=== PATIENT | male | born 1955 | race Caucasian/White ===

== ENCOUNTER → 2017-05-08 | Outpatient (CLI) | payer OTHER ==
[~2017-05-08] MED LIST: AMLO-114 PO; ASPI81TA28 PO; CHOL100010 PO; CITA20TA9 PO; LEVE1TAB57 PO; OXYC-57 PO; PRVC10 PO; RANI300T PO; TRIA0.1C20 TD
--- NOTE | 2017-05-08 15:53 | DIAGNOSTIC IMAGING REPORT ---
CAROTID DOPPLER NECK ART CLINICAL HISTORY: 62 years-old Male presenting with CAROTID ARTERY STENOSIS. TECHNIQUE: Real-time grayscale and color and spectral Doppler ultrasound imaging of the bilateral carotid arteries was performed. NASCET criteria was used in evaluating this study. COMPARISON: 05/05/2016. FINDINGS: Right: Common carotid: Atherosclerosis. Peak systolic velocity 92 cm/s. Internal carotid artery: Atherosclerosis of the proximal right ICA. Peak systolic velocity 96 cm/s. External carotid artery: Atherosclerosis. Peak systolic velocity 88 cm/s. Systolic ratio: 1.0. Left: Common carotid: Atherosclerosis. Peak systolic velocity 75 cm/s. Internal carotid artery: Atherosclerosis of the proximal left ICA. Peak systolic velocity 79 cm/s. External carotid artery: Atherosclerosis. Peak systolic velocity 167 cm/s. Systolic ratio: 1.1. Bilateral antegrade flow within the vertebral arteries. Reference ranges: Stenosis measurements are compared to reference velocity parameters. Normal ICA peak systolic velocity less than 125 cm/s. Normal ICA peak systolic velocity to common carotid artery velocity ratio is less than 2: less than 2 equates to less than 50% stenosis, 2-4 equates to 50-69% stenosis, greater than 4 equates to greater than or equal to 70% stenosis. Normal ICA end-diastolic velocity less than 40. Blood pressure Brachial: Right: 110/82 mmHg, Left: 125/75 mmHg. IMPRESSION: Atherosclerosis without hemodynamically significant stenosis seen within the carotid arteries. Electronically signed by: Waylon Marmolejo M.D. 05/08/2017 3:52 PM Dictated Date/Time: 05/08/2017 3:50 PM
== END | disposition home or self-care (01) ==
LOC: C.ULTRBC 15:11
PROVIDERS: ATTEND Surgery
DX: I65.29 Occlusion and stenosis of unspecified carotid artery (principal)

== ENCOUNTER 2018-12-26 15:40 | Inpatient (IN) ==
--- OUTSIDE RECORDS SUMMARY | 2018-12-26 15:43 | External Medical Summary | Continuity of Care Document ---
:1955 Author Name Jeniffer Dubon Address Unavailable Unavailable , Care Team Providers Name Role Phone Unavailable Unavailable Unavailable CRUZ Unavailable Unavailable Unavailable Unavailable Unavailable Problems Incisional hernia (553.21) (K43.2) Hypercholesterolemia (272.0) (E78.00) Seizures (780.39) (R56.9) Arthritis (716.90) (M19.90) Alcohol abuse (305.00) (F10.10) Diverticulitis of colon (562.11) (K57.32) Epilepsy (345.90) Hypertension (401.9) (I10) Carotid artery stenosis (433.10) (I65.29) Current every day smoker (305.1) (F17.200) Hyperlipidemia (272.4) (E78.5) Dyslipidemia (272.4) (E78.5) Allergies and Adverse Reactions No Known Allergies (Allergy) Medications raNITIdine HCl - 300 MG Oral Tablet; TAKE 1 TABLET DAILY AT BEDTIME. , M.D. Refills: 0 Pravastatin Sodium 10 MG Oral Tablet; TAKE 1 TABLET DAILY. , M.D. Refills: 0 Aspirin 81 MG TABS; TAKE 1 TABLET DAILY. , M.D. Refills: 0 amLODIPine Besylate 10 MG Oral Tablet; TAKE 1 TABLET DAILY. , M.D. Refills: 0 Citalopram Hydrobromide 20 MG Oral Tablet; TAKE 1 TABLET PATSY LY. , M.D. Refills: 0 Keppra 1000 MG Oral Tablet; TAKE 1 TABLET TWICE DAILY. , M.D . Start: 28-Mar-2015 Refills: 0 Procedures History of Partial Colectomy Status: Com pleted History of Laparoscopic Cholecystectomy With Status: Completed Cholangiography History of Knee Surgery Status: Complete d History of Rotator Cuff Repair Status: C ompleted History of Complete Colonoscopy Status: Completed 05-Apr-2015 0:00 History of Incisional Hernia Repair Stat us: Completed Immunizations Immunizations not documented Family History Father Family history of Status: Active Family history of hypertension (V17.49) (Z82.49) Status: Act lois FHx: cancer (V16.9) (Z80.9) Status: Active Mother Family history of diabetes mellitus (V18.0) (Z83.3) Status: Active Family history of cardiac disorder (V17.49) (Z82.49) Status: Active Family history of hypertension (V17.49) (Z82.49) Status: Act lois Social History - Smoking Status Current every day smoker Smoker. current status unknown Plan of Treatment Planned Observations Planned Goals not documented Results No Known Results Results not documented
[2018-12-26] MEDS ORDERED: SODIUM CHLORIDE 0.9% 1000ML 1,000 ML IV SCH (16:30)
[2018-12-26 16:35] LABS: Hematocrit (blood only) 27.7 % (42-52); Hemoglobin 10.3 g/dL (14.0-18.0); Mean Corpuscular Hgb Conc 37.2 g/dL (32-36); Mean Corpuscular Volume 94.9 fL (80-100); Mean Platelet Volume 9.9 fL (7.4-10.4); Platelet Count 261 K/uL (130-400); RDW Coefficient of Variation 13.5 % (11.5-14.5); RDW Standard Deviation 45.9 fL (36.4-46.3); Red Blood Count 2.92 M/uL (4.7-6.1); White Blood Count 8.23 K/uL (4.8-10.8)
--- NOTE | 2018-12-26 16:51 | CT Scan Report ---
HEAD CT NONCONTRAST CT DOSE: HISTORY: fall, seizure TECHNIQUE: Multiaxial CT images of the head were performed without the use of intravenous contrast. A utomated exposure control was utilized for this study. A dose lowering technique was utilized adheri ng to the principles of ALARA. Comparison: Head CT 07/05/2012. Findings: The paranasal sinuses and mastoid air cells are clear. The calvarium and skull base are int act. There is no mass, hematoma, midline shift, acute infarct. White matter hypodensity is nonspecifi c but suggestive of microvascular ischemic change. The ventricles and sulci demonstrate mild age-rela rosalba involutional changes. Impression: No acute intracranial abnormality. Atrophy and microvascular ischemic changes. Electronically signed by: Bradford Richmond M.D. 12/26/2018 4:49 PM
--- NOTE | 2018-12-26 16:56 | CT Scan Report ---
CERVICAL SPINE CT CT DOSE: 1015.12 mGy.cm HISTORY: Neck pain. fall, seizure TECHNIQUE: Multiaxial CT images of the cervical spine were performed and reformatted in the sagittal and coronal plane without the use of contrast. A dose lowering technique was utilized adhering to e principles of ALARA. COMPARISON: Cervical spine CT 10/25/2008. FINDINGS: No fractures. No subluxation. Prevertebral soft tissues and the C1-C2 interval are intact. No pneumothorax. Moderate right and severe left carotid bifurcation calcification. C1-C2 rotational i s likely due to the patient's head tilt. Large anterior osteophytes with throughout the cervical spin e. The lower anterior osteophytes are fused. Mild to moderate degenerative disc disease throughout th e cervical spine. IMPRESSION: No fractures within the cervical spine. Electronically signed by: Bradford Richmond M.D. 12/26/2018 4:55 PM
--- NOTE | 2018-12-26 17:02 | XRay Report ---
XR chest 1V portable HISTORY: fall, seizure COMPARISON: Chest 05/04/2015. FINDINGS: The lungs are clear. The heart is normal in size. No pleural effusions. No pneumothorax. Ch olecystectomy. Old, healed right-sided rib fractures. There is also an acute right lateral ninth and 10th rib fractures. IMPRESSION: Acute right lateral ninth and 10th rib fractures. No pneumothorax. Electronically signed by: Bradford Richmond M.D. 12/26/2018 5:01 PM
[2018-12-26 17:03] LABS: Basophils # (auto) 0.01 K/uL (0-0.2); Basophils % (auto) 0.1 %; Eosinophils # (auto) 0.01 K/uL (0-0.5); Eosinophils % (auto) 0.1 %; Immature Granulocytes # (auto) 0.06 K/uL (0.00-0.02); Immature Granulocytes % (auto) 0.7 %; Lymphocytes # (auto) 0.69 K/uL (1.2-3.4); Lymphocytes % (auto) 8.4 %; Monocytes # (auto) 0.62 K/uL (0.11-0.59); Monocytes % (auto) 7.5 %; Neutrophils # (auto) 6.84 K/uL (1.4-6.5); Neutrophils % (auto) 83.2 %
[2018-12-26] MEDS ORDERED: MAGNESIUM SULFATE / D5W 1 GM/100 ML BAG IV ONE ×2 (17:14→17:24)
[2018-12-26] MEDS ORDERED: MULTI-VITAMIN INFUSION 10 ML, THIAMINE HCL 100 MG, FOLIC ACID 1 MG in SODIUM CHLORIDE 0... IV SCH ×2 (17:15→22:30)
[2018-12-26 17:17] LABS: Albumin Globulin Ratio 0.5 (0.9-2); Albumin Level 2.9 gm/dl (3.4-5.0); BUN Creatinine Ratio 7.9 (10-20); Bilirubin,Total 3.8 mg/dl (0.2-1); Calcium 7.7 mg/dl (8.5-10.1); Creatinine Clr Calc Pharmacy 50.3 ml/min; Est GFR (African American) 60.1; Est GFR (Non-African American) 51.8; Globulin 5.6 gm/dl (2.5-4.0); Magnesium 0.6 mg/dl (1.8-2.4); Potassium 3.3 mmol/L (3.5-5.1); Total Protein 8.5 gm/dl (6.4-8.2); Troponin I 0.019 ng/ml (0-0.045)
[2018-12-26 17:44] LABS: Appearance Urine Clear (Clear); Bilirubin Urine Negative (Negative); Blood Urine Negative (Negative); Color Urine Dark Yellow; Glucose Urine UA Negative (Negative); Ketones Urine Trace (Negative); Leukocyte Esterase Urine Negative (Negative); Nitrite Urine Negative (Negative); Protein Urine Negative (Negative); Specific Gravity Urine 1.006 (1.000-1.030); Urobilinogen Urine Positive (Negative); pH Urine 6.5 (4.5-7.5)
--- NOTE | 2018-12-26 18:02 | Emergency Department Note ---
Entered by Camille Justin acting as a scribe for Rodolfo Mills M.D. History of Present Illness General Chief complaint: Seizure Stated complaint: SEIZURE Source: patient and family Mode of arrival: EMS History of Present Illness Onset (ago): hour(s) 6 Location: left and right (generalized) Pain Consistency: + now resolved Maximum Pain Intensity: 0 Quality: + other (seizure) Associated symptoms: + shortness of breath and + other (neck pain, numbness/tingling in lower extremities, LOC) The patient is a 63 year old male who presents to the Emergency Room with complaints of a resolved seizure that occurred at 1000am this morning. The patient's found him around 1030am this morning. He states he remember 'feeling off and then hitting the floor.' He reports loss consciousness for a s hort time and was unable to get up. His notes he has trouble walking for the last 3 weeks. He also complains of neck pain, dyspnea on exertion, and numbness and tingling in his lower extremities. He reports a history of seizures. He states he takes a baby aspirin daily. He denies any change in medications. The patient endorses heavy daily alcohol use -- last at 2200 yesterday. Home Medications Home Medications Medication Instructions Recorded Confirmed Type amlodipine 10 mg PO DAILY 12/26/18 12/26/18 History aspirin 81 mg PO DAILY 12/26/18 12/26/18 History citalopram 20 mg PO DAILY 12/26/18 12/26/18 History levetiracetam 1,000 mg PO BID 12/26/18 12/26/18 History ranitidine HCl 300 mg PO HS 12/26/18 12/26/18 History Allergies Allergy/AdvReac Type Severity Reaction Status Date / Time No Known Allergies Allergy Verified 12/26/18 16:24 Past Med/Surg History Medical History Carotid artery stenosis (Chronic) Diverticulosis (Chronic) HTN (hypertension) (Chronic) HLD (hyperlipidemia) (Chronic) Alcohol abuse (Chronic) Seizure disorder Seizure disorder (Chronic) Surgical History History of tonsillectomy and adenoidectomy (Chronic) History of shoulder surgery (Chronic) History of colon resection (Chronic) History of colostomy reversal (Chronic) History of colostomy (Chronic) S/P cholecystectomy (Chronic) Family History Father Diverticulosis Social History Preferred Language: Italian Communication Ability: Effective Reimbursement Auditor Required: No Beliefs That Will Affect Care: None Current Living Situation: Spouse Feels Safe at Home: Yes Safety Concerns: Feels Safe At This Time Smoking Status: Current every day smoker Tobacco Type: cigarettes Cigarettes Per Day: 2 Do You Dip or Chew Tobacco: No Tobacco Cessation Education Requested by Patient: No Hx Alcohol Use: Yes Alcohol type: hard liquor Hx Substance Use: No Review of Systems See HPI for pertinent positives & negatives. and A total of 10 systems reviewed and were otherwise negative Physical Exam Vital Signs Vital Signs - 24 hr 12/26/18 15:46 12/26/18 17:34 12/26/18 17:45 Temperature 36.6 C Temperature Source Oral Sepsis Recent Fever Within 48 Hours No Sepsis New/Unexplained Change in Mental Status No Sepsis Action Taken by Nursing No Action Required Pulse Rate 96 H Pulse Rate [Apical] 85 Pulse Rhythm [Apical] Irregular Respiratory Rate 17 20 Respiratory Effort / Characteristics Non-Labored Spontaneous Respiratory Depth Normal Respiratory Pattern Regular Blood Pressure 101/75 Blood Pressure [Right Arm] 97/60 L Blood Pressure Mean 83 Blood Pressure Mean [Right Arm] 72 Pulse Oximetry 99 97 Oxygen Delivery Method Room Air Room Air Room Air GENERAL: Awake, alert, in no distress, appears a bit unkept HENT: Normocephalic. Oropharynx unremarkable. Small contusion on forehead. EYES: Normal conjunctiva. Sclera non-icteric. PERRL. NECK: Supple. No nuchal rigidity. Minimal right posterior neck tenderness. RESPIRATORY: Clear to auscultation. No wheezes. Normal respiratory effort. CARDIAC: Normal rate. Irregular rhythm. Extremities warm and well perfused. GI: Soft, non-distended. Mild lower abdominal tenderness to palpation. No rebound or guarding. RECTAL: Deferred. MUSCULOSKELETAL: Atraumatic. Chest examination reveals R tenderness LOWER EXTREMITIES: Calves are equal size bilaterally and non-tender. No edema NEURO: Normal sensorium. No sensory or motor deficits noted. No facial droop. Subjective decreased sensation of the right lower leg, slight decreased left heel sensation. No slurred speech. SKIN: Warm and dry. No rash or jaundice noted. Course 1608: The patient was evaluated in room C3. A complete history and physical exam was performed. 1735: I discussed the patient's case with Elisha Harrington PA-C, [facility]. She agrees to evaluate the patient for further management and care. 1841: After further evaluation of the patient's case, I discussed his case with Dr. Sousa, Medical Radiation Tech. He agrees to evaluate the patient for further management. 1843: Repeat EKG showing ventricular tachycardia. Consultations Consultation #1: I discussed the patient's case with Elisha Harrington PA-C, [facility]. She agrees to evaluate the patient for further management and care. Time: 17:35 Consultation #2: After further evaluation of the patient's case, I discussed his case with Dr. Sousa, Medical Radiation Tech. He agrees to evaluate the patient for further management. Time: 18:41 Administered Medications Potassium Chloride/Sodium Chloride (Normal Saline W/20 Meq Kcl) 20 meq in 1,000 mls @ 100 mls/hr IV .Q10H CONNOR Stop: 12/27/18 16:14 Last Admin: 12/26/18 20:20 Dose: 100 mls/hr Documented by: [id number] Magnesium Sulfate/Dextrose (Magnesium Sulfate / D5w) 1 gm in 100 mls @ 100 mls/hr IV Q1H CONNOR Stop: 12/27/18 01:14 Last Admin: 12/26/18 21:58 Dose: 100 mls/hr Documented by: [id number] Infusion: 12/26/18 21:58 Dose: 0 mls/hr Documented by: [id number] Admin: 12/26/18 21:38 Dose: 300 mls/hr Documented by: [id number] Infusion: 12/26/18 21:38 Dose: 0 mls/hr Documented by: [id number] Infusion: 12/26/18 21:18 Dose: 300 mls/hr Documented by: [id number] Admin: 12/26/18 21:17 Dose: 100 mls/hr Documented by: [id number] Dopamine HCl/Dextrose (Dopamine / D5w) 400 mg in 250 mls @ 12.694 mls/hr IV .[id number] PRN; Protocol PRN Reason: TITRATE Stop: 01/25/19 21:25 Last Admin: 12/26/18 22:28 Dose: 5 mcg/kg/min, 12.7 mls/hr Documented by: [id number] Cosigned by: [id number] Ioversol (Optiray 320 100ml) 93 ml IV ONCE PRN PRN Reason: Interaction Checking Stop: 12/30/18 18:20 Last Admin: 12/26/18 18:21 Dose: 93 ml Documented by: [id number] Discontinued Medications Amiodarone HCl (Cordarone Iv Bolus / Drip) 1 ea IV NOW STA; Protocol Stop: 12/26/18 18:40 Last Admin: 12/26/18 19:59 Dose: Not Given Documented by: [id number] Sodium Chloride (Nss 1000ml) 1,000 mls @ 999 mls/hr IV .Q1H1M CONNOR Stop: 12/26/18 17:30 Last Infusion: 12/26/18 18:08 Dose: 0 mls/hr Documented by: [id number] Admin: 12/26/18 16:31 Dose: 999 mls/hr Documented by: [id number] Magnesium Sulfate/Dextrose (Magnesium Sulfate / D5w) 1 gm in 100 mls @ 100 mls/hr IV ONE ONE Stop: 12/26/18 18:13 Last Infusion: 12/26/18 18:35 Dose: 0 mls/hr Documented by: [id number] Admin: 12/26/18 17:31 Dose: 100 mls/hr Documented by: [id number] Multivitamins 10 ml/ Thiamine HCl 100 mg/ Folic Acid 1 mg/Sodium Chloride 1,011.2 mls @ 1,011.2 mls/hr IV .Q1H CONNOR Stop: 12/26/18 18:14 Last Infusion: 12/26/18 18:43 Dose: 0 mls/hr Documented by: [id number] Admin: 12/26/18 17:30 Dose: 1,011.2 mls/hr Documented by: [id number] Magnesium Sulfate/Dextrose (Magnesium Sulfate / D5w) 1 gm in 100 mls @ 100 mls/hr IV ONE ONE Stop: 12/26/18 18:23 Last Infusion: 12/26/18 19:59 Dose: 0 mls/hr Documented by: [id number] Admin: 12/26/18 18:35 Dose: 240 mls/hr Documented by: [id number] Lorazepam (Ativan) 2 mg in 4 mls @ 4 mls/min IV NOW STA Stop: 12/26/18 18:32 Last Admin: 12/26/18 18:42 Dose: Not Given Documented by: [id number] Amiodarone HCl/Dextrose (Nexterone / D5w) 360 mg in 200 mls @ 33.333 mls/hr IV .Q6H CONNOR Stop: 12/27/18 00:44 Last Infusion: 12/26/18 19:09 Dose: 0 mg/min, 0 mls/hr Documented by: [id number] Cosigned by: [id number] Admin: 12/26/18 19:00 Dose: 1 mg/min, 33.3 mls/hr Documented by: [id number] Cosigned by: [id number] Magnesium Sulfate/Dextrose (Magnesium Sulfate / D5w) 1 gm in 100 mls @ 300 mls/hr IV Q1H CONNOR Stop: 12/26/18 20:04 Last Infusion: 12/26/18 20:17 Dose: 0 mls/hr Documented by: [id number] Admin: 12/26/18 19:53 Dose: 300 mls/hr Documented by: [id number] Infusion: 12/26/18 19:52 Dose: 0 mls/hr Documented by: [id number] Admin: 12/26/18 18:54 Dose: 300 mls/hr Documented by: [id number] Amiodarone HCl/Dextrose (Nexterone / D5w) 150 mg in 100 mls @ 600 mls/hr IV ONE STA Stop: 12/26/18 18:48 Last Infusion: 12/26/18 20:00 Dose: 0 mls/hr Documented by: [id number] Cosigned by: [id number] Admin: 12/26/18 18:53 Dose: 600 mls/hr Documented by: [id number] Cosigned by: [id number] Lorazepam (Ativan) Confirm Administered Dose 2 mg .ROUTE .STK-MED ONE Stop: 12/26/18 18:28 Last Admin: 12/26/18 18:29 Dose: 2 mg Documented by: [id number] Medical Decision Making Differential Diagnosis Etiologies such as infection, hypoglycemia, electrolyte abnormalities, cardiac sources, intracerebral event, trauma, toxicologic, neurologic, metabolic, infection, hypo/hyperglycemia, electrolyte abnormalities, cardiac sources, intracerebral event, toxicologic, neurologic, fracture, intracranial bleed, as well as others were entertained. Medical Records Attestation: I reviewed the patient's medical records. Home Medications Current Medication List: was personally reviewed by me Laboratory Data Attestation: I reviewed the patient's lab results. Result diagrams: 12/26/18 16:09 12/26/18 16:09 Lab Results 12/26/18 12/26/18 12/26/18 Range/Units 16:09 16:09 16:09 WBC 8.23 (4.8-10.8) K/uL RBC 2.92 L (4.7-6.1) M/uL Hgb 10.3 L (14.0-18.0) g/dL Hct 27.7 L (42-52) % MCV 94.9 (80-100) fL MCH 35.3 H (25-34) pg MCHC 37.2 H (32-36) g/dL RDW Std Deviation 45.9 (36.4-46.3) fL RDW Coeff of Emil 13.5 (11.5-14.5) % Plt Count 261 (130-400) K/uL MPV 9.9 (7.4-10.4) fL Immature Gran % (Auto) 0.7 % Neut % (Auto) 83.2 % Lymph % (Auto) 8.4 % Emanuel % (Auto) 7.5 % Eos % (Auto) 0.1 % Baso % (Auto) 0.1 % Immature Gran # (Auto) 0.06 H (0.00-0.02) K/uL Neut # (Auto) 6.84 H (1.4-6.5) K/uL Lymph # (Auto) 0.69 L (1.2-3.4) K/uL Emanuel # (Auto) 0.62 H (0.11-0.59) K/uL Eos # (Auto) 0.01 (0-0.5) K/uL Baso # (Auto) 0.01 (0-0.2) K/uL PT 13.3 H (9.0-12.0) Seconds INR 1.3 H (0.9-1.1) APTT 26.5 (21.0-31.0) Seconds PTT Ratio 1.0 Sodium 127 L (136-145) mmol/L Potassium 3.3 L (3.5-5.1) mmol/L Chloride 84 L (98-107) mmol/L Carbon Dioxide 21 (21-32) mmol/L Anion Gap 23.0 H (3-11) BUN 11 (7-18) mg/dl Creatinine 1.42 H (0.6-1.4) mg/dl Est Cr Clr Drug Dosing 50.3 ml/min Est GFR ( Amer) 60.1 Est GFR (Non-Af Amer) 51.8 BUN/Creatinine Ratio 7.9 L (10-20) Glucose 88 (70-99) mg/dl Calcium 7.7 L (8.5-10.1) mg/dl Phosphorus (2.5-4.9) mg/dl Magnesium 0.6 L* (1.8-2.4) mg/dl Total Bilirubin 3.8 H (0.2-1) mg/dl AST 166 H (15-37) U/L ALT 49 (12-78) U/L Alkaline Phosphatase 96 (45-117) U/L Troponin I 0.019 (0-0.045) ng/ml Total Protein 8.5 H (6.4-8.2) gm/dl Albumin 2.9 L (3.4-5.0) gm/dl Globulin 5.6 H (2.5-4.0) gm/dl Albumin/Globulin Ratio 0.5 L (0.9-2) TSH 1.330 (0.300-4.500) uIu/ml Prolactin ng/ml Urine Color Urine Appearance (Clear) Urine pH (4.5-7.5) Ur Specific [place] (1.000-1.030) Urine Protein (Negative) Urine Glucose (UA) (Negative) Urine Ketones (Negative) Urine Blood (Negative) Urine Nitrite (Negative) Urine Bilirubin (Negative) Urine Urobilinogen (Negative) Ur Leukocyte Esterase (Negative) Urine Opiates Screen (Neg) Ur Methadone, Qual (Neg) Urine Barbiturates (Neg) Ur Phencyclidine (PCP) (Neg) U Amphetamin/Meth Scrn (Neg) MDMA (Ecstasy) Screen (Neg) U Benzodiazepines Scrn (Neg) Ur Cocaine Metabolite (Neg) U Marijuana (THC) Screen (Neg) Ethyl Alcohol mg/dL (0-3) mg/dl Hepatitis C Ab Screen (Neg) 12/26/18 12/26/18 12/26/18 Range/Units 16:09 16:09 16:31 WBC (4.8-10.8) K/uL RBC (4.7-6.1) M/uL Hgb (14.0-18.0) g/dL Hct (42-52) % MCV (80-100) fL MCH (25-34) pg MCHC (32-36) g/dL RDW Std Deviation (36.4-46.3) fL RDW Coeff of Emil (11.5-14.5) % Plt Count (130-400) K/uL MPV (7.4-10.4) fL Immature Gran % (Auto) % Neut % (Auto) % Lymph % (Auto) % Emanuel % (Auto) % Eos % (Auto) % Baso % (Auto) % Immature Gran # (Auto) (0.00-0.02) K/uL Neut # (Auto) (1.4-6.5) K/uL Lymph # (Auto) (1.2-3.4) K/uL Emanuel # (Auto) (0.11-0.59) K/uL Eos # (Auto) (0-0.5) K/uL Baso # (Auto) (0-0.2) K/uL PT (9.0-12.0) Seconds INR (0.9-1.1) APTT (21.0-31.0) Seconds PTT Ratio Sodium (136-145) mmol/L Potassium (3.5-5.1) mmol/L Chloride (98-107) mmol/L Carbon Dioxide (21-32) mmol/L Anion Gap (3-11) BUN (7-18) mg/dl Creatinine (0.6-1.4) mg/dl Est Cr Clr Drug Dosing ml/min Est GFR ( Amer) Est GFR (Non-Af Amer) BUN/Creatinine Ratio (10-20) Glucose (70-99) mg/dl Calcium (8.5-10.1) mg/dl Phosphorus 2.4 L (2.5-4.9) mg/dl Magnesium (1.8-2.4) mg/dl Total Bilirubin (0.2-1) mg/dl AST (15-37) U/L ALT (12-78) U/L Alkaline Phosphatase (45-117) U/L Troponin I (0-0.045) ng/ml Total Protein (6.4-8.2) gm/dl Albumin (3.4-5.0) gm/dl Globulin (2.5-4.0) gm/dl Albumin/Globulin Ratio (0.9-2) TSH (0.300-4.500) uIu/ml Prolactin 12.17 ng/ml Urine Color Urine Appearance (Clear) Urine pH (4.5-7.5) Ur Specific [place] (1.000-1.030) Urine Protein (Negative) Urine Glucose (UA) (Negative) Urine Ketones (Negative) Urine Blood (Negative) Urine Nitrite (Negative) Urine Bilirubin (Negative) Urine Urobilinogen (Negative) Ur Leukocyte Esterase (Negative) Urine Opiates Screen (Neg) Ur Methadone, Qual (Neg) Urine Barbiturates (Neg) Ur Phencyclidine (PCP) (Neg) U Amphetamin/Meth Scrn (Neg) MDMA (Ecstasy) Screen (Neg) U Benzodiazepines Scrn (Neg) Ur Cocaine Metabolite (Neg) U Marijuana (THC) Screen (Neg) Ethyl Alcohol mg/dL < 3.0 (0-3) mg/dl Hepatitis C Ab Screen Neg (Neg) 12/26/18 12/26/18 Range/Units 17:36 17:36 WBC (4.8-10.8) K/uL RBC (4.7-6.1) M/uL Hgb (14.0-18.0) g/dL Hct (42-52) % MCV (80-100) fL MCH (25-34) pg MCHC (32-36) g/dL RDW Std Deviation (36.4-46.3) fL RDW Coeff of Emil (11.5-14.5) % Plt Count (130-400) K/uL MPV (7.4-10.4) fL Immature Gran % (Auto) % Neut % (Auto) % Lymph % (Auto) % Emanuel % (Auto) % Eos % (Auto) % Baso % (Auto) % Immature Gran # (Auto) (0.00-0.02) K/uL Neut # (Auto) (1.4-6.5) K/uL Lymph # (Auto) (1.2-3.4) K/uL Emanuel # (Auto) (0.11-0.59) K/uL Eos # (Auto) (0-0.5) K/uL Baso # (Auto) (0-0.2) K/uL PT (9.0-12.0) Seconds INR (0.9-1.1) APTT (21.0-31.0) Seconds PTT Ratio Sodium (136-145) mmol/L Potassium (3.5-5.1) mmol/L Chloride (98-107) mmol/L Carbon Dioxide (21-32) mmol/L Anion Gap (3-11) BUN (7-18) mg/dl Creatinine (0.6-1.4) mg/dl Est Cr Clr Drug Dosing ml/min Est GFR ( Amer) Est GFR (Non-Af Amer) BUN/Creatinine Ratio (10-20) Glucose (70-99) mg/dl Calcium (8.5-10.1) mg/dl Phosphorus (2.5-4.9) mg/dl Magnesium (1.8-2.4) mg/dl Total Bilirubin (0.2-1) mg/dl AST (15-37) U/L ALT (12-78) U/L Alkaline Phosphatase (45-117) U/L Troponin I (0-0.045) ng/ml Total Protein (6.4-8.2) gm/dl Albumin (3.4-5.0) gm/dl Globulin (2.5-4.0) gm/dl Albumin/Globulin Ratio (0.9-2) TSH (0.300-4.500) uIu/ml Prolactin ng/ml Urine Color Dark Yellow Urine Appearance Clear (Clear) Urine pH 6.5 (4.5-7.5) Ur Specific [place] 1.006 (1.000-1.030) Urine Protein Negative (Negative) Urine Glucose (UA) Negative (Negative) Urine Ketones Trace H (Negative) Urine Blood Negative (Negative) Urine Nitrite Negative (Negative) Urine Bilirubin Negative (Negative) Urine Urobilinogen Positive H (Negative) Ur Leukocyte Esterase Negative (Negative) Urine Opiates Screen Neg (Neg) Ur Methadone, Qual Neg (Neg) Urine Barbiturates Neg (Neg) Ur Phencyclidine (PCP) Neg (Neg) U Amphetamin/Meth Scrn Neg (Neg) MDMA (Ecstasy) Screen Neg (Neg) U Benzodiazepines Scrn Neg (Neg) Ur Cocaine Metabolite Neg (Neg) U Marijuana (THC) Screen Neg (Neg) Ethyl Alcohol mg/dL (0-3) mg/dl Hepatitis C Ab Screen (Neg) Imaging Data Radiologist's Impression: Radiology results as stated below per my review and the radiologist's interpretation: XR chest 1V portable HISTORY: fall, seizure COMPARISON: Chest 05/04/2015. FINDINGS: The lungs are clear. The heart is normal in size. No pleural effusions. No pneumothorax. Cholecystectomy. Old, healed right-sided rib fractures. There is also an acute right lateral ninth and 10th rib fractures. IMPRESSION: Acute right lateral ninth and 10th rib fractures. No pneumothorax. Electronically signed by: Bradford Richmond M.D. 12/26/2018 5:[address] CT DOSE: HISTORY: fall, seizure TECHNIQUE: Multiaxial CT images of the head were performed without the use of intravenous contrast. Automated exposure control was utilized for this study. A dose lowering technique was utilized adhering to the principles of ALARA. Comparison: Head CT 07/05/2012. Findings: The paranasal sinuses and mastoid air cells are clear. The calvarium and skull base are intact. There is no mass, hematoma, midline shift, acute infarct. White matter hypodensity is nonspecific but suggestive of microvascular ischemic change. The ventricles and sulci demonstrate mild age-related involutional changes. Impression: No acute intracranial abnormality. Atrophy and microvascular ischemic changes. Electronically signed by: Bradford Richmond M.D. 12/26/2018 4:[address] DOSE: 1015.12 mGy.cm HISTORY: Neck pain. fall, seizure TECHNIQUE: Multiaxial CT images of the cervical spine were performed and ref ormatted in the sagittal and coronal plane without the use of contrast. A dose lowering technique was utilized adhering to the principles of ALARA. COMPARISON: Cervical spine CT 10/25/2008. FINDINGS: No fractures. No subluxation. Prevertebral soft tissues and the C1-C2 interval are intact. No pneumothorax. Moderate right and severe left carotid bifurcation calcification. C1-C2 rotational is likely due to the patient's head tilt. Large anterior osteophytes with throughout the cervical spine. The lower anterior osteophytes are fused. Mild to moderate degenerative disc disease throughout the cervical spine. IMPRESSION: No fractures within the cervical spine. Electronically signed by: Bradford Richmond M.D. 12/26/2018 4:55 PM. ADDENDUM There are 2 subcentimeter nodules within the lungs with the largest measuring 4 mm. Please refer to the chart below for recommended follow-up. Please refer to below summary of Fleischner criteria recommendations for follow- up of incidental CT nodules (Alyce Garcia, Guidelines for management of small pulmonary nodules detected on CT scans: A statement from the Fleischner Society, Radiology 237: [phone].) SOLID NODULES Solitary nodule size: <6 mm * Low risk patients: no follow-up needed * high risk patients: optional CT at 12 months Solitary nodule size: 6-8 mm * Low risk patients: follow-up at 6-12 months, then consider further follow-up at 18-24 months * high risk patients: initial follow-up CT at 6-12 months and then at 18-24 months if no change Solitary nodule size: >8 mm * either low or high risk patients - consider follow-up CT at 3 months, and/or CT-PET, and/or biopsy Multiple nodules size: <6 mm * Low risk patients: no routine follow-up * high risk patients: optional CT at 12 months Multiple nodules size: 6-8 mm * Low risk patients: follow-up at 3-6 months, then consider further follow-up at 18-24 months * high risk patients: follow-up at 3-6 months, then at 18-24 months if no change Multiple nodules size: >8 mm * Low risk patients: follow-up at 3-6 months, then consider further follow-up at 18-24 months * high risk patients: follow-up at 3-6 months, then at 18-24 months if no change Note: newly detected indeterminate nodule in persons 35 years of age or older. * Low risk patients: minimal or absent history of smoking and/or other known risk factors * high risk patients: history of smoking or of other known risk factors (e.g. first degree relative with lung cancer, or exposure to asbestos, radon, uranium) * if a nodule up to 8 mm is partly solid or is ground glass further follow-up is required after 24 months to exclude possible slow growing adenocarcinoma (JJ) SUBSOLID NODULES Solitary pure ground-glass nodule * nodule size <6 mm - no CT follow-up required * nodule size >=6 mm - follow-up CT at 6-12 months, then every 2 years until 5 years Solitary part-solid nodule * nodule size <6 mm - no CT follow-up required * nodule size >=6 mm - follow-up CT at 3-6 months. If unchanged, and solid component remains <6 mm, then annual follow-up for 5 years Multiple subsolid nodules ADDENDUM END CHEST, ABDOMEN, AND PELVIS CT WITH CONTRAST CT DOSE: HISTORY: Right chest and flank pain. fall, rib frx TECHNIQUE: Multiaxial CT images of the chest, abdomen, pelvis were performed following the intravenous administration of contrast. A dose lowering technique was utilized adhering to the principles of ALARA. COMPARISON: None. FINDINGS: Mild emphysema. No pneumothorax. Small amount of mucoid material within the trachea. Otherwise, the central airways are patent. No pleural effusions. A 4 mm groundglass nodule within the left lung apex on image 54. A 3 mm nodule within the right lung apex on image 56. No focal lung consolidations. Normal caliber thoracic aorta with no evidence for dissection. The heart is normal in size. The main pulmonary arteries are patent. Small focal indentation within the superior endplate of T12 may represent a subacute fracture. This is appreciated on the same day thoracic spine CT. Normal esophagus. No mediastinal or hilar lymphadenopathy. Old, healed bilateral rib fractures. There are also acute right lateral ninth and 10th rib fractures. There appears to be an acute lateral eighth rib fracture. No pneumoperitoneum. No pneumatosis. No additional fractures identified within the abdomen or pelvis. A 2 cm diverticulum at the second portion of the duodenum. Cholecystectomy. Hepatic steatosis. The adrenal glands, spleen, and pancreas are unremarkable. A few bilateral renal hypodense lesions. The majorities are subcentimeter in size and too small to characterize. Dominant left upper pole lesion measures 3.4 cm and is consistent with a cyst. Mild fullness within the bilateral renal collecting systems without tony hydronephrosis. This may be due to the moderately distended bladder. Calcified plaque within the aorta and proximal renal and mesenteric vessels. A 3.7 x 3.4 cm infrarenal abdominal aortic aneurysm. No retroperitoneal lymphadenopathy. Prior mesh repair of a midline ventral hernia. No retroperitoneal hematoma. Heav lloyd calcified bilateral iliac arteries with multifocal stenosis. Prior rectosigmoid anastomosis. Colonic diverticula. No evidence for diverticulitis. No bowel wall thickening or obstruction. No pelvic free fluid. IMPRESSION: 1. Acute bilateral rib fractures as described above. No pneumothorax. 2. Redemonstration of a small focal indentation within the superior endplate of T12 which may represent a subacute fracture. This is better appreciated on the same day thoracic spine CT. 3. A 3.7 x 3.4 cm infrarenal abdominal aortic aneurysm. 4. Moderately distended bladder. Recommend catheterization. This likely accounts for the mild fullness within the bilateral renal collecting systems. 5. Additional findings as described above. Electronically signed by: Bradford Richmond M.D. 12/26/2018 6:44 PM. THORACIC AND LUMBAR SPINE CT CT DOSE: 474.39 mGy.cm HISTORY: Back pain. fall TECHNIQUE: Multiaxial CT images of the thoracic and lumbar spine were performed and reformatted in the sagittal and coronal plane without the use of contrast. A dose lowering technique was utilized adhering to the principles of ALARA. COMPARISON: None. FINDINGS: Small focal acute superior endplate compression fracture at T12. This involves the right anterior superior endplate and appears to be subacute. This could also represent a Schmorl's node with an old fracture. This demonstrates less than 10% loss of height. No acute fracture or subluxation within the lumbar spine. Moderate disc space narrowing at L4-5 and mild to moderate disc space narrowing at L5-S1. Mild facet degenerative changes seen within the lower lumbar spine.. IMPRESSION: 1. Small focal acute superior endplate compression fracture at T12. This involves the right anterior superior endplate and appears to be subacute. This could also represent a Schmorl's node with an old fracture. Correlate for pain at this location to assess for an acute injury. 2. No acute fracture or subluxation within the lumbar spine. Electronically signed by: Bradford Richmond M.D. 12/26/2018 6:31 PM ECG Data Attestation: I personally reviewed and interpreted this ECG as follows: Indication: weakness Rate (beats per minute): 93 Rhythm: sinus rhythm Findings: + other (prolong QTC, lateral ST segment flattening ) and + PAC; no ST elevation Blood Pressure Blood Pressure Findings: Low blood pressure Blood Pressure Disposition: further management by hospitalist GLORIA Power Patient is a 63-year-old gentleman with a history of seizures, diverticulitis, GERD, and reported alcohol use presenting today after a seizure. States around 10:00 or so this morning he felt a prodromal onset of the seizure. Unsure exactly how it lasted but his mother found him. He did not want come to the hospital. States compliance with his Keppra. States he did fall to the floor. Does have a small bruise on his forehead. Complains of little bit of neck pain. Has been having increased dyspnea on exertion and lower extremity numbness over the past several weeks. States he does have some back pain has been chronic. Denies any urinary or bladder issues. Denies any incontinence or saddle anesthesia. No significant tenderness on exam of the extremities. CT of the head and neck was completed. Chest x-ray and EKG and basic labs are completed. While here patient has had multiple episodes of nonsustained tach less than 8 beats and is been asymptomatic. Multiple episodes of this and his EKG does show evidence of QT prolongation. Ordered magnesium empircally initially along with folate/thiamine. Patient does endorse heavy daily alcohol use with again decreased p.o. intake. Last drink around 10:00p last night. Does not appear tony withdrawal but has had worsening episodes of heart ectopy and nonsustained V. tach. Patient is undetectable alcohol level. Mild anemia without leukocytosis. Patient has hyponatremia with a sodium of 127, slight hypokalemia 3.3, significant hypomagnesemia at 0.6. Chest x-ray shows right-sided rib fractures without evidence of pneumothorax or hemothorax.. CT of the head and cervical spine shows no acute intracranial bleed or cervical fracture. Ct imaging of his chest abdomen pelvis and spine were completed. Evidence of R 9/10 rib frx and distended bladder. T12 endplate frx noted. Given the severe hypomagnesemia again replaced was initiated believe he requires admission to the hospital for further cardiac monitoring and supplementation. Discussed with the [facility] hospitalist. Patient was noted to have several additional episodes of first thought to be a brief seizure given 2 mg of Ativan. Had another several brief episodes again maybe 15 to 20 seconds and on telemetry it seems that has been going into V. tach or torsades during these periods. Self resolving but patient change in mental status during. On code cart monitor with pads. Repeat EKG did show what appears to be V. tach that is again intermittent in nature and spontaneously breaking.. Accelerated magnesium loading and given amiodarone bolus & ICU was contacted. Impression & Plan Hypomagnesemia, Fracture of two ribs of right side, Non-sustained ventricular tachycardia Critical Care Time I have personally spent 45 minutes of critical care time in the direct management of this patient. This includes bedside care, interpretation of diagnostic studies, and testing, discussion with consultants, patient, and family members, and other required patient management activities. This 45 minutes is in excess of all separately billable procedures. Critical Care Time: Yes Total Critical Care Time: 45 Discharge Plan Visit Data *Final* Discharge Date/Time: 12/26/18 19:25 Chief Complaint: Seizure Stated Complaint: SEIZURE ED Provider: Rodolfo Mills Discharge Problem: Hypomagnesemia, Fracture of two ribs of right side, Non-sustained ventricular tachycardia Patient Disposition: Admitted As Inpatient Discharge Instructions Interventions: ED Discharge Assessment Last Done: 12/26/18 19:25 Discharge Problem: Fracture of two ribs of right side Qualifiers: Encounter type: initial encounter Fracture type: closed Qualified Code(s): S22.41XA - Multiple fractures of ribs, right side, initial encounter for closed fracture The scribe's documentation has been prepared under my direction and personally reviewed by me in its entirety. I confirm that the note above accurately reflects all work, treatment, procedures, and medical decision making performed by me.
[2018-12-26 18:03] LABS: Amphetamines+Metham, Urine Neg (Neg); Barbiturates, Urine Neg (Neg); Benzodiazepine, Urine Neg (Neg); Cocaine, Urine Neg (Neg); MDMA (Ecstacy), Urine Neg (Neg); Methadone, Urine Neg (Neg); Opiate, Urine Neg (Neg); Phencyclidine, Urine Neg (Neg)
[2018-12-26] MEDS ORDERED: POTASSIUM CHLORIDE 20 MEQ TABCR PO STA ×2 (18:15→23:00)
[2018-12-26] MEDS ORDERED: IOVERSOL 100ml IV PRN (18:21)
[2018-12-26] MEDS ORDERED: LORazepam 2 MG/ML VIAL (IM USE) ONE (18:27)
[2018-12-26] MEDS ORDERED: LORazepam 2 MG/4 ML VIAL IV STA (18:31)
--- NOTE | 2018-12-26 18:32 | CT Scan Report ---
THORACIC AND LUMBAR SPINE CT CT DOSE: 474.39 mGy.cm HISTORY: Back pain. fall TECHNIQUE: Multiaxial CT images of the thoracic and lumbar spine were performed and reformatted in th e sagittal and coronal plane without the use of contrast. A dose lowering technique was utilized adh ering to the principles of ALARA. COMPARISON: None. FINDINGS: Small focal acute superior endplate compression fracture at T12. This involves the right an terior superior endplate and appears to be subacute. This could also represent a Schmorl's node with an old fracture. This demonstrates less than 10% loss of height. No acute fracture or subluxation wit hin the lumbar spine. Moderate disc space narrowing at L4-5 and mild to moderate disc space narrowing at L5-S1. Mild facet degenerative changes seen within the lower lumbar spine.. IMPRESSION: 1. Small focal acute superior endplate compression fracture at T12. This involves the right anterior superior endplate and appears to be subacute. This could also represent a Schmorl's node with an old fracture. Correlate for pain at this location to assess for an acute injury. 2. No acute fracture or subluxation within the lumbar spine. Electronically signed by: Bradford Richmond M.D. 12/26/2018 6:31 PM
[2018-12-26] MEDS ORDERED: AMIODARONE / D5W 150 MG/100 ML BAG IV STA (18:39)
[2018-12-26] MEDS ORDERED: AMIODARONE IV BOLUS / DRIP IV STA (18:39)
[2018-12-26] MEDS ORDERED: AMIODARONE / D5W 360 MG/200 ML BAG IV SCH (18:45)
--- NOTE | 2018-12-26 18:46 | CT Scan Report ---
CHEST, ABDOMEN, AND PELVIS CT WITH CONTRAST CT DOSE: HISTORY: Right chest and flank pain. fall, rib frx TECHNIQUE: Multiaxial CT images of the chest, abdomen, pelvis were performed following the intravenou s administration of contrast. A dose lowering technique was utilized adhering to the principles of A JUSTIN. COMPARISON: None. FINDINGS: Mild emphysema. No pneumothorax. Small amount of mucoid material within the trachea. Otherw ise, the central airways are patent. No pleural effusions. A 4 mm groundglass nodule within the left lung apex on image 54. A 3 mm nodule within the right lung apex on image 56. No focal lung consolidat ions. Normal caliber thoracic aorta with no evidence for dissection. The heart is normal in size. The main pulmonary arteries are patent. Small focal indentation within the superior endplate of T12 may represent a subacute fracture. This is appreciated on the same day thoracic spine CT. Normal esophagu s. No mediastinal or hilar lymphadenopathy. Old, healed bilateral rib fractures. There are also acute right lateral ninth and 10th rib fractures. There appears to be an acute lateral eighth rib fracture . No pneumoperitoneum. No pneumatosis. No additional fractures identified within the abdomen or pelvis. A 2 cm diverticulum at the second portion of the duodenum. Cholecystectomy. Hepatic steatosis. The a drenal glands, spleen, and pancreas are unremarkable. A few bilateral renal hypodense lesions. The ma jorities are subcentimeter in size and too small to characterize. Dominant left upper pole lesion chicho sures 3.4 cm and is consistent with a cyst. Mild fullness within the bilateral renal collecting syste ms without tony hydronephrosis. This may be due to the moderately distended bladder. Calcified plaqu e within the aorta and proximal renal and mesenteric vessels. A 3.7 x 3.4 cm infrarenal abdominal aor tic aneurysm. No retroperitoneal lymphadenopathy. Prior mesh repair of a midline ventral hernia. No r etroperitoneal hematoma. Heavily calcified bilateral iliac arteries with multifocal stenosis. Prior r ectosigmoid anastomosis. Colonic diverticula. No evidence for diverticulitis. No bowel wall thickenin g or obstruction. No pelvic free fluid. IMPRESSION: 1. Acute bilateral rib fractures as described above. No pneumothorax. 2. Redemonstration of a small focal indentation within the superior endplate of T12 which may represe nt a subacute fracture. This is better appreciated on the same day thoracic spine CT. 3. A 3.7 x 3.4 cm infrarenal abdominal aortic aneurysm. 4. Moderately distended bladder. Recommend catheterization. This likely accounts for the mild fullnes s within the bilateral renal collecting systems. 5. Additional findings as described above. Electronically signed by: Bradford Richmond M.D. 12/26/2018 6:44 PM
[2018-12-26] MEDS: MAGNESIUM SULFATE / D5W 1 GM/100 ML BAG IV SCH ×6 (18:54→22:58)
[2018-12-26 19:02] LABS: INR 1.3 (0.9-1.1); Partial Thromboplastin Time 26.5 Seconds (21.0-31.0); Prothrombin Time 13.3 Seconds (9.0-12.0)
[2018-12-26 19:38] LABS: Prolactin 12.17 ng/ml
[2018-12-26] MEDS ORDERED: LORazepam 1 MG TAB PO PRN (19:48)
[2018-12-26] MEDS ORDERED: POLYETHYLENE (MIRALAX) 17 GM PACK PO PRN (19:48)
[2018-12-26] MEDS ORDERED: GABAPENTIN 1200MG ALCOHOL WITHDRAWAL LOAD PO STA (19:48)
[2018-12-26] MEDS ORDERED: ALUMINUM/MAGNESIUM SUSP 30 ML UDC PO PRN (19:48)
[2018-12-26] MEDS ORDERED: MAGNESIUM HYDROXIDE SUSP 30 ML UDC PO PRN (19:48)
[2018-12-26] MEDS ORDERED: ICU PROTOCOL FOR HYPERGLYCEMIA PRN ×2 (20:13→21:11)
[2018-12-26 20:17] LABS: Act87 Hepatitis C IgG Screen Neg (Neg)
[2018-12-26] MEDS: NSS + 20MEQ KCL 20 MEQ/1,000 ML BAG IV SCH (20:20)
[2018-12-26] MEDS ORDERED: GABAPENTIN 600 MG TAB PO ONE (20:30)
[2018-12-26] MEDS ORDERED: MAGNESIUM SULFATE / D5W 1 GM/100 ML BAG IV SCH (20:55)
--- NOTE | 2018-12-26 21:01 | History & Physical Report ---
Date of Service December 26, 2018 Assessment & Plan (1) Weakness: (2) Torsades de pointes: (3) Electrolyte abnormality: (4) Hypomagnesemia: This is a 63-year-old male who has a significant PMH of seizure disorder, alcohol abuse, HTN, HLD, carotid artery stenosis, diverticulosis who presented to [facility] secondary to seizure x2 and weakness x1 week. During patient's evaluation in ED he was noted to have significant electrolyte abnormalities including magnesium of 0.6, sodium 127, potassium 3.3. Renal function elevated at BUN 11 creatinine 1.42. His H&H was 10.3 and 27.7, W BC 8.23, platelet 261. His anion gap was 13. Urine tox negative, alcohol level less than 3.0 his TSH was within normal limits. LFTs elevated specifically T bili 3.8, AST 166. Keppra level pending. Initial chest x-ray revealed right lateral ninth and 10th rib fractures. Head CT negative for acute abnormality but did reveal atrophy and chronic microvascular changes. CT of neck was negative Given rib fractures as well as abnormal LFTs patient was sent for further scans including CT scan of chest abdomen and pelvis. This revealed significantly distended bladder recommending Baird catheterization. A Baird was placed. Further revealed a T12 endplate compression fracture, 2 incidental groundglass pulmonary nodules, infrarenal abdominal aortic aneurysm 3.7 x 3.4 cm. Unfortunately during my evaluation it was brought to my attention that on telemetry patient was experiencing short runs of nonsustained V. tach. This then progressed to a nonsustained torsades rhythm. Case was discussed with the ED provider Dr. Mills as well as stitcher operator Dr. Oakes. Aggressive magnesium repletion recommended giving notable arrhythmia. Pt admitted to ICU, please defer to stitcher operator consultation for further assessment and treatment plan Cardiology and Neurology consulted for a.m. (5) TEQUILA (acute kidney injury): Creatinine on admission was 1.42 Baseline from previous labs creatinine 0.5 (approximately 2 years ago) Question secondary to hypovolemia versus obstructive uropathy CT scan revealing significantly distended bladder and Baird catheter was placed Trend BMP (6) Hyponatremia: Likely in setting of ETOH abuse Continue IV fluid repletion Monitor BMP (7) Alcohol abuse: AWSS ETOH protocol ordered with gabapentin taper PRN lorazepam Folic Acid and Thiamine added to medication regimen (8) Seizure disorder: Patient has history of seizure disorder on Keppra He reports episode of seizure today and 3 days ago. His history is very unreliable and appears more consistent with frequent falling as opposed to seizure. Question if not more related to cardiac/arrhythmia as opposed to seizure Prolactin level normal We will continue Keppra and await Keppra level Consult neurology Obtain EEG and monitor (9) Ribs, multiple fractures: Fracture of right lateral eighth, ninth, and 10th rib Conservative management Incentive spirometry Analgesia (10) Thoracic compression fracture: Patient currently not complaining of back pain Recommend conservative management with analgesics Consult PT/OT when stable (11) HTN (hypertension): Blood pressure currently labile Hold amlodipine until reevaluated in a.m. (12) HLD (hyperlipidemia): Patient currently not on statin Check Lipid panel in a.m. (13) Alcoholic liver disease: Patient with history of alcohol abuse Abd CT reveals Hepatic Steatosis Total bili 3.8, AST 166, INR 1.3 Obtain liver ultrasound Recommend request GI consultation in a.m. (14) AAA (abdominal aortic aneurysm) without rupture: 3.7 x 3.4 cm infrarenal abdominal aortic aneurysm Recommend routine follow-up per PCP (15) Pulmonary nodules: Per Fleischner criteria for multiple nodules less than [address] scan in 12 months. (16) DVT prophylaxis: SCDS/Heparin Disposition: to be determined, case management consulted Follow-up: PCP Dr. Luna, has not had routine follow up in few years; As well as appropriate follow up with specialists Patient was seen and examined in collaboration with Dr. Martins, please see addendum History of Present Illness Chief Complaint: Seizure x 2; weakness x 1 week. Primary Care Provider: Angela Luna MD This is a 63-year-old male who has a significant PMH of seizure disorder, alcohol abuse, HTN, HLD, carotid artery stenosis, diverticulosis who presented to [facility] secondary to seizure x2 and weakness x1 week. Patient states he was walking into his living room whenever he fell and had a, "seizure." He states he never lost consciousness, no loss of bowel or bladder, no convulsions. He states he just fell. He has been having frequent falls. His last, "seizure," was 3 days ago and again was described as him falling. Patient is a known alcoholic which he states he drinks 3-4 vodkas a day. Last alcoholic beverage was 10 PM last evening. He currently denies any pain except chronic back pain with associated numbness and tingling to his bilateral lower extremities, but this is not new. He states he has been getting increasingly weak over the past week. Has had very poor p.o. intake, chronic dyspnea on exertion but not worse. He denies any other recent illness, URI symptoms, fever, chills, sweats, lightheadedness, dizziness, syncope, chest pain, shortness breath at rest, nausea, vomiting, abdominal pain, denies change in bowel or urinary habits. He has not had routine follow up with PCP in few years. During my examination he did elicit significant suprapubic tenderness. He states he has been urinating without difficulty and denies increased frequency urgency with urination, hematuria or difficulty starting stream. During patient's evaluation in ED he was noted to have significant electrolyte abnormalities including magnesium of 0.6, sodium 127, potassium 3.3. Renal function elevated at BUN 11 creatinine 1.42. His H&H was 10.3 and 27.7, W BC 8.23, platelet 261. His anion gap was 13. Urine tox negative, alcohol level less than 3.0 his TSH was within normal limits. LFTs elevated specifically T bili 3.8, AST 166. Keppra level pending. Initial chest x-ray revealed right lateral ninth and 10th rib fractures. Head CT negative for acute abnormality but did reveal atrophy and chronic microvascular changes. CT of neck was negative Given rib fractures as well as abnormal LFTs patient was sent for further scans including CT scan of chest abdomen and pelvis. This revealed significantly distended bladder recommending Baird catheterization. A Baird was placed. Further revealed a T12 endplate compression fracture, 2 incidental groundglass pulmonary nodules, infrarenal abdominal aortic aneurysm 3.7 x 3.4 cm. Unfortunately during my evaluation it was brought to my attention that on telemetry patient was experiencing short runs of nonsustained V. tach. This then progressed to a nonsustained torsades rhythm. Case was discussed with the ED provider Dr. Mills as well as stitcher operator Dr. Oakes. Aggressive magnesium repletion recommended giving notable arrhythmia. Allergies Allergy/AdvReac Type Severity Reaction Status Date / Time No Known Allergies Allergy Verified 12/26/18 16:24 Home Medications Home Medications Medication Instructions Recorded Confirmed Type amlodipine 10 mg PO DAILY 12/26/18 12/26/18 History aspirin 81 mg PO DAILY 12/26/18 12/26/18 History citalopram 20 mg PO DAILY 12/26/18 12/26/18 History levetiracetam 1,000 mg PO BID 12/26/18 12/26/18 History ranitidine HCl 300 mg PO HS 12/26/18 12/26/18 History Past Med/Surg History Medical History Carotid artery stenosis (Chronic) Diverticulosis (Chronic) HTN (hypertension) (Chronic) HLD (hyperlipidemia) (Chronic) Alcohol abuse (Chronic) Seizure disorder Seizure disorder (Chronic) Surgical History History of tonsillectomy and adenoidectomy (Chronic) History of shoulder surgery (Chronic) History of colon resection (Chronic) History of colostomy reversal (Chronic) History of colostomy (Chronic) S/P cholecystectomy (Chronic) Family History Father Diverticulosis Social History Preferred Language: Dominican Communication Ability: Effective File Clerk Required: No Beliefs That Will Affect Care: None Current Living Situation: Spouse Feels Safe at Home: Yes Safety Concerns: Feels Safe At This Time Smoking Status: Current every day smoker Tobacco Type: cigarettes Cigarettes Per Day: 2 Do You Dip or Chew Tobacco: No Tobacco Cessation Education Requested by Patient: No Hx Alcohol Use: Yes Alcohol type: hard liquor Hx Substance Use: No Review of Systems Review of Systems: As noted per HPI, 10 systems reviewed and negative unless noted above. Physical Exam Physical Exam: Gen: Tall, Thin, Male, unkempt, lying in bed, NAD with occasional myoclonic jerks, answers questions appropriately Head: Normocephalic, Atraumatic Eyes: Sclera normal, no conjunctival injection, PERRLA, EOMI ENT: Gross hearing intact, normal pharynx, mucous membranes dry, poor oral hygi alek, teeth absent Neck: supple, no adenopathy, No JVD, no bruit, Resp: Clear to auscultation b/l, no wheeze, rales, rhonchi. Normal insp/exp effort, no accessory muscle use CV: Regular rate, regular rhythm, no murmur, rub, gallop, or ectopy Abd: +BS x 4, soft, nontender, nondistended Musculoskeletal: moves extremities active rom x 4, strength intact, good band saw operator cake cutting strength Extremities: No edema bilaterally Skin: warm, moist, no rash, bilateral knee ecchymosis negative turgor, cap refill < 2sec Neuro: Alert and oriented x 3, speech slow, good mood/affect, cran nerve 2-12 intact grossly : deferred Results & Data Vital Signs (Past 12 Hours) Vital Signs Temp Pulse Pulse Resp BP BP Pulse Ox 12/26/18 19:25 86 17 94/80 L 100 12/26/18 18:58 86 16 130/70 97 12/26/18 18:31 80 17 134/70 100 12/26/18 18:25 87 17 96/52 L 98 12/26/18 18:06 75 18 125/68 99 12/26/18 17:34 85 20 97/60 L 97 12/26/18 15:46 36.6 C 96 H 17 101/75 99 Laboratory Results Short CBC 12/26/18 Range/Units 16:09 WBC 8.23 (4.8-10.8) K/uL Hgb 10.3 L (14.0-18.0) g/dL Hct 27.7 L (42-52) % Plt Count 261 (130-400) K/uL BMP 12/26/18 16:09 Sodium 127 L Potassium 3.3 L Chloride 84 L Carbon Dioxide 21 BUN 11 Creatinine 1.42 H Glucose 88 Calcium 7.7 L Cardiac Enzymes 12/26/18 Range/Units 16:09 Troponin I 0.019 (0-0.045) ng/ml Liver Function 12/26/18 Range/Units 16:09 Total Bilirubin 3.8 H (0.2-1) mg/dl AST 166 H (15-37) U/L ALT 49 (12-78) U/L Alkaline Phosphatase 96 (45-117) U/L Albumin 2.9 L (3.4-5.0) gm/dl Urine 12/26/18 Range/Units 17:36 Urine Color Dark Yellow Urine Appearance Clear (Clear) Urine pH 6.5 (4.5-7.5) Ur Specific Burke 1.006 (1.000-1.030) Urine Protein Negative (Negative) Urine Glucose (UA) Negative (Negative) Diagnostic Findings T Spine/L Spine CT: 1. Small focal acute superior endplate compression fracture at T12. This involves the right anterior superior endplate and appears to be subacute. This could also represent a Schmorl's node with an old fracture. Correlate for pain at this location to assess for an acute injury. 2. No acute fracture or subluxation within the lumbar spine. Chest Abd/Pelvis CT: 1. Acute bilateral rib fractures as described above. No pneumothorax. 2. Redemonstration of a small focal indentation within the superior endplate of T12 which may represent a subacute fracture. This is better appreciated on the same day thoracic spine CT. 3. A 3.7 x 3.4 cm infrarenal abdominal aortic aneurysm. 4. Moderately distended bladder. Recommend catheterization. This likely accounts for the mild fullness within the bilateral renal collecting systems. 5. Additional findings as described above. CXR: IMPRESSION: Acute right lateral ninth and 10th rib fractures. No pneumothorax. Head CT Impression: No acute intracranial abnormality. Atrophy and microvascular ischemic changes. Cspine CT: IMPRESSION: No fractures within the cervical spine. Medications Administered Potassium Chloride/Sodium Chloride (Normal Saline W/20 Meq Kcl) 20 meq in 1,000 mls @ 100 mls/hr IV .Q10H CONNOR Stop: 12/27/18 16:14 Last Admin: 12/26/18 20:20 Dose: 100 mls/hr Documented by: [id number] Ioversol (Optiray 320 100ml) 93 ml IV ONCE PRN PRN Reason: Interaction Checking Stop: 12/30/18 18:20 Last Admin: 12/26/18 18:21 Dose: 93 ml Documented by: [id number] Discontinued Medications Amiodarone HCl (Cordarone Iv Bolus / Drip) 1 ea IV NOW STA; Protocol Stop: 12/26/18 18:40 Last Admin: 12/26/18 19:59 Dose: Not Given Documented by: [id number] Sodium Chloride (Nss 1000ml) 1,000 mls @ 999 mls/hr IV .Q1H1M CONNOR Stop: 12/26/18 17:30 Last Infusion: 12/26/18 18:08 Dose: 0 mls/hr Documented by: [id number] Admin: 12/26/18 16:31 Dose: 999 mls/hr Documented by: [id number] Magnesium Sulfate/Dextrose (Magnesium Sulfate / D5w) 1 gm in 100 mls @ 100 mls/hr IV ONE ONE Stop: 12/26/18 18:13 Last Infusion: 12/26/18 18:35 Dose: 0 mls/hr Documented by: [id number] Admin: 12/26/18 17:31 Dose: 100 mls/hr Documented by: [id number] Multivitamins 10 ml/ Thiamine HCl 100 mg/ Folic Acid 1 mg/Sodium Chloride 1,011.2 mls @ 1,011.2 mls/hr IV .Q1H CONNOR Stop: 12/26/18 18:14 Last Infusion: 12/26/18 18:43 Dose: 0 mls/hr Documented by: [id number] Admin: 12/26/18 17:30 Dose: 1,011.2 mls/hr Documented by: [id number] Magnesium Sulfate/Dextrose (Magnesium Sulfate / D5w) 1 gm in 100 mls @ 100 mls/hr IV ONE ONE Stop: 12/26/18 18:23 Last Infusion: 12/26/18 19:59 Dose: 0 mls/hr Documented by: [id number] Admin: 12/26/18 18:35 Dose: 240 mls/hr Documented by: [id number] Lorazepam (Ativan) 2 mg in 4 mls @ 4 mls/min IV NOW STA Stop: 12/26/18 18:32 Last Admin: 12/26/18 18:42 Dose: Not Given Documented by: [id number] Amiodarone HCl/Dextrose (Nexterone / D5w) 360 mg in 200 mls @ 33.333 mls/hr IV .Q6H CONNOR Stop: 12/27/18 00:44 Last Infusion: 12/26/18 19:09 Dose: 0 mg/min, 0 mls/hr Documented by: [id number] Cosigned by: [id number] Admin: 12/26/18 19:00 Dose: 1 mg/min, 33.3 mls/hr Documented by: [id number] Cosigned by: [id number] Magnesium Sulfate/Dextrose (Magnesium Sulfate / D5w) 1 gm in 100 mls @ 300 mls/hr IV Q1H CONNOR Stop: 12/26/18 20:04 Last Infusion: 12/26/18 20:17 Dose: 0 mls/hr Documented by: [id number] Admin: 12/26/18 19:53 Dose: 300 mls/hr Documented by: [id number] Infusion: 12/26/18 19:52 Dose: 0 mls/hr Documented by: [id number] Admin: 12/26/18 18:54 Dose: 300 mls/hr Documented by: [id number] Amiodarone HCl/Dextrose (Nexterone / D5w) 150 mg in 100 mls @ 600 mls/hr IV ONE STA Stop: 12/26/18 18:48 Last Infusion: 12/26/18 20:00 Dose: 0 mls/hr Documented by: [id number] Cosigned by: [id number] Admin: 12/26/18 18:53 Dose: 600 mls/hr Documented by: [id number] Cosigned by: [id number] Lorazepam (Ativan) Confirm Administered Dose 2 mg .ROUTE .STK-MED ONE Stop: 12/26/18 18:28 Last Admin: 12/26/18 18:29 Dose: 2 mg Documented by: [id number] Supervising Physician Co-Signing Physician Notes Attending addendum: The patient was seen and examined in emergency room Is a 63-year-old male with significant past medical history of seizure disorder, alcohol abuse, hypertension, hyperlipidemia, gastric artery stenosis and diverticulosis has been noncompliant with follow-ups was admitted with frequent falls and possible seizure/alcohol induced electrolyte abnormalities. Denies any significant symptoms during my examination except generalized weakness He has had seizure on the day of admission but did not have any self injury(tongue bite), and he had incontinence or any postictal state following the seizure He was noted to have nonsustained V. tach consisting of 6-8 beats and followed by possible torsades in the emergency room He was given an adequate electrolyte supplement and was admitted to ICU for continued care On examination in the emergency room General awake but otherwise no acute distress Hemoglobin stable with a blood pressure towards the lower side Chest-clear to auscultate bilaterally Heart-S1-S2 regular Abdomen-slightly distended and mildly tender all over especially lower quadrants, no guarding or rigidity Extremities-no edema Generalized bruising noted likely secondary to multiple falls Admission labs, EKG and imaging studies noted Has significant electrolyte imbalance including hyponatremia, hypokalemia, hypomagnesemia and hypophosphatemia Likely secondary to alcohol abuse with possible alcohol withdrawal Doubt any active seizure Noted to have prolonged QT with possible attack of torsade in the emergency room Agree with assessment and plan as outlined above by [id number] Ybarra DR
--- NOTE | 2018-12-26 21:11 | Critical Care Consultation ---
Date of Consultation December 26, 2018 Assessment & Plan (1) Admitted to intensive care unit: Reason Critically Ill: 63-year-old male presenting with seizure-like activity with noted nonsustained polymorphic ventricular tachyarrhythmia consistent with torsades. Noted to be severely hypomagnesemic. Aggressive resuscitation in progress. Hypokalemia. At high risk for alcohol withdrawal. NEURO - * CAM ICU: NEGATIVE * Seizure disorder: * Per review, does take Keppra 1g BID. States that he does take his medications as prescribed. * Will load with 1g IV and then revert back to typical PO regime. * Serum levels pending. * I do not feel that his current episodes of seizure-like activity are con tributed to his underlying seizure disorder. I was able to witness 1 of his episodes and it completely coincided with running of polymorphic ventricular tachyarrhythmia. After resolve of rhythm, patient was awake, alert, and oriented. No postictal state appreciated. Regardless, agree with continuing home medications. I did discuss medication with pharmacy. There does not appear to be any issue with QTc prolongation and the use of Keppra. * Appreciate neurology consultation. * Alcohol abuse: * High risk for withdrawal symptomatology. * Will add IV Ativan for any withdrawal signs or symptoms. * Will hold off on p.o. medications until morning if we are without further episodes of torsades or seizure-like activity. * Will add thiamine as well as folic acid supplementation. * Daily banana bag. CARDIAC/VASCULAR - * Nonsustained polymorphic ventricular tachyarrhythmia - Torsades de Pointes: * In the setting of profound hypomagnesemia, will aggressively supplement. See Renal/Lytes. * Replace Potassium. * Will add low dose Dopamine to help induce slight tachycardia in hopes of shortening QTc. * Hypertension/HLD: * Hold on Rx at this point in the setting of hypotension. * May be reinstituted w/ improvement of clinical picture. * EKG: SR w/ PACs, No acute ST/T-wave changes noted. QTc 713 ms. * Monitor on telemetry. RESPIRATORY - * Monitor closely for need for airway intervention in the setting of recurrent seizure-like activity. * h/o Cigarette smoking. * Supplemental O2 PRN. GI/NUTRITION - * Will make NPO pending progress throughout the night. Will add PO supplementation as needed. * Prophylaxis: Continue w/ AM PO Zantac RENAL/LYTES - * Hypomagnesemia: * In the setting of Torsades de Pointes, will aggressively resuscitate. * Received 4g prior to arrival. * With an additional run of Torsades in the ICU, will add an additional 4g. * Hypokalemia: * Initially w/ potassium of 3.3 in ED. * Repeat labs shows K of 1.6. * Will aggressively replace IV and PO. * TEQUILA: * Question obstructive uropathy given CT findings. * IVF: NSS+20mEq KCl@100mL/hr * Daily banana bag. - * Urinary retention: * Question obstructive uropathy. * Baird in place - Strict I&Os. ENDO - * No h/o DM or Thyroid Disease. * BSGs per unit protocol. ISS --> gtt per unit policy. HEME - * Stable H&H * Will trend ID - * No concerns for infectious contribution at this time. * Will trend fever curve. LINES/IV ACCESS - * PIVs x3 * Baird DVT PROPHYLAXIS - * Heparin sq * SCDs I have personally spent 60 minutes of critical care time in the direct management of this patient. This is a life/limb threatening event. This includes time spent evaluating patient, direct bedside care, chart review, placing orders, interpretation of diagnostic studies, discussion with consultants, patient, and family members, as well as other required patient management activities. This time is exclusive of all separately billable procedures, and teaching time and separate from and in addition to any other critical care service time. Thank you for allowing us to participate in the care of this patient. Please refer to my attending physician's documentation for any further recommendations. (2) Torsades de pointes: (3) Non-sustained ventricular tachycardia: (4) Prolonged QT interval: (5) TEQUILA (acute kidney injury): (6) Hyponatremia: (7) Thoracic compression fracture: (8) AAA (abdominal aortic aneurysm) without rupture: (9) Ribs, multiple fractures: (10) Electrolyte abnormality: (11) Hypomagnesemia: (12) Seizure disorder: (13) Alcohol abuse: (14) HLD (hyperlipidemia): (15) HTN (hypertension): (16) Carotid artery stenosis: History of Present Illness Attending Physician: Jossie Martins MD Patient is a 63-year-old male with a significant past medical history of reported seizure disorder, hypertension, hyperlipidemia, carotid artery stenosis, and alcohol abuse who initially presented to the emergency department via ALS secondary to frequent falls and concern for seizure activity. Apparently, he lives at home with his girlfriend. His cousin is at bedside and helps provide historical information. Cousin had received a call yesterday stating that he was very lethargic and the girlfriend was concerned. When he called back today for an update, EMS had already been contacted and the patient was transported to the emergency department. During evaluation, patient was noted to be profoundly hypomagnesemic. During hospitalist evaluation, the patient did have run of multifocal ventricular tachyarrhythmia which was nonsustained. He did receive IV magnesium supplementation. CT scan of the head, neck, chest, abdomen/pelvis, and thoracic as well as lumbar spines were obtained. Patient was noted to have nondisplaced compression fractures as well as new rib fractures. No other significant findings were noted. On discussion in the ICU, patient is awake and alert. He is unable to provide location at this time. He provides name, date of , and year. He reports that he has not felt well over the last few weeks. He reports decreased p.o. intake of both food and fluids. He does admit to 3-4 vodka drinks per day. He states that he goes through 2 to 3 L of vodka per week. He denies any history of withdrawal symptoms despite history of seizure disorder. He reports that he has been sober for 9 months and the longest duration. He has attempted to quit in the past unsuccessfully. Currently, he denies any complaints of pain. Specifically, he denies any headaches, dizziness, lightheadedness, blurry vision , double vision, chest pain, palpitations, shortness of breath, abdominal pain, or extremity pain. Allergies Allergy/AdvReac Type Severity Reaction Status Date / Time No Known Allergies Allergy Verified 12/26/18 16:24 Home Medications Home Medications Medication Instructions Recorded Confirmed Type amlodipine 10 mg PO DAILY 12/26/18 12/26/18 History aspirin 81 mg PO DAILY 12/26/18 12/26/18 History citalopram 20 mg PO DAILY 12/26/18 12/26/18 History levetiracetam 1,000 mg PO BID 12/26/18 12/26/18 History ranitidine HCl 300 mg PO HS 12/26/18 12/26/18 History Patient History Medical History Carotid artery stenosis (Chronic) Diverticulosis (Chronic) HTN (hypertension) (Chronic) HLD (hyperlipidemia) (Chronic) Alcohol abuse (Chronic) Seizure disorder Seizure disorder (Chronic) Surgical History History of tonsillectomy and adenoidectomy (Chronic) History of shoulder surgery (Chronic) History of colon resection (Chronic) History of colostomy reversal (Chronic) History of colostomy (Chronic) S/P cholecystectomy (Chronic) Family History Father Diverticulosis Social History Preferred Language: Hebrew Communication Ability: Effective Rug Layer Required: No Beliefs That Will Affect Care: None Current Living Situation: Spouse Feels Safe at Home: Yes Safety Concerns: Feels Safe At This Time Smoking Status: Current every day smoker Tobacco Type: cigarettes Cigarettes Per Day: 2 Do You Dip or Chew Tobacco: No Tobacco Cessation Education Requested by Patient: No Hx Alcohol Use: Yes Alcohol type: hard liquor Hx Substance Use: No Review of Systems Review of Systems: A complete 10 point review of systems was reviewed with the patient with pertinent positives and negatives as per history of present illness. All else were negative. Physical Exam Physical Exam: VITAL SIGNS - Vital signs and nursing notes were reviewed. GENERAL - 63-year-old male appearing older than his stated age who is in no acut e distress. Communicates well with provider and answers questions appropriately. SKIN - Diffuse areas of ecchymosis noted throughout. HEAD - NC/AT. EYES - PERRL. LEFT sided nystagmus noted. Sclera anicteric. Palpebral conjunctiva pink and moist with no injection noted. EARS - No deformities of external structures noted on gross examination bilaterally. NOSE - Midline and without cyanosis. No epistaxis or purulent drainage noted. MOUTH/OROPHARYNX - Without perioral cyanosis. Buccal mucosa pink and dry. Tongue midline with equal elevation of palate bilaterally. NECK - Neck with FROM. LUNGS - Chest wall symmetric without accessory muscle use, intercostals retractions, or central cyanosis. Normal vesicular breath sounds CTA B/L. No wheezes, rales, or rhonchi appreciated. CARDIAC - RRR with S1/S2. No murmur, rubs, or gallops appreciated. ABDOMEN - Abdominal contour flat without pulsations or visible masses. BS normoactive all four quadrants. No tenderness, palpable masses, hepatosplenome ludmila, or ascites noted. EXTREMITIES - No clubbing or peripheral cyanosis. No pretibial edema present. +3/5 radial and dorsalis pedis pulses palpated throughout. +5/5 strength noted in UE/LE bilaterally. NEUROLOGIC - Cranial nerves II through XII grossly intact. Sensory intact to light touch throughout. Patellar reflexes +2/4. PSYCH - A&O to person and time. He is unable to provide location. He knows name, date of , city of residence, and current year. Pt is very pleasant and interacts well with examiner. Results & Data Vital Signs (Past 12 Hours) Vital Signs Temp Pulse Pulse Resp BP BP Pulse Ox 12/26/18 19:25 86 17 94/80 L 100 12/26/18 18:58 86 16 130/70 97 12/26/18 18:31 80 17 134/70 100 12/26/18 18:25 87 17 96/52 L 98 12/26/18 18:06 75 18 125/68 99 12/26/18 17:34 85 20 97/60 L 97 12/26/18 15:46 36.6 C 96 H 17 101/75 99
[2018-12-26] MEDS ORDERED: DOPAMINE / D5W 400 MG/250 ML BAG IV PRN (21:26)
[2018-12-26] MEDS ORDERED: FOLIC ACID 1 MG in SYRINGE 9.8 ML IV STA (22:21)
[2018-12-26] MEDS ORDERED: THIAMINE HCL 200 MG in SODIUM CHLORIDE 0.9% 50 ML IV STA (22:21)
[2018-12-26] MEDS: FOLIC ACID 1 MG TAB PO SCH (22:56)
[2018-12-26] MEDS: levETIRAcetam 500 MG TAB PO SCH (22:57)
[2018-12-26 23:00] LABS: Albumin Globulin Ratio 0.5 (0.9-2); Albumin Level 2.6 gm/dl (3.4-5.0); BUN Creatinine Ratio 11.3 (10-20); Bilirubin,Total 2.9 mg/dl (0.2-1); Calcium 6.9 mg/dl (8.5-10.1); Creatinine Clr Calc Pharmacy 102.1 ml/min; Est GFR (African American) 115.6; Est GFR (Non-African American) 99.7; Globulin 4.8 gm/dl (2.5-4.0); Potassium 1.6 mmol/L (3.5-5.1); Total Protein 7.4 gm/dl (6.4-8.2)
[2018-12-26] MEDS: POTASSIUM CHLORIDE / WTR 10 MEQ/100 ML PLCT IV SCH ×2 (23:04→23:57)
[2018-12-26] MEDS ORDERED: CALCIUM GLUCONATE 10% 1,000 MG in SODIUM CHLORIDE 0.9% 50 ML IV STA (23:44)
[2018-12-27] MEDS: POTASSIUM CHLORIDE / WTR 10 MEQ/100 ML PLCT IV SCH ×17 (00:35→23:50)
[2018-12-27] MEDS: HEPARIN SOD 5,000 UNIT/0.5 ML VIAL SQ SCH ×4 (00:37→21:02)
[2018-12-27] MEDS ORDERED: AMIODARONE / D5W 360 MG/200 ML BAG IV SCH (00:39)
[2018-12-27 01:39] LABS: BUN Creatinine Ratio 10.6 (10-20); Calcium 6.9 mg/dl (8.5-10.1); Creatinine Clr Calc Pharmacy 105.1 ml/min; Est GFR (Non-African American) 100.9
[2018-12-27 01:40] LABS: Potassium 1.9 mmol/L (3.5-5.1)
[2018-12-27] MEDS ORDERED: CALCIUM GLUCONATE 10% 1,000 MG in SODIUM CHLORIDE 0.9% 50 ML IV STA (02:44)
--- NOTE | 2018-12-27 03:11 | Procedure Note ---
Procedure Note Date of Service December 27, 2018 Procedure: Material Crew Supervisor Indwelling Peripherally Inserted IV Catheter Placement Attending: Dr. Gonzalez APC: Heath Wang PA-C Indication: Need for IV Access, Poor Vascular Access Anesthesia: None Verbal consent was obtained from patient prior to performing the procedure. A time-out was completed verifying correct patient, procedure, site, positioning, and implant(s) or special equipment if applicable. Utilizing bedside ultrasound, vascularity of the RIGHT upper extremity was assessed. Ves bibiana size was noted for appropriate catheter selection and skin was marked with gentle pressure. Patients RIGHT upper extremity was prepped and draped in the usual sterile fashion utilizing chlorhexidine. Ultrasound guidance was used to aid needle placement. A 20 g Endurance Catheter was introduced into the RIGHT Cephalic vein under direct ultrasound guidance. Guide wire was easily deployed without resistance. Catheter was threaded over the guide wire without resistance and the entire apparatus was removed intact. Good venous blood return was noted in the catheter. The IV catheter was easily flushed with sterile saline flush. Sterile clave was attached to the end of the catheter and good blood return was again noted. Tourniquet was released. StatLock device and sterile dressing were applied. The patient tolerated the procedure well. Blood Loss: Minimal Complications: None Procedural Ultrasound Guidance: Procedure Date: 12/27/2018 Indication: Poor Vascular Access Attending: Dr. Gonzalez APC: Heath Wang PA-C Artery/Veins Identified: YES Access confirmed in Vein with ultrasound: YES Complications: NONE Patient tolerated procedure: WELL Coding
[2018-12-27 04:22] LABS: Hematocrit (blood only) 24.4 % (42-52); Mean Corpuscular Hgb Conc 36.9 g/dL (32-36); Mean Corpuscular Volume 96.1 fL (80-100); Mean Platelet Volume 9.7 fL (7.4-10.4); Platelet Count 201 K/uL (130-400); RDW Coefficient of Variation 13.6 % (11.5-14.5); RDW Standard Deviation 46.7 fL (36.4-46.3); Red Blood Count 2.54 M/uL (4.7-6.1); White Blood Count 8.86 K/uL (4.8-10.8)
[2018-12-27 04:56] LABS: Albumin Level 2.6 gm/dl (3.4-5.0); BUN Creatinine Ratio 9.4 (10-20); Bilirubin,Total 2.7 mg/dl (0.2-1); Calcium 7.3 mg/dl (8.5-10.1); Creatinine Clr Calc Pharmacy 113.4 ml/min; Est GFR (African American) 120.7; Est GFR (Non-African American) 104.1; Magnesium 2.1 mg/dl (1.8-2.4); Phosphorus 1.4 mg/dl (2.5-4.9); Potassium 2.2 mmol/L (3.5-5.1); Total Protein 7.3 gm/dl (6.4-8.2)
[2018-12-27] MEDS ORDERED: POTASSIUM PHOS 3 MMOL/1 ML INFUSION IV STA ×2 (05:03→21:50)
[2018-12-27] MEDS ORDERED: POTASSIUM PHOSPHATE 21 MMOL in SODIUM CHLORIDE 0.9% 500 ML IV ONE ×2 (05:15→22:00)
[2018-12-27] MEDS: NSS + 20MEQ KCL 20 MEQ/1,000 ML BAG IV SCH (05:54)
[2018-12-27] MEDS ORDERED: GABAPENTIN 600 MG TAB PO SCH ×2 (06:00→22:00)
[2018-12-27] MEDS ORDERED: POTASSIUM CHLORIDE 20 MEQ TABCR PO ONE (06:00)
--- NOTE | 2018-12-27 06:19 | Ultrasound Report ---
US abdomen limited HISTORY: Abnormal liver and signs Liver. COMPARISON: None. FINDINGS: Pancreas: The pancreas demonstrates a normal echotexture. Liver: Fatty infiltration Gallbladder: Prior operative resection CBD: 7 mm most likely on a postoperative basis. Right kidney: No hydronephrosis. IMPRESSION: 1. Fatty infiltration of liver. 2. Otherwise negative study post cholecystectomy. The above report was generated using voice recognition software. It may contain grammatical, syntax or spelling errors. Electronically signed by: Nelson Dave M.D. 12/27/2018 6:18 AM
[2018-12-27] MEDS: ASPIRIN 81 MG ECTAB PO SCH (08:20)
[2018-12-27] MEDS: levETIRAcetam 500 MG TAB PO SCH ×2 (08:20→20:16)
[2018-12-27] MEDS: FOLIC ACID 1 MG TAB PO SCH (08:20)
[2018-12-27] MEDS: THIAMINE HCL 100 MG TAB PO SCH (08:21)
[2018-12-27] MEDS: AMLODIPINE BESYLATE 5 MG TAB PO SCH (08:21)
--- NOTE | 2018-12-27 08:21 | Critical Care Progress Note ---
Date of Service December 27, 2018 Assessment & Plan (1) Admitted to intensive care unit: Reason Critically Ill: 63-year-old male presenting with seizure-like activity with noted nonsustained polymorphic ventricular tachyarrhythmia consistent with torsades. Noted to be severely hypomagnesemic. Aggressive resuscitation in progress. Hypokalemia. At high risk for alcohol withdrawal. NEURO - * CAM ICU: NEGATIVE * Seizure disorder: * 1 g twice daily Keppra * Serum levels pending. * EEG today * Appreciate neurology consultation * Alcohol abuse: * High risk for withdrawal symptomatology. * Phenobarbitol 64mg PO bid x2 then 32 mg PO bid x3 * Thiamine, Folic acid supplementation. * Hold celexa secondary to prolonged QTC CARDIAC/VASCULAR - * Nonsustained polymorphic ventricular tachyarrhythmia - Torsades de Pointes: * In the setting of profound hypomagnesemia, will aggressively supplement * Replace Potassium. * Repeat EKG * Monitor on telemetry. RESPIRATORY - * Monitor closely for need for airway intervention in the setting of recurrent seizure-like activity. * h/o Cigarette smoking. * Supplemental O2 PRN. GI/NUTRITION - * Advanced to regular diet * Prophylaxis: Continue w/ AM PO Zantac RENAL/LYTES - * Hypomagnesemia: * In the setting of Torsades de Pointes, will aggressively resuscitate. * Received 4g prior to arrival and additional 4 g in ICU after run of Torsades in ICU * Repeat labs show Mg 1.5 * MgOH 400 BID * Hypokalemia: * Initially w/ potassium of 3.3 in ED. * Repeat labs shows K of 2.6 * Will aggressively replace IV and PO. * TEQUILA: * Improved * Stop additional fluids - * Urinary retention: * D/C Baird. Voiding trials ENDO - * No h/o DM or Thyroid Disease. * BSGs per unit protocol. ISS --> gtt per unit policy. HEME - * Stable H&H * Will trend ID - * No concerns for infectious contribution at this time. * Will trend fever curve. LINES/IV ACCESS - * PIVs x3 DVT PROPHYLAXIS - * Heparin sq * SCDs Patient critically ill due to profound hypomagnesemia and hypokalemia at high risk for seizures secondary to acute alcohol withdrawal I have personally spent 45 minutes of critical care time in the direct management of this patient. This is a life/limb threatening event. This includes time spent evaluating patient, direct bedside care, chart review, placing orders, interpretation of diagnostic studies, discussion with consultants, patient, and/or family members regarding treatment decisions, as well as other required patient management activities. This time is exclusive of all separately billable procedures, and teaching time and separate from and in addition to any other critical care service time. (2) Torsades de pointes: (3) Non-sustained ventricular tachycardia: (4) Prolonged QT interval: (5) TEQUILA (acute kidney injury): (6) Hyponatremia: (7) Thoracic compression fracture: (8) AAA (abdominal aortic aneurysm) without rupture: (9) Ribs, multiple fractures: (10) Electrolyte abnormality: (11) Hypomagnesemia: (12) Seizure disorder: (13) Alcohol abuse: (14) HLD (hyperlipidemia): (15) HTN (hypertension): (16) Carotid artery stenosis: Supervising Physician Co-Signing Physician Notes Dr. Amaral was resident physician during care of patient. I separately evaluated patient for rahman portions of the history and the exam. I was present during the critical portion of medical decision making, and I discussed the case with the resident. I generally agree with the findings and plan. Subjective 63 y/o M found in bed this AM in NAD. Reports no acute overnight events. Was A&Ox3. Upon questioning, reports last drink was this past Thursday (~3days ago). Normally drinks ~5 shots of vodka/day. Pt complains of some ongoing R sided rib pain. No other acute concerns or complaints. Review of Systems Review of Systems: All systems reviewed & are unremarkable except as noted in HPI & below Physical Exam 2 Constitutional: + thin Unkempt, lying in bed in NAD Eyes: PERRL, conjunctivae normal, anicteric sclerae ENMT: absent teeth, dry MM Respiratory: normal respiratory effort, lungs clear to auscultation Cardiovascular: RRR, no murmur, no edema Gastrointestinal (Abdomen): normal bowel sounds, soft, nontender, no hepatosplenomegaly Skin: no rashes, warm and dry Neurologic: CN2-12 grossly intact. Good strength, sensation intact Psychiatric: A+Ox3, euthymic affect Results & Data Vital Signs (Past 12 Hours) Vital Signs Temp Pulse BP Pulse Ox 12/27/18 06:07 93/61 L 96 05/20/19 05:00 86 122/88 97 12/27/18 04:02 36.6 C 94 H 99/61 L 90 12/27/18 03:01 81 108/63 95 12/27/18 02:01 80 108/64 96 12/27/18 01:01 78 107/62 91 12/27/18 01:00 86 86 L 12/27/18 00:01 98 H 104/58 L 92 12/26/18 23:04 83 128/63 92 12/26/18 23:00 108 H 93 12/26/18 22:01 79 113/56 L 95 12/26/18 21:01 90 106/62 93 12/26/18 20:31 78 110/69 92 Laboratory Results Laboratory Results - last 24 hr 12/26/18 12/26/18 12/26/18 14:46 16:09 16:09 WBC 8.23 RBC 2.92 L Hgb 10.3 L Hct 27.7 L MCV 94.9 MCH 35.3 H MCHC 37.2 H RDW Std Deviation 45.9 RDW Coeff of Emil 13.5 Plt Count 261 MPV 9.9 Immature Gran % (Auto) 0.7 Neut % (Auto) 83.2 Lymph % (Auto) 8.4 [place] % (Auto) 7.5 Eos % (Auto) 0.1 Baso % (Auto) 0.1 Immature Gran # (Auto) 0.06 H Neut # (Auto) 6.84 H Lymph # (Auto) 0.69 L [place] # (Auto) 0.62 H Eos # (Auto) 0.01 Baso # (Auto) 0.01 PT INR APTT PTT Ratio Sodium 127 L Potassium 3.3 L Chloride 84 L Carbon Dioxide 21 Anion Gap 23.0 H BUN 11 Creatinine 1.42 H Est Cr Clr Drug Dosing 50.3 Est GFR ( Amer) 60.1 Est GFR (Non-Af Amer) 51.8 BUN/Creatinine Ratio 7.9 L Glucose 88 Calcium 7.7 L Phosphorus Magnesium 0.6 L* Total Bilirubin 3.8 H Direct Bilirubin AST 166 H ALT 49 Alkaline Phosphatase 96 Troponin I 0.019 Total Protein 8.5 H Albumin 2.9 L Globulin 5.6 H Albumin/Globulin Ratio 0.5 L Triglycerides Cholesterol LDL Cholesterol, Calc VLDL Cholesterol, Calc HDL Cholesterol Cholesterol/HDL Ratio TSH 1.330 Prolactin Urine Color Urine Appearance Urine pH Ur Specific [place] Urine Protein Urine Glucose (UA) Urine Ketones Urine Blood Urine Nitrite Urine Bilirubin Urine Urobilinogen Ur Leukocyte Esterase Nasal Screen MRSA (PCR) Negative Urine Opiates Screen Ur Methadone, Qual Urine Barbiturates Levetiracetam Ur Phencyclidine (PCP) U Amphetamin/Meth Scrn MDMA (Ecstasy) Screen U Benzodiazepines Scrn Ur Cocaine Metabolite U Marijuana (THC) Screen Ethyl Alcohol mg/dL Hepatitis C Ab Screen 12/26/18 12/26/18 12/26/18 16:09 16:09 16:09 WBC RBC Hgb Hct MCV MCH MCHC RDW Std Deviation RDW Coeff of Emil Plt Count MPV Immature Gran % (Auto) Neut % (Auto) Lymph % (Auto) [place] % (Auto) Eos % (Auto) Baso % (Auto) Immature Gran # (Auto) Neut # (Auto) Lymph # (Auto) [place] # (Auto) Eos # (Auto) Baso # (Auto) PT 13.3 H INR 1.3 H APTT 26.5 PTT Ratio 1.0 Sodium Potassium Chloride Carbon Dioxide Anion Gap BUN Creatinine Est Cr Clr Drug Dosing Est GFR ( Amer) Est GFR (Non-Af Amer) BUN/Creatinine Ratio Glucose Calcium Phosphorus 2.4 L Magnesium Total Bilirubin Direct Bilirubin AST ALT Alkaline Phosphatase Troponin I Total Protein Albumin Globulin Albumin/Globulin Ratio Triglycerides Cholesterol LDL Cholesterol, Calc VLDL Cholesterol, Calc HDL Cholesterol Cholesterol/HDL Ratio TSH Prolactin Urine Color Urine Appearance Urine pH Ur Specific [place] Urine Protein Urine Glucose (UA) Urine Ketones Urine Blood Urine Nitrite Urine Bilirubin Urine Urobilinogen Ur Leukocyte Esterase Nasal Screen MRSA (PCR) Urine Opiates Screen Ur Methadone, Qual Urine Barbiturates Levetiracetam Pending Ur Phencyclidine (PCP) U Amphetamin/Meth Scrn MDMA (Ecstasy) Screen U Benzodiazepines Scrn Ur Cocaine Metabolite U Marijuana (THC) Screen Ethyl Alcohol mg/dL Hepatitis C Ab Screen 12/26/18 12/26/18 12/26/18 16:09 16:31 17:36 WBC RBC Hgb Hct MCV MCH MCHC RDW Std Deviation RDW Coeff of Emil Plt Count MPV Immature Gran % (Auto) Neut % (Auto) Lymph % (Auto) [place] % (Auto) Eos % (Auto) Baso % (Auto) Immature Gran # (Auto) Neut # (Auto) Lymph # (Auto) [place] # (Auto) Eos # (Auto) Baso # (Auto) PT INR APTT PTT Ratio Sodium Potassium Chloride Carbon Dioxide Anion Gap BUN Creatinine Est Cr Clr Drug Dosing Est GFR ( Amer) Est GFR (Non-Af Amer) BUN/Creatinine Ratio Glucose Calcium Phosphorus Magnesium Total Bilirubin Direct Bilirubin AST ALT Alkaline Phosphatase Troponin I Total Protein Albumin Globulin Albumin/Globulin Ratio Triglycerides Cholesterol LDL Cholesterol, Calc VLDL Cholesterol, Calc HDL Cholesterol Cholesterol/HDL Ratio TSH Prolactin 12.17 Urine Color Urine Appearance Urine pH Ur Specific [place] Urine Protein Urine Glucose (UA) Urine Ketones Urine Blood Urine Nitrite Urine Bilirubin Urine Urobilinogen Ur Leukocyte Esterase Nasal Screen MRSA (PCR) Urine Opiates Screen Neg Ur Methadone, Qual Neg Urine Barbiturates Neg Levetiracetam Ur Phencyclidine (PCP) Neg U Amphetamin/Meth Scrn Neg MDMA (Ecstasy) Screen Neg U Benzodiazepines Scrn Neg Ur Cocaine Metabolite Neg U Marijuana (THC) Screen Neg Ethyl Alcohol mg/dL < 3.0 Hepatitis C Ab Screen Neg 12/26/18 12/26/18 12/26/18 17:36 21:14 22:21 WBC RBC Hgb Hct MCV MCH MCHC RDW Std Deviation RDW Coeff of Emil Plt Count MPV Immature Gran % (Auto) Neut % (Auto) Lymph % (Auto) [place] % (Auto) Eos % (Auto) Baso % (Auto) Immature Gran # (Auto) Neut # (Auto) Lymph # (Auto) [place] # (Auto) Eos # (Auto) Baso # (Auto) PT INR APTT PTT Ratio Sodium Cancelled 131 L Potassium Cancelled 1.6 L* D Chloride Cancelled 89 L Carbon Dioxide Cancelled 27 Anion Gap Cancelled 15.0 H BUN Cancelled 8 Creatinine Cancelled 0.70 D Est Cr Clr Drug Dosing Cancelled 102.1 Est GFR ( Amer) Cancelled 115.6 Est GFR (Non-Af Amer) Cancelled 99.7 BUN/Creatinine Ratio Cancelled 11.3 Glucose Cancelled 127 H Calcium Cancelled 6.9 L Phosphorus Magnesium Cancelled 3.0 H Total Bilirubin 2.9 H Direct Bilirubin AST 141 H ALT 43 Alkaline Phosphatase 83 Troponin I Total Protein 7.4 Albumin 2.6 L Globulin 4.8 H Albumin/Globulin Ratio 0.5 L Triglycerides Cholesterol LDL Cholesterol, Calc VLDL Cholesterol, Calc HDL Cholesterol Cholesterol/HDL Ratio TSH Prolactin Urine Color Dark Yellow Urine Appearance Clear Urine pH 6.5 Ur Specific [place] 1.006 Urine Protein Negative Urine Glucose (UA) Negative Urine Ketones Trace H Urine Blood Negative Urine Nitrite Negative Urine Bilirubin Negative Urine Urobilinogen Positive H Ur Leukocyte Esterase Negative Nasal Screen MRSA (PCR) Urine Opiates Screen Ur Methadone, Qual Urine Barbiturates Levetiracetam Ur Phencyclidine (PCP) U Amphetamin/Meth Scrn MDMA (Ecstasy) Screen U Benzodiazepines Scrn Ur Cocaine Metabolite U Marijuana (THC) Screen Ethyl Alcohol mg/dL Hepatitis C Ab Screen 12/27/18 12/27/18 12/27/18 01:05 04:07 04:07 WBC 8.86 RBC 2.54 L Hgb 9.0 L Hct 24.4 L MCV 96.1 MCH 35.4 H MCHC 36.9 H RDW Std Deviation 46.7 H RDW Coeff of Emil 13.6 Plt Count 201 MPV 9.7 Immature Gran % (Auto) Neut % (Auto) Lymph % (Auto) [place] % (Auto) Eos % (Auto) Baso % (Auto) Immature Gran # (Auto) Neut # (Auto) Lymph # (Auto) [place] # (Auto) Eos # (Auto) Baso # (Auto) PT INR APTT PTT Ratio Sodium 130 L 131 L Potassium 1.9 L* D 2.2 L* D Chloride 89 L 91 L Carbon Dioxide 30 28 Anion Gap 13.0 H 12.0 H BUN 7 6 L Creatinine 0.68 0.63 Est Cr Clr Drug Dosing 105.1 113.4 Est GFR ( Amer) 117.0 120.7 Est GFR (Non-Af Amer) 100.9 104.1 BUN/Creatinine Ratio 10.6 9.4 L Glucose 116 H 89 Calcium 6.9 L 7.3 L Phosphorus 1.4 L* D Magnesium 3.0 H 2.1 Total Bilirubin 2.7 H Direct Bilirubin 2.0 H AST 133 H ALT 39 Alkaline Phosphatase 81 Troponin I Total Protein 7.3 Albumin 2.6 L Globulin Albumin/Globulin Ratio Triglycerides 87 Cholesterol 75 LDL Cholesterol, Calc 30 VLDL Cholesterol, Calc 17 HDL Cholesterol 28 Cholesterol/HDL Ratio 3 TSH Prolactin Urine Color Urine Appearance Urine pH Ur Specific [place] Urine Protein Urine Glucose (UA) Urine Ketones Urine Blood Urine Nitrite Urine Bilirubin Urine Urobilinogen Ur Leukocyte Esterase Nasal Screen MRSA (PCR) Urine Opiates Screen Ur Methadone, Qual Urine Barbiturates Levetiracetam Ur Phencyclidine (PCP) U Amphetamin/Meth Scrn MDMA (Ecstasy) Screen U Benzodiazepines Scrn Ur Cocaine Metabolite U Marijuana (THC) Screen Ethyl Alcohol mg/dL Hepatitis C Ab Screen 12/27/18 08:45 WBC RBC Hgb Hct MCV MCH MCHC RDW Std Deviation RDW Coeff of Emil Plt Count MPV Immature Gran % (Auto) Neut % (Auto) Lymph % (Auto) [place] % (Auto) Eos % (Auto) Baso % (Auto) Immature Gran # (Auto) Neut # (Auto) Lymph # (Auto) [place] # (Auto) Eos # (Auto) Baso # (Auto) PT INR APTT PTT Ratio Sodium 134 L Potassium 2.6 L D Chloride 95 L Carbon Dioxide 29 Anion Gap 10.0 BUN 4 L Creatinine 0.51 L Est Cr Clr Drug Dosing 138.1 Est GFR ( Amer) 131.7 Est GFR (Non-Af Amer) 113.6 BUN/Creatinine Ratio 8.0 L Glucose 82 Calcium 6.7 L Phosphorus Magnesium 1.5 L Total Bilirubin Direct Bilirubin AST ALT Alkaline Phosphatase Troponin I Total Protein Albumin Globulin Albumin/Globulin Ratio Triglycerides Cholesterol LDL Cholesterol, Calc VLDL Cholesterol, Calc HDL Cholesterol Cholesterol/HDL Ratio TSH Prolactin Urine Color Urine Appearance Urine pH Ur Specific [place] Urine Protein Urine Glucose (UA) Urine Ketones Urine Blood Urine Nitrite Urine Bilirubin Urine Urobilinogen Ur Leukocyte Esterase Nasal Screen MRSA (PCR) Urine Opiates Screen Ur Methadone, Qual Urine Barbiturates Levetiracetam Ur Phencyclidine (PCP) U Amphetamin/Meth Scrn MDMA (Ecstasy) Screen U Benzodiazepines Scrn Ur Cocaine Metabolite U Marijuana (THC) Screen Ethyl Alcohol mg/dL Hepatitis C Ab Screen Medications Administered Current Inpatient Medications Acetaminophen (Tylenol) 650 mg PO Q4H PRN PRN Reason: Pain or Fever Stop: 01/25/19 19:47 Al Hydrox/Mg Hydrox/Simethicone (Maalox) 15 ml PO Q4H PRN PRN Reason: Dyspepsia Stop: 01/25/19 19:47 Amlodipine Besylate (Norvasc) 10 mg PO DAILY [facility] Stop: 01/26/19 08:59 Last Admin: 12/27/18 08:21 Dose: 10 mg Documented by: Aspirin (Ecotrin Ectab) 81 mg PO DAILY [facility] Stop: 01/26/19 08:59 Last Admin: 12/27/18 08:20 Dose: 81 mg Documented by: Citalopram Hydrobromide (Celexa) 20 mg PO DAILY [facility] Stop: 01/26/19 08:59 Folic Acid (Folvite) 1 mg PO QAM [facility] Stop: 01/25/19 17:14 Last Admin: 12/27/18 08:20 Dose: 1 mg Documented by: Heparin Sodium (Porcine) (Heparin Sodium (Porcine)) 5,000 units SQ Q8 [facility] Stop: 01/25/19 21:59 Last Admin: 12/27/18 05:57 Dose: 5,000 units Documented by: Potassium Chloride/Sodium Chloride (Normal Saline W/20 Meq Kcl) 20 meq in 1,000 mls @ 100 mls/hr IV .Q10H [facility] Stop: 12/27/18 16:14 Last Admin: 12/27/18 05:54 Dose: 100 mls/hr Documented by: Lorazepam (Ativan) 1 mg in 2 mls @ 2 mls/min IV ONE PRN; Protocol PRN Reason: EtoH Withdrawal AWSS 6-10 Stop: 01/25/19 21:10 Dopamine HCl/Dextrose (Dopamine / D5w) 400 mg in 250 mls @ 6.347 mls/hr IV .Q24H PRN; Protocol PRN Reason: TITRATE Stop: 01/25/19 21:25 Last Titration: 12/27/18 07:17 Dose: 2.5 mcg/kg/min, 6.3 mls/hr Documented by: Potassium Phosphate 21 mmol/ (Sodium Chloride) 507 mls @ 88 mls/hr IV ONE ONE Stop: 12/27/18 11:00 Last Admin: 12/27/18 05:54 Dose: 88 mls/hr Documented by: Ioversol (Optiray 320 100ml) 93 ml IV ONCE PRN PRN Reason: Interaction Checking Stop: 12/30/18 18:20 Last Admin: 12/26/18 18:21 Dose: 93 ml Documented by: Levetiracetam (Keppra) 1,000 mg PO BID [facility] Stop: 01/25/19 20:59 Last Admin: 12/27/18 08:20 Dose: 1,000 mg Documented by: Lorazepam (Ativan) 1 mg PO ONE PRN; Protocol PRN Reason: EtoH Withdrawal AWSS 6-10 Magnesium Hydroxide (Milk Of Magnesia) 30 ml PO Q12H PRN PRN Reason: Constipation Stop: 01/25/19 19:47 Magnesium Oxide (Mag-Ox) 400 mg PO BID [facility] Stop: 01/26/19 09:14 Last Admin: 12/27/18 09:28 Dose: 400 mg Documented by: Miscellaneous (Icu Protocol For Hyperglycemia) 1 ea N/A PRN PRN; Protocol PRN Reason: Hyperglycemia Protocol Stop: 12/28/18 20:12 Miscellaneous (Icu Protocol For Hyperglycemia) 1 ea N/A PRN PRN; Protocol PRN Reason: Hyperglycemia Protocol Stop: 12/28/18 21:10 Multivitamins (Multivitamin Tab) 1 tab PO QAM [facility] Stop: 01/26/19 09:14 Last Admin: 12/27/18 09:28 Dose: 1 tab Documented by: Phenobarbital (Phenobarbital) 64.8 mg PO TODAY@1999 ONE Stop: 12/27/18 20:01 Phenobarbital (Phenobarbital) 32.4 mg PO BID [facility] Stop: 12/29/18 09:01 Polyethylene Glycol (Miralax Powder Packet) 17 gm PO DAILY PRN PRN Reason: Constipation Stop: 01/25/19 19:47 Potassium Chloride (Klor-Con M20) 40 meq PO BID [facility] Stop: 01/26/19 20:59 Ranitidine HCl (Zantac) 300 mg PO HS [facility] Stop: 01/25/19 20:59 Last Admin: 12/26/18 22:56 Dose: Not Given Documented by: Thiamine HCl (Vitamin B-1) 100 mg PO QAM [facility] Stop: 01/26/19 08:59 Last Admin: 12/27/18 08:21 Dose: 100 mg Documented by: Resident Activity Tracking Resident Involvement: Resident Care Provided Care Provided: Adult Hospital Medicine
[2018-12-27] MEDS ORDERED: PHENobarbital 32.4 MG TAB PO ONE ×2 (08:30→20:00)
[2018-12-27] MEDS ORDERED: CITALOPRAM 20 MG TAB PO SCH (09:00)
[2018-12-27] MEDS: MULTIVITAMIN TAB PO SCH (09:28)
[2018-12-27] MEDS: MAGNESIUM OXIDE 400 MG TAB PO SCH ×2 (09:28→20:16)
[2018-12-27 09:47] LABS: Calcium 6.7 mg/dl (8.5-10.1); Creatinine Clr Calc Pharmacy 138.1 ml/min; Est GFR (African American) 131.7; Est GFR (Non-African American) 113.6; Magnesium 1.5 mg/dl (1.8-2.4); Potassium 2.6 mmol/L (3.5-5.1)
--- NOTE | 2018-12-27 11:12 | Hospitalist Progress Note ---
Date of Service December 27, 2018 Assessment & Plan (1) Weakness: Generalized weakness for a while Has been keeping falling at home likely secondary to alcoholism Present on Admission?: Yes (2) Torsades de pointes: Noted to have torsade in the emergency room Has significant electrolyte abnormality including severe hypomagnesemia, hyponatremia, hypokalemia and hypophosphatemia Likely secondary to alcoholism Will supplement and monitor while in the hospital Appreciate cardiology input and appreciate liaison inspection laboratory assistant input and recommended (3) Electrolyte abnormality: Has significant blood abnormalities as mentioned above Has been getting supplement and will monitor (4) Hypomagnesemia: Data from admission: This is a 63-year-old male who has a significant PMH of seizure disorder, alcohol abuse, HTN, HLD, carotid artery stenosis, diverticulosis who presented to [facility] secondary to seizure x2 and weakness x1 week. During patient's evaluation in ED he was noted to have significant electrolyte abnormalities including magnesium of 0.6, sodium 127, potassium 3.3. Renal function elevated at BUN 11 creatinine 1.42. His H&H was 10.3 and 27.7, W BC 8.23, platelet 261. His anion gap was 13. Urine tox negative, alcohol level less than 3.0 his TSH was within normal limits. LFTs elevated specifically T bili 3.8, AST 166. Keppra level pending. Initial chest x-ray revealed right lateral ninth and 10th rib fractures. Head CT negative for acute abnormality but did reveal atrophy and chronic micro vascular changes. CT of neck was negative Given rib fractures as well as abnormal LFTs patient was sent for further scans including CT scan of chest abdomen and pelvis. This revealed significantly d istended bladder recommending Baird catheterization. A Baird was placed. Further revealed a T12 endplate compression fracture, 2 incidental groundglass pulmonary nodules, infrarenal abdominal aortic aneurysm 3.7 x 3.4 cm. Unfortunately during my evaluation it was brought to my attention that on telemetry patient was experiencing short runs of nonsustained V. tach. This then progressed to a nonsustained torsades rhythm. Case was discussed with the ED provider Dr. Mills as well as liaison inspection laboratory assistant Dr. Oakes. Aggressive magnesium repletion recommended giving notable arrhythmia. Pt admitted to ICU, please defer to liaison inspection laboratory assistant consultation for further assessment and treatment plan Cardiology and Neurology consulted for a.m. (5) TEQUILA (acute kidney injury): Creatinine on admission was 1.42 Baseline from previous labs creatinine 0.5 (approximately 2 years ago) Likely secondary to dehydration Renal function improved significantly following intravenous fluid (6) Alcohol abuse: AWSS ETOH protocol ordered with gabapentin taper PRN lorazepam Folic Acid and Thiamine added to medication regimen No significant withdrawal symptoms (7) Seizure disorder: Patient has history of seizure disorder on Keppra He reports episode of seizure today and 3 days ago. His history is very unreliable and appears more consistent with frequent falling as opposed to seizure. Question if not more related to cardiac/arrhythmia as opposed to seizure Prolactin level normal We will continue Keppra and await Keppra level Consult neurology Obtain EEG and monitor Got extra dose of Keppra and phenobarbital added as well (8) Ribs, multiple fractures: Secondary to fall Fracture of right lateral eighth, ninth, and 10th rib Conservative management Incentive spirometry Analgesia (9) Thoracic compression fracture: Patient currently not complaining of back pain Recommend conservative management with analgesics Consult PT/OT when stable (10) HTN (hypertension): Blood pressure currently labile Hold amlodipine until reevaluated in a.m. (11) HLD (hyperlipidemia): Patient currently not on statin Check Lipid panel in a.m. (12) Alcoholic liver disease: Patient with history of alcohol abuse Abd CT reveals Hepatic Steatosis Total bili 3.8, AST 166, INR 1.3 Obtain liver ultrasound (13) AAA (abdominal aortic aneurysm) without rupture: 3.7 x 3.4 cm infrarenal abdominal aortic aneurysm Recommend routine follow-up per PCP (14) Pulmonary nodules: Per Fleischner criteria for multiple nodules less than [address] scan in 12 months. (15) DVT prophylaxis: SCDS/Heparin Disposition: to be determined, case management consulted Follow-up: PCP Dr. Luna, has not had routine follow up in few years; As well as appropriate follow up with specialists Subjective 12/27 The patient was seen and examined in the ICU He remains generally weak and lethargic Did not have any more seizures and/or arrhythmias He has lost significant weight for the last 1 Review of Systems Review of Systems: All systems reviewed and are unremarkable except as noted below Respiratory: + dyspnea (Minimal shortness of breath at rest) Cardiovascular: no chest pain Gastrointestinal: no abdominal pain Neurologic: + falls and + generalized weakness Physical Exam Physical Exam: Lying in bed comfortably Constitutional: + ill appearing and + thin Eyes: PERRL, conjunctivae normal, anicteric sclerae ENMT: external ear and nose normal, oropharynx normal Neck: trachea midline, no thyromegaly Respiratory: + respiratory distress (Minimal respiratory distress at rest) Auscultation: + crackles (At the bases) Cardiovascular: RRR, no murmur, no edema Gastrointestinal (Abdomen): Inspection/Auscultation: abdomen normal to inspection Percussion/Palpation: + abdomen tender and abdomen soft; no guarding and abdomen not rigid Skin: no rashes, warm and dry Neurologic: Alert and awake. Generally weak Psychiatric: A+Ox3, euthymic affect Lymphatic: no cervical or axillary lymphadenopathy Results & Data Vital Signs (Past 12 Hours) Vital Signs Temp Pulse BP Pulse Ox 12/27/18 06:07 93/61 L 96 12/27/18 05:00 86 122/88 97 12/27/18 04:02 36.6 C 94 H 99/61 L 90 12/27/18 03:01 81 108/63 95 12/27/18 02:01 80 108/64 96 12/27/18 01:01 78 107/62 91 12/27/18 01:00 86 86 L 12/27/18 00:01 98 H 104/58 L 92 12/26/18 23:04 83 128/63 92 Laboratory Results Short CBC 12/26/18 12/27/18 Range/Units 16:09 04:07 WBC 8.23 8.86 (4.8-10.8) K/uL Hgb 10.3 L 9.0 L (14.0-18.0) g/dL Hct 27.7 L 24.4 L (42-52) % Plt Count 261 201 (130-400) K/uL BMP 12/26/18 12/26/18 12/26/18 16:09 21:14 22:21 Sodium 127 L Cancelled 131 L Potassium 3.3 L Cancelled 1.6 L* D Chloride 84 L Cancelled 89 L Carbon Dioxide 21 Cancelled 27 BUN 11 Cancelled 8 Creatinine 1.42 H Cancelled 0.70 D Glucose 88 Cancelled 127 H Calcium 7.7 L Cancelled 6.9 L 12/27/18 12/27/18 12/27/18 01:05 04:07 08:45 Sodium 130 L 131 L 134 L Potassium 1.9 L* D 2.2 L* D 2.6 L D Chloride 89 L 91 L 95 L Carbon Dioxide 30 28 29 BUN 7 6 L 4 L Creatinine 0.68 0.63 0.51 L Glucose 116 H 89 82 Calcium 6.9 L 7.3 L 6.7 L Cardiac Enzymes 12/26/18 Range/Units 16:09 Troponin I 0.019 (0-0.045) ng/ml Liver Function 12/26/18 12/26/18 12/27/18 Range/Units 16:09 22:21 04:07 Total Bilirubin 3.8 H 2.9 H 2.7 H (0.2-1) mg/dl Direct Bilirubin 2.0 H (0-0.2) mg/dl AST 166 H 141 H 133 H (15-37) U/L ALT 49 43 39 (12-78) U/L Alkaline Phosphatase 96 83 81 (45-117) U/L Albumin 2.9 L 2.6 L 2.6 L (3.4-5.0) gm/dl Urine 12/26/18 Range/Units 17:36 Urine Color Dark Yellow Urine Appearance Clear (Clear) Urine pH 6.5 (4.5-7.5) Ur Specific Willard 1.006 (1.000-1.030) Urine Protein Negative (Negative) Urine Glucose (UA) Negative (Negative) Medications Administered Current Inpatient Medications Acetaminophen (Tylenol) 650 mg PO Q4H PRN PRN Reason: Pain or Fever Stop: 01/25/19 19:47 Al Hydrox/Mg Hydrox/Simethicone (Maalox) 15 ml PO Q4H PRN PRN Reason: Dyspepsia Stop: 01/25/19 19:47 Amlodipine Besylate (Norvasc) 10 mg PO DAILY [facility] Stop: 01/26/19 08:59 Last Admin: 12/27/18 08:21 Dose: 10 mg Documented by: Aspirin (Ecotrin Ectab) 81 mg PO DAILY [facility] Stop: 01/26/19 08:59 Last Admin: 12/27/18 08:20 Dose: 81 mg Documented by: Citalopram Hydrobromide (Celexa) 20 mg PO DAILY [facility] Stop: 01/26/19 08:59 Folic Acid (Folvite) 1 mg PO QAM [facility] Stop: 01/25/19 17:14 Last Admin: 12/27/18 08:20 Dose: 1 mg Documented by: Heparin Sodium (Porcine) (Heparin Sodium (Porcine)) 5,000 units SQ Q8 CONNOR Stop: 01/25/19 21:59 Last Admin: 12/27/18 05:57 Dose: 5,000 units Documented by: Potassium Chloride/Sodium Chloride (Normal Saline W/20 Meq Kcl) 20 meq in 1,000 mls @ 100 mls/hr IV .Q10H CONNOR Stop: 12/27/18 16:14 Last Admin: 12/27/18 05:54 Dose: 100 mls/hr Documented by: Lorazepam (Ativan) 1 mg in 2 mls @ 2 mls/min IV ONE PRN; Protocol PRN Reason: EtoH Withdrawal AWSS 6-10 Stop: 01/25/19 21:10 Dopamine HCl/Dextrose (Dopamine / D5w) 400 mg in 250 mls @ 6.347 mls/hr IV .Q24H PRN; Protocol PRN Reason: TITRATE Stop: 01/25/19 21:25 Last Titration: 12/27/18 07:17 Dose: 2.5 mcg/kg/min, 6.3 mls/hr Documented by: Ioversol (Optiray 320 100ml) 93 ml IV ONCE PRN PRN Reason: Interaction Checking Stop: 12/30/18 18:20 Last Admin: 12/26/18 18:21 Dose: 93 ml Documented by: Levetiracetam (Keppra) 1,000 mg PO BID [facility] Stop: 01/25/19 20:59 Last Admin: 12/27/18 08:20 Dose: 1,000 mg Documented by: Lorazepam (Ativan) 1 mg PO ONE PRN; Protocol PRN Reason: EtoH Withdrawal AWSS 6-10 Magnesium Hydroxide (Milk Of Magnesia) 30 ml PO Q12H PRN PRN Reason: Constipation Stop: 01/25/19 19:47 Magnesium Oxide (Mag-Ox) 400 mg PO BID [facility] Stop: 01/26/19 09:14 Last Admin: 12/27/18 09:28 Dose: 400 mg Documented by: Miscellaneous (Icu Protocol For Hyperglycemia) 1 ea N/A PRN PRN; Protocol PRN Reason: Hyperglycemia Protocol Stop: 12/28/18 20:12 Miscellaneous (Icu Protocol For Hyperglycemia) 1 ea N/A PRN PRN; Protocol PRN Reason: Hyperglycemia Protocol Stop: 12/28/18 21:10 Multivitamins (Multivitamin Tab) 1 tab PO QAM [facility] Stop: 01/26/19 09:14 Last Admin: 12/27/18 09:28 Dose: 1 tab Documented by: Phenobarbital (Phenobarbital) 64.8 mg PO TODAY@1999 ONE Stop: 12/27/18 20:01 Phenobarbital (Phenobarbital) 32.4 mg PO BID [facility] Stop: 12/29/18 09:01 Polyethylene Glycol (Miralax Powder Packet) 17 gm PO DAILY PRN PRN Reason: Constipation Stop: 01/25/19 19:47 Potassium Chloride (Klor-Con M20) 40 meq PO BID [facility] Stop: 01/26/19 20:59 Ranitidine HCl (Zantac) 300 mg PO HS [facility] Stop: 01/25/19 20:59 Last Admin: 12/26/18 22:56 Dose: Not Given Documented by: Thiamine HCl (Vitamin B-1) 100 mg PO QAM [facility] Stop: 01/26/19 08:59 Last Admin: 12/27/18 08:21 Dose: 100 mg Documented by:
--- NOTE | 2018-12-27 12:56 | Neurology Consultation ---
Date of Consultation December 27, 2018 Assessment & Plan (1) Seizure disorder: 1. EEG -pending official read 2. correct electrolyles 3. currently on phenobarb protocol for EtOH withdrawal 4. continue Keppra 1000 mg BID- unclear if he was taking this prior to event- events described did not sound like seizure events. 5. Keppra level 6. combination of medication may be making drowsey including 1000 mg BID -if not taking prior 7. EtOH cessation 8. PT/OT for discharge needs Supervising Physician Co-Signing Physician Notes I have seen and discussed above patient with Dr Chano Vegas. Patient was seen and examined at bedside. Appears acute on chronically ill. Cachectic appearing male. No distress. Lethargic. No tremors or asterixis noted. Denies hallucinations. He is a poor historian and no family at bedside. Reports seizure which he describes as generalized shaking and falling down. Denies "blacking out". States he drinks 4 vodka drinks per day. Admitted from ED yesterday. Found to have severe electrolyte abnormalities and EKG showed torsades. On examine he is not confabulating. Comprehension is intact. Speech is slurred. No clonus. Negative patel. CT head shows hydrocephalus ex vacuo and small vessel ischemic disease. EEG showed severe suppression which may be secondary to medications such as phenobarbital. Patient high risk for alcohol withdrawal seizure. - Agree with thiamine and electrolyte replacement. - Will defer to primary team for Phenobarbital protocol - Agree with Keppra 1000 mg BID; suspect compliance may be an issue. - Recommend psych consultation to discuss options for rehab - I would check B12, folate, and methylmalonic acid and replace as needed - Seizure precautions Please call with any further questions or concerns. History of Present Illness Reason for Consultation: seizure disorder Requesting Physician: Jossie Martins MD Attending Physician: Jossie Martins MD History of Present Illness Celeste is a 63 year old male who has a PMH of seizure disorder, alcohol abuse, HTN, HLD, carotid artery stenosis, diverticulosis who was brought to [facility] for seizure x 2 and weakness. He was walking into his living room whenever he fell and had a, "seizure." There was no LOC, tongue biting or incontenience. He states he just fell which he does often. He had a "seizure," 3 days ago and again was described as him falling. He drinks 3-4 vodkas a day and his last was at 10 PM prior to his arrival. He has been getting increasingly weak over the past week had had very poor p.o. intake, chronic dyspnea on exertion but not worse. He does not follow routinly with his PCP it has been several years since he was seen in neurology (2008). On presentation he has significant electrolyte abnormalities including magnesium of 0.6, sodium 127, potassium 3.3. Renal function elevated at BUN 11 creatinine 1.42. His H&H was 10.3 and 27.7, W BC 8.23, platelet 261. His anion gap was 13. Tox screen was negative and his EtoH level was <3.0. His Keppra level is pending. He has rib fractures as well as abnormal LFTs. He had bladder distension so a melendez catheter was placed. He has a T12 endplate compression fracture, 2 incidental groundglass pulmonary nodules, infrarenal abdominal aortic aneurysm 3.7 x 3.4 cm. he had torsodes on EKG and was given agressive mg++ therapy. Currently he is sleeping and drowsy with awaking. He can not answer where he is. denies pain, SOB, CP, N, V. Allergies Allergy/AdvReac Type Severity Reaction Status Date / Time No Known Allergies Allergy Verified 12/26/18 16:24 Home Medications Home Medications Medication Instructions Recorded Confirmed Type amlodipine 10 mg PO DAILY 12/26/18 12/26/18 History aspirin 81 mg PO DAILY 12/26/18 12/26/18 History citalopram 20 mg PO DAILY 12/26/18 12/26/18 History levetiracetam 1,000 mg PO BID 12/26/18 12/26/18 History ranitidine HCl 300 mg PO HS 12/26/18 12/26/18 History Patient History Medical History Carotid artery stenosis (Chronic) Diverticulosis (Chronic) HTN (hypertension) (Chronic) HLD (hyperlipidemia) (Chronic) Alcohol abuse (Chronic) Seizure disorder Seizure disorder (Chronic) Surgical History History of tonsillectomy and adenoidectomy (Chronic) History of shoulder surgery (Chronic) History of colon resection (Chronic) History of colostomy reversal (Chronic) History of colostomy (Chronic) S/P cholecystectomy (Chronic) Family History Father Diverticulosis Social History Preferred Language: Montenegrin Communication Ability: Effective Switch Technician Required: No Beliefs That Will Affect Care: None Current Living Situation: Spouse Feels Safe at Home: Yes Safety Concerns: Feels Safe At This Time Smoking Status: Current every day smoker Tobacco Type: cigarettes Cigarettes Per Day: 2 Do You Dip or Chew Tobacco: No Tobacco Cessation Education Requested by Patient: No Hx Alcohol Use: Yes Alcohol type: hard liquor Hx Substance Use: No Physical Exam Physical Exam: Physical Exam: Constitutional: appearance ill appearing male very thin, unkempt Ears, Nose, Mouth and Throat: mucous membranes moist, no injection and skin normal, eyes normal Cardiovascular: normal S-1 and S-2 and regular rate and rhythm Respiratory: course breath sounds Musculoskeletal: no peripheral edema, muscle atrophy bilaterally UE/LE Skin: erythema and varied stages on knees arm shoulder. left elbow open wound with discharge Eyes: pupils round equal reactive NEUROLOGIC EXAMINATION: Mental status: Alert and minimally interactive Oriented to person Speech limited speech, confusion, lethargy Cranial Nerves smile eye brow raise symmetric Reflexes: Deep tendon reflexes were symmetrical and graded 2/5. Sensory: intact to light cool touch Coordination: not cooperative with exam Gait/Stance: Posture normal. lying in bed. Strength: Normal - generalized weakness. UE biceps hand solar sales energy advisor 4+/5 bilaterally, Results & Data Vital Signs (Past 12 Hours) Vital Signs Temp Pulse Resp BP Pulse Ox 12/27/18 12:46 36.9 C 12/27/18 12:01 85 20 97 12/27/18 12:00 97 H 18 112/64 98 12/27/18 11:20 82 15 101/57 L 92 12/27/18 11:01 81 20 101/57 L 98 12/27/18 11:00 79 32 H 98 12/27/18 10:00 78 18 112/64 99 12/27/18 09:01 84 16 105/61 94 12/27/18 08:01 78 21 111/52 L 96 12/27/18 06:07 93/61 L 96 12/27/18 05:00 86 122/88 97 12/27/18 04:02 36.6 C 94 H 99/61 L 90 12/27/18 03:01 81 108/63 95 12/27/18 02:01 80 108/64 96 12/27/18 01:01 78 107/62 91 12/27/18 01:00 86 86 L Laboratory Results Abnormal lab results 12/26/18 12/26/18 12/26/18 Range/Units 16:09 16:09 16:09 RBC 2.92 L (4.7-6.1) M/uL Hgb 10.3 L (14.0-18.0) g/dL Hct 27.7 L (42-52) % MCH 35.3 H (25-34) pg MCHC 37.2 H (32-36) g/dL RDW Std Deviation (36.4-46.3) fL Immature Gran # (Auto) 0.06 H (0.00-0.02) K/uL Neut # (Auto) 6.84 H (1.4-6.5) K/uL Lymph # (Auto) 0.69 L (1.2-3.4) K/uL Jack # (Auto) 0.62 H (0.11-0.59) K/uL PT 13.3 H (9.0-12.0) Seconds INR 1.3 H (0.9-1.1) Sodium 127 L (136-145) mmol/L Potassium 3.3 L (3.5-5.1) mmol/L Chloride 84 L (98-107) mmol/L Anion Gap 23.0 H (3-11) BUN (7-18) mg/dl Creatinine 1.42 H (0.6-1.4) mg/dl BUN/Creatinine Ratio 7.9 L (10-20) Glucose (70-99) mg/dl Calcium 7.7 L (8.5-10.1) mg/dl Phosphorus (2.5-4.9) mg/dl Magnesium 0.6 L* (1.8-2.4) mg/dl Total Bilirubin 3.8 H (0.2-1) mg/dl Direct Bilirubin (0-0.2) mg/dl AST 166 H (15-37) U/L Total Protein 8.5 H (6.4-8.2) gm/dl Albumin 2.9 L (3.4-5.0) gm/dl Globulin 5.6 H (2.5-4.0) gm/dl Albumin/Globulin Ratio 0.5 L (0.9-2) Urine Ketones (Negative) Urine Urobilinogen (Negative) 12/26/18 12/26/18 12/26/18 Range/Units 16:09 17:36 22:21 RBC (4.7-6.1) M/uL Hgb (14.0-18.0) g/dL Hct (42-52) % MCH (25-34) pg MCHC (32-36) g/dL RDW Std Deviation (36.4-46.3) fL Immature Gran # (Auto) (0.00-0.02) K/uL Neut # (Auto) (1.4-6.5) K/uL Lymph # (Auto) (1.2-3.4) K/uL Jack # (Auto) (0.11-0.59) K/uL PT (9.0-12.0) Seconds INR (0.9-1.1) Sodium 131 L (136-145) mmol/L Potassium 1.6 L* D (3.5-5.1) mmol/L Chloride 89 L (98-107) mmol/L Anion Gap 15.0 H (3-11) BUN (7-18) mg/dl Creatinine (0.6-1.4) mg/dl BUN/Creatinine Ratio (10-20) Glucose 127 H (70-99) mg/dl Calcium 6.9 L (8.5-10.1) mg/dl Phosphorus 2.4 L (2.5-4.9) mg/dl Magnesium 3.0 H (1.8-2.4) mg/dl Total Bilirubin 2.9 H (0.2-1) mg/dl Direct Bilirubin (0-0.2) mg/dl AST 141 H (15-37) U/L Total Protein (6.4-8.2) gm/dl Albumin 2.6 L (3.4-5.0) gm/dl Globulin 4.8 H (2.5-4.0) gm/dl Albumin/Globulin Ratio 0.5 L (0.9-2) Urine Ketones Trace H (Negative) Urine Urobilinogen Positive H (Negative) 12/27/18 12/27/18 12/27/18 Range/Units 01:05 04:07 04:07 RBC 2.54 L (4.7-6.1) M/uL Hgb 9.0 L (14.0-18.0) g/dL Hct 24.4 L (42-52) % MCH 35.4 H (25-34) pg MCHC 36.9 H (32-36) g/dL RDW Std Deviation 46.7 H (36.4-46.3) fL Immature Gran # (Auto) (0.00-0.02) K/uL Neut # (Auto) (1.4-6.5) K/uL Lymph # (Auto) (1.2-3.4) K/uL Jack # (Auto) (0.11-0.59) K/uL PT (9.0-12.0) Seconds INR (0.9-1.1) Sodium 130 L 131 L (136-145) mmol/L Potassium 1.9 L* D 2.2 L* D (3.5-5.1) mmol/L Chloride 89 L 91 L (98-107) mmol/L Anion Gap 13.0 H 12.0 H (3-11) BUN 6 L (7-18) mg/dl Creatinine (0.6-1.4) mg/dl BUN/Creatinine Ratio 9.4 L (10-20) Glucose 116 H (70-99) mg/dl Calcium 6.9 L 7.3 L (8.5-10.1) mg/dl Phosphorus 1.4 L* D (2.5-4.9) mg/dl Magnesium 3.0 H (1.8-2.4) mg/dl Total Bilirubin 2.7 H (0.2-1) mg/dl Direct Bilirubin 2.0 H (0-0.2) mg/dl AST 133 H (15-37) U/L Total Protein (6.4-8.2) gm/dl Albumin 2.6 L (3.4-5.0) gm/dl Globulin (2.5-4.0) gm/dl Albumin/Globulin Ratio (0.9-2) Urine Ketones (Negative) Urine Urobilinogen (Negative) 12/27/18 Range/Units 08:45 RBC (4.7-6.1) M/uL Hgb (14.0-18.0) g/dL Hct (42-52) % MCH (25-34) pg MCHC (32-36) g/dL RDW Std Deviation (36.4-46.3) fL Immature Gran # (Auto) (0.00-0.02) K/uL Neut # (Auto) (1.4-6.5) K/uL Lymph # (Auto) (1.2-3.4) K/uL Jack # (Auto) (0.11-0.59) K/uL PT (9.0-12.0) Seconds INR (0.9-1.1) Sodium 134 L (136-145) mmol/L Potassium 2.6 L D (3.5-5.1) mmol/L Chloride 95 L (98-107) mmol/L Anion Gap (3-11) BUN 4 L (7-18) mg/dl Creatinine 0.51 L (0.6-1.4) mg/dl BUN/Creatinine Ratio 8.0 L (10-20) Glucose (70-99) mg/dl Calcium 6.7 L (8.5-10.1) mg/dl Phosphorus (2.5-4.9) mg/dl Magnesium 1.5 L (1.8-2.4) mg/dl Total Bilirubin (0.2-1) mg/dl Direct Bilirubin (0-0.2) mg/dl AST (15-37) U/L Total Protein (6.4-8.2) gm/dl Albumin (3.4-5.0) gm/dl Globulin (2.5-4.0) gm/dl Albumin/Globulin Ratio (0.9-2) Urine Ketones (Negative) Urine Urobilinogen (Negative) Diagnostic Findings CT c spine- No fractures within the cervical spine. CT head-No acute intracranial abnormality. Atrophy and microvascular ischemic changes. CXR-Acute right lateral ninth and 10th rib fractures. No pneumothorax CT Chest/ abd/pelvis- Acute bilateral rib fractures as described above. No pneumothorax. Redemonstration of a small focal indentation within the superior endplate of T12 which may represent a subacute fracture. This is better appreciated on the same day thoracic spine CT. 3. A 3.7 x 3.4 cm infrarenal abdominal aortic aneurysm. Moderately distended bladder. Recommend catheterization. This likely accounts for the mild fullness within the bilateral renal collecting systems. CT spine t/L-. Small focal acute superior endplate compression fracture at T12. This involves the right anterior superior endplate and appears to be subacute. This could also represent a Schmorl's node with an old fracture. Correlate for pain at this location to assess for an acute injury. No acute fracture or subluxation within the lumbar spine. abd/US-Fatty infiltration of liver. Otherwise negative study post cholecystectomy.
[2018-12-27 13:40] LABS: BUN Creatinine Ratio 6.8 (10-20); Calcium 7.1 mg/dl (8.5-10.1); Creatinine Clr Calc Pharmacy 132.8 ml/min; Est GFR (African American) 129.6; Est GFR (Non-African American) 111.8; Magnesium 1.2 mg/dl (1.8-2.4); Potassium 2.9 mmol/L (3.5-5.1)
--- NOTE | 2018-12-27 13:48 | Consultation Report ---
DATE OF CONSULTATION: 12/27/2018 CARDIOLOGY CONSULTATION REFERRING PHYSICIAN: Dr. Gonzalez. PRIMARY CARE PHYSICIAN: Dr. Luna. HISTORY OF PRESENT ILLNESS: The patient is a 63-year-old male whose history is obtained from discussion with the patient as well as review of chart records. His past medical history is notable for chronic seizure disorder, past alcohol abuse with alcoholic hepatic disease, hypertension, hyperlipidemia, prior history of carotid disease, who presents to this hospitalization noting general decline over 1-2 weeks of weakness and recurrent seizures. He notes multiple falls and injuries at home. He is ill-defined to his degree of alcohol use recently. Notes no specific chest pain that was tender to palpation. On presentation to the Emergency Room due to complaints of marked weakness, fatigue and above, he is initially evaluated and found to have marked metabolic derangement as well as EKG findings of prolonged QT and intermittent torsades. He has been referred for hospitalization and has been receiving potassium, magnesium and phosphorus . QT is shortened somewhat. Episodes of ventricular torsades have diminished. He noted no syncope. Does get lightheaded and dizzy at home. The patient is generally poor historian. Notes no specific fevers or chills. Notes no bleeding difficulties. Notes appetite has been poor with weight loss, though unable to discern as to how much. Has been taking medications as prescribed per patient, though cannot quantify or delineate medications being used. REVIEW OF SYSTEMS: Otherwise unobtainable or negative. ALLERGIES: Listed as none. MEDICATIONS: Per report prior to hospitalization were amlodipine 10 mg per day, aspirin 81 mg per day, citalopram 20 mg p.o. daily, Keppra 1000 mg b.i.d. and ranitidine at bedtime. PAST SURGICAL HISTORY: Per review of records is notable for prior cholecystectomy, left rotator cuff repair, remote tonsillectomy, exploratory laparotomy in 2013 with colectomy. FAMILY HISTORY: Noncontributory. SOCIAL HISTORY: The patient has greater than a 40-pack year history of tobacco use, chronic alcohol use not defined. PHYSICAL EXAMINATION: GENERAL: The patient is a thin, cachectic male, will respond to some questioning. VITAL SIGNS: Heart rate is 86, blood pressure is 93/60. Telemetry reveals sinus and sinus tachycardia with intermittent runs of wide complex tachycardia pattern of torsades. HEENT: Normocephalic and atraumatic. NECK: Thin and heavily bearded. There is no jugular venous distention or audible carotid bruit. LUNGS: Reveal diminished breath sounds in all lung brothers, but no rhonchi, rale or wheeze. CARDIOVASCULAR: Regular with forceful apical impulse. Normal S1, S2 and a grade 1/6 systolic murmur. No diastolic murmur. There is no S3 gallop. ABDOMEN: Soft, scaphoid. No palpable hepatosplenomegaly. EXTREMITIES: Reveal no edema. There is multiple ecchymosis of the knees and elbows. NEUROLOGIC: The patient answers some questions and will follow commands. DATA: EKG on initial presentation on 12/26/2018 with sinus rhythm with premature atrial beats, QT corrected of 634. The patient has had serial multiple EKGs, which demonstrated once again sinus with atrial ectopy, nonspecific ST segment changes, QT prolongation as long as 713. Telemetry reveals torsades pattern intermittent. LABORATORY STUDIES: On presentation, had marked metabolic derangement with initial sodium of 127; potassium 3.3, after fluid hydration potassium dropped to 1.6 with significant anion gap; low calcium; low magnesium of 0.6; albumin level of 2.9. TSH within normal limits. Chest x-ray revealed no infiltrate or edema or chronic emphysematous changes, multiple rib fractures. CT scan of the chest revealed no evidence of pulmonary emboli. Echocardiogram performed this morning demonstrates moderate left ventricular hypertrophy with normal LV systolic function and no wall motion abnormalities, EF 60%-65%. There is aortic sclerosis and mild aortic insufficiency. IMPRESSION AND PLAN: Complex 63-year-old male with underlying history of seizure disorder, chronic alcohol use, who presents with marked metabolic derangement, weakness and fatigue, possible seizure activity and history of multiple falls. His reflection of recent weight on this admission and last outpatient weight from 2017, weight is down 30 pounds. From cardiac standpoint, the patient has manifested significant torsade rhythm in association with marked metabolic derangement, now improving with potassium and magnesium supplementation. Would recommend continue to replete electrolytes. He is currently on low dose dopamine to aid in QT and heart rate. Once electrolytes replete, we will likely be able to wean dopamine. We will continue to follow the patient in the hospital. No evidence of acute coronary syndrome currently. Would avoid all QT prolonging medications. MTDD
--- NOTE | 2018-12-27 14:38 | Procedure Note ---
EEG Procedure Note Date of Service December 27, 2018 Start / End Times Start Time: 09:55 End Time: 10:[address] Jossie Martins History A 63 year old male with chronic alcohol abuse admitted for possible seizure. EEG performed for evaluation of epileptiform activity. Home Medication List Home Medications Medication Instructions Recorded Confirmed Type amlodipine 10 mg PO DAILY 12/26/18 12/26/18 History aspirin 81 mg PO DAILY 12/26/18 12/26/18 History citalopram 20 mg PO DAILY 12/26/18 12/26/18 History levetiracetam 1,000 mg PO BID 12/26/18 12/26/18 History ranitidine HCl 300 mg PO HS 12/26/18 12/26/18 History Inpatient Medication List Amlodipine Besylate (Norvasc) 10 mg PO DAILY CONNOR Stop: 01/26/19 08:59 Last Admin: 12/27/18 08:21 Dose: 10 mg Documented by: [id number] Aspirin (Ecotrin Ectab) 81 mg PO DAILY CONNOR Stop: 01/26/19 08:59 Last Admin: 12/27/18 08:20 Dose: 81 mg Documented by: [id number] Folic Acid (Folvite) 1 mg PO QAM CONNOR Stop: 01/25/19 17:14 Last Admin: 12/27/18 08:20 Dose: 1 mg Documented by: [id number] Admin: 12/26/18 22:56 Dose: Not Given Documented by: [id number] Heparin Sodium (Porcine) (Heparin Sodium (Porcine)) 5,000 units SQ Q8 CONNOR Stop: 01/25/19 21:59 Last Admin: 12/27/18 05:57 Dose: 5,000 units Documented by: [id number] Cosigned by: [id number] Admin: 12/27/18 00:37 Dose: Not Given Documented by: [id number] Potassium Chloride/Sodium Chloride (Normal Saline W/20 Meq Kcl) 20 meq in 1,000 mls @ 100 mls/hr IV .Q10H CONNOR Stop: 12/27/18 16:14 Last Admin: 12/27/18 05:54 Dose: 100 mls/hr Documented by: [id number] Infusion: 12/27/18 05:54 Dose: 100 mls/hr Documented by: [id number] Admin: 12/26/18 20:20 Dose: 100 mls/hr Documented by: [id number] Dopamine HCl/Dextrose (Dopamine / D5w) 400 mg in 250 mls @ 6.347 mls/hr IV .Q24H PRN; Protocol PRN Reason: TITRATE Stop: 01/25/19 21:25 Last Titration: 12/27/18 07:17 Dose: 2.5 mcg/kg/min, 6.3 mls/hr Documented by: [id number] Cosigned by: [id number] Titration: 12/26/18 23:15 Dose: 2.5 mcg/kg/min, 6.3 mls/hr Documented by: [id number] Admin: 12/26/18 22:28 Dose: 5 mcg/kg/min, 12.7 mls/hr Documented by: [id number] Cosigned by: [id number] Ioversol (Optiray 320 100ml) 93 ml IV ONCE PRN PRN Reason: Interaction Checking Stop: 12/30/18 18:20 Last Admin: 12/26/18 18:21 Dose: 93 ml Documented by: [id number] Levetiracetam (Keppra) 1,000 mg PO BID CONNOR Stop: 01/25/19 20:59 Last Admin: 12/27/18 08:20 Dose: 1,000 mg Documented by: [id number] Admin: 12/26/18 22:57 Dose: Not Given Documented by: [id number] Magnesium Oxide (Mag-Ox) 400 mg PO BID CONNOR Stop: 01/26/19 09:14 Last Admin: 12/27/18 09:28 Dose: 400 mg Documented by: [id number] Multivitamins (Multivitamin Tab) 1 tab PO QAM CONNOR Stop: 01/26/19 09:14 Last Admin: 12/27/18 09:28 Dose: 1 tab Documented by: [id number] Ranitidine HCl (Zantac) 300 mg PO HS CONNOR Stop: 01/25/19 20:59 Last Admin: 12/26/18 22:56 Dose: Not Given Documented by: [id number] Thiamine HCl (Vitamin B-1) 100 mg PO QAM CONNOR Stop: 01/26/19 08:59 Last Admin: 12/27/18 08:21 Dose: 100 mg Documented by: [id number] Discontinued Medications Amiodarone HCl (Cordarone Iv Bolus / Drip) 1 ea IV NOW STA; Protocol Stop: 12/26/18 18:40 Last Admin: 12/26/18 19:59 Dose: Not Given Documented by: [id number] Gabapentin (Neurontin) 1,200 mg PO TODAY@2030 ONE Stop: 12/26/18 20:31 Last Admin: 12/26/18 22:56 Dose: Not Given Documented by: [id number] Gabapentin (Neurontin) 600 mg PO Q6H CONNOR Stop: 12/27/18 12:01 Last Admin: 12/27/18 05:57 Dose: 600 mg Documented by: [id number] Sodium Chloride (Nss 1000ml) 1,000 mls @ 999 mls/hr IV .Q1H1M CONNOR Stop: 12/26/18 17:30 Last Infusion: 12/26/18 18:08 Dose: 0 mls/hr Documented by: [id number] Admin: 12/26/18 16:31 Dose: 999 mls/hr Documented by: [id number] Magnesium Sulfate/Dextrose (Magnesium Sulfate / D5w) 1 gm in 100 mls @ 100 mls/hr IV ONE ONE Stop: 12/26/18 18:13 Last Infusion: 12/26/18 18:35 Dose: 0 mls/hr Documented by: [id number] Admin: 12/26/18 17:31 Dose: 100 mls/hr Documented by: [id number] Multivitamins 10 ml/ Thiamine HCl 100 mg/ Folic Acid 1 mg/Sodium Chloride 1,011.2 mls @ 1,011.2 mls/hr IV .Q1H CONNOR Stop: 12/26/18 18:14 Last Infusion: 12/26/18 18:43 Dose: 0 mls/hr Documented by: [id number] Admin: 12/26/18 17:30 Dose: 1,011.2 mls/hr Documented by: [id number] Magnesium Sulfate/Dextrose (Magnesium Sulfate / D5w) 1 gm in 100 mls @ 100 mls/hr IV ONE ONE Stop: 12/26/18 18:23 Last Infusion: 12/26/18 19:59 Dose: 0 mls/hr Documented by: [id number] Admin: 12/26/18 18:35 Dose: 240 mls/hr Documented by: [id number] Lorazepam (Ativan) 2 mg in 4 mls @ 4 mls/min IV NOW STA Stop: 12/26/18 18:32 Last Admin: 12/26/18 18:42 Dose: Not Given Documented by: [id number] Amiodarone HCl/Dextrose (Nexterone / D5w) 360 mg in 200 mls @ 33.333 mls/hr IV .Q6H CONNOR Stop: 12/27/18 00:44 Last Infusion: 12/26/18 19:09 Dose: 0 mg/min, 0 mls/hr Documented by: [id number] Cosigned by: [id number] Admin: 12/26/18 19:00 Dose: 1 mg/min, 33.3 mls/hr Documented by: [id number] Cosigned by: [id number] Magnesium Sulfate/Dextrose (Magnesium Sulfate / D5w) 1 gm in 100 mls @ 300 mls/hr IV Q1H CONNOR Stop: 12/26/18 20:04 Last Infusion: 12/26/18 20:17 Dose: 0 mls/hr Documented by: [id number] Admin: 12/26/18 19:53 Dose: 300 mls/hr Documented by: [id number] Infusion: 12/26/18 19:52 Dose: 0 mls/hr Documented by: [id number] Admin: 12/26/18 18:54 Dose: 300 mls/hr Documented by: [id number] Amiodarone HCl/Dextrose (Nexterone / D5w) 150 mg in 100 mls @ 600 mls/hr IV ONE STA Stop: 12/26/18 18:48 Last Infusion: 12/26/18 20:00 Dose: 0 mls/hr Documented by: [id number] Cosigned by: [id number] Admin: 12/26/18 18:53 Dose: 600 mls/hr Documented by: [id number] Cosigned by: [id number] Magnesium Sulfate/Dextrose (Magnesium Sulfate / D5w) 1 gm in 100 mls @ 100 mls/hr IV Q1H CONNOR Stop: 12/26/18 22:54 Last Admin: 12/26/18 23:20 Dose: Not Given Documented by: [id number] Magnesium Sulfate/Dextrose (Magnesium Sulfate / D5w) 1 gm in 100 mls @ 100 mls/hr IV Q1H CONNOR Stop: 12/27/18 01:14 Last Infusion: 12/26/18 23:58 Dose: 0 mls/hr Documented by: [id number] Admin: 12/26/18 22:58 Dose: 100 mls/hr Documented by: [id number] Infusion: 12/26/18 22:58 Dose: 100 mls/hr Documented by: [id number] Admin: 12/26/18 21:58 Dose: 100 mls/hr Documented by: [id number] Infusion: 12/26/18 21:58 Dose: 0 mls/hr Documented by: [id number] Admin: 12/26/18 21:38 Dose: 300 mls/hr Documented by: [id number] Infusion: 12/26/18 21:38 Dose: 0 mls/hr Documented by: [id number] Infusion: 12/26/18 21:18 Dose: 300 mls/hr Documented by: [id number] Admin: 12/26/18 21:17 Dose: 100 mls/hr Documented by: [id number] Potassium Chloride (K Anton / Wtr) 10 meq in 100 mls @ 100 mls/hr IV Q1H CONNOR Stop: 12/27/18 00:00 Last Infusion: 12/27/18 00:27 Dose: 0 mls/hr Documented by: [id number] Admin: 12/26/18 23:57 Dose: 100 mls/hr Documented by: [id number] Infusion: 12/26/18 23:57 Dose: 100 mls/hr Documented by: [id number] Admin: 12/26/18 23:04 Dose: 100 mls/hr Documented by: [id number] Multivitamins 10 ml/ Thiamine HCl 100 mg/ Folic Acid 1 mg/Sodium Chloride 1,011.2 mls @ 250 mls/hr IV .Q4H3M CONNOR Stop: 12/27/18 02:32 Last Admin: 12/26/18 23:59 Dose: Not Given Documented by: [id number] Folic Acid 1 mg/ Syringe 10 mls @ 5 mls/min IV NOW STA Stop: 12/26/18 22:22 Last Admin: 12/26/18 23:10 Dose: 5 mls/min Documented by: [id number] Thiamine HCl 200 mg/ Sodium (Chloride) 52 mls @ 208 mls/hr IV NOW STA Stop: 12/26/18 22:35 Last Infusion: 12/27/18 00:19 Dose: 0 mls/hr Documented by: [id number] Admin: 12/26/18 23:28 Dose: 208 mls/hr Documented by: [id number] Levetiracetam 1,000 mg/ (Dextrose) 110 mls @ 440 mls/hr IV NOW STA Stop: 12/26/18 23:01 Last Infusion: 12/26/18 23:37 Dose: 0 mls/hr Documented by: [id number] Admin: 12/26/18 23:06 Dose: 440 mls/hr Documented by: [id number] Potassium Chloride (K Anton / Wtr) 10 meq in 100 mls @ 100 mls/hr IV Q1H CONNOR Stop: 12/27/18 02:57 Last Infusion: 12/27/18 02:44 Dose: 0 mls/hr Documented by: [id number] Admin: 12/27/18 02:42 Dose: 100 mls/hr Documented by: [id number] Infusion: 12/27/18 02:40 Dose: 100 mls/hr Documented by: [id number] Admin: 12/27/18 01:40 Dose: 100 mls/hr Documented by: [id number] Infusion: 12/27/18 01:40 Dose: 100 mls/hr Documented by: [id number] Admin: 12/27/18 01:40 Dose: 100 mls/hr Documented by: [id number] Infusion: 12/27/18 01:35 Dose: 100 mls/hr Documented by: [id number] Admin: 12/27/18 00:35 Dose: 100 mls/hr Documented by: [id number] Calcium Gluconate 1,000 mg/ (Sodium Chloride) 60 mls @ 240 mls/hr IV NOW STA Stop: 12/26/18 23:58 Last Infusion: 12/27/18 01:42 Dose: 0 mls/hr Documented by: [id number] Admin: 12/27/18 00:36 Dose: 240 mls/hr Documented by: [id number] Potassium Chloride (K Anton / Wtr) 10 meq in 100 mls @ 100 mls/hr IV Q1H CONNOR Stop: 12/27/18 06:43 Last Infusion: 12/27/18 05:28 Dose: 0 mls/hr Documented by: [id number] Admin: 12/27/18 05:28 Dose: 100 mls/hr Documented by: [id number] Infusion: 12/27/18 05:28 Dose: 100 mls/hr Documented by: [id number] Admin: 12/27/18 04:29 Dose: 100 mls/hr Documented by: [id number] Infusion: 12/27/18 04:28 Dose: 0 mls/hr Documented by: [id number] Admin: 12/27/18 04:17 Dose: 100 mls/hr Documented by: [id number] Infusion: 12/27/18 04:17 Dose: 100 mls/hr Documented by: [id number] Admin: 12/27/18 03:17 Dose: 100 mls/hr Documented by: [id number] Calcium Gluconate 1,000 mg/ (Sodium Chloride) 60 mls @ 240 mls/hr IV NOW STA Stop: 12/27/18 02:58 Last Infusion: 12/27/18 03:45 Dose: 0 mls/hr Documented by: [id number] Admin: 12/27/18 03:20 Dose: 240 mls/hr Documented by: [id number] Potassium Chloride (K Anton / Wtr) 10 meq in 100 mls @ 100 mls/hr IV Q1H CONNOR Stop: 12/27/18 09:02 Last Infusion: 12/27/18 09:01 Dose: 0 mls/hr Documented by: [id number] Admin: 12/27/18 07:47 Dose: 100 mls/hr Documented by: [id number] Infusion: 12/27/18 07:30 Dose: 0 mls/hr Documented by: [id number] Admin: 12/27/18 06:26 Dose: 100 mls/hr Documented by: [id number] Infusion: 12/27/18 06:26 Dose: 0 mls/hr Documented by: [id number] Admin: 12/27/18 06:25 Dose: 100 mls/hr Documented by: [id number] Infusion: 12/27/18 06:25 Dose: 100 mls/hr Documented by: [id number] Admin: 12/27/18 05:55 Dose: 100 mls/hr Documented by: [id number] Potassium Phosphate 21 mmol/ (Sodium Chloride) 507 mls @ 88 mls/hr IV ONE ONE Stop: 12/27/18 11:00 Last Infusion: 12/27/18 11:47 Dose: 0 mls/hr Documented by: [id number] Admin: 12/27/18 05:54 Dose: 88 mls/hr Documented by: [id number] Lorazepam (Ativan) Confirm Administered Dose 2 mg .ROUTE .STK-MED ONE Stop: 12/26/18 18:28 Last Admin: 12/26/18 18:29 Dose: 2 mg Documented by: [id number] Phenobarbital (Phenobarbital) 64.8 mg PO NOW ONE Stop: 12/27/18 08:31 Last Admin: 12/27/18 09:29 Dose: 64.8 mg Documented by: [id number] Potassium Chloride (Klor-Con M20) 40 meq PO NOW STA Stop: 12/26/18 18:16 Last Admin: 12/26/18 22:56 Dose: Not Given Documented by: [id number] Potassium Chloride (Klor-Con M20) 40 meq PO NOW STA Stop: 12/26/18 23:01 Last Admin: 12/26/18 23:14 Dose: 40 meq Documented by: [id number] Potassium Chloride (Klor-Con M20) 40 meq PO NOW ONE Stop: 12/27/18 06:01 Last Admin: 12/27/18 05:28 Dose: 40 meq Documented by: [id number] Description REPORT: This is a 21 electrode EEG with a single channel dedicated to limited EKG. The electrodes were placed in accordance with the International 10-20 system. At the onset of the EEG the patient is in an altered mental state. No posterior dominant rhythm is seen. Instead the background is suppressed and consist 1-2 Hz delta activity with intermittent superimposed faster activity which is likely artifact. No stage II sleep transient are seen. Photic stimulation does not elicit any additional abnormalities. IMPRESSION: This is an abnormal EEG in a patient with altered mentation due to severe background suppression suggestive of a severe non specific encephalopathy. No epileptiform activity is seen.
[2018-12-27] MEDS: MAGNESIUM SULFATE / D5W 1 GM/100 ML BAG IV SCH ×4 (14:42→23:50)
[2018-12-27 17:44] LABS: BUN Creatinine Ratio 3.3 (10-20); Creatinine Clr Calc Pharmacy 89.1 ml/min; Est GFR (Non-African American) 94.9; Magnesium 1.8 mg/dl (1.8-2.4); Potassium 2.8 mmol/L (3.5-5.1)
[2018-12-27 17:53] LABS: Calcium 6.8 mg/dl (8.5-10.1)
[2018-12-27 17:55] LABS: Phosphorus 1.8 mg/dl (2.5-4.9)
[2018-12-27] MEDS: POTASSIUM CHLORIDE 20 MEQ TABCR PO SCH (20:18)
[2018-12-27 21:35] LABS: Calcium 6.8 mg/dl (8.5-10.1); Creatinine Clr Calc Pharmacy 80.9 ml/min; Est GFR (African American) 105.7; Est GFR (Non-African American) 91.2; Phosphorus 1.6 mg/dl (2.5-4.9)
[2018-12-27 22:18] LABS: Potassium 3.1 mmol/L (3.5-5.1)
[2018-12-27 22:34] LABS: Magnesium 1.1 mg/dl (1.8-2.4)
[2018-12-28] MEDS: POTASSIUM CHLORIDE / WTR 10 MEQ/100 ML PLCT IV SCH ×2 (01:09→02:12)
[2018-12-28 04:25] LABS: Basophils # (auto) 0.01 K/uL (0-0.2); Basophils % (auto) 0.1 %; Eosinophils # (auto) 0.06 K/uL (0-0.5); Eosinophils % (auto) 0.9 %; Hematocrit (blood only) 22.3 % (42-52); Hemoglobin 8.1 g/dL (14.0-18.0); Immature Granulocytes # (auto) 0.03 K/uL (0.00-0.02); Immature Granulocytes % (auto) 0.4 %; Lymphocytes # (auto) 1.19 K/uL (1.2-3.4); Lymphocytes % (auto) 17.1 %; Mean Corpuscular Hgb Conc 36.3 g/dL (32-36); Mean Corpuscular Volume 97.4 fL (80-100); Mean Platelet Volume 9.1 fL (7.4-10.4); Monocytes # (auto) 0.55 K/uL (0.11-0.59); Monocytes % (auto) 7.9 %; Neutrophils # (auto) 5.12 K/uL (1.4-6.5); Neutrophils % (auto) 73.6 %; Platelet Count 191 K/uL (130-400); RDW Coefficient of Variation 13.8 % (11.5-14.5); RDW Standard Deviation 47.4 fL (36.4-46.3); Red Blood Count 2.29 M/uL (4.7-6.1); White Blood Count 6.96 K/uL (4.8-10.8)
[2018-12-28 04:45] LABS: Albumin Level 2.3 gm/dl (3.4-5.0); Calcium 6.1 mg/dl (8.5-10.1); Creatinine Clr Calc Pharmacy 125.7 ml/min; Est GFR (African American) 126.7; Est GFR (Non-African American) 109.3; Magnesium 1.3 mg/dl (1.8-2.4); Potassium 3.8 mmol/L (3.5-5.1)
[2018-12-28 04:48] LABS: Bilirubin,Total 1.4 mg/dl (0.2-1); Phosphorus 2.1 mg/dl (2.5-4.9); Total Protein 6.8 gm/dl (6.4-8.2)
[2018-12-28] MEDS ORDERED: CALCIUM GLUCONATE 10% 1,000 MG in SODIUM CHLORIDE 0.9% 50 ML IV STA (05:06)
[2018-12-28] MEDS: MAGNESIUM SULFATE / D5W 1 GM/100 ML BAG IV SCH ×6 (05:26→21:57)
[2018-12-28] MEDS: HEPARIN SOD 5,000 UNIT/0.5 ML VIAL SQ SCH ×3 (05:26→21:57)
--- NOTE | 2018-12-28 07:40 | Critical Care Progress Note ---
Date of Service December 28, 2018 Assessment & Plan (1) Admitted to intensive care unit: Reason Critically Ill: 63-year-old male presenting with seizure-like activity with noted nonsustained polymorphic ventricular tachyarrhythmia consistent with torsades. Noted to have electrolyte abnormalities: Hypomagnesemia/Hypokalemia/Hypophosphatemia/Hyponatremia/Hypocalcemia. Resuscitation in progress. At high risk for alcohol withdrawal. NEURO - CAM ICU: NEGATIVE Seizure disorder: 1 g twice daily Keppra Serum levels pending. -Abnormal EEG in a patient with altered mentation due to severe background suppression suggestive of a severe non specific encephalopathy. No epileptiform activity seen. Appreciate neurology consultation Alcohol abuse: High risk for withdrawal symptomatology. Phenobarbitol protocol for withdrawal. 64 mg extended 24hrs. Additional 32mg prn q6h for RASS >2 Thiamine, Folic acid supplementation. Hold celexa secondary to prolonged QTC CARDIAC/VASCULAR - Nonsustained polymorphic ventricular tachyarrhythmia - Torsades de Pointes: In the setting of profound hypomagnesemia, was aggressively supplemented Replace Potassium. ECHO reviewed, see results. Repeat EKG: NSR, QT 458 Monitor on telemetry. RESPIRATORY - Monitor closely for need for airway intervention in the setting of recurrent seizure-like activity. h/o Cigarette smoking. Supplemental O2 PRN. GI/NUTRITION - Advanced to regular diet Prophylaxis: Continue w/ AM PO Zantac RENAL/LYTES - Hypomagnesemia In the setting of Torsades de Pointes, will aggressively resuscitate. Received 4g prior to arrival and additional 4 g in ICU after run of Torsades in ICU Repeat labs show Mg 1.3 MgOH 400 BID [facility]. Replete with 2g IV today Hypokalemia: Initially w/ potassium of 3.3 in ED. Repeat labs shows K of 3.4 Daily 40meQ PO. Will cont additional replacement IV and PO. Hypocalcemia -replete alternating with Mg above with 2g IV (i.e.1g calcium glu, 1 g mag, 1 g calcium glu, 1 g mag) Hypophosphatemia -repeat of 1.0. Repleted with KPhos 21 mmol -2 tabs neutra phos Hyponatremia -fluid restriction 1800 ml. Pt had been drinking a lot of water yesterday (>3L) -repeat BMP/labs at 1600, will additionally replete as needed moving forward TEQUILA: Improved Stop additional fluids - Urinary retention: D/C Baird yesterday. Voiding trials ENDO - No h/o DM or Thyroid Disease. BSGs per unit protocol. ISS --> gtt per unit policy. HEME - Worsening H&H. Will trend q6h and obtain stool guiac. Will trend Coag profile in AM ID - No concerns for infectious contribution at this time. Will trend fever curve. LINES/IV ACCESS - PIVs x3 DVT PROPHYLAXIS - Heparin sq SCDs Full Code Dispo: Remain on ICU Supervising Physician Co-Signing Physician Notes Dr. Amaral was resident physician during care of patient. I separately evaluated patient for rahman portions of the history and the exam. I was present during the critical portion of medical decision making, and I discussed the case with the resident. I generally agree with the findings and plan. Worsening blood counts, will check H&H x3 and guaiac stool, improving LFTs, worsening hyponatremia, we have added fluid restriction as patient has been drinking large amounts of water. Magnesium oxide 400 twice daily empiric daily potassium 40 M EQ's, hypocalcemia will replete after most recent electrolyte check, likely to give 1 g calcium gluconate followed by 1 g magnesium followed by 1 g calcium gluconate followed by 1 g magnesium. We will give 2 tablets of Neutra-Phos, echo reviewed, will repeat EKG. Close observation for alcohol withdrawal: Extremely high risk. Extending 64 mg phenobarbital dosing x24 hours and will write for additional 32 mg as needed dose for RASS greater than 2 every 6 hours as needed Patient to remain in ICU due to symptomatic profound electrolyte abnormalities (carpopedal spasms) and worsening clinical signs concerning for alcohol withdrawal Clinical update: 1230 I examined the patient's left elbow, changes are most consistent with olecranon bursitis, he is able to flex and extend the arm without pain, therefore I do not believe the patient to have a true septic joint. I will place the patient on IV clindamycin have obtained imaging and w ill consult orthopedics for further evaluation and management. I have personally spent 35 minutes of critical care time in the direct management of this patient. This is a life/limb threatening event. This includes time spent evaluating patient, direct bedside care, chart review, placing orders, interpretation of diagnostic studies, discussion with consultants, patient, and/or family members regarding treatment decisions, as well as other required patient management activities. This time is exclusive of all separately billable procedures, and teaching time and separate from and in addition to any other critical care service time. Subjective 63 y/o M found in bed this AM in NAD. Reports no acute overnight events. Was A&Ox3. Repleted with 4 bags K, Mg 2g, Ca 1g overnight. Pt states R sided rib pain improved from yesterday. No other acute concerns or complaints. Review of Systems Review of Systems: All systems reviewed & are unremarkable except as noted in HPI & below Physical Exam Constitutional: + thin Eyes: PERRL, conjunctivae normal, anicteric sclerae ENMT: external ear and nose normal, oropharynx normal absent teeth Respiratory: normal respiratory effort, lungs clear to auscultation Cardiovascular: RRR, no murmur, no edema Gastrointestinal (Abdomen): normal bowel sounds, soft, nontender, no hepatosplenomegaly Skin: no rashes, warm and dry Psychiatric: A+Ox3, euthymic affect Results & Data Vital Signs (Past 12 Hours) Vital Signs Temp Pulse Resp BP Pulse Ox 12/28/18 06:00 85 21 103/67 92 12/28/18 05:10 85 24 97/63 L 91 12/28/18 04:00 36.8 C 88 22 103/62 93 12/28/18 03:00 86 20 96/54 L 93 12/28/18 02:00 94 H 20 94/74 L 92 12/28/18 01:00 95 H 26 H 115/56 L 93 12/28/18 00:00 36.6 C 82 20 106/63 94 12/27/18 23:00 86 20 104/77 95 12/27/18 22:00 87 24 108/56 L 92 12/27/18 21:00 88 20 110/67 100 12/27/18 20:00 91 H 18 102/65 95 Laboratory Results Laboratory Results - last 24 hr 12/26/18 12/27/18 12/27/18 16:09 12:03 12:49 WBC RBC Hgb Hct MCV MCH MCHC RDW Std Deviation RDW Coeff of Emil Plt Count MPV Immature Gran % (Auto) Neut % (Auto) Lymph % (Auto) [place] % (Auto) Eos % (Auto) Baso % (Auto) Immature Gran # (Auto) Neut # (Auto) Lymph # (Auto) [place] # (Auto) Eos # (Auto) Baso # (Auto) Sodium 136 Potassium 2.9 L Chloride 96 L Carbon Dioxide 29 Anion Gap 11.0 BUN 4 L Creatinine 0.53 L Est Cr Clr Drug Dosing 132.8 Est GFR ( Amer) 129.6 Est GFR (Non-Af Amer) 111.8 BUN/Creatinine Ratio 6.8 L Glucose 82 POC Glucose 98 Calcium 7.1 L Phosphorus Magnesium 1.2 L Total Bilirubin Direct Bilirubin AST ALT Alkaline Phosphatase Total Protein Albumin Levetiracetam Cancelled 12/27/18 12/27/18 12/27/18 13:39 17:06 20:41 WBC RBC Hgb Hct MCV MCH MCHC RDW Std Deviation RDW Coeff of Emil Plt Count MPV Immature Gran % (Auto) Neut % (Auto) Lymph % (Auto) [place] % (Auto) Eos % (Auto) Baso % (Auto) Immature Gran # (Auto) Neut # (Auto) Lymph # (Auto) [place] # (Auto) Eos # (Auto) Baso # (Auto) Sodium 135 L 133 L Potassium 2.8 L Chloride 95 L 94 L Carbon Dioxide 31 29 Anion Gap 9.0 10.0 BUN 3 L 3 L Creatinine 0.79 0.87 Est Cr Clr Drug Dosing 89.1 80.9 Est GFR ( Amer) 110.0 105.7 Est GFR (Non-Af Amer) 94.9 91.2 BUN/Creatinine Ratio 3.3 L 3.0 L Glucose 102 H 116 H POC Glucose Calcium 6.8 L 6.8 L Phosphorus 1.8 L 1.6 L Magnesium 1.8 Total Bilirubin Direct Bilirubin AST ALT Alkaline Phosphatase Total Protein Albumin Levetiracetam Pending 12/27/18 12/28/18 12/28/18 21:56 04:18 04:18 WBC 6.96 RBC 2.29 L Hgb 8.1 L Hct 22.3 L MCV 97.4 MCH 35.4 H MCHC 36.3 H RDW Std Deviation 47.4 H RDW Coeff of Emil 13.8 Plt Count 191 MPV 9.1 Immature Gran % (Auto) 0.4 Neut % (Auto) 73.6 Lymph % (Auto) 17.1 [place] % (Auto) 7.9 Eos % (Auto) 0.9 Baso % (Auto) 0.1 Immature Gran # (Auto) 0.03 H Neut # (Auto) 5.12 Lymph # (Auto) 1.19 L [place] # (Auto) 0.55 Eos # (Auto) 0.06 Baso # (Auto) 0.01 Sodium 127 L Potassium 3.1 L 3.8 D Chloride 91 L Carbon Dioxide 30 Anion Gap 6.0 BUN 2 L Creatinine 0.56 L D Est Cr Clr Drug Dosing 125.7 Est GFR ( Amer) 126.7 Est GFR (Non-Af Amer) 109.3 BUN/Creatinine Ratio 4.0 L Glucose 88 POC Glucose Calcium 6.1 L Phosphorus 2.1 L Magnesium 1.1 L 1.3 L Total Bilirubin 1.4 H Direct Bilirubin 1.0 H AST 114 H ALT 36 Alkaline Phosphatase 80 Total Protein 6.8 Albumin 2.3 L Levetiracetam 12/28/18 08:54 WBC RBC Hgb Hct MCV MCH MCHC RDW Std Deviation RDW Coeff of Emil Plt Count MPV Immature Gran % (Auto) Neut % (Auto) Lymph % (Auto) [place] % (Auto) Eos % (Auto) Baso % (Auto) Immature Gran # (Auto) Neut # (Auto) Lymph # (Auto) [place] # (Auto) Eos # (Auto) Baso # (Auto) Sodium 128 L Potassium 3.4 L Chloride 90 L Carbon Dioxide 27 Anion Gap 10.0 BUN 3 L Creatinine 0.62 Est Cr Clr Drug Dosing 113.6 Est GFR ( Amer) 121.5 Est GFR (Non-Af Amer) 104.8 BUN/Creatinine Ratio 4.0 L Glucose 139 H POC Glucose Calcium 6.7 L Phosphorus 1.0 L* D Magnesium 2.1 Total Bilirubin Direct Bilirubin AST ALT Alkaline Phosphatase Total Protein Albumin Levetiracetam Medications Administered Current Inpatient Medications Acetaminophen (Tylenol) 650 mg PO Q4H PRN PRN Reason: Pain or Fever Stop: 01/25/19 19:47 Al Hydrox/Mg Hydrox/Simethicone (Maalox) 15 ml PO Q4H PRN PRN Reason: Dyspepsia Stop: 01/25/19 19:47 Amlodipine Besylate (Norvasc) 10 mg PO DAILY [facility] Stop: 01/26/19 08:59 Last Admin: 12/28/18 10:04 Dose: Not Given Documented by: Aspirin (Ecotrin Ectab) 81 mg PO DAILY [facility] Stop: 01/26/19 08:59 Last Admin: 12/28/18 07:51 Dose: 81 mg Documented by: Citalopram Hydrobromide (Celexa) 20 mg PO DAILY [facility] Stop: 01/26/19 08:59 Folic Acid (Folvite) 1 mg PO QAM [facility] Stop: 01/25/19 17:14 Last Admin: 12/28/18 07:52 Dose: 1 mg Documented by: Heparin Sodium (Porcine) (Heparin Sodium (Porcine)) 5,000 units SQ Q8 [facility] Stop: 01/25/19 21:59 Last Admin: 12/28/18 05:26 Dose: 5,000 units Documented by: Lorazepam (Ativan) 1 mg in 2 mls @ 2 mls/min IV ONE PRN; Protocol PRN Reason: EtoH Withdrawal AWSS 6-10 Stop: 01/25/19 21:10 Ioversol (Optiray 320 100ml) 93 ml IV ONCE PRN PRN Reason: Interaction Checking Stop: 12/30/18 18:20 Last Admin: 12/26/18 18:21 Dose: 93 ml Documented by: Levetiracetam (Keppra) 1,000 mg PO BID [facility] Stop: 01/25/19 20:59 Last Admin: 12/28/18 07:50 Dose: 1,000 mg Documented by: Lorazepam (Ativan) 1 mg PO ONE PRN; Protocol PRN Reason: EtoH Withdrawal AWSS 6-10 Magnesium Hydroxide (Milk Of Magnesia) 30 ml PO Q12H PRN PRN Reason: Constipation Stop: 01/25/19 19:47 Magnesium Oxide (Mag-Ox) 400 mg PO BID [facility] Stop: 01/26/19 09:14 Last Admin: 12/28/18 07:50 Dose: 400 mg Documented by: Miscellaneous (Icu Protocol For Hyperglycemia) 1 ea N/A PRN PRN; Protocol PRN Reason: Hyperglycemia Protocol Stop: 12/28/18 20:12 Miscellaneous (Icu Protocol For Hyperglycemia) 1 ea N/A PRN PRN; Protocol PRN Reason: Hyperglycemia Protocol Stop: 12/28/18 21:10 Multivitamins (Multivitamin Tab) 1 tab PO QAM [facility] Stop: 01/26/19 09:14 Last Admin: 12/28/18 07:51 Dose: 1 tab Documented by: Phenobarbital (Phenobarbital) 32.4 mg PO BID [facility] Stop: 12/30/18 09:01 Phenobarbital (Phenobarbital) 64.8 mg PO TODAY@1999 ONE Stop: 12/28/18 20:01 Phenobarbital (Phenobarbital) 32.4 mg PO Q4H PRN PRN Reason: RASS 2 OR GREATER Stop: 01/27/19 09:03 Polyethylene Glycol (Miralax Powder Packet) 17 gm PO DAILY PRN PRN Reason: Constipation Stop: 01/25/19 19:47 Potassium Chloride (Klor-Con M20) 40 meq PO DAILY [facility] Stop: 01/26/19 20:59 Last Admin: 12/28/18 10:06 Dose: 40 meq Documented by: Potassium Phosphate (Potassium Phosphate Replace) 21 mmol IV NOW STA Stop: 12/28/18 10:36 Potassium Phosphate (Phospha 250 Neutral 155-852-130 Mg) 2 tab PO NOW ONE Stop: 12/28/18 10:46 Ranitidine HCl (Zantac) 300 mg PO HS [facility] Stop: 01/25/19 20:59 Last Admin: 12/27/18 20:15 Dose: 300 mg Documented by: Thiamine HCl (Vitamin B-1) 100 mg PO QAM [facility] Stop: 01/26/19 08:59 Last Admin: 12/28/18 07:50 Dose: 100 mg Documented by: Resident Activity Tracking Resident Involvement: Resident Care Provided Care Provided: Adult Hospital Medicine
[2018-12-28] MEDS: MAGNESIUM OXIDE 400 MG TAB PO SCH ×2 (07:50→20:53)
[2018-12-28] MEDS: THIAMINE HCL 100 MG TAB PO SCH (07:50)
[2018-12-28] MEDS: levETIRAcetam 500 MG TAB PO SCH ×2 (07:50→20:53)
[2018-12-28] MEDS: POTASSIUM CHLORIDE 20 MEQ TABCR PO SCH ×2 (07:50→10:06)
[2018-12-28] MEDS: MULTIVITAMIN TAB PO SCH (07:51)
[2018-12-28] MEDS: ASPIRIN 81 MG ECTAB PO SCH (07:51)
[2018-12-28] MEDS: FOLIC ACID 1 MG TAB PO SCH (07:52)
[2018-12-28] MEDS ORDERED: PHENobarbital 32.4 MG TAB PO ONE ×2 (08:30→20:00)
[2018-12-28] MEDS ORDERED: PHENobarbital 32.4 MG TAB PO SCH (09:00)
[2018-12-28] MEDS ORDERED: POT PHOSPHATE MONOBASIC W/ SOD TAB PO ONE ×2 (09:00→10:45)
[2018-12-28] MEDS ORDERED: PHENobarbital 32.4 MG TAB PO PRN (09:04)
[2018-12-28 10:02] LABS: Calcium 6.7 mg/dl (8.5-10.1); Creatinine Clr Calc Pharmacy 113.6 ml/min; Est GFR (African American) 121.5; Est GFR (Non-African American) 104.8; Magnesium 2.1 mg/dl (1.8-2.4); Potassium 3.4 mmol/L (3.5-5.1)
[2018-12-28] MEDS: AMLODIPINE BESYLATE 5 MG TAB PO SCH (10:04)
[2018-12-28] MEDS ORDERED: POTASSIUM PHOS 3 MMOL/1 ML INFUSION IV STA (10:35)
[2018-12-28] MEDS ORDERED: POTASSIUM PHOSPHATE 21 MMOL in SODIUM CHLORIDE 0.9% 500 ML IV ONE (11:00)
--- NOTE | 2018-12-28 12:33 | Hospitalist Progress Note ---
Date of Service December 28, 2018 Assessment & Plan (1) Weakness: Generalized weakness for a while Has been keeping falling at home likely secondary to alcoholism We will get PT and OT evaluation on improvement (2) Torsades de pointes: Noted to have torsade in the emergency room Has significant electrolyte abnormality including severe hypomagnesemia, hyponatremia, hypokalemia and hypophosphatemia Likely secondary to alcoholism Will supplement and monitor while in the hospital Appreciate cardiology input and appreciate mold worker input and recommended His magnesium has been normalized but sodium , potassium and phosphate remains low Has been getting more supplement of electrolyte We will monitor (3) Electrolyte abnormality: Has significant blood abnormalities as mentioned above Has been getting supplement and will monitor As above (4) Hypomagnesemia: Data from admission: This is a 63-year-old male who has a significant PMH of seizure disorder, alcohol abuse, HTN, HLD, carotid artery stenosis, diverticulosis who presented to [facility] secondary to seizure x2 and weakness x1 week. During patient's evaluation in ED he was noted to have significant electrolyte abnormalities including magnesium of 0.6, sodium 127, potassium 3.3. Renal function elevated at BUN 11 creatinine 1.42. His H&H was 10.3 and 27.7, W BC 8.23, platelet 261. His anion gap was 13. Urine tox negative, alcohol level less than 3.0 his TSH was within normal limits. LFTs elevated specifically T bili 3.8, AST 166. Keppra level pending. Initial chest x-ray revealed right lateral ninth and 10th rib fractures. Head CT negative for acute abnormality but did reveal atrophy and chronic microvascular changes. CT of neck was negative Given rib fractures as well as abnormal LFTs patient was sent for further scans including CT scan of chest abdomen and pelvis. This revealed significantly distended bladder recommending Baird catheterization. A Baird was placed. Further revealed a T12 endplate compression fracture, 2 incidental groundglass pulmonary nodules, infrarenal abdominal aortic aneurysm 3.7 x 3.4 cm. Unfortunately during my evaluation it was brought to my attention that on telemetry patient was experiencing short runs of nonsustained V. tach. This then progressed to a nonsustained torsades rhythm. Case was discussed with the ED provider Dr. Mills as well as mold worker Dr. Oakes. Aggressive magnesium repletion recommended giving notable arrhythmia. Pt admitted to ICU, please defer to mold worker consultation for further assess ment and treatment plan Cardiology and Neurology consulted for a.m. Magnesium has been corrected No more cardiac arrhythmias (5) TEQUILA (acute kidney injury): Creatinine on admission was 1.42 Baseline from previous labs creatinine 0.5 (approximately 2 years ago) Likely secondary to dehydration Renal function improved significantly following intravenous fluid Creatinine has been normalized (6) Alcohol abuse: AWSS ETOH protocol ordered with gabapentin taper PRN lorazepam Folic Acid and Thiamine added to medication regimen No significant withdrawal symptoms Likely to need inpatient alcohol rehab on discharge (7) Seizure disorder: Patient has history of seizure disorder on Keppra He reports episode of seizure today and 3 days ago. His history is very unreliable and appears more consistent with frequent falling as opposed to seizure. Question if not more related to cardiac/arrhythmia as opposed to seizure Prolactin level normal We will continue Keppra and await Keppra level Consult neurology-appreciate input and recommendation Obtain EEG and monitor-did not show any focus for seizure but he did show generalized slowing of activity likely secondary to alcoholic encephalopathy Got extra dose of Keppra and phenobarbital added as well (8) Ribs, multiple fractures: Secondary to fall Fracture of right lateral eighth, ninth, and 10th rib Conservative management Incentive spirometry Analgesia (9) Thoracic compression fracture: Patient currently not complaining of back pain Recommend conservative management with analgesics Consult PT/OT when stable (10) HTN (hypertension): Blood pressure currently labile Hold amlodipine until reevaluated in a.m. (11) HLD (hyperlipidemia): Patient currently not on statin Check Lipid panel in a.m. (12) Alcoholic liver disease: Patient with history of alcohol abuse Abd CT reveals Hepatic Steatosis Total bili 3.8, AST 166, INR 1.3 Obtain liver ultrasound-fatty infiltration of liver status post cholecystectomy LFTs remain stable for alcoholism (13) AAA (abdominal aortic aneurysm) without rupture: 3.7 x 3.4 cm infrarenal abdominal aortic aneurysm Recommend routine follow-up per PCP (14) Pulmonary nodules: Per Fleischner criteria for multiple nodules less than [address] scan in 12 months. (15) DVT prophylaxis: SCDS/Heparin Disposition: to be determined, case management consulted Follow-up: PCP Dr. Luna, has not had routine follow up in few years; As well as appropriate follow up with specialists Subjective 12/27 The patient was seen and examined in the ICU He remains generally weak and lethargic Did not have any more seizures and/or arrhythmias He has lost significant weight for the last 1year or so. 12/28 The patient was seen and examined in ICU He has been feeling a lot better Only complains to have his generalized weakness No more significant arrhythmias noted and no seizure activity in ICU Review of Systems Review of Systems: All systems reviewed and are unremarkable except as noted below Constitutional: + weakness and + weight loss Respiratory: + cough, + dyspnea (Minimal shortness of breath at rest) and + wheezing (Minimal wheezing) Neurologic: + falls and + generalized weakness Physical Exam Physical Exam: Lying in bed comfortably Constitutional: + ill appearing and + thin Eyes: PERRL, conjunctivae normal, anicteric sclerae ENMT: external ear and nose normal, oropharynx normal Neck: trachea midline, no thyromegaly Respiratory: + respiratory distress (Minimal respiratory distress at rest) Auscultation: + crackles (At the bases) Cardiovascular: RRR, no murmur, no edema Gastrointestinal (Abdomen): Inspection/Auscultation: abdomen normal to inspection Percussion/Palpation: + abdomen tender and abdomen soft; no guarding and abdomen not rigid Skin: no rashes, warm and dry Neurologic: moves all extremities Generally weak but no more seizures Psychiatric: A+Ox3, euthymic affect Lymphatic: no cervical or axillary lymphadenopathy Results & Data Vital Signs (Past 12 Hours) Vital Signs Temp Pulse Resp BP Pulse Ox 12/28/18 11:01 86 13 94/65 L 91 12/28/18 10:00 79 23 89/69 L 97 12/28/18 09:00 82 20 96/64 L 96 12/28/18 08:00 36.7 C 82 22 107/66 95 12/28/18 06:00 85 21 103/67 92 12/28/18 05:10 85 24 97/63 L 91 12/28/18 04:00 36.8 C 88 22 103/62 93 12/28/18 03:00 86 20 96/54 L 93 12/28/18 02:00 94 H 20 94/74 L 92 12/28/18 01:00 95 H 26 H 115/56 L 93 Laboratory Results Short CBC 12/28/18 Range/Units 04:18 WBC 6.96 (4.8-10.8) K/uL Hgb 8.1 L (14.0-18.0) g/dL Hct 22.3 L (42-52) % Plt Count 191 (130-400) K/uL BMP 12/27/18 12/27/18 12/27/18 12:49 17:06 20:41 Sodium 136 135 L 133 L Potassium 2.9 L 2.8 L Chloride 96 L 95 L 94 L Carbon Dioxide 29 31 29 BUN 4 L 3 L 3 L Creatinine 0.53 L 0.79 0.87 Glucose 82 102 H 116 H Calcium 7.1 L 6.8 L 6.8 L 12/27/18 12/28/18 12/28/18 21:56 04:18 08:54 Sodium 127 L 128 L Potassium 3.1 L 3.8 D 3.4 L Chloride 91 L 90 L Carbon Dioxide 30 27 BUN 2 L 3 L Creatinine 0.56 L D 0.62 Glucose 88 139 H Calcium 6.1 L 6.7 L Liver Function 12/28/18 Range/Units 04:18 Total Bilirubin 1.4 H (0.2-1) mg/dl Direct Bilirubin 1.0 H (0-0.2) mg/dl AST 114 H (15-37) U/L ALT 36 (12-78) U/L Alkaline Phosphatase 80 (45-117) U/L Albumin 2.3 L (3.4-5.0) gm/dl Medications Administered Current Inpatient Medications Acetaminophen (Tylenol) 650 mg PO Q4H PRN PRN Reason: Pain or Fever Stop: 01/25/19 19:47 Al Hydrox/Mg Hydrox/Simethicone (Maalox) 15 ml PO Q4H PRN PRN Reason: Dyspepsia Stop: 01/25/19 19:47 Amlodipine Besylate (Norvasc) 10 mg PO DAILY [facility] Stop: 01/26/19 08:59 Last Admin: 12/28/18 10:04 Dose: Not Given Documented by: Aspirin (Ecotrin Ectab) 81 mg PO DAILY [facility] Stop: 01/26/19 08:59 Last Admin: 12/28/18 07:51 Dose: 81 mg Documented by: Citalopram Hydrobromide (Celexa) 20 mg PO DAILY [facility] Stop: 01/26/19 08:59 Folic Acid (Folvite) [facility] Stop: 01/25/19 17:14 Last Admin: 12/28/18 07:52 Dose: 1 mg Documented by: Heparin Sodium (Porcine) (Heparin Sodium (Porcine)) 5,000 units SQ Q8 [facility] Stop: 01/25/19 21:59 Last Admin: 12/28/18 05:26 Dose: 5,000 units Documented by: Lorazepam (Ativan) 1 mg in 2 mls @ 2 mls/min IV ONE PRN; Protocol PRN Reason: EtoH Withdrawal AWSS 6-10 Stop: 01/25/19 21:10 Potassium Phosphate 21 mmol/ (Sodium Chloride) 507 mls @ 84.5 mls/hr IV ONE ONE Stop: 12/28/18 16:59 Last Admin: 12/28/18 11:12 Dose: 3.5 mmol/hr, 84.5 mls/hr Documented by: Ioversol (Optiray 320 100ml) 93 ml IV ONCE PRN PRN Reason: Interaction Checking Stop: 12/30/18 18:20 Last Admin: 12/26/18 18:21 Dose: 93 ml Documented by: Levetiracetam (Keppra) 1,000 mg PO BID [facility] Stop: 01/25/19 20:59 Last Admin: 12/28/18 07:50 Dose: 1,000 mg Documented by: Lorazepam (Ativan) 1 mg PO ONE PRN; Protocol PRN Reason: EtoH Withdrawal AWSS 6-10 Magnesium Hydroxide (Milk Of Magnesia) 30 ml PO Q12H PRN PRN Reason: Constipation Stop: 01/25/19 19:47 Magnesium Oxide (Mag-Ox) 400 mg PO BID [facility] Stop: 01/26/19 09:14 Last Admin: 12/28/18 07:50 Dose: 400 mg Documented by: Miscellaneous (Icu Protocol For Hyperglycemia) 1 ea N/A PRN PRN; Protocol PRN Reason: Hyperglycemia Protocol Stop: 12/28/18 20:12 Miscellaneous (Icu Protocol For Hyperglycemia) 1 ea N/A PRN PRN; Protocol PRN Reason: Hyperglycemia Protocol Stop: 12/28/18 21:10 Multivitamins (Multivitamin Tab) 1 tab PO QAM [facility] Stop: 01/26/19 09:14 Last Admin: 12/28/18 07:51 Dose: 1 tab Documented by: Phenobarbital (Phenobarbital) 32.4 mg PO BID [facility] Stop: 12/30/18 09:01 Phenobarbital (Phenobarbital) 64.8 mg PO TODAY@1999 ONE Stop: 12/28/18 20:01 Phenobarbital (Phenobarbital) 32.4 mg PO Q4H PRN PRN Reason: RASS 2 OR GREATER Stop: 01/27/19 09:03 Polyethylene Glycol (Miralax Powder Packet) 17 gm PO DAILY PRN PRN Reason: Constipation Stop: 01/25/19 19:47 Potassium Chloride (Klor-Con M20) 40 meq PO DAILY [facility] Stop: 01/26/19 20:59 Last Admin: 12/28/18 10:06 Dose: 40 meq Documented by: Ranitidine HCl (Zantac) 300 mg PO HS [facility] Stop: 01/25/19 20:59 Last Admin: 12/27/18 20:15 Dose: 300 mg Documented by: Thiamine HCl (Vitamin B-1) 100 mg PO QAM [facility] Stop: 01/26/19 08:59 Last Admin: 12/28/18 07:50 Dose: 100 mg Documented by:
--- NOTE | 2018-12-28 13:22 | Cardiology Progress Note ---
Date of Service December 28, 2018 Assessment & Plan (1) Torsades de pointes: Due to marked metabolic derangement improving. Dopamine discontinued, moving back towards normal ranges. QT less prolonged today (2) Prolonged QT interval: Subjective Patient seen and examined, chart medications telemetry reviewed. More alert today answering questions. No focal complaints. Notes general decline over the several weeks to months prior to presentation. History of multiple falls by his own description Physical Exam Constitutional: + ill appearing and + cachectic ENMT: external ear and nose normal, oropharynx normal Neck: Thin, heavily bearded Respiratory: Auscultation: + diminished lung sounds Cardiovascular: Rate/Rhythm: regular rate and regular rhythm Heart Sounds: normal S1 and normal S2; no murmur and no cardiac rub Gastrointestinal (Abdomen): normal bowel sounds, soft, nontender, no hepatosplenomegaly Musculoskeletal: no cyanosis or clubbing, extremities motor strength 5/5 Results & Data Vital Signs (Past 12 Hours) Vital Signs Temp Pulse Resp BP Pulse Ox 12/28/18 06:00 85 21 103/67 92 12/28/18 05:10 85 24 97/63 L 91 12/28/18 04:00 36.8 C 88 22 103/62 93 12/28/18 03:00 86 20 96/54 L 93 12/28/18 02:00 94 H 20 94/74 L 92 12/28/18 01:00 95 H 26 H 115/56 L 93 12/28/18 00:00 36.6 C 82 20 106/63 94 12/27/18 23:00 86 20 104/77 95 Laboratory Results Laboratory Results - last 24 hr 12/26/18 12/27/18 12/27/18 16:09 12:49 13:39 WBC RBC Hgb Hct MCV MCH MCHC RDW Std Deviation RDW Coeff of Emil Plt Count MPV Immature Gran % (Auto) Neut % (Auto) Lymph % (Auto) [place] % (Auto) Eos % (Auto) Baso % (Auto) Immature Gran # (Auto) Neut # (Auto) Lymph # (Auto) [place] # (Auto) Eos # (Auto) Baso # (Auto) Sodium 136 Potassium 2.9 L Chloride 96 L Carbon Dioxide 29 Anion Gap 11.0 BUN 4 L Creatinine 0.53 L Est Cr Clr Drug Dosing 132.8 Est GFR ( Amer) 129.6 Est GFR (Non-Af Amer) 111.8 BUN/Creatinine Ratio 6.8 L Glucose 82 Calcium 7.1 L Phosphorus Magnesium 1.2 L Total Bilirubin Direct Bilirubin AST ALT Alkaline Phosphatase Total Protein Albumin Levetiracetam Cancelled Pending 12/27/18 12/27/18 12/27/18 17:06 20:41 21:56 WBC RBC Hgb Hct MCV MCH MCHC RDW Std Deviation RDW Coeff of Emil Plt Count MPV Immature Gran % (Auto) Neut % (Auto) Lymph % (Auto) [place] % (Auto) Eos % (Auto) Baso % (Auto) Immature Gran # (Auto) Neut # (Auto) Lymph # (Auto) [place] # (Auto) Eos # (Auto) Baso # (Auto) Sodium 135 L 133 L Potassium 2.8 L 3.1 L Chloride 95 L 94 L Carbon Dioxide 31 29 Anion Gap 9.0 10.0 BUN 3 L 3 L Creatinine 0.79 0.87 Est Cr Clr Drug Dosing 89.1 80.9 Est GFR ( Amer) 110.0 105.7 Est GFR (Non-Af Amer) 94.9 91.2 BUN/Creatinine Ratio 3.3 L 3.0 L Glucose 102 H 116 H Calcium 6.8 L 6.8 L Phosphorus 1.8 L 1.6 L Magnesium 1.8 1.1 L Total Bilirubin Direct Bilirubin AST ALT Alkaline Phosphatase Total Protein Albumin Levetiracetam 12/28/18 12/28/18 12/28/18 04:18 04:18 08:54 WBC 6.96 RBC 2.29 L Hgb 8.1 L Hct 22.3 L MCV 97.4 MCH 35.4 H MCHC 36.3 H RDW Std Deviation 47.4 H RDW Coeff of Emil 13.8 Plt Count 191 MPV 9.1 Immature Gran % (Auto) 0.4 Neut % (Auto) 73.6 Lymph % (Auto) 17.1 [place] % (Auto) 7.9 Eos % (Auto) 0.9 Baso % (Auto) 0.1 Immature Gran # (Auto) 0.03 H Neut # (Auto) 5.12 Lymph # (Auto) 1.19 L [place] # (Auto) 0.55 Eos # (Auto) 0.06 Baso # (Auto) 0.01 Sodium 127 L 128 L Potassium 3.8 D 3.4 L Chloride 91 L 90 L Carbon Dioxide 30 27 Anion Gap 6.0 10.0 BUN 2 L 3 L Creatinine 0.56 L D 0.62 Est Cr Clr Drug Dosing 125.7 113.6 Est GFR ( Amer) 126.7 121.5 Est GFR (Non-Af Amer) 109.3 104.8 BUN/Creatinine Ratio 4.0 L 4.0 L Glucose 88 139 H Calcium 6.1 L 6.7 L Phosphorus 2.1 L 1.0 L* D Magnesium 1.3 L 2.1 Total Bilirubin 1.4 H Direct Bilirubin 1.0 H AST 114 H ALT 36 Alkaline Phosphatase 80 Total Protein 6.8 Albumin 2.3 L Levetiracetam Diagnostic Findings 28-DEC-2018 09:00:40 [facility]-D ROUTINE RETRIEVAL Normal sinus rhythm Prolonged QT Abnormal ECG When compared with ECG of 27-DEC-2018 08:19, QT has shorten
--- NOTE | 2018-12-28 13:43 | XRay Report ---
XR elbow LT 2V CLINICAL HISTORY: septic bursitis vs joint COMPARISON: None. DISCUSSION: Generalized soft tissue edema. No well-defined joint effusion by routine film criteria. B bret structures are intact. IMPRESSION: Generalized soft tissue edema. No acute bony abnormality. No evidence for significant jeromy nt effusion by routine image criteria. The above report was generated using voice recognition software. It may contain grammatical, syntax or spelling errors. Electronically signed by: Nelson Dave M.D. 12/28/2018 1:42 PM
[2018-12-28] MEDS: CLINDAMYCIN 600 MG in DEXTROSE 5% 50 ML IV SCH ×2 (13:57→21:56)
--- NOTE | 2018-12-28 16:05 | Orthopedic Consultation ---
Date of Consultation December 28, 2018 Assessment & Plan (1) Olecranon bursitis of left elbow: Patient's was present during exam and understands reasoning for holding off on aspiration. With the open wound though, we discussed that he would likely need to undergo surgical debridement of this elbow whenever he was medically stable. He is currently on clindamycin IV. I do not believe this to be into the joint at this time. I will discuss the case with Dr. Guerrero and have him see the patient for further plans for treatment. Continue current antibiotics at this time and regular dressing changes. History of Present Illness Reason for Consultation: Left olecranon bursitis Attending Physician: Jossie Martins MD History of Present Illness This is a 63-year-old male who has a significant PMH of seizure disorder, alcohol abuse, HTN, HLD, carotid artery stenosis, diverticulosis who presented to [facility] secondary to seizure x2 and weakness x1 week. It was noticed that on EKG he was having episodes of torsades de pointe. He was admitted to the care of the flat examiner in the ICU where he has been treated for his current problems. It was noticed that he had an open wound on his left elbow that was draining. His is present and states that he has had that for approximately 2 weeks. He had apparently fallen onto his elbow and since that time it started as an abrasion and gradually worsened. She states that she is been cleaning it but it has not gotten any better. We have been asked to see him for this draining area on his left elbow. Patient seen and examined, agree with above assessment and plan. Will benefit from I+D once medically stable. Will follow. Thank you for the consultation. Allergies Allergy/AdvReac Type Severity Reaction Status Date / Time No Known Allergies Allergy Verified 12/26/18 16:24 Home Medications Home Medications Medication Instructions Recorded Confirmed Type amlodipine 10 mg PO DAILY 12/26/18 12/26/18 History aspirin 81 mg PO DAILY 12/26/18 12/26/18 History citalopram 20 mg PO DAILY 12/26/18 12/26/18 History levetiracetam 1,000 mg PO BID 12/26/18 12/26/18 History ranitidine HCl 300 mg PO HS 12/26/18 12/26/18 History Patient History Medical History Olecranon bursitis of left elbow Prolonged QT interval Hyponatremia TEQUILA (acute kidney injury) Alcoholic liver disease AAA (abdominal aortic aneurysm) without rupture Torsades de pointes Due to hypomagnesimia. Currently being treated and getting repletion Electrolyte abnormality Hypomagnesia, hyponatremia, hypocalcemia, hypokalemia Carotid artery stenosis (Chronic) Diverticulosis (Chronic) HTN (hypertension) (Chronic) HLD (hyperlipidemia) (Chronic) Alcohol abuse (Chronic) Non-sustained ventricular tachycardia (Acute) Polymorphic tachyarrhythmia with torsades Seizure disorder (Chronic) Surgical History History of tonsillectomy and adenoidectomy (Chronic) History of shoulder surgery (Chronic) History of colon resection (Chronic) History of colostomy reversal (Chronic) History of colostomy (Chronic) S/P cholecystectomy (Chronic) Family History Father Diverticulosis Social History Preferred Language: [place] Communication Ability: Effective Computer Networking Instructor Required: No Beliefs That Will Affect Care: None Current Living Situation: Spouse Feels Safe at Home: Yes Safety Concerns: Feels Safe At This Time Smoking Status: Current every day smoker Tobacco Type: cigarettes Cigarettes Per Day: 2 Do You Dip or Chew Tobacco: No Tobacco Cessation Education Requested by Patient: No Hx Alcohol Use: Yes Alcohol type: hard liquor Hx Substance Use: No Physical Exam Physical Exam: On examination of his left elbow, there is an optifoam dressing noted on the left elbow. Pt is capable of following commands and is capable of moving the elbow through active and passive range of motion without difficulty. He states he does not have any overt pain in the elbow during range of motion. He can take the forearm through supination and pronation without discomfort in the elbow. On removing the dressing, he has an area approximately 1 cm in width that has a small open area in the center portion with a small film of tissue over this. The dressing is noted to have an area of yellowish drainage on it. He has no overt erythema around this area. There is no foul odor from the drainage on the dressing. And flexing the elbow, there was a small amount of fluid that I could feel proximal to the opening. It was discussed with the patient about possibly placing a needle for aspiration in this. On palpation he had minimal discomfort. I could appreciate a calcium deposit in the area that was shifting [id number]. While gathering equipment for an aspiration, I returned to the room and again palpated the left elbow but was unable to find the fluid pocket that I initially had found. Abel Fitzpatrick PA-C did a brief ultrasound of the elbow at the bedside. Very small areas of fluid were found but no large area of fluid was found. He and I discussed the possibility of questionable contamination from the open wound and that the aspiration could possibly not be accurate. At this time, aspiration was held off. Even with palpation, we were unable to express any further fluid from the wound itself. A new optifoam dressing was applied. Results & Data Vital Signs (Past 12 Hours) Vital Signs Temp Pulse Resp BP Pulse Ox 12/28/18 14:05 80 16 126/86 95 12/28/18 13:35 80 20 96/72 L 97 12/28/18 13:01 83 21 88/49 L 90 12/28/18 12:25 83 18 104/67 90 12/28/18 12:00 87 16 104/67 90 12/28/18 11:01 86 13 94/65 L 91 12/28/18 10:00 79 23 89/69 L 97 12/28/18 09:00 82 20 96/64 L 96 12/28/18 08:00 36.7 C 82 22 107/66 95 12/28/18 06:00 85 21 103/67 92 12/28/18 05:10 85 24 97/63 L 91
[2018-12-28 18:25] LABS: Hematocrit (blood only) 22.2 % (42-52)
[2018-12-28 18:54] LABS: BUN Creatinine Ratio 3.6 (10-20); Calcium 6.3 mg/dl (8.5-10.1); Creatinine Clr Calc Pharmacy 121.4 ml/min; Est GFR (African American) 124.9; Est GFR (Non-African American) 107.7; Magnesium 1.3 mg/dl (1.8-2.4); Potassium 4.2 mmol/L (3.5-5.1)
[2018-12-29] MEDS ORDERED: GABAPENTIN 600 MG TAB PO SCH
[2018-12-29 00:38] LABS: Hematocrit (blood only) 21.2 % (42-52); Hemoglobin 7.6 g/dL (14.0-18.0)
[2018-12-29] MEDS: LORazepam 1 MG/2 ML VIAL IV PRN ×3 (04:26→14:37)
[2018-12-29 04:55] LABS: Hematocrit (blood only) 21.7 % (42-52); Hemoglobin 7.7 g/dL (14.0-18.0); Mean Corpuscular Hgb Conc 35.5 g/dL (32-36); Mean Corpuscular Volume 99.1 fL (80-100); Mean Platelet Volume 9.7 fL (7.4-10.4); Platelet Count 211 K/uL (130-400); RDW Coefficient of Variation 14.3 % (11.5-14.5); RDW Standard Deviation 50.2 fL (36.4-46.3); Red Blood Count 2.19 M/uL (4.7-6.1); White Blood Count 6.36 K/uL (4.8-10.8)
[2018-12-29 05:19] LABS: INR 1.2 (0.9-1.1); Partial Thromboplastin Ratio 1.7; Prothrombin Time 11.8 Seconds (9.0-12.0)
[2018-12-29 05:23] LABS: BUN Creatinine Ratio 3.8 (10-20); Calcium 6.4 mg/dl (8.5-10.1); Creatinine Clr Calc Pharmacy 132.8 ml/min; Est GFR (African American) 129.6; Est GFR (Non-African American) 111.8; Magnesium 1.4 mg/dl (1.8-2.4); Potassium 3.6 mmol/L (3.5-5.1)
[2018-12-29 05:24] LABS: Phosphorus 2.1 mg/dl (2.5-4.9)
[2018-12-29 05:28] LABS: Basophils # (auto) 0.01 K/uL (0-0.2); Basophils % (auto) 0.2 %; Eosinophils # (auto) 0.02 K/uL (0-0.5); Eosinophils % (auto) 0.3 %; Giant Platelets 1+; Immature Granulocytes # (auto) 0.04 K/uL (0.00-0.02); Immature Granulocytes % (auto) 0.6 %; Lymphocytes # (auto) 1.16 K/uL (1.2-3.4); Lymphocytes % (auto) 18.2 %; Monocytes # (auto) 0.56 K/uL (0.11-0.59); Monocytes % (auto) 8.8 %; Neutrophils # (auto) 4.57 K/uL (1.4-6.5); Neutrophils % (auto) 71.9 %; Spherocytes 1+
[2018-12-29] MEDS ORDERED: POTASSIUM PHOS 3 MMOL/1 ML INFUSION IV STA (05:38)
[2018-12-29] MEDS: CLINDAMYCIN 600 MG in DEXTROSE 5% 50 ML IV SCH ×3 (05:44→21:51)
[2018-12-29] MEDS: HEPARIN SOD 5,000 UNIT/0.5 ML VIAL SQ SCH ×2 (05:45→14:38)
[2018-12-29 06:01] LABS: Partial Thromboplastin Time 46.1 Seconds (21.0-31.0)
[2018-12-29] MEDS ORDERED: CALCIUM GLUCONATE 10% 1,000 MG in SODIUM CHLORIDE 0.9% 50 ML IV STA (06:11)
[2018-12-29] MEDS: MAGNESIUM SULFATE / D5W 1 GM/100 ML BAG IV SCH ×5 (06:23→22:14)
[2018-12-29] MEDS: POTASSIUM CHLORIDE / WTR 10 MEQ/100 ML PLCT IV SCH ×2 (06:24→08:14)
--- NOTE | 2018-12-29 06:51 | XRay Report ---
XR chest 1V portable HISTORY: 63 years-old Male f/u up study in a patient with acute right-sided rib fractures. COMPARISON: Chest radiograph and chest CT 12/26/2018 TECHNIQUE: Portable AP view of the chest FINDINGS: Cardiac silhouette is within normal limits. Mild pulmonary vascular congestion. Interval development of trace pleural effusions with bibasilar opacities. Acute lateral ninth and 10th rib fractures redem onstrated without significant displacement. Degenerative changes of the shoulders and spine. IMPRESSION: 1. Acute lateral right ninth and 10th rib fractures redemonstrated without pneumothorax identified. 2. Interval development of pulmonary vascular congestion with trace pleural effusions and bibasilar o pacities suggestive of atelectasis or pneumonitis. The above report was generated using voice recognition software. It may contain grammatical, syntax o r spelling errors. Electronically signed by: John Pierre M.D. 12/29/2018 6:50 AM
[2018-12-29] MEDS ORDERED: POTASSIUM PHOSPHATE 15 MMOL in SODIUM CHLORIDE 0.9% 250 ML IV ONE (07:00)
--- NOTE | 2018-12-29 07:46 | Critical Care Progress Note ---
Date of Service December 29, 2018 Assessment & Plan (1) Admitted to intensive care unit: Reason Critically Ill: 63-year-old male presenting with seizure-like activity with noted nonsustained polymorphic ventricular tachyarrhythmia consistent with torsades. Noted to have electrolyte abnormalities: Hypomagnesemia/Hypokalemia/Hypophosphatemia/Hyponatremia/Hypocalcemia. Resuscitation in progress. At high risk for alcohol withdrawal. NEURO - CAM ICU: NEGATIVE -Appears mentation worsened today. Was A&Ox3 yesterday, now only oriented to place and self. Seizure disorder: 1 g twice daily Keppra Serum levels pending. -Abnormal EEG in a patient with altered mentation due to severe background sam ppression suggestive of a severe non specific encephalopathy. No epileptiform activity seen. Alcohol abuse: High risk for withdrawal symptomatology. Phenobarbitol protocol for withdrawal. 32 mg BID. Additional 32mg prn q6h for RASS >2 (received 1x today) D/C Ativan, received 1x today Thiamine, Folic acid supplementation. Holding celexa secondary to prolonged QTC CARDIAC/VASCULAR - Nonsustained polymorphic ventricular tachyarrhythmia - Torsades de Pointes: In the setting of profound hypomagnesemia, was aggressively supplemented Cont replace Potassium. ECHO reviewed, see results. Monitor on telemetry. New Conversion into Afib -CTA, Trop q6h, Amio infusion started -Anticoagulated with Heparin infusion -ECHO from 12/27, see results. RESPIRATORY - Monitor closely for need for airway intervention in the setting of recurrent seizure-like activity. h/o Cigarette smoking. Supplemental O2 PRN. Concern for low O2 sats despite NC (new O2 requirement). CXR from AM: Interval development of pulmonary vascular congestion with trace pleural effusions and bibasilar opacities suggestive of atelectasis or pneumonitis -Will get swallow eval as pt is higher risk for aspiration. -CTA pending. LE Dopplers- no evidence of DVT GI/NUTRITION - Advanced to heart healthy diet Prophylaxis: Continue w/ AM PO Zantac RENAL/LYTES - Hypomagnesemia In the setting of Torsades de Pointes, will aggressively resuscitate. Received 4g prior to arrival and additional 4 g in ICU after run of Torsades in ICU Repeat labs show Mg 1.4 MgOH 400 BID CONNOR. Will cont replete as needed Hypokalemia: Initially w/ potassium of 3.3 in ED. Repeat labs shows K normal Daily 40meQ PO. Will cont additional replacement IV and PO as needed Hypocalcemia/Hypophosphatemia -will cont replete as needed Hyponatremia -fluid restriction 1800 ml -Will additionally replete as needed moving forward TEQUILA: Improved Stop additional fluids - Urinary retention: D/C Baird. Voiding trials ENDO - No h/o DM or Thyroid Disease. BSGs per unit protocol. ISS --> gtt per unit policy. HEME - H&H low but stable. FOBT neg. Will cont trend. No acute concerns ID - -Concern for L septic bursitis -IV Clinda -ortho following -Will trend fever curve, cell counts LINES/IV ACCESS - PIVs x3 DVT PROPHYLAXIS - Heparin sq SCDs Full Code Dispo: Remain on ICU. PT/OT Supervising Physician Co-Signing Physician Notes Dr. Amaral was resident physician during care of patient. I separately evaluated patient for rahman portions of the history and the exam. I was present during the critical portion of medical decision making, and I discussed the case with the resident. I generally agree with the findings and plan. Significant improvement in electrolyte abnormalities. Orthopedics following left septic bursitis. Patient's mental status mildly worse needing PRN dose of phenobarbital, new oxygen requirement I suspect this secondary to vascular congestion and pleural effusions, venous duplex negative. Patient has converted into atrial fibrillation, I will obtain a CTA of the chest as he has continued hypoxia and entertain diuresis for possible volume overload. We will start a heparin infusion. I have personally spent 40 minutes of critical care time in the direct management of this patient. This is a life/limb threatening event. This includes time spent evaluating patient, direct bedside care, chart review, placing orders, interpretation of diagnostic studies, discussion with consultants, patient, and/or family members regarding treatment decisions, as well as other required patient management activities. This time is exclusive of all separately billable procedures, and teaching time and separate from and in addition to any other critical care service time. Subjective 63 y/o M found in bed this AM in NAD. Notes no acute overnight events. Was sating 91 on 4L this AM. No acute SOB or other breathing difficulties. Per nursing, tolerates sips of water and pills without difficulty. Orientation seems worsened today from yesterday. No other acute concerns or complaints. Review of Systems Review of Systems: All systems reviewed & are unremarkable except as noted in HPI & below Physical Exam Constitutional: + thin Eyes: PERRL, conjunctivae normal, anicteric sclerae ENMT: external ear and nose normal, oropharynx normal Respiratory: normal respiratory effort, lungs clear to auscultation Cardiovascular: irregularly irregular Gastrointestinal (Abdomen): normal bowel sounds, soft, nontender, no hepatosplenomegaly Musculoskeletal: L elbow with some purulent drainage but no erythema, otherwise normal ROM without pain/tenderness Skin: no rashes, warm and dry Psychiatric: A+Ox3, euthymic affect Results & Data Vital Signs (Past 12 Hours) Vital Signs Temp Pulse Resp BP Pulse Ox 12/29/18 06:00 93 H 25 H 107/52 L 90 12/29/18 05:00 94 H 30 H 122/69 91 12/29/18 04:09 36.4 C L 103 H 20 101/55 L 92 12/29/18 03:00 89 28 H 112/64 94 12/29/18 02:00 90 19 109/63 96 12/29/18 01:00 90 28 H 97/64 L 92 12/29/18 00:00 90 16 110/67 93 12/28/18 23:00 87 24 110/65 91 12/28/18 22:00 86 27 H 126/79 93 12/28/18 21:00 90 18 112/68 91 12/28/18 20:00 36.6 C 85 20 105/63 96 Laboratory Results Laboratory Results - last 24 hr 12/28/18 12/28/18 12/29/18 18:13 18:13 00:15 WBC RBC Hgb 8.0 L 7.6 L Hct 22.2 L 21.2 L MCV MCH MCHC RDW Std Deviation RDW Coeff of Emil Plt Count MPV Immature Gran % (Auto) Neut % (Auto) Lymph % (Auto) [place] % (Auto) Eos % (Auto) Baso % (Auto) Immature Gran # (Auto) Neut # (Auto) Lymph # (Auto) [place] # (Auto) Eos # (Auto) Baso # (Auto) Giant Platelets Spherocytes PT INR APTT PTT Ratio Sodium 128 L Potassium 4.2 D Chloride 94 L Carbon Dioxide 27 Anion Gap 7.0 BUN 2 L Creatinine 0.58 L Est Cr Clr Drug Dosing 121.4 Est GFR ( Amer) 124.9 Est GFR (Non-Af Amer) 107.7 BUN/Creatinine Ratio 3.6 L Glucose 117 H Calcium 6.3 L Phosphorus 2.0 L D Magnesium 1.3 L Blood Type Antibody Screen 12/29/18 12/29/18 12/29/18 04:29 04:29 04:29 WBC 6.36 RBC 2.19 L Hgb 7.7 L Hct 21.7 L MCV 99.1 MCH 35.2 H MCHC 35.5 RDW Std Deviation 50.2 H RDW Coeff of Emil 14.3 Plt Count 211 MPV 9.7 Immature Gran % (Auto) 0.6 Neut % (Auto) 71.9 Lymph % (Auto) 18.2 [place] % (Auto) 8.8 Eos % (Auto) 0.3 Baso % (Auto) 0.2 Immature Gran # (Auto) 0.04 H Neut # (Auto) 4.57 Lymph # (Auto) 1.16 L [place] # (Auto) 0.56 Eos # (Auto) 0.02 Baso # (Auto) 0.01 Giant Platelets 1+ Spherocytes 1+ PT 11.8 INR 1.2 H APTT 46.1 H* PTT Ratio 1.7 Sodium 128 L Potassium 3.6 Chloride 94 L Carbon Dioxide 27 Anion Gap 7.0 BUN 2 L Creatinine 0.53 L Est Cr Clr Drug Dosing 132.8 Est GFR ( Amer) 129.6 Est GFR (Non-Af Amer) 111.8 BUN/Creatinine Ratio 3.8 L Glucose 86 Calcium 6.4 L Phosphorus 2.1 L Magnesium 1.4 L Blood Type Antibody Screen 12/29/18 04:29 WBC RBC Hgb Hct MCV MCH MCHC RDW Std Deviation RDW Coeff of Emil Plt Count MPV Immature Gran % (Auto) Neut % (Auto) Lymph % (Auto) [place] % (Auto) Eos % (Auto) Baso % (Auto) Immature Gran # (Auto) Neut # (Auto) Lymph # (Auto) [place] # (Auto) Eos # (Auto) Baso # (Auto) Giant Platelets Spherocytes PT INR APTT PTT Ratio Sodium Potassium Chloride Carbon Dioxide Anion Gap BUN Creatinine Est Cr Clr Drug Dosing Est GFR ( Amer) Est GFR (Non-Af Amer) BUN/Creatinine Ratio Glucose Calcium Phosphorus Magnesium Blood Type B Positive Antibody Screen NEGATIVE Medications Administered Current Inpatient Medications Acetaminophen (Tylenol) 650 mg PO Q4H PRN PRN Reason: Pain or Fever Stop: 01/25/19 19:47 Al Hydrox/Mg Hydrox/Simethicone (Maalox) 15 ml PO Q4H PRN PRN Reason: Dyspepsia Stop: 01/25/19 19:47 Amiodarone HCl (Cordarone Iv Bolus / Drip) 1 ea IV NOW STA; Protocol Stop: 12/29/18 18:00 Amlodipine Besylate (Norvasc) 10 mg PO DAILY CONNOR Stop: 01/26/19 08:59 Last Admin: 12/29/18 08:17 Dose: 10 mg Documented by: Aspirin (Ecotrin Ectab) 81 mg PO DAILY CONNOR Stop: 01/26/19 08:59 Last Admin: 12/29/18 08:17 Dose: 81 mg Documented by: Citalopram Hydrobromide (Celexa) 20 mg PO DAILY CONNOR Stop: 01/26/19 08:59 Folic Acid (Folvite) 1 mg PO QAM CONNOR Stop: 01/25/19 17:14 Last Admin: 12/29/18 08:17 Dose: 1 mg Documented by: Heparin Sodium (Porcine) (Heparin Sodium (Porcine)) 5,000 units SQ Q8 CONNOR Stop: 01/25/19 21:59 Last Admin: 12/29/18 14:38 Dose: 5,000 units Documented by: Heparin Sodium/Dextrose () 1 ea N/A ONE ONE; Protocol Stop: 12/29/18 17:55 Lorazepam (Ativan) 1 mg in 2 mls @ 2 mls/min IV ONE PRN; Protocol PRN Reason: EtoH Withdrawal AWSS 6-10 Stop: 01/25/19 21:10 Last Admin: 12/29/18 14:37 Dose: 2 mls/min Documented by: Clindamycin Phosphate 600 mg/ (Dextrose) 54 mls @ 100 mls/hr IV Q8H CONNOR Stop: 01/11/19 13:59 Last Infusion: 12/29/18 15:48 Dose: Infused Documented by: Amiodarone HCl/Dextrose (Nexterone / D5w) 150 mg in 100 mls @ 600 mls/hr IV ONE STA Stop: 12/29/18 18:08 Amiodarone HCl/Dextrose (Nexterone / D5w) 360 mg in 200 mls @ 33.333 mls/hr IV .Q6H CONNOR Stop: 12/29/18 23:59 Amiodarone HCl/Dextrose (Nexterone / D5w) 360 mg in 200 mls @ 16.667 mls/hr IV .Q12H CONNOR Stop: 01/29/19 00:00 Ioversol (Optiray 320 100ml) 93 ml IV ONCE PRN PRN Reason: Interaction Checking Stop: 12/30/18 18:20 Last Admin: 12/26/18 18:21 Dose: 93 ml Documented by: Levetiracetam (Keppra) 1,000 mg PO BID [facility] Stop: 01/25/19 20:59 Last Admin: 12/29/18 08:17 Dose: 1,000 mg Documented by: Lorazepam (Ativan) 1 mg PO ONE PRN; Protocol PRN Reason: EtoH Withdrawal AWSS 6-10 Magnesium Hydroxide (Milk Of Magnesia) 30 ml PO Q12H PRN PRN Reason: Constipation Stop: 01/25/19 19:47 Magnesium Oxide (Mag-Ox) 400 mg PO BID [facility] Stop: 01/26/19 09:14 Last Admin: 12/29/18 08:17 Dose: 400 mg Documented by: Multivitamins (Multivitamin Tab) 1 tab PO QAM [facility] Stop: 01/26/19 09:14 Last Admin: 12/29/18 08:17 Dose: 1 tab Documented by: Phenobarbital (Phenobarbital) 32.4 mg PO BID [facility] Stop: 12/30/18 09:01 Last Admin: 12/29/18 08:21 Dose: 32.4 mg Documented by: Phenobarbital (Phenobarbital) 32.4 mg PO Q4H PRN PRN Reason: RASS 2 OR GREATER Stop: 12/31/18 09:03 Last Admin: 12/29/18 12:04 Dose: 32.4 mg Documented by: Polyethylene Glycol (Miralax Powder Packet) 17 gm PO DAILY PRN PRN Reason: Constipation Stop: 01/25/19 19:47 Potassium Chloride (Klor-Con M20) 40 meq PO DAILY [facility] Stop: 01/26/19 20:59 Last Admin: 12/29/18 08:21 Dose: 40 meq Documented by: Ranitidine HCl (Zantac) 300 mg PO HS [facility]NOR Stop: 01/25/19 20:59 Last Admin: 12/28/18 20:52 Dose: 300 mg Documented by: Thiamine HCl (Vitamin B-1) [facility] Stop: 01/26/19 08:59 Last Admin: 12/29/18 08:17 Dose: 100 mg Documented by: Resident Activity Tracking Resident Involvement: Resident Care Provided Care Provided: Adult Hospital Medicine
[2018-12-29] MEDS: MAGNESIUM OXIDE 400 MG TAB PO SCH ×2 (08:17→20:44)
[2018-12-29] MEDS: THIAMINE HCL 100 MG TAB PO SCH (08:17)
[2018-12-29] MEDS: FOLIC ACID 1 MG TAB PO SCH (08:17)
[2018-12-29] MEDS: AMLODIPINE BESYLATE 5 MG TAB PO SCH (08:17)
[2018-12-29] MEDS: levETIRAcetam 500 MG TAB PO SCH ×2 (08:17→20:45)
[2018-12-29] MEDS: ASPIRIN 81 MG ECTAB PO SCH (08:17)
[2018-12-29] MEDS: MULTIVITAMIN TAB PO SCH (08:17)
[2018-12-29] MEDS: PHENobarbital 32.4 MG TAB PO SCH ×2 (08:21→20:44)
[2018-12-29] MEDS: POTASSIUM CHLORIDE 20 MEQ TABCR PO SCH (08:21)
--- NOTE | 2018-12-29 11:56 | Ultrasound Report ---
BILATERAL LOWER EXTREMITY VENOUS DOPPLER HISTORY: Leg swelling. COMPARISON STUDY: None. FINDINGS: There is normal compressibility, flow, and augmentation within the bilateral lower extremit y deep venous systems. IMPRESSION: No DVT within the right or left lower extremity. Electronically signed by: Bradford Richmond M.D. 12/29/2018 11:54 AM
--- NOTE | 2018-12-29 16:52 | Anesthesiology Consultation ---
Date of Service December 29, 2018 Assessment & Plan Chart Review Chart Review: Pending: Refer to Additional Notes / Consult section Pt with multiple acute issues including recent polymorphic tachyarrhythmia with torsades, encephalopathy, questionable pneumonitis from aspiration, anemia and electrolyte abnormalities. Recommend to have patient's current more acute issues resolved and patient more stable before proceeding with GA for the surgery of his elbow, unless the surgery is deemed an emergency. History Height/Weight Height: 1.78 m Weight: 71.2 kg Allergies Allergy/AdvReac Type Severity Reaction Status Date / Time No Known Allergies Allergy Verified 12/26/18 16:24 Medications Home Medications Medication Instructions Recorded Confirmed Last Taken amlodipine 10 mg PO DAILY 12/26/18 12/26/18 Unknown aspirin 81 mg PO DAILY 12/26/18 12/26/18 Unknown citalopram 20 mg PO DAILY 12/26/18 12/26/18 Unknown levetiracetam 1,000 mg PO BID 12/26/18 12/26/18 Unknown ranitidine HCl 300 mg PO HS 12/26/18 12/26/18 Unknown Active Medications Generic Name Dose Route Start Last Admin Trade Name Freq PRN Reason Stop Dose Admin Amlodipine Besylate 10 mg 12/27/18 09:00 12/29/18 08:17 Norvasc PO 01/26/19 08:59 10 mg DAILY CONNOR Administration Aspirin 81 mg 12/27/18 09:00 12/29/18 08:17 Ecotrin Ectab PO 01/26/19 08:59 81 mg DAILY CONNOR Administration Folic Acid 1 mg 12/26/18 17:15 12/29/18 08:17 Folvite PO 01/25/19 17:14 1 mg QAM CONNOR Administration Heparin Sodium (Porcine) 5,000 units 12/26/18 22:00 12/29/18 14:38 Heparin Sodium (Porcine) SQ 01/25/19 21:59 5,000 units Q8 CONNOR Administration Lorazepam 1 mg in 2 mls @ 2 mls/min 12/26/18 21:11 12/29/18 14:37 Ativan IV 01/25/19 21:10 2 mls/min ONE PRN Administration EtoH Withdrawal AWSS 6-10 Protocol Clindamycin Phosphate 600 mg/ 54 mls @ 100 mls/hr 12/28/18 14:00 12/29/18 15:48 Dextrose IV 01/11/19 13:59 Infused Q8H CONNOR Infusion Ioversol 93 ml 12/26/18 18:21 12/26/18 18:21 Optiray 320 100ml IV 12/30/18 18:20 93 ml ONCE PRN Administration Interaction Checking Levetiracetam 1,000 mg 12/26/18 21:00 12/29/18 08:17 Keppra PO 01/25/19 20:59 1,000 mg BID CONNOR Administration Magnesium Oxide 400 mg 12/27/18 09:15 12/29/18 08:17 Mag-Ox PO 01/26/19 09:14 400 mg BID CONNOR Administration Multivitamins 1 tab 12/27/18 09:15 12/29/18 08:17 Multivitamin Tab PO 01/26/19 09:14 1 tab QAM CONNOR Administration Phenobarbital 32.4 mg 12/29/18 09:00 12/29/18 08:21 Phenobarbital PO 12/30/18 09:01 32.4 mg BID CONNOR Administration Phenobarbital 32.4 mg 12/28/18 09:04 12/29/18 12:04 Phenobarbital PO 12/31/18 09:03 32.4 mg Q4H PRN Administration RASS 2 OR GREATER Potassium Chloride 40 meq 12/28/18 09:00 12/29/18 08:21 Klor-Con M20 PO 01/26/19 20:59 40 meq DAILY CONNOR Administration Ranitidine HCl 300 mg 12/26/18 21:00 12/28/18 20:52 Zantac PO 01/25/19 20:59 300 mg HS CONNOR Administration Thiamine HCl 100 mg 12/27/18 09:00 12/29/18 08:17 Vitamin B-1 PO 01/26/19 08:59 100 mg QAM CONNOR Administration Past Medical History Medical History Olecranon bursitis of left elbow Prolonged QT interval Hyponatremia TEQUILA (acute kidney injury) Alcoholic liver disease AAA (abdominal aortic aneurysm) without rupture Torsades de pointes Due to hypomagnesimia. Currently being treated and getting repletion Electrolyte abnormality Hypomagnesia, hyponatremia, hypocalcemia, hypokalemia Carotid artery stenosis (Chronic) Diverticulosis (Chronic) HTN (hypertension) (Chronic) HLD (hyperlipidemia) (Chronic) Alcohol abuse (Chronic) Non-sustained ventricular tachycardia (Acute) Polymorphic tachyarrhythmia with torsades Seizure disorder (Chronic) Past Family History Family History Father Diverticulosis Past Surgical History Surgical History History of tonsillectomy and adenoidectomy (Chronic) History of shoulder surgery (Chronic) History of colon resection (Chronic) History of colostomy reversal (Chronic) History of colostomy (Chronic) S/P cholecystectomy (Chronic) Social History Smoking Status: Current every day smoker tobacco type: cigarettes Smoking cigarettes per day: 2 Do You Dip or Chew Tobacco: No Hx Alcohol Use: Yes Alcohol type: hard liquor alcohol intake frequency: 3 or more drinks per day Alcohol Intake Frequency Comment: 3-4 vodka/soda per day, reports he uses <1.5 oz vodka per drink Hx Substance Use: No Physical Exam Vital Signs Last Vital Signs Temp 37.6 C H 12/29/18 14:46 Pulse 98 H 12/29/18 16:00 Resp 25 H 12/29/18 16:00 BP 104/62 12/29/18 16:00 Pulse Ox 95 12/29/18 16:00 Testing Laboratory Results 12/29/18 04:29 12/29/18 04:29 12/26/18 12/26/18 12/29/18 16:09 17:36 04:29 PT 13.3 H 11.8 INR 1.3 H 1.2 H APTT 26.5 46.1 H* Urine Color Dark Yellow Urine Appearance Clear Urine pH 6.5 Ur Specific Waves 1.006 Urine Protein Negative Urine Glucose (UA) Negative Urine Ketones Trace H Urine Nitrite Negative Ur Leukocyte Esterase Negative Blood Type Antibody Screen 12/29/18 04:29 PT INR APTT Urine Color Urine Appearance Urine pH Ur Specific Waves Urine Protein Urine Glucose (UA) Urine Ketones Urine Nitrite Ur Leukocyte Esterase Blood Type B Positive Antibody Screen NEGATIVE 12/28/18 13:22 Aerobic Blood Culture - Preliminary Blood No growth in Aerobic bottle after 24 hours. Anaerobic Blood Culture - Preliminary No growth in Anaerobic bottle after 24 hours. 12/28/18 13:37 Aerobic Blood Culture - Preliminary Blood No growth in Aerobic bottle after 24 hours. Anaerobic Blood Culture - Preliminary No growth in Anaerobic bottle after 24 hours. Electrocardiogram Date: 12/28/18 Findings: + NSR @ (82 bpm) Normal sinus rhythm Prolonged QT Abnormal ECG When compared with ECG of 27-DEC-2018 08:19, QT has shortened Confirmed by Alejandro Peña ([id number]) on 12/28/2018 3:29:30 PM Chest X-Ray Date: 12/29/18 FINDINGS: Cardiac silhouette is within normal limits. Mild pulmonary vascular congestion. Interval development of trace pleural effusions with bibasilar opacities. Acute lateral ninth and 10th rib fractures redemonstrated without significant displacement. Degenerative changes of the shoulders and spine. IMPRESSION: 1. Acute lateral right ninth and 10th rib fractures redemonstrated without pneumothorax identified. 2. Interval development of pulmonary vascular congestion with trace pleural effusions and bibasilar opacities suggestive of atelectasis or pneumonitis Echocardiogram EF: 60-65% LV Function: normal Other Findings: + LVH (moderate) Valvular Disease: + MR (mild) Aortic sclerosis mild, without aortic stenosis
[2018-12-29] MEDS ORDERED: Heparin IV Standard *NO* Bolus ONE (17:54)
[2018-12-29] MEDS ORDERED: AMIODARONE IV BOLUS / DRIP IV STA (17:59)
[2018-12-29] MEDS ORDERED: AMIODARONE / D5W 150 MG/100 ML BAG IV STA (18:07)
[2018-12-29] MEDS ORDERED: OPTIRAY 320 125ml IV PRN (18:14)
[2018-12-29] MEDS ORDERED: AMIODARONE / D5W 360 MG/200 ML BAG IV SCH (18:17)
--- NOTE | 2018-12-29 18:28 | CT Scan Report ---
CT angio chest PE protocol CLINICAL HISTORY: 63 years-old Male presenting with shortness of breath, clinical concern for pulmona ry embolus, history of right sided rib fractures. TECHNIQUE: Multidetector CT angiography of the chest was performed after administration of intravenou s contrast. 3-D volumetric and/or maximum intensity projection (MIP) images were subsequently reconst ructed for review. IV contrast: 120 mL of Optiray 320. One or more dose lowering techniques were used consistent with the principles of ALARA (as low as reasonably achievable), including automatic expos ure control, mA or kV adjustment to individual patient size, and/or use of iterative reconstruction. COMPARISON: 12/26/2018. CT DOSE (mGy.cm): The estimated cumulative dose is 395.75 mGy.cm. FINDINGS: Facility Service Associate topogram: Unremarkable. Pulmonary vasculature: The study is suboptimal for the assessment of the pulmonary vascular tree secondary to timing of the contrast bolus and respiratory motion artifact. Allowing for limited image quality, no central fillin g defect to suggest pulmonary embolus. Main pulmonary artery is not enlarged. No flattening of the in terventricular septum. No intracardiac filling defect. No reflux of contrast into the hepatic veins. Remaining chest: Soft tissues: Normal thyroid and thoracic inlet. Gynecomastia. No axillary, supraclavicular, mediasti nal, or hilar lymphadenopathy. Atherosclerosis of the aorta. Normal heart size. Coronary artery and a ortic valve calcification. Small bilateral pleural effusions, which are simple appearing. Hepatic domingo atosis. Cholecystectomy clips. Lungs and airways: No pneumothorax. Central airways patent. Pulmonary arteries are not significantly enlarged relative to adjacent bronchi. Evaluation of the lung parenchyma is mildly degraded by respir atory motion artifact. Extensive dependent groundglass and solid consolidation with volume loss consi stent with passive atelectasis. Underlying centrilobular emphysema is suspected. Musculoskeletal: Degenerative changes of the spine. Multiple subacute rib fractures noted. These are not as well assessed on the current exam given motion artifact. IMPRESSION: 1. Allowing for suboptimal image quality, no evidence of pulmonary embolus. 2. Small bilateral pleural effusions with extensive associated atelectasis. 3. Underlying emphysema. Electronically signed by: Waylon Marmolejo M.D. 12/29/2018 6:26 PM
[2018-12-29 18:51] LABS: Basophils # (auto) 0.01 K/uL (0-0.2); Basophils % (auto) 0.1 %; Eosinophils # (auto) 0.04 K/uL (0-0.5); Eosinophils % (auto) 0.6 %; Hematocrit (blood only) 22.3 % (42-52); Hemoglobin 8.2 g/dL (14.0-18.0); Immature Granulocytes # (auto) 0.07 K/uL (0.00-0.02); Lymphocytes # (auto) 1.53 K/uL (1.2-3.4); Lymphocytes % (auto) 22.9 %; Mean Corpuscular Volume 97.8 fL (80-100); Mean Platelet Volume 9.6 fL (7.4-10.4); Monocytes # (auto) 0.75 K/uL (0.11-0.59); Monocytes % (auto) 11.2 %; Neutrophils # (auto) 4.28 K/uL (1.4-6.5); Neutrophils % (auto) 64.2 %; Platelet Count 221 K/uL (130-400); RDW Coefficient of Variation 14.3 % (11.5-14.5); RDW Standard Deviation 48.9 fL (36.4-46.3); Red Blood Count 2.28 M/uL (4.7-6.1); White Blood Count 6.68 K/uL (4.8-10.8)
[2018-12-29 19:11] LABS: Mean Corpuscular Hgb Conc 36.8 g/dL (32-36)
[2018-12-29 19:12] LABS: INR 1.2 (0.9-1.1); Partial Thromboplastin Ratio 1.8; Prothrombin Time 12.2 Seconds (9.0-12.0)
[2018-12-29 19:16] LABS: BUN Creatinine Ratio 3.5 (10-20); Blood Urea Nitrogen 2 mg/dl (7-18); Calcium 6.7 mg/dl (8.5-10.1); Carbon Dioxide 25 mmol/L (21-32); Chloride 97 mmol/L (98-107); Creatinine Clr Calc Pharmacy 131.9 ml/min; Est GFR (African American) 125.8; Est GFR (Non-African American) 108.5; Glucose 84 mg/dl (70-99); Magnesium 1.3 mg/dl (1.8-2.4); Potassium 3.7 mmol/L (3.5-5.1); Sodium 131 mmol/L (136-145)
[2018-12-29 19:24] LABS: Partial Thromboplastin Time 47.6 Seconds (21.0-31.0); Phosphorus 2.8 mg/dl (2.5-4.9); Troponin I < 0.015 ng/ml (0-0.045)
[2018-12-29] MEDS: Heparin Adult STANDARD Wt-Based Dextrose 5% 25,000 units/500 mL IV SCH (19:33)
[2018-12-29] MEDS: ALBUT/IPRATROP 3MG/0.5MG NEB 3 ML VIAL NEB SCH ×2 (20:18→23:25)
--- NOTE | 2018-12-29 20:35 | Hospitalist Progress Note ---
Date of Service December 29, 2018 Assessment & Plan (1) Weakness: Possible due to severe electrolytes imbalance from alcohol intake Continue PT/OT Fall precaution (2) Torsades de pointes: Due to severe hypomagnesemia, hyponatremia, hypokalemia and hyp ophosphatemia Mostly from alcohol abuse Continue monitor in the ICU Cardiology on board Continue IV amiodarone Electrolytes replaced Monitor electrolytes daily (3) Electrolyte abnormality: Replaced electrolytes Monitor electrolytes (4) TEQUILA (acute kidney injury): Creatinine on admission was 1.42 Baseline from previous labs creatinine 0.5 (approximately 2 years ago) Likely secondary to dehydration Received IVF Creatinine back to normal (5) Alcohol abuse: AWSS ETOH protocol ordered with gabapentin taper PRN lorazepam Folic Acid and Thiamine added to medication regimen No significant withdrawal symptoms Likely to need inpatient alcohol rehab on discharge (6) Seizure disorder: He reports episode of seizure for the last few days before admission Prolactin level normal Neurology on board Obtain EEG and monitor-did not show any focus for seizure but he did show generalized slowing of activity likely secondary to alcoholic encephalopathy Continue Keppra and phenobarbital (7) Ribs, multiple fractures: Secondary to fall Fracture of right lateral eighth, ninth, and 10th rib Conservative management Incentive spirometry Analgesia (8) Thoracic compression fracture: Recommend conservative management with analgesics Consult PT/OT when stable (9) HTN (hypertension): Blood pressure currently labile On amlodipine Monitor BP closely (10) Alcoholic liver disease: CT Abd/pelvis showed reveals Hepatic Steatosis Liver ultrasound showed fatty infiltration of liver status post cholecystectomy LFTs remain stable for alcoholism Monitor Liver enzymes (11) AAA (abdominal aortic aneurysm) without rupture: 3.7 x 3.4 cm infrarenal abdominal aortic aneurysm Recommend routine follow-up per PCP (12) Pulmonary nodules: Per Fleischner criteria for multiple nodules less than [address] scan in 12 months. (13) DVT prophylaxis: On Heparin drip Disposition: Continue monitor in the ICU Subjective Pt was seen and examined Lying in bed with cousin at bedside Pt is restlessness, moving all extremities, but had a difficult time to awake He had sedation early Physical Exam Physical Exam: General- No acute distress Head- atraumatic Eyes- PERRL, EOMI, ENT- oropharynx clear Neck- supple, no JVD Lungs- clear to auscultation Heart- regular rhythm; no murmur Abdomen- normal bowel sounds, soft, nontender Extremities- no calf tenderness Neuro-move all 4 extremities, sleepy Skin- warm & dry Results & Data Vital Signs (Past 12 Hours) Vital Signs Temp Pulse Pulse Resp BP Pulse Ox 12/29/18 20:23 111 H 20 97 12/29/18 18:30 106 H 31 H 96/51 L 93 12/29/18 17:01 102 H 38 H 104/67 90 12/29/18 16:01 98 H 35 H 104/62 91 12/29/18 16:00 98 H 25 H 104/62 95 12/29/18 15:00 108 H 28 H 103/76 90 12/29/18 14:46 37.6 C H 112 H 30 H 94/59 L 91 12/29/18 14:01 95 H 20 87/46 L 92 12/29/18 13:01 100 H 19 97/65 L 93 12/29/18 12:01 101 H 40 H 103/69 94 12/29/18 11:00 36.6 C 92 H 26 H 94/55 L 92 12/29/18 10:50 94 H 37 H 105/71 12/29/18 10:00 93 H 25 H 105/71 93 12/29/18 09:21 91 H 29 H 106/66 94 12/29/18 09:00 36.8 C 92
[2018-12-30] MEDS: AMIODARONE / D5W 360 MG/200 ML BAG IV SCH ×3 (00:29→22:42)
[2018-12-30 02:46] LABS: Partial Thromboplastin Ratio > 5.1
[2018-12-30 03:08] LABS: Partial Thromboplastin Time > 139.0 Seconds (21.0-31.0)
[2018-12-30] MEDS: ALBUT/IPRATROP 3MG/0.5MG NEB 3 ML VIAL NEB SCH ×6 (04:10→23:36)
[2018-12-30 05:00] LABS: Magnesium 1.8 mg/dl (1.8-2.4); Phosphorus 3.7 mg/dl (2.5-4.9); Troponin I < 0.015 ng/ml (0-0.045)
[2018-12-30 05:07] LABS: Partial Thromboplastin Ratio 2.6
[2018-12-30 05:17] LABS: Partial Thromboplastin Time 71.5 Seconds (21.0-31.0)
[2018-12-30] MEDS: CLINDAMYCIN 600 MG in DEXTROSE 5% 50 ML IV SCH ×3 (06:06→21:50)
--- NOTE | 2018-12-30 06:55 | XRay Report ---
XR chest 1V portable HISTORY: 63 years-old Male f/u acute shortness of breath COMPARISON: CTA chest 12/29/2018, chest radiograph 12/29/2018 at 6:40 AM TECHNIQUE: Portable AP view of the chest FINDINGS: Cardiomediastinal and hilar silhouettes are unchanged. Small bilateral pleural effusions with persist ent left greater than right bibasilar consolidation. Emphysema with mild pulmonary vascular congestio n. Degenerative changes of the shoulders and spine. IMPRESSION: 1. Small bilateral pleural effusions with left greater than right bibasilar consolidation. 2. Cardiomegaly with mild pulmonary vascular congestion. 3. Emphysema. The above report was generated using voice recognition software. It may contain grammatical, syntax o r spelling errors. Electronically signed by: John Pierre M.D. 12/30/2018 6:54 AM
[2018-12-30 07:03] LABS: BUN Creatinine Ratio 4.2 (10-20); Calcium 6.8 mg/dl (8.5-10.1); Creatinine Clr Calc Pharmacy 104.2 ml/min; Est GFR (African American) 116.3; Est GFR (Non-African American) 100.3; Potassium 3.1 mmol/L (3.5-5.1)
--- NOTE | 2018-12-30 07:32 | Critical Care Progress Note ---
Date of Service December 30, 2018 Assessment & Plan (1) Admitted to intensive care unit: Reason Critically Ill: 63-year-old male presenting with seizure-like activity with noted nonsustained polymorphic ventricular tachyarrhythmia consistent with torsades. Noted to have electrolyte abnormalities: Hypomagnesemia/Hypokalemia/Hypophosphatemia/Hyponatremia/Hypocalcemia. Resuscitation in progress. At high risk for alcohol withdrawal. NEURO - CAM ICU: NEGATIVE -Appears mentation still worsened as yesterday. Only oriented to place and self. Waxes and wanes. Seizure disorder: 1 g twice daily Keppra Serum levels pending. -Abnormal EEG in a patient with altered mentation due to severe background suppression suggestive of a severe non specific encephalopathy. No epileptiform activity seen. Alcohol abuse: High risk for withdrawal symptomatology. Phenobarbitol protocol for withdrawal. 32 mg BID to continue for 48 hrs. Additional 32mg prn q6h for RASS >2 . D/C Ativan Thiamine, Folic acid supplementation. Holding celexa secondary to prolonged QTC CARDIAC/VASCULAR - Nonsustained polymorphic ventricular tachyarrhythmia - Torsades de Pointes: In the setting of profound hypomagnesemia, was aggressively supplemented Cont replace Potassium. ECHO reviewed, see results. Monitor on telemetry. Afib -remains in Afib despite Amio and aggressive electrolytes replacement -CTA: No evidence of pulmonary embolus, Trop neg x3 -Cont on Amio infusion -Given h/o ETOH and frequent falls, not systemic anticoagulation not warranted. Remains on heparin -ECHO from 12/27, see results. -Elective cardioversion this AM, noted to be NSR after with EKG confirmation. But resumed Afib later in day RESPIRATORY - Monitor closely for need for airway intervention in the setting of recurrent seizure-like activity. h/o Cigarette smoking. Supplemental O2 PRN. Concern for low O2 sats despite NC (new O2 requirement). CXR from AM: Small b/l pleural effusions with left greater than right bibasilar consolidation. Cardiomegaly with mild pulmonary vascular congestion -gentle diurese today with Lasix 40 -Will get swallow eval as pt is higher risk for aspiration. -CTA pending. LE Dopplers- no evidence of DVT GI/NUTRITION - Advanced to heart healthy diet Prophylaxis: Continue w/ AM PO Zantac RENAL/LYTES - Hypomagnesemia In the setting of Torsades de Pointes, will aggressively resuscitate. Received 4g prior to arrival and additional 4 g in ICU after run of Torsades in ICU Repeat labs show Mg 1.4 MgOH 400 BID CONNOR. Will cont replete as needed. 2 mg today MgSO4 Hypokalemia: Initially w/ potassium of 3.3 in ED. Repeat labs shows K normal Daily 40meQ PO. Will cont additional replacement IV and PO as needed. Today 60meq KCl IV Hypocalcemia/Hypophosphatemia -will cont replete as needed -today 24mmol KPhos Hyponatremia -fluid restriction 1800 ml -Will additionally replete as needed moving forward TEQUILA: Improved Stop additional fluids - Urinary retention: D/C Baird. Voiding trials ENDO - No h/o DM or Thyroid Disease. BSGs per unit protocol. ISS --> gtt per unit policy. HEME - H&H low but stable. FOBT neg. Will cont trend. No acute concerns ID - -Concern for L septic bursitis -IV Clinda -ortho following -Will trend fever curve, cell counts LINES/IV ACCESS - PIVs x3 DVT PROPHYLAXIS - Heparin sq SCDs Full Code Dispo: Remain on ICU. PT/OT Supervising Physician Co-Signing Physician Notes Dr. Amaral was resident physician during care of patient. I separately evaluated patient for rahman portions of the history and the exam. I was present during the critical portion of medical decision making, and I discussed the case with the resident. I generally agree with the findings and plan. Patient was discussed in multidisciplinary rounds. Patient's mental status continues to wax and wane, I am extending his treatment course with phenobarbital for 48 hours. Patient has converted into atrial fibrillation despite amiodarone and aggressive electrolyte replacement therapy. He has very heavy alcohol use and has frequent falls most notably he has broken ribs on this admission from a fall, therefore I think the patient is completely inappropriate to be on systemic anticoagulation. To best mitigate his stroke risk I feel we should attempt to achieve rhythm control. I discussed the risks and benefits with the patient's who gives permission to proceed with elective cardioversion. Patient's troponins are largely unremarkable. We will gently diurese the patient as I think he is approaching volume overload, Lasix 40 mg x 1. Patient remains on heparin at this time. I have personally spent 35 minutes of critical care time in the direct management of this patient. This is a life/limb threatening event. This includes time spent evaluating patient, direct bedside care, chart review, domonique cing orders, interpretation of diagnostic studies, discussion with consultants, patient, and/or family members regarding treatment decisions, as well as other required patient management activities. This time is exclusive of all separately billable procedures, and teaching time and separate from and in addition to any other critical care service time. Subjective 63 y/o M found in bed this AM in NAD. Seemed to be slightly tremulous but was easily arousable. Continues to be in Afib despite Amio started yesterday. Was only oriented to self and place. Denied CP, SOB, palpitations. Tolerating PO intake. No other acute concerns or complaints. Review of Systems Review of Systems: All systems reviewed & are unremarkable except as noted in HPI & below Physical Exam Constitutional: + thin Eyes: PERRL, conjunctivae normal, anicteric sclerae ENMT: external ear and nose normal, oropharynx normal Respiratory: normal respiratory effort, lungs clear to auscultation Cardiovascular: irregularly irregular Gastrointestinal (Abdomen): normal bowel sounds, soft, nontender, no hepatosplenomegaly Musculoskeletal: L elbow with bandage and some drainage noted, otherwise normal ROM without pain/tenderness Skin: no rashes, warm and dry Psychiatric: A+Ox3, euthymic affect Results & Data Vital Signs (Past 12 Hours) Vital Signs Temp Pulse Pulse Resp BP BP Pulse Ox 12/30/18 06:03 114 H 35 H 97/64 L 92 12/30/18 05:01 105 H 29 H 101/63 94 12/30/18 04:30 36.7 C 12/30/18 04:10 94 H 18 94 12/30/18 04:00 105 H 29 H 105/60 98 12/30/18 03:00 94 H 37 H 104/61 98 12/30/18 02:00 102 H 32 H 92/58 L 98 12/30/18 01:00 98 H 24 101/56 L 100 12/30/18 00:00 36.8 C 117 H 22 95/57 L 99 12/29/18 23:26 83 18 96 12/29/18 23:01 91 H 21 112/60 12/29/18 22:31 114 H 27 H 101/58 L 93 12/29/18 22:00 104 H 27 H 112/69 98 12/29/18 21:00 105 H 29 H 108/71 90 12/29/18 20:30 104 H 34 H 106/69 12/29/18 20:23 111 H 20 97 12/29/18 20:01 98 H 30 H 103/58 L 90 12/29/18 20:00 36.4 C L 12/29/18 19:46 101 H 36 H 140/70 92 Laboratory Results Laboratory Results - last 24 hr 12/29/18 12/29/18 12/29/18 18:37 18:37 18:37 WBC 6.68 RBC 2.28 L Hgb 8.2 L Hct 22.3 L MCV 97.8 MCH 36.0 H MCHC 36.8 H RDW Std Deviation 48.9 H RDW Coeff of Emil 14.3 Plt Count 221 MPV 9.6 Immature Gran % (Auto) 1.0 Neut % (Auto) 64.2 Lymph % (Auto) 22.9 [place] % (Auto) 11.2 Eos % (Auto) 0.6 Baso % (Auto) 0.1 Immature Gran # (Auto) 0.07 H Neut # (Auto) 4.28 Lymph # (Auto) 1.53 [place] # (Auto) 0.75 H Eos # (Auto) 0.04 Baso # (Auto) 0.01 PT 12.2 H INR 1.2 H APTT 47.6 H* PTT Ratio 1.8 Sodium 131 L Potassium 3.7 Chloride 97 L Carbon Dioxide 25 Anion Gap 9.0 BUN 2 L Creatinine 0.57 L Est Cr Clr Drug Dosing 131.9 Est GFR ( Amer) 125.8 Est GFR (Non-Af Amer) 108.5 BUN/Creatinine Ratio 3.5 L Glucose 84 Calcium 6.7 L Phosphorus 2.8 Magnesium 1.3 L Troponin I < 0.015 12/30/18 12/30/18 12/30/18 00:15 02:06 04:14 WBC RBC Hgb Hct MCV MCH MCHC RDW Std Deviation RDW Coeff of Emil Plt Count MPV Immature Gran % (Auto) Neut % (Auto) Lymph % (Auto) [place] % (Auto) Eos % (Auto) Baso % (Auto) Immature Gran # (Auto) Neut # (Auto) Lymph # (Auto) [place] # (Auto) Eos # (Auto) Baso # (Auto) PT INR APTT > 139.0 H* PTT Ratio > 5.1 Sodium Potassium Chloride Carbon Dioxide Anion Gap BUN Creatinine Est Cr Clr Drug Dosing Est GFR ( Amer) Est GFR (Non-Af Amer) BUN/Creatinine Ratio Glucose Calcium Phosphorus 3.7 Magnesium 1.8 Troponin I 0.018 < 0.015 12/30/18 12/30/18 12/30/18 04:14 05:57 11:21 WBC RBC Hgb Hct MCV MCH MCHC RDW Std Deviation RDW Coeff of Emil Plt Count MPV Immature Gran % (Auto) Neut % (Auto) Lymph % (Auto) [place] % (Auto) Eos % (Auto) Baso % (Auto) Immature Gran # (Auto) Neut # (Auto) Lymph # (Auto) [place] # (Auto) Eos # (Auto) Baso # (Auto) PT INR APTT 71.5 H* 78.5 H* PTT Ratio 2.6 2.9 Sodium 131 L Potassium 3.1 L D Chloride 95 L Carbon Dioxide 26 Anion Gap 10.0 BUN 3 L Creatinine 0.69 Est Cr Clr Drug Dosing 104.2 Est GFR ( Amer) 116.3 Est GFR (Non-Af Amer) 100.3 BUN/Creatinine Ratio 4.2 L Glucose 108 H Calcium 6.8 L Phosphorus Magnesium Troponin I Medications Administered Current Inpatient Medications Acetaminophen (Tylenol) 650 mg PO Q4H PRN PRN Reason: Pain or Fever Stop: 01/25/19 19:47 Al Hydrox/Mg Hydrox/Simethicone (Maalox) 15 ml PO Q4H PRN PRN Reason: Dyspepsia Stop: 01/25/19 19:47 Albuterol (Duoneb) 3 ml NEB Q4R [facility] Stop: 01/28/19 19:59 Last Admin: 12/30/18 11:28 Dose: 3 ml Documented by: Amlodipine Besylate (Norvasc) 10 mg PO DAILY [facility] Stop: 01/26/19 08:59 Last Admin: 12/30/18 08:02 Dose: 10 mg Documented by: Aspirin (Ecotrin Ectab) 81 mg PO DAILY [facility] Stop: 01/26/19 08:59 Last Admin: 12/30/18 08:03 Dose: 81 mg Documented by: Citalopram Hydrobromide (Celexa) 20 mg PO DAILY [facility] Stop: 01/26/19 08:59 Folic Acid (Folvite) 1 mg PO QAM [facility] Stop: 01/25/19 17:14 Last Admin: 12/30/18 08:03 Dose: 1 mg Documented by: Lorazepam (Ativan) 1 mg in 2 mls @ 2 mls/min IV ONE PRN; Protocol PRN Reason: EtoH Withdrawal AWSS 6-10 Stop: 01/25/19 21:10 Last Admin: 12/29/18 14:37 Dose: 2 mls/min Documented by: Clindamycin Phosphate 600 mg/ (Dextrose) 54 mls @ 100 mls/hr IV Q8H [facility] Stop: 01/11/19 13:59 Last Infusion: 12/30/18 06:42 Dose: Infused Documented by: Amiodarone HCl/Dextrose (Nexterone / D5w) 360 mg in 200 mls @ 16.667 mls/hr IV .Q12H [facility] Stop: 01/29/19 00:16 Last Admin: 12/30/18 11:11 Dose: 0.5 mg/min, 16.7 mls/hr Documented by: Heparin Sodium/Dextrose (Heparin Sodium/Dextrose) 25,000 units in 500 mls @ 19 mls/hr IV .Q24H [facility]; Protocol Stop: 01/28/19 18:29 Last Titration: 12/30/18 12:08 Dose: 950 units/hr, 19 mls/hr Documented by: Potassium Chloride (K Anton / Wtr) 10 meq in 100 mls @ 100 mls/hr IV Q1H [facility] Stop: 12/30/18 20:59 Magnesium Sulfate/Dextrose (Magnesium Sulfate / D5w) 1 gm in 100 mls @ 100 mls/hr IV TODAY@1500 [facility] Stop: 12/30/18 15:59 Ioversol (Optiray 320 100ml) 93 ml IV ONCE PRN PRN Reason: Interaction Checking Stop: 12/30/18 18:20 Last Admin: 12/26/18 18:21 Dose: 93 ml Documented by: Ioversol (Optiray 320 125ml) 120 ml IV ONCE PRN PRN Reason: Interaction Checking Stop: 01/02/19 18:13 Last Admin: 12/29/18 18:15 Dose: 120 ml Documented by: Levetiracetam (Keppra) 1,000 mg PO BID [facility] Stop: 01/25/19 20:59 Last Admin: 12/30/18 08:03 Dose: 1,000 mg Documented by: Lorazepam (Ativan) 1 mg PO ONE PRN; Protocol PRN Reason: EtoH Withdrawal AWSS 6-10 Magnesium Hydroxide (Milk Of Magnesia) 30 ml PO Q12H PRN PRN Reason: Constipation Stop: 01/25/19 19:47 Magnesium Oxide (Mag-Ox) 400 mg PO BID [facility] Stop: 01/26/19 09:14 Last Admin: 12/30/18 08:02 Dose: 400 mg Documented by: Metoprolol Tartrate (Lopressor) 2.5 mg IV Q6 [facility] Stop: 01/29/19 11:59 Last Admin: 12/30/18 11:12 Dose: 2.5 mg Documented by: Multivitamins (Multivitamin Tab) 1 tab PO QAM [facility] Stop: 01/26/19 09:14 Last Admin: 12/30/18 08:02 Dose: 1 tab Documented by: Phenobarbital (Phenobarbital) 32.4 mg PO Q4H PRN PRN Reason: RASS 2 OR GREATER Stop: 12/31/18 09:03 Last Admin: 12/29/18 12:04 Dose: 32.4 mg Documented by: Phenobarbital (Phenobarbital) 32.4 mg PO BID [facility] Stop: 01/01/19 09:01 Polyethylene Glycol (Miralax Powder Packet) 17 gm PO DAILY PRN PRN Reason: Constipation Stop: 01/25/19 19:47 Potassium Chloride (Klor-Con M20) 40 meq PO DAILY [facility] Stop: 01/26/19 20:59 Last Admin: 12/30/18 11:11 Dose: 40 meq Documented by: Ranitidine HCl (Zantac) 300 mg PO HS [facility] Stop: 01/25/19 20:59 Last Admin: 12/29/18 20:45 Dose: 300 mg Documented by: Thiamine HCl (Vitamin B-1) 100 mg PO QAM [facility] Stop: 01/26/19 08:59 Last Admin: 12/30/18 08:02 Dose: 100 mg Documented by: Resident Activity Tracking Resident Involvement: Resident Care Provided Care Provided: [facility]
[2018-12-30] MEDS: MULTIVITAMIN TAB PO SCH (08:02)
[2018-12-30] MEDS: AMLODIPINE BESYLATE 5 MG TAB PO SCH (08:02)
[2018-12-30] MEDS: MAGNESIUM OXIDE 400 MG TAB PO SCH ×2 (08:02→20:05)
[2018-12-30] MEDS: THIAMINE HCL 100 MG TAB PO SCH (08:02)
[2018-12-30] MEDS: PHENobarbital 32.4 MG TAB PO SCH ×2 (08:03→20:08)
[2018-12-30] MEDS: FOLIC ACID 1 MG TAB PO SCH (08:03)
[2018-12-30] MEDS: ASPIRIN 81 MG ECTAB PO SCH (08:03)
[2018-12-30] MEDS: levETIRAcetam 500 MG TAB PO SCH ×2 (08:03→20:05)
[2018-12-30] MEDS ORDERED: POTASSIUM PHOSPHATE 24 MMOL in SODIUM CHLORIDE 0.9% 500 ML IV ONE (08:45)
[2018-12-30] MEDS ORDERED: fentaNYL citrate 100 MCG/2 ML VIAL IV PRN (08:55)
--- NOTE | 2018-12-30 08:55 | Post Anesthesia Assessment ---
Date of Service December 30, 2018 Post Sedation Assessment Vital Signs Temp Pulse Pulse Resp BP BP Pulse Ox 12/30/18 08:25 110 H 18 97 12/30/18 06:03 114 H 35 H 97/64 L 92 12/30/18 05:01 105 H 29 H 101/63 94 12/30/18 04:30 36.7 C 12/30/18 04:10 94 H 18 94 12/30/18 04:00 105 H 29 H 105/60 98 12/30/18 03:00 94 H 37 H 104/61 98 12/30/18 02:00 102 H 32 H 92/58 L 98 12/30/18 01:00 98 H 24 101/56 L 100 12/30/18 00:00 36.8 C 117 H 22 95/57 L 99 12/29/18 23:26 83 18 96 12/29/18 23:01 91 H 21 112/60 12/29/18 22:31 114 H 27 H 101/58 L 93 12/29/18 22:00 104 H 27 H 112/69 98 12/29/18 21:00 105 H 29 H 108/71 90 12/29/18 20:30 104 H 34 H 106/69 12/29/18 20:23 111 H 20 97 12/29/18 20:01 98 H 30 H 103/58 L 90 12/29/18 20:00 36.4 C L 12/29/18 19:46 101 H 36 H 140/70 92 12/29/18 19:31 108 H 36 H 104/76 87 L 12/29/18 19:01 126 H 42 H 93/87 L 82 L 12/29/18 18:30 106 H 31 H 96/51 L 93 12/29/18 17:01 102 H 38 H 104/67 90 12/29/18 16:01 98 H 35 H 104/62 91 12/29/18 16:00 98 H 25 H 104/62 95 12/29/18 15:00 108 H 28 H 103/76 90 12/29/18 14:46 37.6 C H 112 H 30 H 94/59 L 91 12/29/18 14:01 95 H 20 87/46 L 92 12/29/18 13:01 100 H 19 97/65 L 93 12/29/18 12:01 101 H 40 H 103/69 94 12/29/18 11:00 36.6 C 92 H 26 H 94/55 L 92 12/29/18 10:50 94 H 37 H 105/71 12/29/18 10:00 93 H 25 H 93 Post Sedation Plan On clinical assessment, the patient appears to have tolerated the sedation without complications. Patient is recovering as anticipated. Patient will continue to be monitored by nursing and may be discharged when sedation discharge criteria are met per below protocol. Upon Completions of procedure and additional 15 minutes continue every 5 minute vital signs and the P.A.R. score; then discharge to a Phase I or Fast Track to Phase II per the following guidelines: Patient to remain in the ICU as that is his current level of care. Procedure start time 920 procedure end time 930 Fentanyl 150 mcg IV, etomidate 5 mg IV
--- NOTE | 2018-12-30 08:55 | Procedure Note ---
Procedure Note Date of Service December 30, 2018 Procedure date: Noted above Procedure: Elective cardioversion Pre-procedure Diagnosis: Atrial fibrillation, contraindications to systemic anticoagulation Post-procedure Diagnosis: same as above Prior to Procedure: Informed Consent: The risks, benefits, indications, potential complications, and alternatives were explained to the patient's and informed consent obtained. Attending Staff: Emy Gonzalez DO Anesthesia: 150 mcg fentanyl IV, 5 mg etomidate IV The identity of the patient was confirmed and a bedside time out was performed. Description of Procedure: After preparation with airway adjuncts, cardiac monitoring and end-tidal CO2 monitoring paddles were placed in the anterior and posterior position. A single synchronized cardioversion of 200 J was performed, which was ineffective. A second 360 J synchronized cardioversion was performed and the patient converted to a sinus tachycardia as confirmed by post procedure EKG. Patient will be given 2.5 mg metoprolol IV every 6 hours Complications: None Patient tolerated the procedure well. Coding
[2018-12-30] MEDS ORDERED: RAPID SEQUENCE INDUCTION BAG ONE (08:59)
[2018-12-30] MEDS ORDERED: FUROSEMIDE 40 MG in SYRINGE 0 ML IV ONE (09:00)
[2018-12-30] MEDS ORDERED: ETOMIDATE 2 MG/ML 20 ML VIAL IV SCH (09:00)
[2018-12-30] MEDS ORDERED: MAGNESIUM SULFATE / D5W 1 GM/100 ML BAG IV ONE (09:00)
[2018-12-30] MEDS ORDERED: fentaNYL citrate 100 MCG/2 ML VIAL IV ONE (09:30)
[2018-12-30] MEDS: POTASSIUM CHLORIDE 20 MEQ TABCR PO SCH (11:11)
[2018-12-30] MEDS: METOPROLOL TARTRATE 1 MG/ML VIAL IV SCH ×2 (11:12→17:52)
[2018-12-30 11:48] LABS: Partial Thromboplastin Ratio 2.9
[2018-12-30] MEDS ORDERED: GABAPENTIN 600 MG TAB PO SCH (12:00)
[2018-12-30 12:02] LABS: Partial Thromboplastin Time 78.5 Seconds (21.0-31.0)
[2018-12-30] MEDS: Heparin Adult STANDARD Wt-Based Dextrose 5% 25,000 units/500 mL IV SCH (15:00)
[2018-12-30] MEDS ORDERED: MAGNESIUM SULFATE / D5W 1 GM/100 ML BAG IV SCH (15:00)
[2018-12-30] MEDS ORDERED: SODIUM CHLORIDE 0.9% 10ML FLUSH IV ONE (15:14)
[2018-12-30] MEDS ORDERED: fentaNYL citrate 100 MCG/2 ML CARP IV ONE (15:14)
[2018-12-30] MEDS: POTASSIUM CHLORIDE / WTR 10 MEQ/100 ML PLCT IV SCH ×6 (15:36→21:05)
--- NOTE | 2018-12-30 16:38 | Cardiology Progress Note ---
Date of Service December 30, 2018 Assessment & Plan (1) Torsades de pointes: Due to marked metabolic derangement improving. Dopamine discontinued, moving back towards normal ranges. QT less prolonged today (2) Prolonged QT interval: (3) Multifocal atrial tachycardia: Current rhythm sinus with intermittent multifocal atrial tachycardia. Would optimally treat with beta-tommy for rate control at this time. I am reluctant to continue amiodarone at extended duration given significant QT prolongation/torsade on admission Will follow Subjective Patient seen and examined chart medications telemetry reviewed. Events of evening past noted with patient lapsing into atrial fibrillation. Placed on amiodarone infusion and he underwent synchronized electrical cardioversion this morning. He continues to have intermittent multifocal atrial tachycardia. No focal complaints per patient Physical Exam Constitutional: + ill appearing and + cachectic ENMT: external ear and nose normal, oropharynx normal Respiratory: Auscultation: + diminished lung sounds Cardiovascular: Rate/Rhythm: regular rate and regular rhythm Heart Sounds: normal S1 and normal S2; no murmur and no cardiac rub Gastrointestinal (Abdomen): normal bowel sounds, soft, nontender, no hepatosplenomegaly Musculoskeletal: no cyanosis or clubbing, extremities motor strength 5/5 Results & Data Vital Signs (Past 12 Hours) Vital Signs Temp Pulse Pulse Resp BP BP Pulse Ox 12/30/18 16:16 101 H 33 H 89/80 L 12/30/18 16:09 95 H 22 159/131 H 12/30/18 16:01 89 22 12/30/18 16:00 135 H 25 H 12/30/18 15:45 98 H 20 97 12/30/18 15:00 113 H 22 96/66 L 99 12/30/18 14:34 105 H 22 97/65 L 98 12/30/18 14:30 113 H 22 86/62 L 95 12/30/18 14:00 103 H 22 89/54 L 100 12/30/18 13:31 102 H 22 106/62 99 12/30/18 13:11 102 H 22 96/58 L 100 12/30/18 13:01 105 H 29 H 94 12/30/18 13:00 95 H 22 86/57 L 90 12/30/18 12:31 108 H 18 108/63 95 12/30/18 12:30 108 H 16 85 L 12/30/18 12:01 132 H 18 112/50 L 12/30/18 12:00 111 H 20 97 12/30/18 11:32 103 H 24 92/70 L 12/30/18 11:30 107 H 22 100 12/30/18 11:29 101 H 18 100 12/30/18 11:15 99 H 22 103/65 96 12/30/18 11:12 108 H 114/62 12/30/18 11:10 103 H 22 114/61 100 12/30/18 11:05 110 H 22 96/61 L 100 12/30/18 11:01 110 H 26 H 99 12/30/18 11:00 36.8 C 100 H 96 H 18 94/73 L 92/70 L 99 12/30/18 10:55 118 H 28 H 78/63 L 99 12/30/18 10:50 116 H 31 H 112/67 96 12/30/18 10:46 114 H 26 H 103/66 94 12/30/18 10:40 110 H 37 H 94/83 L 90 12/30/18 10:36 130 H 29 H 103/70 92 12/30/18 10:31 124 H 28 H 105/65 89 L 12/30/18 10:30 102 H 26 H 93 12/30/18 10:25 124 H 27 H 110/78 88 L 12/30/18 10:21 132 H 26 H 108/64 92 12/30/18 10:16 132 H 24 106/61 95 12/30/18 10:11 107 H 23 113/60 97 12/30/18 10:05 112 H 24 87/69 L 96 12/30/18 10:01 117 H 24 98 12/30/18 10:00 117 H 24 98/61 L 97 12/30/18 09:55 119 H 25 H 90/56 L 97 12/30/18 09:50 119 H 24 94/59 L 97 12/30/18 09:45 115 H 24 87/66 L 98 12/30/18 09:40 116 H 24 96/57 L 96/57 L 97 12/30/18 09:35 111 H 23 92/64 L 92/64 L 97 12/30/18 09:30 105 H 23 103/59 L 103/59 L 97 12/30/18 09:25 105 H 24 107/55 L 97 12/30/18 09:24 98 H 24 104/65 95 12/30/18 09:20 97 12/30/18 09:15 110 H 24 103/67 97 12/30/18 09:10 108 H 24 104/65 96 12/30/18 09:00 103 H 23 83/63 L 92 12/30/18 08:55 108 H 23 107/50 L 94 12/30/18 08:30 114 H 29 H 12/30/18 08:25 110 H 18 97 12/30/18 08:01 106 H 34 H 107/67 92 12/30/18 08:00 36.8 C 109 H 113 H 39 H 108/50 L 96 12/30/18 07:30 112 H 34 H 12/30/18 07:00 119 H 33 H 108/50 L 12/30/18 06:30 97 H 30 H 12/30/18 06:03 114 H 35 H 97/64 L 92 12/30/18 05:01 105 H 29 H 101/63 94 Laboratory Results Laboratory Results - last 24 hr 12/29/18 12/29/18 12/29/18 18:37 18:37 18:37 WBC 6.68 RBC 2.28 L Hgb 8.2 L Hct 22.3 L MCV 97.8 MCH 36.0 H MCHC 36.8 H RDW Std Deviation 48.9 H RDW Coeff of Emil 14.3 Plt Count 221 MPV 9.6 Immature Gran % (Auto) 1.0 Neut % (Auto) 64.2 Lymph % (Auto) 22.9 [place] % (Auto) 11.2 Eos % (Auto) 0.6 Baso % (Auto) 0.1 Immature Gran # (Auto) 0.07 H Neut # (Auto) 4.28 Lymph # (Auto) 1.53 [place] # (Auto) 0.75 H Eos # (Auto) 0.04 Baso # (Auto) 0.01 PT 12.2 H INR 1.2 H APTT 47.6 H* PTT Ratio 1.8 Sodium 131 L Potassium 3.7 Chloride 97 L Carbon Dioxide 25 Anion Gap 9.0 BUN 2 L Creatinine 0.57 L Est Cr Clr Drug Dosing 131.9 Est GFR ( Amer) 125.8 Est GFR (Non-Af Amer) 108.5 BUN/Creatinine Ratio 3.5 L Glucose 84 Calcium 6.7 L Phosphorus 2.8 Magnesium 1.3 L Troponin I < 0.015 12/30/18 12/30/18 12/30/18 00:15 02:06 04:14 WBC RBC Hgb Hct MCV MCH MCHC RDW Std Deviation RDW Coeff of Emil Plt Count MPV Immature Gran % (Auto) Neut % (Auto) Lymph % (Auto) [place] % (Auto) Eos % (Auto) Baso % (Auto) Immature Gran # (Auto) Neut # (Auto) Lymph # (Auto) [place] # (Auto) Eos # (Auto) Baso # (Auto) PT INR APTT > 139.0 H* PTT Ratio > 5.1 Sodium Potassium Chloride Carbon Dioxide Anion Gap BUN Creatinine Est Cr Clr Drug Dosing Est GFR ( Amer) Est GFR (Non-Af Amer) BUN/Creatinine Ratio Glucose Calcium Phosphorus 3.7 Magnesium 1.8 Troponin I 0.018 < 0.015 12/30/18 12/30/18 12/30/18 04:14 05:57 11:21 WBC RBC Hgb Hct MCV MCH MCHC RDW Std Deviation RDW Coeff of Emil Plt Count MPV Immature Gran % (Auto) Neut % (Auto) Lymph % (Auto) [place] % (Auto) Eos % (Auto) Baso % (Auto) Immature Gran # (Auto) Neut # (Auto) Lymph # (Auto) [place] # (Auto) Eos # (Auto) Baso # (Auto) PT INR APTT 71.5 H* 78.5 H* PTT Ratio 2.6 2.9 Sodium 131 L Potassium 3.1 L D Chloride 95 L Carbon Dioxide 26 Anion Gap 10.0 BUN 3 L Creatinine 0.69 Est Cr Clr Drug Dosing 104.2 Est GFR ( Amer) 116.3 Est GFR (Non-Af Amer) 100.3 BUN/Creatinine Ratio 4.2 L Glucose 108 H Calcium 6.8 L Phosphorus Magnesium Troponin I
--- NOTE | 2018-12-30 17:10 | Hospitalist Progress Note ---
Date of Service December 30, 2018 Assessment & Plan (1) Weakness: Possible due to severe electrolytes imbalance from alcohol intake Continue PT/OT Fall precaution (2) Multifocal atrial tachycardia: (3) Torsades de pointes: Afib Due to severe hypomagnesemia, hyponatremia, hypokalemia and hypophosphatemia Mostly from alcohol abuse Underwent synchronized electrical cardioversion this morning converted to a sinus tachycardia Cardiology on board Continue IV amiodarone Continue IV heparin drip IV metoprolol 2.5 mg q6h added Electrolytes replaced Monitor BMP Continue monitor in the ICU (3) Electrolyte abnormality: Replaced K today Monitor electrolytes (4) TEQUILA (acute kidney injury): Creatinine on admission was 1.42 Baseline from previous labs creatinine 0.5 (approximately 2 years ago) Likely secondary to dehydration Received IVF Creatinine back to normal (5) Alcohol abuse: AWSS ETOH protocol ordered with gabapentin taper PRN lorazepam Folic Acid and Thiamine added to medication regimen No significant withdrawal symptoms Consider inpatient alcohol rehab on discharge (6) Seizure disorder: He reports episode of seizure for the last few days before admission Prolactin level normal Neurology on board Obtain EEG and monitor-did not show any focus for seizure but he did show generalized slowing of activity likely secondary to alcoholic encephalopathy Continue Keppra and phenobarbital (7) Ribs, multiple fractures: Secondary to fall Fracture of right lateral eighth, ninth, and 10th rib Conservative management Incentive spirometry Analgesia (8) Thoracic compression fracture: Recommend conservative management with analgesics Consult PT/OT when stable (9) HTN (hypertension): Blood pressure currently in the low side amlodipine on hold Monitor BP closely (10) Alcoholic liver disease: CT Abd/pelvis showed reveals Hepatic Steatosis Liver ultrasound showed fatty infiltration of liver status post cholecystectomy LFTs remain stable for alcoholism Monitor Liver enzymes (11) AAA (abdominal aortic aneurysm) without rupture: 3.7 x 3.4 cm infrarenal abdominal aortic aneurysm Recommend routine follow-up per PCP (12) Pulmonary nodules: Per Fleischner criteria for multiple nodules less than [address] scan in 12 months. (13) DVT prophylaxis: On Heparin drip Disposition: Continue monitor in the ICU Subjective Pt was seen and examined Lying in bed and very drowsy He was able to open his eyes for me today and answered simple yes or no question He underwent synchronized electrical cardioversion this morning Physical Exam Physical Exam: General- Lethargy Head- atraumatic Eyes- PERRL, EOMI, ENT- oropharynx clear Neck- supple, no JVD Lungs- clear to auscultation Heart- +tachycardia, no murmur Abdomen- normal bowel sounds, soft, nontender Extremities- no calf tenderness Neuro-move all 4 extremities, drowsiness Skin- warm & dry Results & Data Vital Signs (Past 12 Hours) Vital Signs Temp Pulse Pulse Resp BP BP Pulse Ox 12/30/18 16:16 101 H 33 H 89/80 L 12/30/18 16:09 95 H 22 159/131 H 12/30/18 16:01 89 22 12/30/18 16:00 135 H 25 H 12/30/18 15:45 98 H 20 97 12/30/18 15:00 113 H 22 96/66 L 99 12/30/18 14:34 105 H 22 97/65 L 98 12/30/18 14:30 113 H 22 86/62 L 95 12/30/18 14:00 103 H 22 89/54 L 100 12/30/18 13:31 102 H 22 106/62 99 12/30/18 13:11 102 H 22 96/58 L 100 12/30/18 13:01 105 H 29 H 94 12/30/18 13:00 95 H 22 86/57 L 90 12/30/18 12:31 108 H 18 108/63 95 12/30/18 12:30 108 H 16 85 L 12/30/18 12:01 132 H 18 112/50 L 12/30/18 12:00 111 H 20 97 12/30/18 11:32 103 H 24 92/70 L 12/30/18 11:30 107 H 22 100 12/30/18 11:29 101 H 18 100 12/30/18 11:15 99 H 22 103/65 96 12/30/18 11:12 108 H 114/62 12/30/18 11:10 103 H 22 114/61 100 12/30/18 11:05 110 H 22 96/61 L 100 12/30/18 11:01 110 H 26 H 99 12/30/18 11:00 36.8 C 100 H 96 H 18 94/73 L 92/70 L 99 12/30/18 10:55 118 H 28 H 78/63 L 99 12/30/18 10:50 116 H 31 H 112/67 96 12/30/18 10:46 114 H 26 H 103/66 94 12/30/18 10:40 110 H 37 H 94/83 L 90 12/30/18 10:36 130 H 29 H 103/70 92 12/30/18 10:31 124 H 28 H 105/65 89 L 12/30/18 10:30 102 H 26 H 93 12/30/18 10:25 124 H 27 H 110/78 88 L 12/30/18 10:21 132 H 26 H 108/64 92 12/30/18 10:16 132 H 24 106/61 95 12/30/18 10:11 107 H 23 113/60 97 12/30/18 10:05 112 H 24 87/69 L 96 12/30/18 10:01 117 H 24 98 12/30/18 10:00 117 H 24 98/61 L 97 12/30/18 09:55 119 H 25 H 90/56 L 97 12/30/18 09:50 119 H 24 94/59 L 97 12/30/18 09:45 115 H 24 87/66 L 98 12/30/18 09:40 116 H 24 96/57 L 96/57 L 97 12/30/18 09:35 111 H 23 92/64 L 92/64 L 97 12/30/18 09:30 105 H 23 103/59 L 103/59 L 97 12/30/18 09:25 105 H 24 107/55 L 97 12/30/18 09:24 98 H 24 104/65 95 12/30/18 09:20 97 12/30/18 09:15 110 H 24 103/67 97 12/30/18 09:10 108 H 24 104/65 96 12/30/18 09:00 103 H 23 83/63 L 92 12/30/18 08:55 108 H 23 107/50 L 94 12/30/18 08:30 114 H 29 H 12/30/18 08:25 110 H 18 97 12/30/18 08:01 106 H 34 H 107/67 92 12/30/18 08:00 36.8 C 109 H 113 H 39 H 108/50 L 96 12/30/18 07:30 112 H 34 H 12/30/18 07:00 119 H 33 H 108/50 L 12/30/18 06:30 97 H 30 H 12/30/18 06:03 114 H 35 H 97/64 L 92
[2018-12-30 19:11] LABS: Partial Thromboplastin Time 80.5 Seconds (21.0-31.0)
[2018-12-31] MEDS: ACETAMINOPHEN 325 MG TAB PO PRN (00:41)
[2018-12-31] MEDS: METOPROLOL TARTRATE 1 MG/ML VIAL IV SCH ×4 (00:41→18:09)
[2018-12-31 01:39] LABS: Partial Thromboplastin Ratio 2.3
[2018-12-31 01:41] LABS: Partial Thromboplastin Time 62.9 Seconds (21.0-31.0)
[2018-12-31] MEDS: ALBUT/IPRATROP 3MG/0.5MG NEB 3 ML VIAL NEB SCH ×6 (03:46→23:14)
[2018-12-31 04:12] LABS: Basophils # (auto) 0.01 K/uL (0-0.2); Basophils % (auto) 0.1 %; Eosinophils # (auto) 0.02 K/uL (0-0.5); Eosinophils % (auto) 0.2 %; Hematocrit (blood only) 22.1 % (42-52); Hemoglobin 8.1 g/dL (14.0-18.0); Immature Granulocytes # (auto) 0.05 K/uL (0.00-0.02); Immature Granulocytes % (auto) 0.5 %; Lymphocytes # (auto) 1.34 K/uL (1.2-3.4); Lymphocytes % (auto) 13.8 %; Mean Corpuscular Hgb Conc 36.7 g/dL (32-36); Mean Corpuscular Volume 98.2 fL (80-100); Mean Platelet Volume 9.2 fL (7.4-10.4); Monocytes # (auto) 0.99 K/uL (0.11-0.59); Monocytes % (auto) 10.2 %; Neutrophils % (auto) 75.2 %; Platelet Count 211 K/uL (130-400); RDW Coefficient of Variation 15.5 % (11.5-14.5); RDW Standard Deviation 53.5 fL (36.4-46.3); Red Blood Count 2.25 M/uL (4.7-6.1); White Blood Count 9.71 K/uL (4.8-10.8)
[2018-12-31 04:31] LABS: Partial Thromboplastin Ratio 2.4
[2018-12-31 04:47] LABS: Partial Thromboplastin Time 64.5 Seconds (21.0-31.0)
[2018-12-31] MEDS: CLINDAMYCIN 600 MG in DEXTROSE 5% 50 ML IV SCH ×3 (05:21→22:08)
--- NOTE | 2018-12-31 07:53 | Critical Care Progress Note ---
Date of Service December 31, 2018 Assessment & Plan (1) Admitted to intensive care unit: Reason Critically Ill: 63-year-old male presenting with seizure-like activity with noted nonsustained polymorphic ventricular tachyarrhythmia consistent with torsades. Noted to have electrolyte abnormalities: Hypomagnesemia/Hypokalemia/Hypophosphatemia/Hyponatremia/Hypocalcemia. Resuscitation in progress. At high risk for alcohol withdrawal. NEURO - CAM ICU: NEGATIVE -Appears mentation improved today. Oriented x2 Seizure disorder: 1 g twice daily Keppra Serum levels pending. -Abnormal EEG in a patient with altered mentation due to severe background suppression suggestive of a severe non specific encephalopathy. No epileptiform activity seen. Alcohol abuse: High risk for withdrawal symptomatology. Phenobarbitol protocol for withdrawal. 32 mg BID to continue for 24 hrs. Additional 32mg prn q6h for RASS >2 . D/C Ativan Thiamine, Folic acid supplementation. Holding celexa secondary to prolonged QTC CARDIAC/VASCULAR - Nonsustained polymorphic ventricular tachyarrhythmia - Torsades de Pointes: In the setting of profound hypomagnesemia, was aggressively supplemented Cont replace Potassium. ECHO reviewed, see results. Monitor on telemetry. Afib/ Intermittent Atrial Tachycardia -CTA: No evidence of pulmonary embolus, Trop neg x3 -D/C Amiodarone. Cont Metoprolol 2.5 mg q6h IV -Given h/o ETOH and frequent falls, systemic anticoagulation not warranted. Remains on heparin -ECHO from 12/27, see results. -Elective cardioversion 12/30, noted to be NSR after with EKG confirmation. But resumed Afib later in day -Appreciate Dr. Paulie mccoy RESPIRATORY - Monitor closely for need for airway intervention in the setting of recurrent seizure-like activity. h/o Cigarette smoking. Supplemental O2 PRN. New O2 requirement 12/29. CXR from 12/30: Small b/l pleural effusions with left greater than right bibasilar consolidation. Cardiomegaly with mild pulmonary vascular congestion -gentle diurese today with Lasix 40 -Will get swallow eval as pt is higher risk for aspiration. -CTA- no evidence of PE. LE Dopplers- no evidence of DVT GI/NUTRITION - Advanced to heart healthy diet, fluid restricted to 1500 ml Prophylaxis: Continue w/ AM PO Zantac RENAL/LYTES - Hypomagnesemia In the setting of Torsades de Pointes, will aggressively resuscitate. Received 4g prior to arrival and additional 4 g in ICU after run of Torsades in ICU Repeat labs show Mg 1.3 MgOH 400 BID CONNOR. Will cont replete as needed. 4 mg today MgSO4 Hypokalemia: Initially w/ potassium of 3.3 in ED. Repeat labs shows K normal Daily 40meQ PO. Will cont additional replacement IV and PO as needed. Today 40meq KCl IV, 40 K-Acetate later today Hypocalcemia/Hypophosphatemia -will cont replete as needed Hyponatremia -fluid restriction 1500 ml -Will additionally replete as needed moving forward TEQUILA: Improved Stop additional fluids - Urinary retention: D/C Baird. Voiding trials ENDO - No h/o DM or Thyroid Disease. BSGs per unit protocol. ISS --> gtt per unit policy. HEME - H&H low but stable. FOBT neg. Will cont trend. No acute concerns ID - -Concern for L septic bursitis -IV Clinda -ortho following -Will trend fever curve, cell counts LINES/IV ACCESS - PIVs x3 DVT PROPHYLAXIS: Heparin sq, SCDs Full Code Dispo: Stable for Downgrade to Tele once lytes repleted. Supervising Physician Co-Signing Physician Notes Dr. Amaral was resident physician during care of patient. I separately evaluated patient for rahman portions of the history and the exam. I was present during the critical portion of medical decision making, and I discussed the case with the resident. I generally agree with the findings and plan. Mental status continues to improve. Continuing metoprolol, discontinuing amiodarone today. Most likely has multifocal atrial tachycardia. Potassium improved, lowered magnesium level today, he is on continuous oral supplement daily as well as receiving additional electrolytes. Patient has additional 24 hours of phenobarbital for alcohol withdrawal. Stable for downgrade out of the ICU. Patient still on anticoagulants while in the hospital however I would not continue systemic anticoagulants upon discharge given high propensity for falls. Subjective 63 y/o M found in bed this AM in NAD. Mentation seems improved today. Pt was oriented x2. Able to have coherent conversation. Tolerating PO intake. No issues voiding. Denies CP, SOB, lightheadedness, dizzyness, syncope or near syncope. No other acute concerns or complaints. Review of Systems Review of Systems: All systems reviewed & are unremarkable except as noted in HPI & below Physical Exam Constitutional: + thin Poor dentition Eyes: PERRL, conjunctivae normal, anicteric sclerae ENMT: external ear and nose normal, oropharynx normal Respiratory: normal respiratory effort, lungs clear to auscultation Cardiovascular: Rate/Rhythm: + irregularly irregular Gastrointestinal (Abdomen): normal bowel sounds, soft, nontender, no hepatosplenomegaly Musculoskeletal: L elbow with bandage and some drainage noted, otherwise normal ROM without pain/tenderness L arm swollen > R arm Skin: no rashes, warm and dry Psychiatric: A+Ox3, euthymic affect Results & Data Vital Signs (Past 12 Hours) Vital Signs Temp Pulse Pulse Resp BP Pulse Ox 12/31/18 07:25 82 18 93 12/31/18 06:00 92 H 23 91/55 L 12/31/18 05:01 80 27 H 98 12/31/18 05:00 111 H 26 H 83/53 L 98 12/31/18 04:01 96 H 23 12/31/18 04:00 95 H 26 H 90/56 L 100 12/31/18 03:47 91 H 18 97 12/31/18 03:39 100 H 27 H 83/58 L 12/31/18 03:00 112 H 33 H 12/31/18 02:00 107 H 26 H 97/58 L 100 12/31/18 01:02 132 H 21 86/50 L 61 L 12/31/18 01:00 103 H 36 H 96 12/31/18 00:41 106 H 118/48 L 12/31/18 00:01 106 H 27 H 118/48 L 92 12/31/18 00:00 38.0 C H 12/30/18 23:36 89 18 94 12/30/18 23:01 103 H 29 H 95/40 L 94 12/30/18 22:01 120 H 25 H 89/69 L 93 12/30/18 21:01 106 H 22 113/69 95 12/30/18 20:01 36.7 C 107 H 24 115/57 L 96 Laboratory Results Laboratory Results - last 24 hr 12/30/18 12/30/18 12/31/18 11:21 18:34 01:14 WBC RBC Hgb Hct MCV MCH MCHC RDW Std Deviation RDW Coeff of Emil Plt Count MPV Immature Gran % (Auto) Neut % (Auto) Lymph % (Auto) Garden % (Auto) Eos % (Auto) Baso % (Auto) Immature Gran # (Auto) Neut # (Auto) Lymph # (Auto) Garden # (Auto) Eos # (Auto) Baso # (Auto) APTT 78.5 H* 80.5 H* 62.9 H* PTT Ratio 2.9 3.0 2.3 Sodium Potassium Chloride Carbon Dioxide Anion Gap BUN Creatinine Est Cr Clr Drug Dosing Est GFR ( Amer) Est GFR (Non-Af Amer) BUN/Creatinine Ratio Glucose Calcium Phosphorus Magnesium Total Bilirubin AST ALT Alkaline Phosphatase Total Protein Albumin Globulin Albumin/Globulin Ratio 12/31/18 12/31/18 12/31/18 03:56 03:56 08:01 WBC 9.71 RBC 2.25 L Hgb 8.1 L Hct 22.1 L MCV 98.2 MCH 36.0 H MCHC 36.7 H RDW Std Deviation 53.5 H RDW Coeff of Emil 15.5 H Plt Count 211 MPV 9.2 Immature Gran % (Auto) 0.5 Neut % (Auto) 75.2 Lymph % (Auto) 13.8 Garden % (Auto) 10.2 Eos % (Auto) 0.2 Baso % (Auto) 0.1 Immature Gran # (Auto) 0.05 H Neut # (Auto) 7.30 H Lymph # (Auto) 1.34 Garden # (Auto) 0.99 H Eos # (Auto) 0.02 Baso # (Auto) 0.01 APTT 64.5 H* PTT Ratio 2.4 Sodium 129 L Potassium 3.5 Chloride 94 L Carbon Dioxide 23 Anion Gap 12.0 H BUN 7 Creatinine 0.85 Est Cr Clr Drug Dosing 87.8 Est GFR ( Amer) 106.7 Est GFR (Non-Af Amer) 92.1 BUN/Creatinine Ratio 8.7 L Glucose 102 H Calcium 7.1 L Phosphorus 4.1 Magnesium 1.3 L Total Bilirubin 1.2 H AST 122 H ALT 39 Alkaline Phosphatase 79 Total Protein 6.6 Albumin 2.1 L Globulin 4.5 H Albumin/Globulin Ratio 0.5 L Medications Administered Current Inpatient Medications Acetaminophen (Tylenol) 650 mg PO Q4H PRN PRN Reason: Pain or Fever Stop: 01/25/19 19:47 Last Admin: 12/31/18 00:41 Dose: 650 mg Documented by: Al Hydrox/Mg Hydrox/Simethicone (Maalox) 15 ml PO Q4H PRN PRN Reason: Dyspepsia Stop: 01/25/19 19:47 Albuterol (Duoneb) 3 ml NEB Q4R CONNOR Stop: 01/28/19 19:59 Last Admin: 12/31/18 07:23 Dose: 3 ml Documented by: Amlodipine Besylate (Norvasc) 10 mg PO DAILY CONNOR Stop: 01/26/19 08:59 Last Admin: 12/30/18 08:02 Dose: 10 mg Documented by: Aspirin (Ecotrin Ectab) 81 mg PO DAILY CONNOR Stop: 01/26/19 08:59 Last Admin: 12/30/18 08:03 Dose: 81 mg Documented by: Citalopram Hydrobromide (Celexa) 20 mg PO DAILY [facility] Stop: 01/26/19 08:59 Folic Acid (Folvite) 1 mg PO QAM [facility] Stop: 01/25/19 17:14 Last Admin: 12/30/18 08:03 Dose: 1 mg Documented by: Lorazepam (Ativan) 1 mg in 2 mls @ 2 mls/min IV ONE PRN; Protocol PRN Reason: EtoH Withdrawal AWSS 6-10 Stop: 01/25/19 21:10 Last Admin: 12/29/18 14:37 Dose: 2 mls/min Documented by: Clindamycin Phosphate 600 mg/ (Dextrose) 54 mls @ 100 mls/hr IV Q8H [facility] Stop: 01/11/19 13:59 Last Infusion: 12/31/18 05:58 Dose: Infused Documented by: Amiodarone HCl/Dextrose (Nexterone / D5w) 360 mg in 200 mls @ 16.667 mls/hr IV .Q12H [facility] Stop: 12/31/18 23:59 Last Infusion: 12/31/18 07:25 Dose: 0.5 mg/min, 16.7 mls/hr Documented by: Heparin Sodium/Dextrose (Heparin Sodium/Dextrose) 25,000 units in 500 mls @ 16 mls/hr IV .Q24H CONNOR; Protocol Stop: 01/28/19 18:29 Last Titration: 12/31/18 07:25 Dose: 800 units/hr, 16 mls/hr Documented by: Ioversol (Optiray 320 125ml) 120 ml IV ONCE PRN PRN Reason: Interaction Checking Stop: 01/02/19 18:13 Last Admin: 12/29/18 18:15 Dose: 120 ml Documented by: Levetiracetam (Keppra) 1,000 mg PO BID [facility] Stop: 01/25/19 20:59 Last Admin: 12/30/18 20:05 Dose: 1,000 mg Documented by: Lorazepam (Ativan) 1 mg PO ONE PRN; Protocol PRN Reason: EtoH Withdrawal AWSS 6-10 Magnesium Hydroxide (Milk Of Magnesia) 30 ml PO Q12H PRN PRN Reason: Constipation Stop: 01/25/19 19:47 Magnesium Oxide (Mag-Ox) 400 mg PO BID [facility] Stop: 01/26/19 09:14 Last Admin: 12/30/18 20:05 Dose: 400 mg Documented by: Metoprolol Tartrate (Lopressor) 2.5 mg IV Q6 [facility] Stop: 01/29/19 11:59 Last Admin: 12/31/18 06:03 Dose: Not Given Documented by: Multivitamins (Multivitamin Tab) 1 tab PO QAM [facility] Stop: 01/26/19 09:14 Last Admin: 12/30/18 08:02 Dose: 1 tab Documented by: Phenobarbital (Phenobarbital) 32.4 mg PO Q4H PRN PRN Reason: RASS 2 OR GREATER Stop: 12/31/18 09:03 Last Admin: 12/29/18 12:04 Dose: 32.4 mg Documented by: Phenobarbital (Phenobarbital) 32.4 mg PO BID [facility] Stop: 01/01/19 09:01 Last Admin: 12/30/18 20:08 Dose: 32.4 mg Documented by: Polyethylene Glycol (Miralax Powder Packet) 17 gm PO DAILY PRN PRN Reason: Constipation Stop: 01/25/19 19:47 Potassium Chloride (Klor-Con M20) 40 meq PO DAILY CONNOR Stop: 01/26/19 20:59 Last Admin: 12/30/18 11:11 Dose: 40 meq Documented by: Ranitidine HCl (Zantac) 300 mg PO HS [facility] Stop: 01/25/19 20:59 Last Admin: 12/30/18 20:06 Dose: 300 mg Documented by: Thiamine HCl (Vitamin B-1) 100 mg PO QAM [facility] Stop: 01/26/19 08:59 Last Admin: 12/30/18 08:02 Dose: 100 mg Documented by: Resident Activity Tracking Resident Involvement: Resident Care Provided Care Provided: Adult Hospital Medicine
[2018-12-31 08:32] LABS: Albumin Level 2.1 gm/dl (3.4-5.0); BUN Creatinine Ratio 8.7 (10-20); Calcium 7.1 mg/dl (8.5-10.1); Creatinine Clr Calc Pharmacy 87.8 ml/min; Est GFR (African American) 106.7; Est GFR (Non-African American) 92.1; Magnesium 1.3 mg/dl (1.8-2.4); Potassium 3.5 mmol/L (3.5-5.1)
[2018-12-31 08:34] LABS: Albumin Globulin Ratio 0.5 (0.9-2); Bilirubin,Total 1.2 mg/dl (0.2-1); Globulin 4.5 gm/dl (2.5-4.0); Phosphorus 4.1 mg/dl (2.5-4.9); Total Protein 6.6 gm/dl (6.4-8.2)
[2018-12-31] MEDS: THIAMINE HCL 100 MG TAB PO SCH (09:35)
[2018-12-31] MEDS: FOLIC ACID 1 MG TAB PO SCH (09:35)
[2018-12-31] MEDS: ASPIRIN 81 MG ECTAB PO SCH (09:35)
[2018-12-31] MEDS: MAGNESIUM OXIDE 400 MG TAB PO SCH ×2 (09:35→20:11)
[2018-12-31] MEDS: MULTIVITAMIN TAB PO SCH (09:35)
[2018-12-31] MEDS: levETIRAcetam 500 MG TAB PO SCH ×2 (09:35→20:11)
[2018-12-31] MEDS: MAGNESIUM SULFATE / D5W 1 GM/100 ML BAG IV SCH ×4 (09:39→19:17)
[2018-12-31] MEDS: POTASSIUM CHLORIDE / WTR 10 MEQ/100 ML PLCT IV SCH ×4 (09:39→12:35)
[2018-12-31] MEDS: POTASSIUM CHLORIDE 20 MEQ TABCR PO SCH (09:40)
[2018-12-31] MEDS: PHENobarbital 32.4 MG TAB PO SCH ×2 (09:40→20:13)
--- NOTE | 2018-12-31 10:04 | Cardiology Progress Note ---
Date of Service December 31, 2018 Assessment & Plan (1) Paroxysmal atrial fibrillation: Rates intermittently controlled. Recommendations would recommend discontinuing IV metoprolol and IV amiodarone Adding low-dose oral metoprolol 12.5 mg 3 times daily Patient currently anticoagulate with heparin but remains high risk for long-term anticoagulation (2) Torsades de pointes: Due to marked metabolic derangement improving. (3) Prolonged QT interval: (4) Multifocal atrial tachycardia: Current rhythm sinus with intermittent multifocal atrial tachycardia. Would optimally treat with beta-tommy for rate control at this time. I am reluctant to continue amiodarone at extended duration given significant QT prolongation/torsade on admission Will follow Subjective Patient seen and examined, chart medications telemetry reviewed. Rhythm continues to demonstrate intermittent atrial arrhythmias both atrial tachycardia and atrial fibrillation. In atrial fibrillation this morning. Blood pressures remain soft with beta-blockers being intermittently held. Still on IV amiodarone. Physical Exam Constitutional: + ill appearing and + cachectic ENMT: external ear and nose normal, oropharynx normal Respiratory: Auscultation: + diminished lung sounds Cardiovascular: Rate/Rhythm: regular rate and regular rhythm Heart Sounds: normal S1 and normal S2; no murmur and no cardiac rub Gastrointestinal (Abdomen): normal bowel sounds, soft, nontender, no hepatosplenomegaly Musculoskeletal: no cyanosis or clubbing, extremities motor strength 5/5 Results & Data Vital Signs (Past 12 Hours) Vital Signs Temp Pulse Pulse Resp BP Pulse Ox 12/31/18 07:25 82 18 93 12/31/18 06:00 92 H 23 91/55 L 12/31/18 05:01 80 27 H 98 12/31/18 05:00 111 H 26 H 83/53 L 98 12/31/18 04:01 96 H 23 12/31/18 04:00 95 H 26 H 90/56 L 100 12/31/18 03:47 91 H 18 97 12/31/18 03:39 100 H 27 H 83/58 L 12/31/18 03:00 112 H 33 H 12/31/18 02:00 107 H 26 H 97/58 L 100 12/31/18 01:02 132 H 21 86/50 L 61 L 12/31/18 01:00 103 H 36 H 96 12/31/18 00:41 106 H 118/48 L 12/31/18 00:01 106 H 27 H 118/48 L 92 12/31/18 00:00 38.0 C H 12/30/18 23:36 89 18 94 12/30/18 23:01 103 H 29 H 95/40 L 94 12/30/18 22:01 120 H 25 H 89/69 L 93
[2018-12-31] MEDS: POTASSIUM ACETATE 10 MEQ in 0.9 % SODIUM CHLORIDE 100 ML IV SCH ×4 (16:06→19:13)
[2018-12-31] MEDS: Heparin Adult STANDARD Wt-Based Dextrose 5% 25,000 units/500 mL IV SCH (18:12)
--- NOTE | 2018-12-31 19:06 | Hospitalist Progress Note ---
Date of Service December 31, 2018 Assessment & Plan (1) Weakness: Possible due to severe electrolytes imbalance from alcohol intake Continue PT/OT Fall precaution (2) Multifocal atrial tachycardia: (3) Torsades de pointes: Afib Due to severe hypomagnesemia, hyponatremia, hypokalemia and hypophosphatemia Mostly from alcohol abuse Underwent synchronized electrical cardioversion this morning converted to a sinus tachycardia Cardiology on board Continue IV amiodarone Continue IV heparin drip IV metoprolol 2.5 mg q6h added Electrolytes replaced Monitor BMP Continue monitor in the ICU (3) Electrolyte abnormality: Replaced K today Monitor electrolytes (4) TEQUILA (acute kidney injury): Creatinine on admission was 1.42 Baseline from previous labs creatinine 0.5 (approximately 2 years ago) Likely secondary to dehydration Received IVF Creatinine back to normal (5) Alcohol abuse: AWSS ETOH protocol ordered with gabapentin taper PRN lorazepam Folic Acid and Thiamine added to medication regimen No significant withdrawal symptoms Consider inpatient alcohol rehab on discharge (6) Seizure disorder: He reports episode of seizure for the last few days before admission Prolactin level normal Neurology on board Obtain EEG and monitor-did not show any focus for seizure but he did show generalized slowing of activity likely secondary to alcoholic encephalopathy Continue Keppra and phenobarbital (7) Ribs, multiple fractures: Secondary to fall Fracture of right lateral eighth, ninth, and 10th rib Conservative management Incentive spirometry Analgesia (8) Thoracic compression fracture: Recommend conservative management with analgesics Consult PT/OT when stable (9) HTN (hypertension): Blood pressure currently in the low side amlodipine on hold Monitor BP closely (10) Alcoholic liver disease: CT Abd/pelvis showed reveals Hepatic Steatosis Liver ultrasound showed fatty infiltration of liver status post cholecystectomy LFTs remain stable for alcoholism Monitor Liver enzymes (11) AAA (abdominal aortic aneurysm) without rupture: 3.7 x 3.4 cm infrarenal abdominal aortic aneurysm Recommend routine follow-up per PCP Left elbow Olecranon Bursitis Continue abx with clinda Continue daily dressing changes Ortho on board (12) Pulmonary nodules: Per Fleischner criteria for multiple nodules less than [address] scan in 12 months. (13) DVT prophylaxis: On Heparin drip Disposition: Will transfer to [facility] Subjective Pt was seen and examined Lying in bed with no distress Pt is more awake today He was able to follow command and speak to me He said that he is not having any pain, SOB Physical Exam Physical Exam: General- no acute distress Head- atraumatic Eyes- PERRL, EOMI, ENT- oropharynx clear Neck- supple, no JVD Lungs- clear to auscultation Heart- irregular, no murmur Abdomen- normal bowel sounds, soft, nontender Extremities- no calf tenderness Neuro-move all 4 extremities, drowsiness Skin- warm & dry Results & Data Vital Signs (Past 12 Hours) Vital Signs Temp Pulse Pulse Resp BP Pulse Ox 12/31/18 18:09 90 133/61 12/31/18 18:07 90 24 113/61 94 12/31/18 18:00 91 H 21 76/60 L 97 12/31/18 17:01 87 26 H 101/58 L 99 12/31/18 16:33 86 22 99 12/31/18 16:00 36.6 C 86 33 H 101/62 100 12/31/18 15:02 83 12/31/18 15:00 83 24 100 12/31/18 14:00 90 24 110/61 100 12/31/18 13:01 84 24 105/70 100 12/31/18 12:07 84 84 16 108/62 94 12/31/18 12:01 37 C 82 24 108/62 100 12/31/18 11:01 97 H 25 H 105/59 L 12/31/18 10:08 107 H 26 H 91/57 L 12/31/18 10:06 110 H 28 H 84/60 L 12/31/18 10:01 104 H 21 12/31/18 10:00 95 H 20 96/58 L 12/31/18 09:01 102 H 27 H 90/60 L 12/31/18 08:00 36.8 C 105 H 24 106/59 L 100 12/31/18 07:48 106 H 25 H 85/59 L 100 12/31/18 07:25 82 18 93
[2019-01-01] MEDS: METOPROLOL TARTRATE 1 MG/ML VIAL IV SCH ×4 (00:09→18:22)
[2019-01-01] MEDS: ALBUT/IPRATROP 3MG/0.5MG NEB 3 ML VIAL NEB SCH ×6 (03:26→23:07)
[2019-01-01 04:39] LABS: Basophils # (auto) 0.01 K/uL (0-0.2); Basophils % (auto) 0.1 %; Eosinophils # (auto) 0.05 K/uL (0-0.5); Eosinophils % (auto) 0.5 %; Hemoglobin 7.9 g/dL (14.0-18.0); Immature Granulocytes # (auto) 0.03 K/uL (0.00-0.02); Immature Granulocytes % (auto) 0.3 %; Lymphocytes # (auto) 1.23 K/uL (1.2-3.4); Lymphocytes % (auto) 13.2 %; Mean Corpuscular Hgb Conc 35.9 g/dL (32-36); Mean Corpuscular Volume 97.8 fL (80-100); Mean Platelet Volume 9.4 fL (7.4-10.4); Monocytes # (auto) 1.06 K/uL (0.11-0.59); Monocytes % (auto) 11.4 %; Neutrophils # (auto) 6.93 K/uL (1.4-6.5); Neutrophils % (auto) 74.5 %; Platelet Count 217 K/uL (130-400); RDW Coefficient of Variation 15.2 % (11.5-14.5); RDW Standard Deviation 51.8 fL (36.4-46.3); Red Blood Count 2.25 M/uL (4.7-6.1); White Blood Count 9.31 K/uL (4.8-10.8)
[2019-01-01 05:01] LABS: Partial Thromboplastin Ratio 1.7
[2019-01-01] MEDS: LORazepam 1 MG/2 ML VIAL IV PRN (05:02)
[2019-01-01 05:11] LABS: Partial Thromboplastin Time 46.4 Seconds (21.0-31.0)
[2019-01-01] MEDS: CLINDAMYCIN 600 MG in DEXTROSE 5% 50 ML IV SCH ×3 (05:13→21:21)
[2019-01-01 05:15] LABS: Echinocytes 1+; Polychromasia 1+
[2019-01-01 05:27] LABS: Albumin Globulin Ratio 0.4 (0.9-2); BUN Creatinine Ratio 8.8 (10-20); Bilirubin,Total 1.4 mg/dl (0.2-1); Calcium 7.4 mg/dl (8.5-10.1); Creatinine Clr Calc Pharmacy 98.6 ml/min; Est GFR (African American) 114.9; Est GFR (Non-African American) 99.2; Globulin 4.6 gm/dl (2.5-4.0); Magnesium 1.6 mg/dl (1.8-2.4); Phosphorus 2.8 mg/dl (2.5-4.9); Potassium 4.2 mmol/L (3.5-5.1); Total Protein 6.6 gm/dl (6.4-8.2)
[2019-01-01] MEDS: MAGNESIUM SULFATE / D5W 1 GM/100 ML BAG IV SCH ×2 (08:54→11:16)
[2019-01-01] MEDS: THIAMINE HCL 100 MG TAB PO SCH (08:56)
[2019-01-01] MEDS: MAGNESIUM OXIDE 400 MG TAB PO SCH ×2 (08:56→21:21)
[2019-01-01] MEDS: MULTIVITAMIN TAB PO SCH (08:56)
[2019-01-01] MEDS: FOLIC ACID 1 MG TAB PO SCH (08:56)
[2019-01-01] MEDS: ASPIRIN 81 MG ECTAB PO SCH (08:56)
[2019-01-01] MEDS: levETIRAcetam 500 MG TAB PO SCH ×2 (08:56→21:21)
[2019-01-01] MEDS: PHENobarbital 32.4 MG TAB PO SCH (09:05)
[2019-01-01] MEDS: POTASSIUM CHLORIDE 20 MEQ TABCR PO SCH (09:05)
--- NOTE | 2019-01-01 09:26 | Orthopedic Progress Note ---
Date of Service January 01, 2019 Assessment & Plan (1) Olecranon bursitis of left elbow: continue with dressing changes. No signs infection currently. Continue to monitor Subjective resting comfortably in bed Physical Exam Physical Exam: left elbow no erythema, .5 cm open wound with serosanguineous drainage Results & Data Vital Signs (Past 12 Hours) Vital Signs Temp Pulse Pulse Pulse Pulse Resp BP 01/01/19 07:32 37.2 C 101 H 22 01/01/19 07:16 92 H 18 01/01/19 06:25 36.3 C L 96 H 2 L 01/01/19 05:13 99 H 108/70 01/01/19 03:46 36.5 C 99 H 26 H 108/70 01/01/19 03:26 80 20 01/01/19 03:00 105 H 32 H 01/01/19 02:07 105 H 20 01/01/19 01:00 78 29 H 01/01/19 00:56 102 H 33 H 98/51 L 01/01/19 00:00 103 H 15 98/51 L 12/31/18 23:14 78 20 12/31/18 23:01 36.7 C 86 32 H 12/31/18 23:00 87 32 H 116/66 12/31/18 22:18 76 27 H 12/31/18 22:17 88 26 H 104/63 BP Pulse Ox 01/01/19 07:32 96/58 L 90 01/01/19 07:16 95 01/01/19 06:25 94/57 L 94 01/01/19 05:13 01/01/19 03:46 100 01/01/19 03:26 01/01/19 03:00 01/01/19 02:07 01/01/19 01:00 01/01/19 00:56 01/01/19 00:00 12/31/18 23:14 90 12/31/18 23:01 12/31/18 23:00 12/31/18 22:18 104/63 95 12/31/18 22:17
--- NOTE | 2019-01-01 09:55 | Cardiology Progress Note ---
Date of Service January 01, 2019 Assessment & Plan (1) Paroxysmal atrial fibrillation: Rates intermittently controlled. Adding low-dose oral metoprolol 12.5 mg 3 times daily Patient currently anticoagulate with heparin but remains high risk for long-term anticoagulation (2) Torsades de pointes: Due to marked metabolic derangement improving. (3) Prolonged QT interval: (4) Multifocal atrial tachycardia: Current rhythm sinus with intermittent multifocal atrial tachycardia. Would optimally treat with beta-tommy for rate control at this time. I am reluctant to continue amiodarone at extended duration given significant QT prolongation/torsade on admission Will follow (5) Alcohol abuse: ?inpatient rehab (6) Anemia: surprisingly, MCV WNL would folllow closely Subjective Pt seen and examined, states that he feels 'ok' today. Not much of an appetite. Still weak. But denies tremors, seizure activity, chest pain, sob, palpitations, lightheadedness or dizziness. tele reviewed: afib rates 90's-100's. Review of Systems Review of Systems: All systems reviewed & are unremarkable except as noted in HPI & below Physical Exam Physical Exam: General: Awake, alert and oriented x 3. No acute distress. HEENT: Normocephalic, atraumatic. Pupils equal, round and reactive to light and accommodation. Extraocular muscles are intact. Anicteric sclera. Moist mucous membranes. Neck: No JVD. No bruit. Cardiovascular: irregularly irregular, unable to appreciate murmur, rub or gallop. Pulmonary: Clear to auscultation bilaterally. No rales, rhonchi, or wheezing. Abdomen: Bowel sounds x 4, soft. No rebound, guarding or tenderness. No organomegaly. Extremities: No clubbing, cyanosis or edema. +2 pedal pulses bilaterally. Skin: Warm and dry. Results & Data Vital Signs (Past 12 Hours) Vital Signs Temp Pulse Pulse Pulse Pulse Resp BP 01/01/19 07:32 37.2 C 101 H 22 01/01/19 07:16 92 H 18 01/01/19 06:25 36.3 C L 96 H 2 L 01/01/19 05:13 99 H 108/70 01/01/19 03:46 36.5 C 99 H 26 H 108/70 01/01/19 03:26 80 20 01/01/19 03:00 105 H 32 H 01/01/19 02:07 105 H 20 01/01/19 01:00 78 29 H 01/01/19 00:56 102 H 33 H 98/51 L 01/01/19 00:00 103 H 15 98/51 L 12/31/18 23:14 78 20 12/31/18 23:01 36.7 C 86 32 H 12/31/18 23:00 87 32 H 116/66 12/31/18 22:18 76 27 H 12/31/18 22:17 88 26 H 104/63 BP Pulse Ox 01/01/19 07:32 96/58 L 90 01/01/19 07:16 95 01/01/19 06:25 94/57 L 94 01/01/19 05:13 01/01/19 03:46 100 01/01/19 03:26 01/01/19 03:00 01/01/19 02:07 01/01/19 01:00 01/01/19 00:56 01/01/19 00:00 12/31/18 23:14 90 12/31/18 23:01 12/31/18 23:00 12/31/18 22:18 104/63 95 12/31/18 22:17
--- NOTE | 2019-01-01 15:54 | Hospitalist Progress Note ---
Date of Service January 01, 2019 Assessment & Plan (1) Weakness: Possible due to severe electrolytes imbalance from alcohol intake Continue PT/OT Fall precaution (2) Multifocal atrial tachycardia: (3) Torsades de pointes: Afib Due to severe hypomagnesemia, hyponatremia, hypokalemia and hypophosphatemia Mostly from alcohol abuse Underwent synchronized electrical cardioversion on 12/30 converted to a sinus tachycardia Cardiology on board IV amiodarone drip d/c Continue IV heparin drip for now High risk for long-term anticoagulation Starting on metoprolol 12.5 mg TID by cardio On IV metoprolol 2.5 mg q6h, will change to prn Monitor BMP Continue monitor in the ICU (3) Electrolyte abnormality: Mg 1.6 today Mg replaced Monitor electrolytes (4) TEQUILA (acute kidney injury): Creatinine on admission was 1.42 Baseline from previous labs creatinine 0.5 (approximately 2 years ago) Likely secondary to dehydration Creatinine back to normal Resolved (5) Alcohol abuse: AWSS ETOH protocol ordered with gabapentin taper PRN lorazepam Folic Acid and Thiamine added to medication regimen No significant withdrawal symptoms Consider inpatient alcohol rehab on discharge Phenobarbital discontinued (6) Seizure disorder: He reports episode of seizure for the last few days before admission Prolactin level normal Neurology on board Obtain EEG and monitor-did not show any focus for seizure but he did show generalized slowing of activity likely secondary to alcoholic encephalopathy Continue Keppra 1g BID (7) Ribs, multiple fractures: Secondary to fall Fracture of right lateral eighth, ninth, and 10th rib Conservative management Incentive spirometry Analgesia (8) Thoracic compression fracture: Recommend conservative management with analgesics Consult PT/OT when stable (9) HTN (hypertension): Blood pressure currently in the low side amlodipine on hold Monitor BP closely (10) Alcoholic liver disease: CT Abd/pelvis showed reveals Hepatic Steatosis Liver ultrasound showed fatty infiltration of liver status post cholecystectomy LFTs remain stable for alcoholism Monitor Liver enzymes (11) AAA (abdominal aortic aneurysm) without rupture: 3.7 x 3.4 cm infrarenal abdominal aortic aneurysm Recommend routine follow-up per PCP (12) Left elbow Olecranon Bursitis Continue abx with clinda Continue daily dressing changes Ortho on board (13) Pulmonary nodules: Per Fleischner criteria for multiple nodules less than [address] scan in 12 months. (14) Weakness S/P fall PT/OT Fall precaution Agreed for inpatient rehab (15) DVT prophylaxis: On Heparin drip Disposition: Will need inpatient rehab Subjective Pt was seen and examined Lying in bed with no distress Pt said that he feels slightly better He knows that he is in the hospital but does not know the here and current president Pt agreed to go for inpatient rehab for therapy Denies any chest pain, palpitation, dizziness and SOB Physical Exam Physical Exam: General- no acute distress Head- atraumatic Eyes- PERRL, EOMI, ENT- oropharynx clear Neck- supple, no JVD Lungs- clear to auscultation Heart- irregular, no murmur Abdomen- normal bowel sounds, soft, nontender Extremities- no calf tenderness Neuro-move all 4 extremities, drowsiness Skin- warm & dry Results & Data Vital Signs (Past 12 Hours) Vital Signs Temp Pulse Pulse Pulse Pulse Resp BP 01/01/19 14:41 92 H 16 01/01/19 12:10 36.6 C 110 H 16 01/01/19 10:50 77 19 01/01/19 08:00 99 H 01/01/19 07:32 37.2 C 101 H 22 01/01/19 07:16 92 H 18 01/01/19 06:25 36.3 C L 96 H 2 L 01/01/19 05:13 99 H 108/70 BP Pulse Ox 01/01/19 14:41 91 01/01/19 12:10 93/58 L 90 01/01/19 10:50 95 01/01/19 08:00 01/01/19 07:32 96/58 L 90 01/01/19 07:16 95 01/01/19 06:25 94/57 L 94 01/01/19 05:13
[2019-01-01] MEDS: Heparin Adult STANDARD Wt-Based Dextrose 5% 25,000 units/500 mL IV SCH (21:25)
[2019-01-02] MEDS: ALBUT/IPRATROP 3MG/0.5MG NEB 3 ML VIAL NEB SCH ×2 (03:18→07:03)
[2019-01-02] MEDS: METOPROLOL TARTRATE 1 MG/ML VIAL IV SCH ×2 (05:00)
[2019-01-02] MEDS: CLINDAMYCIN 600 MG in DEXTROSE 5% 50 ML IV SCH ×3 (05:01→23:30)
[2019-01-02 06:41] LABS: Hematocrit (blood only) 25.5 % (42-52); Hemoglobin 9.3 g/dL (14.0-18.0); Mean Corpuscular Hgb Conc 36.5 g/dL (32-36); Mean Corpuscular Volume 98.5 fL (80-100); Mean Platelet Volume 9.8 fL (7.4-10.4); Platelet Count 269 K/uL (130-400); RDW Coefficient of Variation 15.3 % (11.5-14.5); Red Blood Count 2.59 M/uL (4.7-6.1); White Blood Count 8.22 K/uL (4.8-10.8)
[2019-01-02 06:59] LABS: Partial Thromboplastin Ratio 1.3; Partial Thromboplastin Time 36.2 Seconds (21.0-31.0)
[2019-01-02 07:12] LABS: Calcium 8.5 mg/dl (8.5-10.1); Creatinine Clr Calc Pharmacy 92.2 ml/min; Est GFR (African American) 112.4; Est GFR (Non-African American) 96.9; Magnesium 1.7 mg/dl (1.8-2.4)
[2019-01-02] MEDS ORDERED: HEPARIN IV BOLUS 6,000 UNITS in SYRINGE 0 ML IV ONE ×2 (07:45→23:00)
[2019-01-02] MEDS: POTASSIUM CHLORIDE 20 MEQ TABCR PO SCH (08:21)
[2019-01-02] MEDS: THIAMINE HCL 100 MG TAB PO SCH (08:22)
[2019-01-02] MEDS: MULTIVITAMIN TAB PO SCH (08:22)
[2019-01-02] MEDS: ASPIRIN 81 MG ECTAB PO SCH (08:22)
[2019-01-02] MEDS: FOLIC ACID 1 MG TAB PO SCH (08:22)
[2019-01-02] MEDS: levETIRAcetam 500 MG TAB PO SCH ×2 (08:22→19:39)
[2019-01-02] MEDS: MAGNESIUM OXIDE 400 MG TAB PO SCH ×2 (08:22→19:40)
--- NOTE | 2019-01-02 08:32 | Orthopedic Progress Note ---
Date of Service January 02, 2019 Assessment & Plan (1) Olecranon bursitis of left elbow: continue with dressing changes. No signs infection currently. Continue to monitor, WBC decreasing Subjective Pt was seen and examined Lying in bed with no distress, sleepy. Doesn't want to talk Physical Exam Physical Exam: dressing changed. No erythema. open wound <.5 cm. Serosanginous drainage. no signs active infection Results & Data Vital Signs (Past 12 Hours) Vital Signs Temp Pulse Pulse Pulse Resp BP BP 01/02/19 07:57 36.5 C 109 H 19 125/74 01/02/19 07:04 111 H 20 01/02/19 05:00 97 H 99/68 L 01/02/19 03:20 102 H 20 01/02/19 03:10 36.7 C 79 20 115/74 01/02/19 00:47 97 H 01/02/19 00:00 98 H 99/68 L 01/01/19 23:56 36.6 C 98 H 22 99/64 L 01/01/19 23:08 94 H 16 Pulse Ox 01/02/19 07:57 94 01/02/19 07:04 96 01/02/19 05:00 01/02/19 03:20 94 01/02/19 03:10 94 01/02/19 00:47 01/02/19 00:00 01/01/19 23:56 96 01/01/19 23:08 92
[2019-01-02] MEDS ORDERED: MAGNESIUM SULFATE / D5W 1 GM/100 ML BAG IV ONE (08:33)
[2019-01-02] MEDS: METOPROLOL TARTRATE 25 MG TAB PO SCH ×3 (10:10→19:38)
--- NOTE | 2019-01-02 10:19 | Cardiology Progress Note ---
Date of Service January 02, 2019 Assessment & Plan (1) Paroxysmal atrial fibrillation: rates hanging in 100's will cont metoprolol 12.5mg q8 will give an extra dose now as a trial to see if we can improve rates without dropping bp Patient currently anticoagulate with heparin but remains high risk for long-term anticoagulation (2) Torsades de pointes: Due to marked metabolic derangement improving. without recurrence (3) Prolonged QT interval: (4) Multifocal atrial tachycardia: Current rhythm sinus with intermittent multifocal atrial tachycardia. Would optimally treat with beta-tommy for rate control at this time. I am reluctant to continue amiodarone at extended duration given significant QT prolongation/torsade on admission Will follow (5) Alcohol abuse: ?inpatient rehab ?psych eval (6) Anemia: surprisingly, MCV WNL would folllow closely Subjective Pt seen and examined, patient lethargic today but appropriate. Denies cp, sob, palpitations, lightheadedness or dizziness. Not eating, only a few bites at breakfast today. Tele reviewed: afib, rates in 100's. Review of Systems Review of Systems: All systems reviewed & are unremarkable except as noted in HPI & below Physical Exam Physical Exam: General: Awake, alert and oriented x 3. No acute distress. Cachectic. Frail. HEENT: Normocephalic, atraumatic. Pupils equal, round and reactive to light and accommodation. Extraocular muscles are intact. Anicteric sclera. Moist mucous membranes. Neck: No JVD. No bruit. Cardiovascular: irregularly irregular, unable to appreciate murmur, rub or gallop. Pulmonary: Clear to auscultation bilaterally. No rales, rhonchi, or wheezing. Abdomen: Bowel sounds x 4, soft. No rebound, guarding or tenderness. No organomegaly. Extremities: No clubbing, cyanosis or edema. +2 pedal pulses bilaterally. Skin: Warm and dry. Results & Data Vital Signs (Past 12 Hours) Vital Signs Temp Pulse Pulse Pulse Resp BP BP 01/02/19 07:57 36.5 C 109 H 19 125/74 01/02/19 07:04 111 H 20 01/02/19 05:00 97 H 99/68 L 01/02/19 03:20 102 H 20 01/02/19 03:10 36.7 C 79 20 115/74 01/02/19 00:47 97 H 05/26/19 00:00 98 H 99/68 L 01/01/19 23:56 36.6 C 98 H 22 99/64 L 01/01/19 23:08 94 H 16 Pulse Ox 01/02/19 07:57 94 01/02/19 07:04 96 01/02/19 05:00 01/02/19 03:20 94 01/02/19 03:10 94 01/02/19 00:47 01/02/19 00:00 01/01/19 23:56 96 01/01/19 23:08 92
[2019-01-02] MEDS ORDERED: METOPROLOL TARTRATE 25 MG TAB PO STA (10:21)
[2019-01-02] MEDS ORDERED: ALBUT/IPRATROP 3MG/0.5MG NEB 3 ML VIAL NEB PRN (10:32)
[2019-01-02 13:19] LABS: Partial Thromboplastin Ratio 2.9
[2019-01-02 13:21] LABS: Partial Thromboplastin Time 79.4 Seconds (21.0-31.0)
--- NOTE | 2019-01-02 16:42 | Hospitalist Progress Note ---
Date of Service January 02, 2019 Assessment & Plan (1) Weakness: S/P fall Possible due to severe electrolytes imbalance from alcohol intake Continue PT/OT Fall precaution Pt agreed to go for inpatient rehab (2) Multifocal atrial tachycardia: (3) Torsades de pointes: Afib Due to severe hypomagnesemia, hyponatremia, hypokalemia and hypophosphatemia Mostly from alcohol abuse Underwent synchronized electrical cardioversion on 12/30 Afib with Rate control Cardiology on board IV amiodarone drip d/c Continue IV heparin drip for now High risk for long-term anticoagulation Continue metoprolol 12.5 mg TID by cardio Continue monitor in the ICU (3) Electrolyte abnormality: Mg 1.7 today Mg replaced Monitor electrolytes (4) TEQUILA (acute kidney injury): Creatinine on admission was 1.42 Baseline from previous labs creatinine 0.5 (approximately 2 years ago) Likely secondary to dehydration Creatinine back to normal Resolved (5) Alcohol abuse: AWSS ETOH protocol ordered with gabapentin taper PRN lorazepam Folic Acid and Thiamine added to medication regimen No significant withdrawal symptoms Consider inpatient alcohol rehab on discharge Phenobarbital discontinued (6) Seizure disorder: He reports episode of seizure for the last few days before admission Prolactin level normal Neurology on board Obtain EEG and monitor-did not show any focus for seizure but he did show generalized slowing of activity likely secondary to alcoholic encephalopathy Continue Keppra 1g BID (7) Ribs, multiple fractures: Secondary to fall Fracture of right lateral eighth, ninth, and 10th rib Conservative management Incentive spirometry Analgesia (8) Thoracic compression fracture: Recommend conservative management with analgesics Consult PT/OT when stable (9) HTN (hypertension): Blood pressure currently in the low side amlodipine on hold Monitor BP closely (10) Alcoholic liver disease: CT Abd/pelvis showed reveals Hepatic Steatosis Liver ultrasound showed fatty infiltration of liver status post cholecystectomy LFTs remain stable for alcoholism Monitor Liver enzymes (11) AAA (abdominal aortic aneurysm) without rupture: 3.7 x 3.4 cm infrarenal abdominal aortic aneurysm Recommend routine follow-up per PCP (12) Left elbow Olecranon Bursitis Continue abx with clinda Continue daily dressing changes Ortho on board (13) Pulmonary nodules: Per Fleischner criteria for multiple nodules less than [address] scan in 12 months. (15) DVT prophylaxis: On Heparin drip Disposition: Will need inpatient rehab Subjective Pt was seen and examined Lying in bed with no distress Pt is more awake today and able to follow command Denies any chest pain, palpitation, dizziness and SOB Physical Exam Physical Exam: General- no acute distress Head- atraumatic Eyes- PERRL, EOMI, ENT- oropharynx clear Neck- supple, no JVD Lungs- clear to auscultation Heart- irregular, no murmur Abdomen- normal bowel sounds, soft, nontender Extremities- no calf tenderness Neuro-move all 4 extremities, drowsiness Skin- warm & dry Results & Data Vital Signs (Past 12 Hours) Vital Signs Temp Pulse Pulse Resp BP BP Pulse Ox 01/02/19 15:20 36.8 C 75 20 112/66 93 01/02/19 11:54 37.1 C 97 H 20 100/68 90 01/02/19 08:00 88 01/02/19 07:57 36.5 C 109 H 19 125/74 94 01/02/19 07:04 111 H 20 96 01/02/19 05:00 97 H 99/68 L
[2019-01-02 20:00] LABS: Partial Thromboplastin Ratio 1.5; Partial Thromboplastin Time 40.6 Seconds (21.0-31.0)
[2019-01-02] MEDS: Heparin Adult STANDARD Wt-Based Dextrose 5% 25,000 units/500 mL IV SCH (23:34)
[2019-01-03 05:05] LABS: Partial Thromboplastin Ratio 3.1
[2019-01-03] MEDS: CLINDAMYCIN 600 MG in DEXTROSE 5% 50 ML IV SCH ×3 (05:46→21:21)
[2019-01-03] MEDS: METOPROLOL TARTRATE 25 MG TAB PO SCH ×3 (08:01→21:17)
[2019-01-03] MEDS: MULTIVITAMIN TAB PO SCH (08:01)
[2019-01-03] MEDS: levETIRAcetam 500 MG TAB PO SCH ×2 (08:02→21:18)
[2019-01-03] MEDS: THIAMINE HCL 100 MG TAB PO SCH (08:02)
[2019-01-03] MEDS: FOLIC ACID 1 MG TAB PO SCH (08:02)
[2019-01-03] MEDS: ASPIRIN 81 MG ECTAB PO SCH (08:02)
[2019-01-03] MEDS: MAGNESIUM OXIDE 400 MG TAB PO SCH ×2 (08:02→21:18)
[2019-01-03] MEDS: POTASSIUM CHLORIDE 20 MEQ TABCR PO SCH (08:02)
--- NOTE | 2019-01-03 08:47 | Orthopedic Progress Note ---
Date of Service January 03, 2019 Assessment & Plan (1) Olecranon bursitis of left elbow: continue with dressing changes. No signs infection currently. Continue to monitor. Subjective Lying in bed with no distress. eating Pt is more awake today. He is able to hold conversation Denies any chest pain. Physical Exam Physical Exam: Elbow clean, no erythema. No active drainage. Scant amount on dressing. NVI Results & Data Vital Signs (Past 12 Hours) Vital Signs Temp Pulse Resp BP Pulse Ox 01/03/19 06:41 36.9 C 73 19 111/61 98 01/03/19 03:40 37.1 C 77 19 97/55 L 95 01/02/19 23:11 37.0 C 75 19 92/51 L 96
[2019-01-03 12:52] LABS: Partial Thromboplastin Ratio 1.8
[2019-01-03 12:56] LABS: Partial Thromboplastin Time 47.9 Seconds (21.0-31.0)
--- NOTE | 2019-01-03 16:04 | Hospitalist Progress Note ---
Date of Service January 03, 2019 Assessment & Plan (1) Weakness: S/P fall Possible due to severe electrolytes imbalance from alcohol intake Continue PT/OT Fall precaution Pt agreed to go for inpatient rehab, waiting for placement (2) Multifocal atrial tachycardia: (3) Torsades de pointes: Afib Due to severe hypomagnesemia, hyponatremia, hypokalemia and hypophosphatemia Mostly from alcohol abuse Underwent synchronized electrical cardioversion on 12/30, then went back to afib Converted back to NSR yesterday Heart rate control Cardiology on board IV amiodarone drip d/c Continue IV heparin drip for now High risk for long-term anticoagulation Continue metoprolol 12.5 mg TID by cardio Continue monitor in tele (3) Electrolyte abnormality: Monitor electrolytes (4) TEQUILA (acute kidney injury): Creatinine on admission was 1.42 Baseline from previous labs creatinine 0.5 (approximately 2 years ago) Likely secondary to dehydration Creatinine back to normal Resolved (5) Alcohol abuse: AWSS ETOH protocol ordered with gabapentin taper PRN lorazepam Folic Acid and Thiamine added to medication regimen No significant withdrawal symptoms Consider inpatient alcohol rehab on discharge Phenobarbital discontinued (6) Seizure disorder: He reports episode of seizure for the last few days before admission Prolactin level normal Neurology on board Obtain EEG and monitor-did not show any focus for seizure but he did show generalized slowing of activity likely secondary to alcoholic encephalopathy Continue Keppra 1g BID (7) Ribs, multiple fractures: Secondary to fall Fracture of right lateral eighth, ninth, and 10th rib Conservative management Incentive spirometry Analgesia (8) Thoracic compression fracture: Recommend conservative management with analgesics Consult PT/OT when stable (9) HTN (hypertension): Blood pressure currently in the low side amlodipine on hold Monitor BP closely (10) Alcoholic liver disease: CT Abd/pelvis showed reveals Hepatic Steatosis Liver ultrasound showed fatty infiltration of liver status post cholecystectomy LFTs remain stable for alcoholism Monitor Liver enzymes (11) AAA (abdominal aortic aneurysm) without rupture: 3.7 x 3.4 cm infrarenal abdominal aortic aneurysm Recommend routine follow-up per PCP (12) Left elbow Olecranon Bursitis Continue abx with clinda Continue daily dressing changes Ortho on board (13) Pulmonary nodules: Per Fleischner criteria for multiple nodules less than [address] scan in 12 months. (14)Diarrhea Continue to have recurrent episodes of diarrhea Will check stool for Cdiff since pt is on clinda Will add loperamide prn if Cdiff negative (15) DVT prophylaxis: On Heparin drip Disposition: Will need inpatient rehab, waiting for placement Subjective Pt was seen and examined Lying in bed with no distress Pt looks more awake today He continues to have recurrent episodes of diarrhea He had about 4-5 episodes of diarrhea so far where he just had them on the bed I encouraged him to let the staff know that when he has to go that staff can help him He converted to NSR yesterday afternoon Denies any chest pain, palpitation, dizziness and SOB Physical Exam Physical Exam: General- no acute distress Head- atraumatic Eyes- PERRL, EOMI, ENT- oropharynx clear Neck- supple, no JVD Lungs- clear to auscultation Heart- regular, no murmur Abdomen- normal bowel sounds, soft, nontender Extremities- no calf tenderness Neuro-move all 4 extremities, drowsiness Skin- warm & dry Results & Data Vital Signs (Past 12 Hours) Vital Signs Temp Pulse Resp BP Pulse Ox 01/03/19 15:25 37.2 C 72 20 111/42 L 100 01/03/19 11:14 36.7 C 73 22 126/73 97 01/03/19 06:41 36.9 C 73 19 111/61 98
[2019-01-03] MEDS: Heparin Adult STANDARD Wt-Based Dextrose 5% 25,000 units/500 mL IV SCH (22:37)
[2019-01-04] MEDS: CLINDAMYCIN 600 MG in DEXTROSE 5% 50 ML IV SCH ×3 (05:42→22:09)
[2019-01-04 06:49] LABS: Hematocrit (blood only) 25.6 % (42-52); Hemoglobin 8.8 g/dL (14.0-18.0); Mean Corpuscular Hgb Conc 34.4 g/dL (32-36); Mean Corpuscular Volume 100.8 fL (80-100); Mean Platelet Volume 10.2 fL (7.4-10.4); Platelet Count 295 K/uL (130-400); RDW Coefficient of Variation 15.4 % (11.5-14.5); RDW Standard Deviation 54.1 fL (36.4-46.3); Red Blood Count 2.54 M/uL (4.7-6.1); White Blood Count 7.87 K/uL (4.8-10.8)
[2019-01-04 07:08] LABS: Partial Thromboplastin Ratio 1.7
[2019-01-04 07:21] LABS: BUN Creatinine Ratio 7.6 (10-20); Calcium 8.8 mg/dl (8.5-10.1); Creatinine Clr Calc Pharmacy 92.7 ml/min; Est GFR (Non-African American) 97.5; Magnesium 1.7 mg/dl (1.8-2.4); Phosphorus 5.1 mg/dl (2.5-4.9); Potassium 4.7 mmol/L (3.5-5.1)
[2019-01-04 07:25] LABS: Partial Thromboplastin Time 46.1 Seconds (21.0-31.0)
[2019-01-04] MEDS: MULTIVITAMIN TAB PO SCH (09:00)
[2019-01-04] MEDS: FOLIC ACID 1 MG TAB PO SCH (09:00)
[2019-01-04] MEDS: METOPROLOL TARTRATE 25 MG TAB PO SCH ×3 (09:00→20:05)
[2019-01-04] MEDS: POTASSIUM CHLORIDE 20 MEQ TABCR PO SCH (09:00)
[2019-01-04] MEDS: MAGNESIUM OXIDE 400 MG TAB PO SCH ×2 (09:00→20:07)
[2019-01-04] MEDS: THIAMINE HCL 100 MG TAB PO SCH (09:00)
[2019-01-04] MEDS ORDERED: MAGNESIUM SULFATE / D5W 1 GM/100 ML BAG IV ONE (09:00)
[2019-01-04] MEDS: ASPIRIN 81 MG ECTAB PO SCH (09:00)
[2019-01-04] MEDS: levETIRAcetam 500 MG TAB PO SCH ×2 (09:00→20:06)
[2019-01-04] MEDS: Heparin Adult STANDARD Wt-Based Dextrose 5% 25,000 units/500 mL IV SCH (15:45)
--- NOTE | 2019-01-04 20:39 | Hospitalist Progress Note ---
Date of Service January 04, 2019 Assessment & Plan (1) Weakness: S/P fall Possible due to severe electrolytes imbalance from alcohol intake Continue PT/OT- Recommended rehab Fall precaution Pt agreed to go for inpatient rehab, waiting for placement (2) Multifocal atrial tachycardia: (3) Torsades de pointes: Afib Due to severe hypomagnesemia, hyponatremia, hypokalemia and hypophosphatemia Mostly from alcohol abuse Underwent synchronized electrical cardioversion on 12/30, then went back to afib Converted back to NSR yesterday Heart rate control Cardiology on board IV amiodarone drip d/c Continue IV heparin drip for now High risk for long-term anticoagulation Continue metoprolol 12.5 mg TID by cardio Continue monitor in tele (3) Electrolyte abnormality: Monitor electrolytes (4) TEQUILA (acute kidney injury): Creatinine on admission was 1.42 Baseline from previous labs creatinine 0.5 (approximately 2 years ago) Likely secondary to dehydration Creatinine back to normal Resolved (5) Alcohol abuse: AWSS ETOH protocol ordered with gabapentin taper PRN lorazepam Folic Acid and Thiamine added to medication regimen No significant withdrawal symptoms Consider inpatient alcohol rehab on discharge Phenobarbital discontinued (6) Seizure disorder: He reports episode of seizure for the last few days before admission Prolactin level normal Neurology on board Obtain EEG and monitor-did not show any focus for seizure but he did show generalized slowing of activity likely secondary to alcoholic encephalopathy Continue Keppra 1g BID (7) Ribs, multiple fractures: Secondary to fall Fracture of right lateral eighth, ninth, and 10th rib Conservative management Incentive spirometry Analgesia (8) Thoracic compression fracture: Recommend conservative management with analgesics Consult PT/OT when stable (9) HTN (hypertension): Blood pressure currently in the low side amlodipine on hold Monitor BP closely (10) Alcoholic liver disease: CT Abd/pelvis showed reveals Hepatic Steatosis Liver ultrasound showed fatty infiltration of liver status post cholecystectomy LFTs remain stable for alcoholism Monitor Liver enzymes (11) AAA (abdominal aortic aneurysm) without rupture: 3.7 x 3.4 cm infrarenal abdominal aortic aneurysm Recommend routine follow-up per PCP (12) Left elbow Olecranon Bursitis Continue abx with clinda Continue daily dressing changes Ortho on board (13) Pulmonary nodules: Per Fleischner criteria for multiple nodules less than [address] scan in 12 months. (14)Diarrhea Continue to have recurrent episodes of diarrhea Diarrhea improved (15) DVT prophylaxis: On Heparin drip Disposition: Will need inpatient rehab, waiting for placement Subjective Pt was seen and examined Lying in bed with no distress Diarrhea improves Denies any new symptoms Physical Exam Physical Exam: General- no acute distress Head- atraumatic Eyes- PERRL, EOMI, ENT- oropharynx clear Neck- supple, no JVD Lungs- clear to auscultation Heart- regular, no murmur Abdomen- normal bowel sounds, soft, nontender Extremities- no calf tenderness Neuro-move all 4 extremities, drowsiness Skin- warm & dry Results & Data Vital Signs (Past 12 Hours) Vital Signs Temp Pulse Pulse Resp BP BP Pulse Ox 01/04/19 19:05 36.8 C 76 19 124/67 99 01/04/19 15:07 98 H 01/04/19 11:26 36.5 C 67 21 130/69 99
[2019-01-05] MEDS: ACETAMINOPHEN 325 MG TAB PO PRN (02:06)
[2019-01-05] MEDS: CLINDAMYCIN 600 MG in DEXTROSE 5% 50 ML IV SCH ×3 (05:31→21:05)
[2019-01-05 07:39] LABS: Partial Thromboplastin Ratio 1.7
[2019-01-05 07:40] LABS: Hematocrit (blood only) 24.5 % (42-52); Hemoglobin 9.1 g/dL (14.0-18.0); Mean Corpuscular Hgb Conc 37.1 g/dL (32-36); Mean Corpuscular Volume 99.2 fL (80-100); Mean Platelet Volume 10.5 fL (7.4-10.4); Platelet Count 280 K/uL (130-400); RDW Standard Deviation 53.8 fL (36.4-46.3); Red Blood Count 2.47 M/uL (4.7-6.1); White Blood Count 8.08 K/uL (4.8-10.8)
[2019-01-05 07:46] LABS: Partial Thromboplastin Time 46.1 Seconds (21.0-31.0)
[2019-01-05 07:48] LABS: Albumin Level 2.3 gm/dl (3.4-5.0); BUN Creatinine Ratio 6.5 (10-20); Calcium 8.8 mg/dl (8.5-10.1); Creatinine Clr Calc Pharmacy 92.4 ml/min; Est GFR (Non-African American) 97.5
[2019-01-05 07:49] LABS: Albumin Globulin Ratio 0.4 (0.9-2); Bilirubin,Total 1.4 mg/dl (0.2-1); Globulin 5.6 gm/dl (2.5-4.0); Total Protein 7.9 gm/dl (6.4-8.2)
[2019-01-05] MEDS: MAGNESIUM OXIDE 400 MG TAB PO SCH ×2 (08:10→21:04)
[2019-01-05] MEDS: METOPROLOL TARTRATE 25 MG TAB PO SCH ×3 (08:10→21:03)
[2019-01-05] MEDS: levETIRAcetam 500 MG TAB PO SCH ×2 (08:10→21:03)
[2019-01-05] MEDS: FOLIC ACID 1 MG TAB PO SCH (08:11)
[2019-01-05] MEDS: THIAMINE HCL 100 MG TAB PO SCH (08:11)
[2019-01-05] MEDS: MULTIVITAMIN TAB PO SCH (08:11)
[2019-01-05] MEDS: ASPIRIN 81 MG ECTAB PO SCH (08:11)
[2019-01-05 08:38] LABS: Potassium 4.5 mmol/L (3.5-5.1)
[2019-01-05] MEDS: POTASSIUM CHLORIDE 20 MEQ TABCR PO SCH (10:14)
--- NOTE | 2019-01-05 11:40 | Hospitalist Progress Note ---
Date of Service January 05, 2019 Assessment & Plan (1) Weakness: S/P fall Possible due to severe electrolytes imbalance from alcohol intake Continue PT/OT- Recommended rehab Fall precaution Pt agreed to go for inpatient rehab, waiting for placement Has a sitter, Very Restless (2) Multifocal atrial tachycardia: Treat underlying cause (3) Torsades de pointes: Afib Due to severe hypomagnesemia, hyponatremia, hypokalemia and hypophosphatemia Mostly from alcohol abuse Underwent synchronized electrical cardioversion on 12/30, then went back to afib Converted back to NSR 01/03 Heart rate control Cardiology on board IV amiodarone drip done Continue IV heparin drip for now Too much of a fall risk for fpc a/c Continue metoprolol 12.5 mg TID by cardio Continue monitor in tele (3) Electrolyte abnormality: Monitor electrolytes (4) TEQUILA (acute kidney injury): Resolved (5) Alcohol abuse: AWSS ETOH protocol ordered with gabapentin taper PRN lorazepam Folic Acid and Thiamine added to medication regimen No significant withdrawal symptoms Consider inpatient alcohol rehab on discharge Phenobarbital discontinued (6) Seizure disorder: He reports episode of seizure for the last few days before admission Prolactin level normal Neurology on board Obtain EEG and monitor-did not show any focus for seizure but he did show generalized slowing of activity likely secondary to alcoholic encephalopathy Continue Keppra 1g BID (7) Ribs, multiple fractures: Secondary to fall Fracture of right lateral eighth, ninth, and 10th rib Conservative management Incentive spirometry Analgesia (8) Thoracic compression fracture: Recommend conservative management with analgesics (9) HTN (hypertension): Blood pressure currently in the low side amlodipine on hold Monitor BP closely (10) Alcoholic liver disease: CT Abd/pelvis showed reveals Hepatic Steatosis Liver ultrasound showed fatty infiltration of liver status post cholecystectomy LFTs remain stable for alcoholism Monitor Liver enzymes (11) AAA (abdominal aortic aneurysm) without rupture: 3.7 x 3.4 cm infrarenal abdominal aortic aneurysm Recommend routine follow-up per PCP (12) Left elbow Olecranon Bursitis Continue abx with clinda Continue daily dressing changes Ortho on board (13) Pulmonary nodules: Per Fleischner criteria for multiple nodules less than [address] scan in 12 months. (14)Diarrhea Diarrhea improved (15) DVT prophylaxis: On Heparin drip Disposition: Will need inpatient rehab, waiting for placement, needs sitter DCd first, still to anxious Stop S/C on DC, will use ASA full dose ROS-No Headache, No Visual Changes, No Nausea, No Vomiting, No Fever, No Chills, No Neck Pain or Stiffness, No Chest Pain, No Palpitations, No SOB, No MCGUIRE, No Cough, No Sputum, No Wheezing, No Abdominal Pain, No Diarrhea, No Hematemesis, No Hemoptysis, No Unexpected Weight Loss, No Flank pain, No Melena, No Hematochezia, No Frequency, No Urgency, No Burning, No Hematuria, No Rashes, No Diaphoresis. Appetite is Normal Physical Exam Gen-AAO x 2, NAD, Afebrile, Anxious Head-NCAT, EOMI, PERRLA, Anicteric Sclera, No Posterior Pharyngeal Erythema Neck-Supple, No JVD, No Thyromegaly, No Masses, No LAD, No Bruits Lungs-Clear to Auscultation Bilaterally, No Rales, No Rhonchi, No Wheezing, No Crepitus Chest-No S4, +S1, +S2, No S3, No Murmurs, No Rubs, No Gallops, No Ectopy Abdomen-Soft, Bowel Sounds Present, Non Tender, Non Distended, No Hepatomegaly, No Splenomegaly, No Palpable Masses, No Rebound, No Rigidity, No Guarding Musculoskeletal-Full Range of Motion Bilaterally, No CVAT, B/L LE Atrophy Extremities-No Cyanosis, No Clubbing, No Edema Nuero-Cranial Nerves II-XII grossly intact, Motor WNL, DTRs WNL, Strength WNL, Non Focal Psych-Anxiety Results & Data Vital Signs (Past 12 Hours) Vital Signs Temp Pulse Resp BP Pulse Ox 01/05/19 07:30 36.3 C L 67 16 124/71 100 01/05/19 03:46 36.4 C L 74 18 111/67 97 Current Diagnoses Anemia, unspecified (12/26/18) Hyperlipidemia, unspecified (12/26/18) Hypomagnesemia (12/26/18) Hypo-osmolality and hyponatremia (12/26/18) Other disorders of electrolyte and fluid balance, not elsewhere classified (12/26/18) Alcohol abuse, uncomplicated (12/26/18) Epilepsy, unspecified, not intractable, without status epilepticus (12/26/18) Essential (primary) hypertension (12/26/18) Supraventricular tachycardia (12/26/18) Ventricular tachycardia (12/26/18) Paroxysmal atrial fibrillation (12/26/18) Occlusion and stenosis of unspecified carotid artery (12/26/18) Abdominal aortic aneurysm, without rupture (12/26/18) Alcoholic liver disease, unspecified (12/26/18) Olecranon bursitis, left elbow (12/26/18) Acute kidney failure, unspecified (12/26/18) Weakness (12/26/18) Other nonspecific abnormal finding of lung field (12/26/18) Abnormal electrocardiogram [ECG] [EKG] (12/26/18) Wedge compression fracture of unspecified thoracic vertebra, initial encounter for closed fracture (12/26/18) Multiple fractures of ribs, unspecified side, initial encounter for closed fracture (12/26/18) Other specified health status (12/26/18) Allergies No Known Allergies Allergy (Verified 12/26/18 16:24) Height/Weight/Isolation Height 5 ft 10 in Weight 64.8 kg Chemistry 01/04/19 01/05/19 01/05/19 06:12 06:21 08:11 Sodium 134 L 129 L Potassium 4.7 D 4.5 Chloride 103 100 Carbon Dioxide 20 L 20 L Anion Gap 11.0 9.0 BUN 6 L 5 L Creatinine 0.74 0.74 Glucose 88 84 Microbiology 12/28/18 13:22 Blood Aerobic Blood Culture - Final No growth in Aerobic bottle after 5 days. 12/28/18 13:22 Blood Anaerobic Blood Culture - Final No growth in Anaerobic bottle after 5 days. 12/28/18 13:37 Blood Aerobic Blood Culture - Final No growth in Aerobic bottle after 5 days. 12/28/18 13:37 Blood Anaerobic Blood Culture - Final No growth in Anaerobic bottle after 5 days.
[2019-01-05] MEDS: Heparin Adult STANDARD Wt-Based Dextrose 5% 25,000 units/500 mL IV SCH (13:54)
[2019-01-05] MEDS: MICONAZOLE NITRATE POWDER 43 GM EXT SCH (21:05)
[2019-01-06] MEDS: CLINDAMYCIN 600 MG in DEXTROSE 5% 50 ML IV SCH ×3 (05:45→21:04)
[2019-01-06 07:24] LABS: Hematocrit (blood only) 25.1 % (42-52); Hemoglobin 8.9 g/dL (14.0-18.0); Mean Corpuscular Hgb Conc 35.5 g/dL (32-36); Mean Corpuscular Volume 100.4 fL (80-100); Mean Platelet Volume 9.9 fL (7.4-10.4); Platelet Count 309 K/uL (130-400); RDW Coefficient of Variation 15.9 % (11.5-14.5); RDW Standard Deviation 55.1 fL (36.4-46.3)
[2019-01-06 07:46] LABS: INR 1.1 (0.9-1.1); Partial Thromboplastin Ratio 2.1; Prothrombin Time 11.4 Seconds (9.0-12.0)
[2019-01-06 08:00] LABS: Albumin Level 2.3 gm/dl (3.4-5.0); BUN Creatinine Ratio 5.6 (10-20); Est GFR (African American) 114.3; Est GFR (Non-African American) 98.6; Potassium 4.4 mmol/L (3.5-5.1)
[2019-01-06 08:03] LABS: Albumin Globulin Ratio 0.4 (0.9-2); Bilirubin,Total 1.1 mg/dl (0.2-1); Globulin 5.4 gm/dl (2.5-4.0); Total Protein 7.7 gm/dl (6.4-8.2)
[2019-01-06] MEDS: levETIRAcetam 500 MG TAB PO SCH ×2 (08:26→21:00)
[2019-01-06] MEDS: ASPIRIN 81 MG ECTAB PO SCH (08:26)
[2019-01-06] MEDS: METOPROLOL TARTRATE 25 MG TAB PO SCH ×3 (08:27→21:01)
[2019-01-06] MEDS: FOLIC ACID 1 MG TAB PO SCH (08:27)
[2019-01-06] MEDS: MAGNESIUM OXIDE 400 MG TAB PO SCH ×2 (08:27→21:02)
[2019-01-06] MEDS: THIAMINE HCL 100 MG TAB PO SCH (08:27)
[2019-01-06] MEDS: MULTIVITAMIN TAB PO SCH (08:28)
[2019-01-06] MEDS: POTASSIUM CHLORIDE 20 MEQ TABCR PO SCH (08:28)
[2019-01-06] MEDS: MICONAZOLE NITRATE POWDER 43 GM EXT SCH ×2 (08:28→21:00)
--- NOTE | 2019-01-06 08:42 | Hospitalist Progress Note ---
Date of Service January 06, 2019 Assessment & Plan (1) Weakness: S/P fall Possible due to severe electrolytes imbalance from alcohol intake Continue PT/OT- Recommended rehab Fall precaution Pt agreed to go for inpatient rehab, waiting for placement Has a sitter, still restless (2) Multifocal atrial tachycardia: Treat underlying cause (3) Torsades de pointes: Afib Multifactorial Mostly from alcohol abuse Underwent synchronized electrical cardioversion on 12/30, then went back to afib Converted back to NSR 01/03 Heart rate control Cardiology on board IV amiodarone drip done Continue IV heparin drip for now Too much of a fall risk for [facility] a/c Continue metoprolol 12.5 mg TID by cardio Continue monitor in tele (3) Electrolyte abnormality: Monitor electrolytes (4) TEQUILA (acute kidney injury): Resolved (5) Alcohol abuse: AWSS ETOH protocol ordered with gabapentin taper PRN lorazepam Folic Acid and Thiamine added to medication regimen No significant withdrawal symptoms Consider inpatient alcohol rehab on discharge Phenobarbital discontinued (6) Seizure disorder: He reports episode of seizure for the last few days before admission Prolactin level normal Neurology on board Obtain EEG and monitor-did not show any focus for seizure but he did show generalized slowing of activity likely secondary to alcoholic encephalopathy Continue Keppra 1g BID (7) Ribs, multiple fractures: Secondary to fall Fracture of right lateral eighth, ninth, and 10th rib Conservative management Incentive spirometry Analgesia (8) Thoracic compression fracture: Recommend conservative management with analgesics (9) HTN (hypertension): Blood pressure currently in the low side amlodipine on hold Monitor BP closely (10) Alcoholic liver disease: CT Abd/pelvis showed reveals Hepatic Steatosis Liver ultrasound showed fatty infiltration of liver status post cholecystectomy LFTs remain stable for alcoholism Monitor Liver enzymes (11) AAA (abdominal aortic aneurysm) without rupture: 3.7 x 3.4 cm infrarenal abdominal aortic aneurysm Recommend routine follow-up per PCP (12) Left elbow Olecranon Bursitis Continue abx with clinda Continue daily dressing changes Ortho on board (13) Pulmonary nodules: Per Fleischner criteria for multiple nodules less than [address] scan in 12 months. (14)Diarrhea Diarrhea improved (15) DVT prophylaxis: On Heparin drip Disposition: Will need inpatient rehab, waiting for placement, needs sitter DCd first, still to anxious Stop anticoagulation on DC, will use ASA full dose Labs reviewed ROS-No Headache, No Visual Changes, No Nausea, No Vomiting, No Fever, No Chills, No Neck Pain or Stiffness, No Chest Pain, No Palpitations, No SOB, No MCGUIRE, No Cough, No Sputum, No Wheezing, No Abdominal Pain, No Diarrhea, No Hematemesis, No Hemoptysis, No Unexpected Weight Loss, No Flank pain, No Melena, No Hematochezia, No Frequency, No Urgency, No Burning, No Hematuria, No Rashes, No Diaphoresis. Appetite is Normal Physical Exam Gen-AAO x 2, NAD, Afebrile, Anxious Head-NCAT, EOMI, PERRLA, Anicteric Sclera, No Posterior Pharyngeal Erythema Neck-Supple, No JVD, No Thyromegaly, No Masses, No LAD, No Bruits Lungs-Clear to Auscultation Bilaterally, No Rales, No Rhonchi, No Wheezing, No Crepitus Chest-No S4, +S1, +S2, No S3, No Murmurs, No Rubs, No Gallops, No Ectopy Abdomen-Soft, Bowel Sounds Present, Non Tender, Non Distended, No Hepatomegaly, No Splenomegaly, No Palpable Masses, No Rebound, No Rigidity, No Guarding Musculoskeletal-Full Range of Motion Bilaterally, No CVAT, B/L LE Atrophy Extremities-No Cyanosis, No Clubbing, No Edema Nuero-Cranial Nerves II-XII grossly intact, Motor WNL, DTRs WNL, Strength WNL, Non Focal Psych-Anxiety Results & Data Vital Signs (Past 12 Hours) Vital Signs Temp Pulse Pulse Resp BP BP Pulse Ox 01/06/19 07:10 36.4 C L 68 20 122/71 99 01/06/19 04:00 36.8 C 76 17 124/72 99 01/05/19 23:45 36.9 C 74 18 122/75 99
[2019-01-06] MEDS: Heparin Adult STANDARD Wt-Based Dextrose 5% 25,000 units/500 mL IV SCH (12:05)
[2019-01-07] MEDS: CLINDAMYCIN 600 MG in DEXTROSE 5% 50 ML IV SCH ×3 (05:38→21:10)
[2019-01-07 06:16] LABS: INR 1.1 (0.9-1.1); Partial Thromboplastin Ratio 1.5; Partial Thromboplastin Time 40.7 Seconds (21.0-31.0); Prothrombin Time 11.3 Seconds (9.0-12.0)
[2019-01-07 06:23] LABS: Albumin Level 2.4 gm/dl (3.4-5.0); BUN Creatinine Ratio 6.6 (10-20); Calcium 9.1 mg/dl (8.5-10.1); Creatinine Clr Calc Pharmacy 89.4 ml/min; Est GFR (Non-African American) 97.5; Potassium 4.2 mmol/L (3.5-5.1)
[2019-01-07 06:26] LABS: Albumin Globulin Ratio 0.4 (0.9-2); Bilirubin,Total 1.3 mg/dl (0.2-1); Globulin 5.7 gm/dl (2.5-4.0); Total Protein 8.1 gm/dl (6.4-8.2)
[2019-01-07] MEDS ORDERED: HEPARIN IV BOLUS 6,000 UNITS in SYRINGE 0 ML IV ONE (06:30)
--- NOTE | 2019-01-07 07:41 | Hospitalist Progress Note ---
Date of Service January 07, 2019 Assessment & Plan (1) Weakness: S/P fall Possible due to severe electrolytes imbalance from alcohol intake Continue PT/OT- Recommended rehab Fall precaution Pt agreed to go for inpatient rehab, waiting for placement Still has a sitter, less restless (2) Multifocal atrial tachycardia: Treat underlying cause (3) Torsades de pointes: Multifactorial Mostly from alcohol abuse Underwent synchronized electrical cardioversion on 12/30, then went back to afib Converted back to NSR 01/03 Heart rate control Cardiology on board IV amiodarone drip done Continue IV heparin drip for now Too much of a fall risk for [facility] a/c Continue metoprolol 12.5 mg TID by cardio Continue monitor in tele (3) Electrolyte abnormality: Monitor electrolytes (4) TEQUILA (acute kidney injury): Resolved (5) Alcohol abuse: AWSS ETOH protocol ordered with gabapentin taper PRN lorazepam Folic Acid and Thiamine added to medication regimen No significant withdrawal symptoms Consider inpatient alcohol rehab on discharge Phenobarbital discontinued (6) Seizure disorder: He reports episode of seizure for the last few days before admission Prolactin level normal Neurology on board Obtain EEG and monitor-did not show any focus for seizure but he did show generalized slowing of activity likely secondary to alcoholic encephalopathy Continue Keppra 1g BID (7) Ribs, multiple fractures: Secondary to fall Fracture of right lateral eighth, ninth, and 10th rib Conservative management Incentive spirometry Analgesia (8) Thoracic compression fracture: Recommend conservative management with analgesics (9) HTN (hypertension): Blood pressure currently in the low side amlodipine on hold (10) Alcoholic liver disease: CT Abd/pelvis showed reveals Hepatic Steatosis Liver ultrasound showed fatty infiltration of liver status post cholecystectomy LFTs remain stable for alcoholism Monitor Liver enzymes (11) AAA (abdominal aortic aneurysm) without rupture: 3.7 x 3.4 cm infrarenal abdominal aortic aneurysm Recommend routine follow-up per PCP (12) Left elbow Olecranon Bursitis Continue abx with clinda Continue daily dressing changes Ortho on board (13) Pulmonary nodules: Per Fleischner criteria for multiple nodules less than [address] scan in 12 months. (14)Diarrhea Diarrhea improved (15) DVT prophylaxis: On Heparin drip Disposition: Will need inpatient rehab, waiting for placement, needs sitter DCd first, still to anxious Stop anticoagulation on DC, will use ASA full dose Labs reviewed ROS-No Headache, No Visual Changes, No Nausea, No Vomiting, No Fever, No Chills, No Neck Pain or Stiffness, No Chest Pain, No Palpitations, No SOB, No MCGUIRE, No Cough, No Sputum, No Wheezing, No Abdominal Pain, No Diarrhea, No Hematemesis, No Hemoptysis, No Unexpected Weight Loss, No Flank pain, No Melena, No Hematochezia, No Frequency, No Urgency, No Burning, No Hematuria, No Rashes, No Diaphoresis. Appetite is Normal Physical Exam Gen-AAO x 3, NAD, Afebrile, Less Anxious Head-NCAT, EOMI, PERRLA, Anicteric Sclera, No Posterior Pharyngeal Erythema Neck-Supple, No JVD, No Thyromegaly, No Masses, No LAD, No Bruits Lungs-Clear to Auscultation Bilaterally, No Rales, No Rhonchi, No Wheezing, No Crepitus Chest-No S4, +S1, +S2, No S3, No Murmurs, No Rubs, No Gallops, No Ectopy Abdomen-Soft, Bowel Sounds Present, Non Tender, Non Distended, No Hepatomegaly, No Splenomegaly, No Palpable Masses, No Rebound, No Rigidity, No Guarding Musculoskeletal-Full Range of Motion Bilaterally, No CVAT, B/L LE Atrophy Extremities-No Cyanosis, No Clubbing, No Edema Nuero-Cranial Nerves II-XII grossly intact, Motor WNL, DTRs WNL, Strength WNL, Non Focal Psych-Pleasant Results & Data Vital Signs (Past 12 Hours) Vital Signs Temp Pulse Pulse Resp BP Pulse Ox 01/07/19 07:21 36.9 C 75 20 144/80 H 100 01/06/19 23:12 36.5 C 73 18 125/75 99 Current Diagnoses Anemia, unspecified (12/26/18) Hyperlipidemia, unspecified (12/26/18) Hypomagnesemia (12/26/18) Hypo-osmolality and hyponatremia (12/26/18) Other disorders of electrolyte and fluid balance, not elsewhere classified (12/26/18) Alcohol abuse, uncomplicated (12/26/18) Epilepsy, unspecified, not intractable, without status epilepticus (12/26/18) Essential (primary) hypertension (12/26/18) Supraventricular tachycardia (12/26/18) Ventricular tachycardia (12/26/18) Paroxysmal atrial fibrillation (12/26/18) Occlusion and stenosis of unspecified carotid artery (12/26/18) Abdominal aortic aneurysm, without rupture (12/26/18) Alcoholic liver disease, unspecified (12/26/18) Olecranon bursitis, left elbow (12/26/18) Acute kidney failure, unspecified (12/26/18) Weakness (12/26/18) Other nonspecific abnormal finding of lung field (12/26/18) Abnormal electrocardiogram [ECG] [EKG] (12/26/18) Wedge compression fracture of unspecified thoracic vertebra, initial encounter for closed fracture (12/26/18) Multiple fractures of ribs, unspecified side, initial encounter for closed fracture (12/26/18) Other specified health status (12/26/18) Allergies No Known Allergies Allergy (Verified 12/26/18 16:24) Height/Weight/Isolation Height 5 ft 10 in Weight 62.7 kg Chemistry 01/05/19 01/05/19 01/06/19 06:21 08:11 06:59 Sodium 129 L 131 L Potassium 4.5 4.4 Chloride 100 100 Carbon Dioxide 20 L 20 L Anion Gap 9.0 11.0 BUN 5 L 4 L Creatinine 0.74 0.72 Glucose 84 89 01/07/19 05:29 Sodium 128 L Potassium 4.2 Chloride 99 Carbon Dioxide 21 Anion Gap 8.0 BUN 5 L Creatinine 0.74 Glucose 90
[2019-01-07] MEDS: METOPROLOL TARTRATE 25 MG TAB PO SCH ×3 (11:29→20:16)
[2019-01-07] MEDS: MULTIVITAMIN TAB PO SCH (11:29)
[2019-01-07] MEDS: MAGNESIUM OXIDE 400 MG TAB PO SCH ×2 (11:30→20:16)
[2019-01-07] MEDS: THIAMINE HCL 100 MG TAB PO SCH (11:30)
[2019-01-07] MEDS: FOLIC ACID 1 MG TAB PO SCH (11:30)
[2019-01-07] MEDS: POTASSIUM CHLORIDE 20 MEQ TABCR PO SCH (11:30)
[2019-01-07] MEDS: MICONAZOLE NITRATE POWDER 43 GM EXT SCH ×2 (11:31→20:16)
[2019-01-07] MEDS: levETIRAcetam 500 MG TAB PO SCH ×2 (11:31→20:16)
[2019-01-07] MEDS: ASPIRIN 81 MG ECTAB PO SCH (11:31)
[2019-01-07] MEDS: Heparin Adult STANDARD Wt-Based Dextrose 5% 25,000 units/500 mL IV SCH (11:39)
[2019-01-07 13:07] LABS: Partial Thromboplastin Ratio 3.2
[2019-01-07 13:31] LABS: Partial Thromboplastin Time 86.9 Seconds (21.0-31.0)
[2019-01-07 20:33] LABS: Partial Thromboplastin Ratio 2.7
[2019-01-07 20:37] LABS: Partial Thromboplastin Time 72.9 Seconds (21.0-31.0)
[2019-01-08 02:51] LABS: Basophils # (auto) 0.03 K/uL (0-0.2); Basophils % (auto) 0.4 %; Eosinophils # (auto) 0.15 K/uL (0-0.5); Eosinophils % (auto) 2.2 %; Hemoglobin 8.8 g/dL (14.0-18.0); Immature Granulocytes # (auto) 0.07 K/uL (0.00-0.02); Lymphocytes # (auto) 1.65 K/uL (1.2-3.4); Lymphocytes % (auto) 24.2 %; Mean Corpuscular Hgb Conc 33.8 g/dL (32-36); Mean Corpuscular Volume 101.6 fL (80-100); Mean Platelet Volume 9.6 fL (7.4-10.4); Monocytes # (auto) 0.62 K/uL (0.11-0.59); Monocytes % (auto) 9.1 %; Neutrophils % (auto) 63.1 %; Platelet Count 351 K/uL (130-400); RDW Standard Deviation 57.3 fL (36.4-46.3); Red Blood Count 2.56 M/uL (4.7-6.1); White Blood Count 6.82 K/uL (4.8-10.8)
[2019-01-08 03:11] LABS: Partial Thromboplastin Ratio 2.4
[2019-01-08] MEDS: CLINDAMYCIN 600 MG in DEXTROSE 5% 50 ML IV SCH ×3 (05:27→22:38)
--- NOTE | 2019-01-08 07:01 | Hospitalist Progress Note ---
Date of Service January 08, 2019 Assessment & Plan (1) Weakness: S/P fall Possible due to severe electrolytes imbalance from alcohol intake Continue PT/OT- Recommended rehab Fall precaution Pt agreed to go for inpatient rehab, waiting for placement Rehab when bed avail (2) Multifocal atrial tachycardia: Treat underlying cause (3) Torsades de pointes: Multifactorial Mostly from alcohol abuse Underwent synchronized electrical cardioversion on 12/30, then went back to afib Converted back to NSR 01/03 Heart rate control Cardiology on board IV amiodarone drip done Continue IV heparin drip for now Too much of a fall risk for half-way a/c Continue metoprolol 12.5 mg TID by cardio Continue monitor in tele (3) Electrolyte abnormality: Monitor electrolytes (4) TEQUILA (acute kidney injury): Resolved (5) Alcohol abuse: AWSS ETOH protocol ordered with gabapentin taper PRN lorazepam Folic Acid and Thiamine added to medication regimen No significant withdrawal symptoms Consider inpatient alcohol rehab on discharge Phenobarbital discontinued (6) Seizure disorder: He reports episode of seizure for the last few days before admission Prolactin level normal Neurology saw him EEG and monitor-did not show any focus for seizure but he did show generalized slowing of activity likely secondary to alcoholic encephalopathy Continue Keppra 1g BID (7) Ribs, multiple fractures: Secondary to fall Fracture of right lateral eighth, ninth, and 10th rib Conservative management Incentive spirometry Analgesia (8) Thoracic compression fracture: Recommend conservative management with analgesics (9) HTN (hypertension): Blood pressure currently in the low side amlodipine on hold (10) Alcoholic liver disease: CT Abd/pelvis showed reveals Hepatic Steatosis Liver ultrasound showed fatty infiltration of liver status post cholecystectomy LFTs remain stable for alcoholism Monitor Liver enzymes (11) AAA (abdominal aortic aneurysm) without rupture: 3.7 x 3.4 cm infrarenal abdominal aortic aneurysm Recommend routine follow-up per PCP (12) Left elbow Olecranon Bursitis Continue abx with clinda Continue daily dressing changes Ortho on board (13) Pulmonary nodules: Per Fleischner criteria for multiple nodules less than [address] scan in 12 months. (14)Diarrhea Diarrhea improved (15) DVT prophylaxis: On Heparin drip Disposition: Will need inpatient rehab, waiting for placement, needs sitter DCd first, still to anxious Add Xanax 0.25 TID, Increase Citalopram Stop anticoagulation on DC, will use ASA full dose Labs reviewed ROS-No Headache, No Visual Changes, No Nausea, No Vomiting, No Fever, No Chills, No Neck Pain or Stiffness, No Chest Pain, No Palpitations, No SOB, No MCGUIRE, No Cough, No Sputum, No Wheezing, No Abdominal Pain, No Diarrhea, No Hematemesis, No Hemoptysis, No Unexpected Weight Loss, No Flank pain, No Melena, No Hematochezia, No Frequency, No Urgency, No Burning, No Hematuria, No Rashes, No Diaphoresis. Appetite is Normal Physical Exam Gen-AAO x 3, NAD, Afebrile, Less Anxious Head-NCAT, EOMI, PERRLA, Anicteric Sclera, No Posterior Pharyngeal Erythema Neck-Supple, No JVD, No Thyromegaly, No Masses, No LAD, No Bruits Lungs-Clear to Auscultation Bilaterally, No Rales, No Rhonchi, No Wheezing, No Crepitus Chest-No S4, +S1, +S2, No S3, No Murmurs, No Rubs, No Gallops, No Ectopy Abdomen-Soft, Bowel Sounds Present, Non Tender, Non Distended, No Hepatomegaly, No Splenomegaly, No Palpable Masses, No Rebound, No Rigidity, No Guarding Musculoskeletal-Full Range of Motion Bilaterally, No CVAT, B/L LE Atrophy Extremities-No Cyanosis, No Clubbing, No Edema Nuero-Cranial Nerves II-XII grossly intact, Motor WNL, DTRs WNL, Strength WNL, Non Focal Psych-Pleasant Results & Data Vital Signs (Past 12 Hours) Vital Signs Temp Pulse Pulse Resp BP Pulse Ox 01/08/19 05:34 36.6 C 74 21 147/80 H 99 01/07/19 23:33 63 01/07/19 22:56 36.5 C 64 19 125/71 100 01/07/19 20:19 36.3 C L 71 18 120/58 L 97 Labs reviewed
[2019-01-08] MEDS: ALPRAZolam 0.25 MG TABLET PO SCH ×3 (07:59→23:45)
[2019-01-08] MEDS: METOPROLOL TARTRATE 25 MG TAB PO SCH ×3 (07:59→20:34)
[2019-01-08] MEDS: MULTIVITAMIN TAB PO SCH (07:59)
[2019-01-08] MEDS: POTASSIUM CHLORIDE 20 MEQ TABCR PO SCH (08:00)
[2019-01-08] MEDS: MAGNESIUM OXIDE 400 MG TAB PO SCH ×2 (08:00→20:36)
[2019-01-08] MEDS: THIAMINE HCL 100 MG TAB PO SCH (08:00)
[2019-01-08] MEDS: FOLIC ACID 1 MG TAB PO SCH (08:00)
[2019-01-08] MEDS: ASPIRIN 81 MG ECTAB PO SCH (08:00)
[2019-01-08] MEDS: levETIRAcetam 500 MG TAB PO SCH ×2 (08:00→20:35)
[2019-01-08] MEDS: MICONAZOLE NITRATE POWDER 43 GM EXT SCH ×2 (08:00→20:37)
[2019-01-08] MEDS: Heparin Adult STANDARD Wt-Based Dextrose 5% 25,000 units/500 mL IV SCH (08:03)
[2019-01-08] MEDS: LORazepam 1 MG/2 ML VIAL IV PRN (22:10)
[2019-01-09] MEDS: CLINDAMYCIN 600 MG in DEXTROSE 5% 50 ML IV SCH ×3 (05:48→21:17)
[2019-01-09] MEDS: ALPRAZolam 0.25 MG TABLET PO SCH ×3 (07:49→23:54)
[2019-01-09] MEDS: METOPROLOL TARTRATE 25 MG TAB PO SCH ×3 (07:50→20:07)
--- NOTE | 2019-01-09 07:50 | Hospitalist Progress Note ---
Date of Service January 09, 2019 Assessment & Plan (1) Weakness: S/P fall Possible due to severe electrolytes imbalance from alcohol intake Continue PT/OT- Recommended rehab Fall precaution Pt agreed to go for inpatient rehab, waiting for placement Rehab when bed avail, likely 01/10 (2) Multifocal atrial tachycardia: Treat underlying cause (3) Torsades de pointes: Multifactorial Mostly from alcohol abuse Underwent synchronized electrical cardioversion on 12/30, then went back to afib Converted back to NSR 01/03 Heart rate control Cardiology on board IV amiodarone drip done Continue IV heparin drip for now 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 Continue metoprolol 12.5 mg TID by cardio Continue monitor in tele (3) Electrolyte abnormality: Monitor electrolytes (4) TEQUILA (acute kidney injury): Resolved (5) Alcohol abuse: AWSS ETOH protocol ordered with gabapentin taper PRN lorazepam Folic Acid and Thiamine added to medication regimen No significant withdrawal symptoms Consider inpatient alcohol rehab on discharge Phenobarbital discontinued (6) Seizure disorder: He reports episode of seizure for the last few days before admission Prolactin level normal Neurology saw him EEG and monitor-did not show any focus for seizure but he did show generalized slowing of activity likely secondary to alcoholic encephalopathy Continue Keppra 1g BID (7) Ribs, multiple fractures: Secondary to fall Fracture of right lateral eighth, ninth, and 10th rib Conservative management Incentive spirometry Analgesia (8) Thoracic compression fracture: Recommend conservative management with analgesics (9) HTN (hypertension): Blood pressure currently in the low side amlodipine on hold (10) Alcoholic liver disease: CT Abd/pelvis showed reveals Hepatic Steatosis Liver ultrasound showed fatty infiltration of liver status post cholecystectomy LFTs remain stable for alcoholism Monitor Liver enzymes (11) AAA (abdominal aortic aneurysm) without rupture: 3.7 x 3.4 cm infrarenal abdominal aortic aneurysm Recommend routine follow-up per PCP (12) Left elbow Olecranon Bursitis Continue abx with clinda Continue daily dressing changes Ortho on board (13) Pulmonary nodules: Per Fleischner criteria for multiple nodules less than [address] scan in 12 months. (14)Diarrhea Diarrhea improved (15) DVT prophylaxis: On Heparin drip Disposition: Will need inpatient rehab, waiting for placement, needs sitter DCd first, still to anxious Add Xanax 0.25 TID, Increase Citalopram Stop anticoagulation on DC, will use ASA full dose Labs reviewed ROS-No Headache, No Visual Changes, No Nausea, No Vomiting, No Fever, No Chills, No Neck Pain or Stiffness, No Chest Pain, No Palpitations, No SOB, No MCGUIRE, No Cough, No Sputum, No Wheezing, No Abdominal Pain, No Diarrhea, No Hematemesis, No Hemoptysis, No Unexpected Weight Loss, No Flank pain, No Melena, No Hematochezia, No Frequency, No Urgency, No Burning, No Hematuria, No Rashes, No Diaphoresis. Appetite is Normal Physical Exam Gen-AAO x 3, NAD, Afebrile, Less Anxious Head-NCAT, EOMI, PERRLA, Anicteric Sclera, No Posterior Pharyngeal Erythema Neck-Supple, No JVD, No Thyromegaly, No Masses, No LAD, No Bruits Lungs-Clear to Auscultation Bilaterally, No Rales, No Rhonchi, No Wheezing, No C repitus Chest-No S4, +S1, +S2, No S3, No Murmurs, No Rubs, No Gallops, No Ectopy Abdomen-Soft, Bowel Sounds Present, Non Tender, Non Distended, No Hepatomegaly, No Splenomegaly, No Palpable Masses, No Rebound, No Rigidity, No Guarding Musculoskeletal-Full Range of Motion Bilaterally, No CVAT, B/L LE Atrophy Extremities-No Cyanosis, No Clubbing, No Edema Nuero-Cranial Nerves II-XII grossly intact, Motor WNL, DTRs WNL, Strength WNL, Non Focal Psych-Pleasant Supervising Physician Co-Signing Physician Notes Dr. Amaral was resident physician during care of patient. I separately evaluated patient for rahman portions of the history and the exam. I was present during the critical portion of medical decision making, and I discussed the case with the resident. I generally agree with the findings and plan. Mental status continues to improve. Continuing metoprolol, discontinuing amiodarone today. Most likely has multifocal atrial tachycardia. Potassium improved, lowered magnesium level today, he is on continuous oral supplement daily as well as receiving additional electrolytes. Patient has additional 24 hours of phenobarbital for alcohol withdrawal. Stable for downgrade out of the ICU. Patient still on anticoagulants while in the hospital however I would not continue systemic anticoagulants upon discharge given high propensity for falls. Results & Data Vital Signs (Past 12 Hours) Vital Signs Temp Pulse Resp BP Pulse Ox 01/09/19 07:31 36.7 C 91 H 18 107/54 L 95
[2019-01-09] MEDS: AMLODIPINE BESYLATE 5 MG TAB PO SCH (07:52)
[2019-01-09] MEDS: FOLIC ACID 1 MG TAB PO SCH (07:52)
[2019-01-09] MEDS: MULTIVITAMIN TAB PO SCH (07:52)
[2019-01-09] MEDS: THIAMINE HCL 100 MG TAB PO SCH (07:53)
[2019-01-09] MEDS: POTASSIUM CHLORIDE 20 MEQ TABCR PO SCH (07:53)
[2019-01-09] MEDS: CITALOPRAM 20 MG TAB PO SCH (07:54)
[2019-01-09] MEDS: ASPIRIN 81 MG ECTAB PO SCH (07:55)
[2019-01-09] MEDS: levETIRAcetam 500 MG TAB PO SCH ×2 (07:55→20:08)
[2019-01-09] MEDS: MAGNESIUM OXIDE 400 MG TAB PO SCH ×2 (07:56→20:08)
[2019-01-09 08:28] LABS: Hematocrit (blood only) 27.7 % (42-52); Hemoglobin 9.6 g/dL (14.0-18.0); Mean Corpuscular Hgb Conc 34.7 g/dL (32-36); Mean Platelet Volume 9.4 fL (7.4-10.4); Platelet Count 345 K/uL (130-400); RDW Coefficient of Variation 15.7 % (11.5-14.5); RDW Standard Deviation 57.1 fL (36.4-46.3); Red Blood Count 2.69 M/uL (4.7-6.1); White Blood Count 6.42 K/uL (4.8-10.8)
[2019-01-09 09:07] LABS: BUN Creatinine Ratio 8.8 (10-20); Calcium 9.7 mg/dl (8.5-10.1); Creatinine Clr Calc Pharmacy 87.7 ml/min; Est GFR (African American) 112.4; Est GFR (Non-African American) 96.9; Potassium 4.5 mmol/L (3.5-5.1)
[2019-01-09] MEDS: MICONAZOLE NITRATE POWDER 43 GM EXT SCH ×2 (11:20→20:07)
[2019-01-09] MEDS: MENTHOL-ZINC OXIDE 360 APPLN/120 GM TUBE EXT SCH (19:36)
[2019-01-10] MEDS: CLINDAMYCIN 600 MG in DEXTROSE 5% 50 ML IV SCH ×3 (05:53→22:36)
[2019-01-10 06:07] LABS: Hematocrit (blood only) 28.8 % (42-52); Hemoglobin 9.9 g/dL (14.0-18.0); Mean Corpuscular Hgb Conc 34.4 g/dL (32-36); Mean Corpuscular Volume 104.3 fL (80-100); Mean Platelet Volume 9.5 fL (7.4-10.4); Platelet Count 390 K/uL (130-400); RDW Coefficient of Variation 15.6 % (11.5-14.5); RDW Standard Deviation 57.7 fL (36.4-46.3); Red Blood Count 2.76 M/uL (4.7-6.1)
[2019-01-10] MEDS: THIAMINE HCL 100 MG TAB PO SCH (08:12)
[2019-01-10] MEDS: levETIRAcetam 500 MG TAB PO SCH ×2 (08:12→20:34)
[2019-01-10] MEDS: AMLODIPINE BESYLATE 5 MG TAB PO SCH (08:12)
[2019-01-10] MEDS: METOPROLOL TARTRATE 25 MG TAB PO SCH ×3 (08:12→20:34)
[2019-01-10] MEDS: FOLIC ACID 1 MG TAB PO SCH (08:12)
[2019-01-10] MEDS: MAGNESIUM OXIDE 400 MG TAB PO SCH ×2 (08:12→20:35)
[2019-01-10] MEDS: MULTIVITAMIN TAB PO SCH (08:12)
[2019-01-10] MEDS: ALPRAZolam 0.25 MG TABLET PO SCH ×3 (08:12→23:59)
[2019-01-10] MEDS: POTASSIUM CHLORIDE 20 MEQ TABCR PO SCH (08:12)
[2019-01-10] MEDS: ASPIRIN 81 MG ECTAB PO SCH (08:12)
[2019-01-10] MEDS: CITALOPRAM 20 MG TAB PO SCH (08:13)
--- NOTE | 2019-01-10 08:16 | Hospitalist Progress Note ---
Date of Service January 10, 2019 Assessment & Plan (1) Weakness: S/P fall Possible due to severe electrolytes imbalance from alcohol intake Continue PT/OT- Recommended rehab Fall precaution Pt agreed to go for inpatient rehab, waiting for placement Rehab when bed avail, likely 01/11 Got up and had emesis episode and dropped his BP-IVFs (2) Multifocal atrial tachycardia: Treat underlying cause (3) Torsades de pointes: Multifactorial Mostly from alcohol abuse Underwent synchronized electrical cardioversion on 12/30, then went back to afib Converted back to NSR 01/03 Heart rate control Cardiology on board IV amiodarone drip done Continue IV heparin drip for now 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 Continue metoprolol 12.5 mg TID by cardio Continue monitor in tele (3) Electrolyte abnormality: Monitor electrolytes (4) TEQUILA (acute kidney injury): Resolved (5) Alcohol abuse: AWSS ETOH protocol ordered with gabapentin taper PRN lorazepam Folic Acid and Thiamine added to medication regimen No significant withdrawal symptoms Consider inpatient alcohol rehab on discharge Phenobarbital discontinued (6) Seizure disorder: He reports episode of seizure for the last few days before admission Prolactin level normal Neurology saw him EEG and monitor-did not show any focus for seizure but he did show generalized slowing of activity likely secondary to alcoholic encephalopathy Continue Keppra 1g BID (7) Ribs, multiple fractures: Secondary to fall Fracture of right lateral eighth, ninth, and 10th rib Conservative management Incentive spirometry Analgesia (8) Thoracic compression fracture: Recommend conservative management with analgesics (9) HTN (hypertension): Blood pressure currently in the low side amlodipine on hold (10) Alcoholic liver disease: CT Abd/pelvis showed reveals Hepatic Steatosis Liver ultrasound showed fatty infiltration of liver status post cholecystectomy LFTs remain stable for alcoholism Monitor Liver enzymes (11) AAA (abdominal aortic aneurysm) without rupture: 3.7 x 3.4 cm infrarenal abdominal aortic aneurysm Recommend routine follow-up per PCP (12) Left elbow Olecranon Bursitis Continue abx with clinda Continue daily dressing changes Ortho on board (13) Pulmonary nodules: Per Fleischner criteria for multiple nodules less than [address] scan in 12 months. (14)Diarrhea Diarrhea improved (15) DVT prophylaxis: On Heparin drip Disposition: Will need inpatient rehab, waiting for placement likely to [facility] today, episode of emesis today Add Xanax 0.25 TID, Increase Citalopram Stop anticoagulation, will use ASA full dose on DC Labs reviewed ROS-No Headache, No Visual Changes, No Nausea, No Vomiting, No Fever, No Chills, No Neck Pain or Stiffness, No Chest Pain, No Palpitations, No SOB, No MCGUIRE, No Cough, No Sputum, No Wheezing, No Abdominal Pain, No Diarrhea, No Hematemesis, No Hemoptysis, No Unexpected Weight Loss, No Flank pain, No Melena, No Hematochezia, No Frequency, No Urgency, No Burning, No Hematuria, No Rashes, No Diaphoresis. Appetite is Normal Physical Exam Gen-AAO x 3, NAD, Afebrile, Less Anxious Head-NCAT, EOMI, PERRLA, Anicteric Sclera, No Posterior Pharyngeal Erythema Neck-Supple, No JVD, No Thyromegaly, No Masses, No LAD, No Bruits Lungs-Clear to Auscultation Bilaterally, No Rales, No Rhonchi, No Wheezing, No Crepitus Chest-No S4, +S1, +S2, No S3, No Murmurs, No Rubs, No Gallops, No Ectopy Abdomen-Soft, Bowel Sounds Present, Non Tender, Non Distended, No Hepatomegaly, No Splenomegaly, No Palpable Masses, No Rebound, No Rigidity, No Guarding Musculoskeletal-Full Range of Motion Bilaterally, No CVAT, B/L LE Atrophy Extremities-No Cyanosis, No Clubbing, No Edema Nuero-Cranial Nerves II-XII grossly intact, Motor WNL, DTRs WNL, Strength WNL, Non Focal Psych-Pleasant Results & Data Vital Signs (Past 12 Hours) Vital Signs Temp Pulse Pulse Resp BP BP Pulse Ox 01/10/19 07:43 36.2 C L 60 16 154/74 H 100 01/09/19 23:20 36.2 C L 71 18 119/65 98
[2019-01-10] MEDS: MICONAZOLE NITRATE POWDER 43 GM EXT SCH ×2 (08:58→20:36)
[2019-01-10] MEDS ORDERED: SODIUM CHLORIDE 0.9% 1000ML 1,000 ML IV ONE (12:12)
[2019-01-10] MEDS ORDERED: ONDANSETRON INJ 2 MG/ML 2 ML VIAL IV PRN (12:14)
[2019-01-10] MEDS ORDERED: ONDANSETRON INJ 2 MG/ML 2 ML VIAL ONE (12:21)
[2019-01-10] MEDS: MENTHOL-ZINC OXIDE 360 APPLN/120 GM TUBE EXT SCH (18:52)
[2019-01-11] MEDS: CLINDAMYCIN 600 MG in DEXTROSE 5% 50 ML IV SCH (05:40)
[2019-01-11 05:51] LABS: Hematocrit (blood only) 27.8 % (42-52); Hemoglobin 9.5 g/dL (14.0-18.0); Mean Corpuscular Hgb Conc 34.2 g/dL (32-36); Mean Platelet Volume 9.5 fL (7.4-10.4); Platelet Count 372 K/uL (130-400); RDW Coefficient of Variation 15.1 % (11.5-14.5); RDW Standard Deviation 55.5 fL (36.4-46.3); White Blood Count 5.84 K/uL (4.8-10.8)
[2019-01-11 06:27] LABS: BUN Creatinine Ratio 8.8 (10-20); Creatinine Clr Calc Pharmacy 80.2 ml/min; Est GFR (African American) 108.3; Est GFR (Non-African American) 93.5; Potassium 4.4 mmol/L (3.5-5.1)
[2019-01-11] MEDS: ALPRAZolam 0.25 MG TABLET PO SCH (07:56)
[2019-01-11] MEDS: CITALOPRAM 20 MG TAB PO SCH (07:57)
[2019-01-11] MEDS: ASPIRIN 81 MG ECTAB PO SCH (07:58)
[2019-01-11] MEDS: FOLIC ACID 1 MG TAB PO SCH (07:58)
[2019-01-11] MEDS: MICONAZOLE NITRATE POWDER 43 GM EXT SCH (07:58)
[2019-01-11] MEDS: levETIRAcetam 500 MG TAB PO SCH (07:59)
[2019-01-11] MEDS: POTASSIUM CHLORIDE 20 MEQ TABCR PO SCH (08:00)
[2019-01-11] MEDS: THIAMINE HCL 100 MG TAB PO SCH (08:01)
[2019-01-11] MEDS: MULTIVITAMIN TAB PO SCH (08:01)
[2019-01-11] MEDS: MAGNESIUM OXIDE 400 MG TAB PO SCH (08:01)
--- NOTE | 2019-01-11 08:09 | Hospitalist Progress Note ---
Date of Service January 11, 2019 Assessment & Plan (1) Weakness: S/P fall Possible due to severe electrolytes imbalance from alcohol intake Continue PT/OT- Recommended rehab Fall precaution Pt agreed to go for inpatient rehab, waiting for placement Rehab when bed avail, likely 6/4 BP meds adjusted, DC today (2) Multifocal atrial tachycardia: Treat underlying cause (3) Torsades de pointes: Multifactorial Mostly from alcohol abuse Underwent synchronized electrical cardioversion on 12/30, then went back to afib Converted back to NSR 01/03 Heart rate control Cardiology on board IV amiodarone drip done Continue IV heparin drip for now 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 Continue metoprolol 12.5 mg TID by cardio Continue monitor in tele (3) Electrolyte abnormality: Monitor electrolytes (4) TEQUILA (acute kidney injury): Resolved (5) Alcohol abuse: AWSS ETOH protocol ordered with gabapentin taper PRN lorazepam Folic Acid and Thiamine added to medication regimen No significant withdrawal symptoms Consider inpatient alcohol rehab on discharge Phenobarbital discontinued (6) Seizure disorder: He reports episode of seizure for the last few days before admission Prolactin level normal Neurology saw him EEG and monitor-did not show any focus for seizure but he did show generalized slowing of activity likely secondary to alcoholic encephalopathy Continue Keppra 1g BID (7) Ribs, multiple fractures: Secondary to fall Fracture of right lateral eighth, ninth, and 10th rib Conservative management Incentive spirometry Analgesia (8) Thoracic compression fracture: Recommend conservative management with analgesics (9) HTN (hypertension): Blood pressure currently in the low side amlodipine on hold (10) Alcoholic liver disease: CT Abd/pelvis showed reveals Hepatic Steatosis Liver ultrasound showed fatty infiltration of liver status post cholecystectomy LFTs remain stable for alcoholism Monitor Liver enzymes (11) AAA (abdominal aortic aneurysm) without rupture: 3.7 x 3.4 cm infrarenal abdominal aortic aneurysm Recommend routine follow-up per PCP (12) Left elbow Olecranon Bursitis Continue abx with clinda Continue daily dressing changes Ortho on board (13) Pulmonary nodules: Per Fleischner criteria for multiple nodules less than [address] scan in 12 months. (14)Diarrhea Diarrhea improved (15) DVT prophylaxis: On Heparin drip Disposition: Will need inpatient rehab, waiting for placement likely to [facility] today, episode of emesis today Add Xanax 0.25 TID, Increased Citalopram Stop anticoagulation, will use ASA full dose on DC Labs reviewed ROS-No Headache, No Visual Changes, No Nausea, No Vomiting, No Fever, No Chills, No Neck Pain or Stiffness, No Chest Pain, No Palpitations, No SOB, No MCGUIRE, No Cough, No Sputum, No Wheezing, No Abdominal Pain, No Diarrhea, No Hematemesis, No Hemoptysis, No Unexpected Weight Loss, No Flank pain, No Melena, No Hematochezia, No Frequency, No Urgency, No Burning, No Hematuria, No Rashes, No Diaphoresis. Appetite is Normal Physical Exam Gen-AAO x 3, NAD, Afebrile, Less Anxious Head-NCAT, EOMI, PERRLA, Anicteric Sclera, No Posterior Pharyngeal Erythema Neck-Supple, No JVD, No Thyromegaly, No Masses, No LAD, No Bruits Lungs-Clear to Auscultation Bilaterally, No Rales, No Rhonchi, No Wheezing, No Crepitus Chest-No S4, +S1, +S2, No S3, No Murmurs, No Rubs, No Gallops, No Ectopy Abdomen-Soft, Bowel Sounds Present, Non Tender, Non Distended, No Hepatomegaly, No Splenomegaly, No Palpable Masses, No Rebound, No Rigidity, No Guarding Musculoskeletal-Full Range of Motion Bilaterally, No CVAT, B/L LE Atrophy Extremities-No Cyanosis, No Clubbing, No Edema Nuero-Cranial Nerves II-XII grossly intact, Motor WNL, DTRs WNL, Strength WNL, Non Focal Psych-Pleasant Results & Data Vital Signs (Past 12 Hours) Vital Signs Temp Pulse Resp BP BP Pulse Ox 01/11/19 07:21 36.5 C 68 16 137/76 100 01/11/19 00:05 36.3 C L 85 18 93/49 L 100 01/10/19 23:58 102/58 L Labs checked
[2019-01-11] MEDS ORDERED: METOPROLOL TARTRATE 25 MG TAB PO SCH (09:00)
--- NOTE | 2019-01-11 11:50 | Discharge Summary ---
Date of Service January 11, 2019 Admission HPI Per Admitting Provider This is a 63-year-old male who has a significant PMH of seizure disorder, alcohol abuse, HTN, HLD, carotid artery stenosis, diverticulosis who presented to [facility] secondary to seizure x2 and weakness x1 week. Patient states he was walking into his living room whenever he fell and had a, "seizure." He states he never lost consciousness, no loss of bowel or bladder, no convulsions. He states he just fell. He has been having frequent falls. His last, "seizure," was 3 days ago and again was described as him falling. Patient is a known alcoholic which he states he drinks 3-4 vodkas a day. Last alcoholic beverage was 10 PM last evening. He currently denies any pain except chronic back pain with associated numbness and tingling to his bilateral lower extremities, but this is not new. He states he has been getting increasingly weak over the past week. Has had very poor p.o. intake, chronic dyspnea on exertion but not worse. He denies any other recent illness, URI symptoms, fever, chills, sweats, lightheadedness, dizziness, syncope, chest pain, shortness breath at rest, nausea, vomiting, abdominal pain, denies change in bowel or urinary habits. He has not had routine follow up with PCP in few years. During my examination he did elicit significant suprapubic tenderness. He states he has been urinating without difficulty and denies increased frequency urgency with urination, hematuria or difficulty starting stream. During patient's evaluation in ED he was noted to have significant electrolyte abnormalities including magnesium of 0.6, sodium 127, potassium 3.3. Renal function elevated at BUN 11 creatinine 1.42. His H&H was 10.3 and 27.7, W BC 8.23, platelet 261. His anion gap was 13. Urine tox negative, alcohol level less than 3.0 his TSH was within normal limits. LFTs elevated specifically T bili 3.8, AST 166. Keppra level pending. Initial chest x-ray revealed right lateral ninth and 10th rib fractures. Head CT negative for acute abnormality but did reveal atrophy and chronic microvascular changes. CT of neck was negative Given rib fractures as well as abnormal LFTs patient was sent for further scans including CT scan of chest abdomen and pelvis. This revealed significantly distended bladder recommending Baird catheterization. A Baird was placed. Further revealed a T12 endplate compression fracture, 2 incidental groundglass pulmonary nodules, infrarenal abdominal aortic aneurysm 3.7 x 3.4 cm. Unfortunately during my evaluation it was brought to my attention that on telemetry patient was experiencing short runs of nonsustained V. tach. This then progressed to a nonsustained torsades rhythm. Case was discussed with the ED provider Dr. Mills as well as clinical psychologist Dr. Oakes. Aggressive magnesium repletion recommended giving notable arrhythmia. Admission Exam Per Admitting Provider Gen: Tall, Thin, Male, unkempt, lying in bed, NAD with occasional myoclonic jerks, answers questions appropriately Head: Normocephalic, Atraumatic Eyes: Sclera normal, no conjunctival injection, PERRLA, EOMI ENT: Gross hearing intact, normal pharynx, mucous membranes dry, poor oral hygiene, teeth absent Neck: supple, no adenopathy, No JVD, no bruit, Resp: Clear to auscultation b/l, no wheeze, rales, rhonchi. Normal insp/exp effort, no accessory muscle use CV: Regular rate, regular rhythm, no murmur, rub, gallop, or ectopy Abd: +BS x 4, soft, nontender, nondistended Musculoskeletal: moves extremities active rom x 4, strength intact, good cushion gum applicator strength Extremities: No edema bilaterally Skin: warm, moist, no rash, bilateral knee ecchymosis negative turgor, cap refill < 2sec Neuro: Alert and oriented x 3, speech slow, good mood/affect, cran nerve 2-12 intact grossly : deferred Principal Diagnosis Anemia Seizure PAF Alcohol Liver Disease Olecranon Bursitis AAA Hyponatremia MAT HTN HLD Rib fractures NSVT Discharge Exam ROS-No Headache, No Visual Changes, No Nausea, No Vomiting, No Fever, No Chills, No Neck Pain or Stiffness, No Chest Pain, No Palpitations, No SOB, No MCGUIRE, No Cough, No Sputum, No Wheezing, No Abdominal Pain, No Diarrhea, No Hematemesis, No Hemoptysis, No Unexpected Weight Loss, No Flank pain, No Melena, No Hematochezia, No Frequency, No Urgency, No Burning, No Hematuria, No Rashes, No Diaphoresis. Appetite is Normal Physical Exam Gen-AAO x 3, NAD, Afebrile, Less Anxious Head-NCAT, EOMI, PERRLA, Anicteric Sclera, No Posterior Pharyngeal Erythema Neck-Supple, No JVD, No Thyromegaly, No Masses, No LAD, No Bruits Lungs-Clear to Auscultation Bilaterally, No Rales, No Rhonchi, No Wheezing, No Crepitus Chest-No S4, +S1, +S2, No S3, No Murmurs, No Rubs, No Gallops, No Ectopy Abdomen-Soft, Bowel Sounds Present, Non Tender, Non Distended, No Hepatomegaly, No Splenomegaly, No Palpable Masses, No Rebound, No Rigidity, No Guarding Musculoskeletal-Full Range of Motion Bilaterally, No CVAT, B/L LE Atrophy Extremities-No Cyanosis, No Clubbing, No Edema Nuero-Cranial Nerves II-XII grossly intact, Motor WNL, DTRs WNL, Strength WNL, Non Focal Psych-Pleasant Discharge Data Allergies Allergy/AdvReac Type Severity Reaction Status Date / Time No Known Allergies Allergy Verified 12/26/18 16:24 Consultations 12/26/18 17:35 ED Decision to Admit Stat 12/26/18 19:48 Consult Case Management - Discharge Planning Routine Consult Neurology Routine 12/26/18 20:11 Consult City Maintenance Manager Stat 12/26/18 20:13 Consult Case Management - Discharge Planning Routine 12/26/18 21:11 Consult Case Management - Discharge Planning Routine 12/26/18 21:39 Consult Cardiology Routine 12/28/18 13:09 Consult Orthopedic Surgery Routine 12/29/18 15:51 Consult Anesthesiology Routine 01/08/19 10:01 Consult Case Management - Discharge Planning Routine Ordered Studies 12/26/18 16:18 CT cervical spine wo con Stat CT head/brain wo con Stat 12/26/18 17:24 CT abd pelvis IV con only Stat CT chest w con Stat CT lumbar spine wo con Stat CT thoracic spine wo con Stat 12/26/18 21:41 US abdomen limited Routine 12/29/18 09:00 US venous doppler LE BI Urgent 12/29/18 17:50 CT angio chest PE protocol Stat Current Diagnoses Anemia, unspecified (12/26/18) Hyperlipidemia, unspecified (12/26/18) Hypomagnesemia (12/26/18) Hypo-osmolality and hyponatremia (12/26/18) Other disorders of electrolyte and fluid balance, not elsewhere classified (12/26/18) Alcohol abuse, uncomplicated (12/26/18) Epilepsy, unspecified, not intractable, without status epilepticus (12/26/18) Essential (primary) hypertension (12/26/18) Supraventricular tachycardia (12/26/18) Ventricular tachycardia (12/26/18) Paroxysmal atrial fibrillation (12/26/18) Occlusion and stenosis of unspecified carotid artery (12/26/18) Abdominal aortic aneurysm, without rupture (12/26/18) Alcoholic liver disease, unspecified (12/26/18) Olecranon bursitis, left elbow (12/26/18) Acute kidney failure, unspecified (12/26/18) Weakness (12/26/18) Other nonspecific abnormal finding of lung field (12/26/18) Abnormal electrocardiogram [ECG] [EKG] (12/26/18) Wedge compression fracture of unspecified thoracic vertebra, initial encounter for closed fracture (12/26/18) Multiple fractures of ribs, unspecified side, initial encounter for closed fracture (12/26/18) Other specified health status (12/26/18) Allergies No Known Allergies Allergy (Verified 12/26/18 16:24) Height/Weight/Isolation Height 5 ft 10 in Weight 62.3 kg Chemistry 01/11/19 05:22 Sodium 129 L Potassium 4.4 Chloride 99 Carbon Dioxide 22 Anion Gap 8.0 BUN 7 Creatinine 0.82 Glucose 81 Hospital Course (1) Weakness: S/P fall Possible due to severe electrolytes imbalance from alcohol intake Continue PT/OT- Recommended rehab Fall precaution Pt agreed to go for inpatient rehab, waiting for placement Rehab when bed avail, likely 6/ BP meds adjusted, DC today (2) Multifocal atrial tachycardia: Treat underlying cause (3) Torsades de pointes: Multifactorial Mostly from alcohol abuse Underwent synchronized electrical cardioversion on 12/30, then went back to afib Converted back to NSR 01/03 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 Continue metoprolol 12.5 mg BID DC to ARF (3) Electrolyte abnormality: Monitor electrolytes (4) TEQUILA (acute kidney injury): Resolved (5) Alcohol abuse: AWSS ETOH protocol ordered with gabapentin taper PRN lorazepam Folic Acid and Thiamine added to medication regimen No significant withdrawal symptoms Consider inpatient alcohol rehab on discharge Phenobarbital discontinued (6) Seizure disorder: He reports episode of seizure for the last few days before admission Prolactin level normal Neurology saw him EEG and monitor-did not show any focus for seizure but he did show generalized slowing of activity likely secondary to alcoholic encephalopathy Continue Keppra 1g BID (7) Ribs, multiple fractures: Secondary to fall Fracture of right lateral eighth, ninth, and 10th rib Conservative management Incentive spirometry Analgesia (8) Thoracic compression fracture: Recommend conservative management with analgesics (9) HTN (hypertension): Blood pressure currently in the low side amlodipine on hold (10) Alcoholic liver disease: CT Abd/pelvis showed reveals Hepatic Steatosis Liver ultrasound showed fatty infiltration of liver status post cholecystectomy LFTs remain stable for alcoholism Monitor Liver enzymes (11) AAA (abdominal aortic aneurysm) without rupture: 3.7 x 3.4 cm infrarenal abdominal aortic aneurysm Recommend routine follow-up per PCP (12) Left elbow Olecranon Bursitis Continue abx with clinda Continue daily dressing changes Ortho on board (13) Pulmonary nodules: Per Fleischner criteria for multiple nodules less than [address] scan in 12 months. (14)Diarrhea Diarrhea improved (15) DVT prophylaxis: On Heparin drip Disposition: Will need inpatient rehab, waiting for placement likely to [facility] today, episode of emesis today Add Xanax 0.25 TID, Increased Citalopram Stop anticoagulation, will use ASA full dose on DC Labs reviewed ROS-No Headache, No Visual Changes, No Nausea, No Vomiting, No Fever, No Chills, No Neck Pain or Stiffness, No Chest Pain, No Palpitations, No SOB, No MCGUIRE, No Cough, No Sputum, No Wheezing, No Abdominal Pain, No Diarrhea, No Hematemesis, No Hemoptysis, No Unexpected Weight Loss, No Flank pain, No Melena, No Hematochezia, No Frequency, No Urgency, No Burning, No Hematuria, No Rashes, No Diaphoresis. Appetite is Normal Physical Exam Gen-AAO x 3, NAD, Afebrile, Less Anxious Head-NCAT, EOMI, PERRLA, Anicteric Sclera, No Posterior Pharyngeal Erythema Neck-Supple, No JVD, No Thyromegaly, No Masses, No LAD, No Bruits Lungs-Clear to Auscultation Bilaterally, No Rales, No Rhonchi, No Wheezing, No Crepitus Chest-No S4, +S1, +S2, No S3, No Murmurs, No Rubs, No Gallops, No Ectopy Abdomen-Soft, Bowel Sounds Present, Non Tender, Non Distended, No Hepatomegaly, No Splenomegaly, No Palpable Masses, No Rebound, No Rigidity, No Guarding Musculoskeletal-Full Range of Motion Bilaterally, No CVAT, B/L LE Atrophy Extremities-No Cyanosis, No Clubbing, No Edema Nuero-Cranial Nerves II-XII grossly intact, Motor WNL, DTRs WNL, Strength WNL, Non Focal Psych-Pleasant Total Time Total Time Spent Total Time Spent (In Minutes): 60 mins Total Time Includes: Examination of the Patient, Discharge Planning, Medication Reconciliation and Communication With Other Providers Discharge Plan Discharge Items Patient Disposition: Transfer Inpatient Rehab Fac Reason For Visit: SEIZURE,WEAKNESS Discharge Diagnosis: Anemia Seizure PAF Alcohol Liver Disease Olecranon Bursitis AAA Hyponatremia MAT HTN HLD Rib fractures NSVT Condition: Fair Discharge Goals: Decrease discomfort and Improve function Activity: As commented below Activity Comment: Fall risk Lifting: None Bathing: No limitations Sexual Activity: When tolerated Exercise/Sports: None Driving/Machine Use Comment: None Weightbearing: Left weightbearing and Right weightbearing Weightbearing Comment: OOB c Assist Non-emergency contact: Primary Care Provider, Business Applications Manager and Bus Repair Supervisor Call non-emergency contact if: you have any medication questions and your symptoms worsen Follow-up/Referrals: Heath Wang PA-C [Hospitalist] - Angela Luna MD [Primary Care Provider] - Gonzalo Apodaca MD [Physician] - (2-3 weeks) Chano Vegas DO [Physician] - (2-3 weeks) Diet: Heart Healthy Fluids: 1200ml (5 cups) Addtl Provider Instructions: Routine follow up Prescriptions: New ipratropium-albuterol 0.5 mg-3 mg(2.5 mg base)/3 mL Solution For Nebulization 3 ml NEB Q4R PRN (Reason: shortness of breath or wheezing) Qty: 500 RF: 0 amlodipine [Norvasc] 5 mg Tablet 5 mg PO DAILY Qty: 30 RF: 0 metoprolol tartrate 25 mg Tablet 12.5 mg PO BID Qty: 15 RF: 0 aspirin, buffered 325 mg tablet 325 mg PO DAILY Qty: 90 RF: 0 Discontinued aspirin 81 mg Tablet,Delayed Release (Dr/Ec) 81 mg PO DAILY RF: 0 amlodipine 10 mg Tablet 10 mg PO DAILY RF: 0 No Action levetiracetam 500 mg Tablet 1,000 mg PO BID RF: 0 ranitidine HCl 300 mg Tablet 300 mg PO HS RF: 0 citalopram 20 mg Tablet 20 mg PO DAILY RF: 0 Stand-Alone Forms: [facility] Discharge Orders: Discharge Order (Routine); Ordered 01/11/19 Ordered By: Diogo Zapien Skilled Items Patient informed of condition?: Yes DNR: No Discharge Level of Care: Acute rehab Communicable Disease: No Discharge Prognosis: Improving Admission Data Admit Date/Time: 12/26/18 18:03 Attending Provider: Diogo Zapien Admit Provider: Jossie Martins Primary Care Provider: Angela Luna Other Providers: Lula De Jesus V ; Gonzalo Apodaca ; Heath Wang ; Chano Vegas ; Grant Guerrero ; Jossie Martins Service: Medical
[2019-01-12] MEDS ORDERED: AMLODIPINE BESYLATE 5 MG TAB PO SCH (09:00)
== END 2019-01-11 15:15 | DRG 641 ==
LOC: ED 15:40 → SUATTDRO 18:03 → 1E 18:03 → 2S 01-01 06:36 → 4E 01-08 17:19
DX: E78.5 Hyperlipidemia, unspecified; K70.9 Alcoholic liver disease, unspecified; I10 Essential (primary) hypertension; X58.XXXA Exposure to other specified factors, initial encounter; R53.1 Weakness; N17.9 Acute kidney failure, unspecified; I45.81 Long QT syndrome; I48.91 Unspecified atrial fibrillation; I71.4 Abdominal aortic aneurysm, without rupture; Z87.891 Personal history of nicotine dependence; E83.51 Hypocalcemia; I47.1 Supraventricular tachycardia; E83.39 Other disorders of phosphorus metabolism; S22.009A Unspecified fracture of unspecified thoracic vertebra, initial encounter for closed fracture; E87.8 Other disorders of electrolyte and fluid balance, not elsewhere classified; E87.1 Hypo-osmolality and hyponatremia; S22.41XA Multiple fractures of ribs, right side, initial encounter for closed fracture; F10.10 Alcohol abuse, uncomplicated; D64.9 Anemia, unspecified; I47.2 Ventricular tachycardia; R19.7 Diarrhea, unspecified; R33.9 Retention of urine, unspecified; R91.1 Solitary pulmonary nodule; I65.29 Occlusion and stenosis of unspecified carotid artery; Z79.82 Long term (current) use of aspirin